=== PATIENT | female | born 1995 | race Caucasian/White ===

== ENCOUNTER 2017-12-30 18:35 | Emergency (ER) | payer SELFPAY ==
--- OUTSIDE RECORDS SUMMARY | 2017-12-30 18:38 | XMS REPORT | Continuity of Care Document ---
:1995 Author Organization Interface Problems Problem Status Onset Classification Date Comments Source Date Reported AUTO/PED Active 07/19/[address] PTX Active 07/19/[address] History of Resolved 06/24/19 Problem 07/26/2016 [facility] arthroscopic 13 Medical knee surgery Center OTHER Active [facility] PNEUMOTHORAX [facility] Medications Medication Details Route Status Patient Ordering Order Source Instructions Provider Date Phenergan 25 mg 25 mg=1 tab, PO, Active [facility] oral tablet Q6H, PRN Nausea, 2017 Medical X 4 day, # 15 Center tab, 0 Refill(s) Acetaminophen 300 2 tab, PO, Q6H, Active 07/23[facility] MG / Codeine PRN for pain, X 2017 Medical Phosphate 30 MG 7 day, # 56 tab, Center Oral Tablet 0 Refill(s) Docusate Sodium 100 mg=1 cap, Active [place] 100 MG Oral PO, Q12H, # 30 2017 Medical Capsule cap, 0 Refill(s) Center acetaminophen 500 1,000 mg=2 tab, Inactive 07/23[facility] [place] mg oral tablet PO, Q6H, # 90 2017 Medical tab, 0 Refill(s) Center gabapentin 300 MG 300 mg=1 cap, Active 07/23[facility] Oral Capsule PO, TID, # 90 2017 Medical cap, 1 Refill(s) Center tramadol 100 mg=2 tab, Active [place] hydrochloride 50 PO, Q6H, # 60 2017 Medical MG Oral Tablet tab, 0 Refill(s) Center camphor-menthol 1 appl, Route: No Longer [facility] topical TOP, BID, Drug Active 2016 Medical form: BALM, PRN Center Dry Lips, Start date: 07/22/16 23:01:00 [employer], Duration: 30 day, Stop date: 08/21/16 23:00:00 CSTNotes: Same as: Blistex Allantoin 0.01 1 appl, Route: Inactive 07/23/ [facility] [place] MG/MG / Camphor TOP, BID, PRN 2017 Medical 0.005 MG/MG / Dry Lips, Start Center phenol 0.005 date: 07/22/16 MG/MG Topical 22:58:00 [employer], Ointment Duration: 30 [Blistex] day, Stop date: 08/21/16 22:57:00 [employer] Abreva 1 appl, Route: Inactive [facility] TOP, Dosing 2017 Medical Weight 68.182, Center kg, 5X Day, Start date: 07/22/16 22:00:00 [employer], Duration: 30 day, Stop date: 08/21/16 18:00:00 [employer] Oxycodone 5 mg, 1 tab, No Longer [place] Hydrochloride 5 Route: PO, Drug Active 2017 Medical MG Oral Tablet form: TAB, Q4H, Center Dosing Weight 68.182, kg, PRN Pain Score 4-6, Start date: 07/22/16 14:43:00 [employer], Duration: 30 day, Stop date: 08/21/16 14:42:00 CSTNotes: (Same as: Roxicodone) Dilaudid 0.5 mg, 0.25 mL, Inactive [facility] Route: IVP, Drug 2016 Medical form: INJ, ONCE, Center Dosing Weight 68.182, kg, Priority: STAT, Start date: 07/22/16 11:52:00 [employer], Stop date: 07/22/16 11:52:00 CSTNotes: Same as Dilaudid Bisacodyl 10 mg, 1 supp, Inactive [facility] Route: VA, Drug 2016 Medical form: SUPP, Center ONCE, Dosing Weight 68.182, kg, Start date: 07/22/16 10:45:00 [employer], Stop date: 07/22/16 10:45:00 CSTNotes: (Same As: Dulcolax, Bisco-Lax) Hydrocodone 1 tab, Route: Inactive Cat Bitartrate 7.5 MG PO, Drug Form: 2017 Medical / Ibuprofen 200 TAB, Dosing Center MG Oral Tablet Weight 68.182, kg, Q4H, PRN Pain Score 4-6, Start date: 07/22/16 9:37:00 [employer], Duration: 30 day, Stop date: 08/21/16 9:36:00 CSTNotes: (Same as: Vicoprofen) Lovenox 30 mg, 0.3 mL, No Longer [place] Route: SUB-Q, Active 2016 Medical Drug form: INJ, Center [id number], Dosing Weight 68.182, kg, Start date: 07/21/16 23:00:00 [employer], Duration: 30 day, Stop date: 08/20/16 11:00:00 CSTNotes: (Same as: Lovenox) bacitracin zinc 1 appl, Route: No Longer Cat 0.5 UNT/MG TOP, BID, Drug Active 2016 Medical Topical Ointment form: OINT, Center Start date: 07/21/16 17:00:00 [employer], Duration: 30 day, Stop date: 08/20/16 9:00:00 [employer] Lovenox 30 mg, 0.3 mL, Inactive [place] Route: SUB-Q, 2016 Medical Drug form: INJ, Center [id number], Dosing Weight 68.182, kg, Start date: 07/21/16 14:00:00 [employer], Duration: 30 day, Stop date: 08/20/16 2:00:00 CSTNotes: (Same as: Lovenox) Acetaminophen 1,000 mg, 2 tab, No Longer [place] Route: PO, Drug Active 2016 Medical form: TAB, Q6H, Center Dosing Weight 68.182, kg, Start date: 07/21/16 12:00:00 [employer], Duration: 30 day, Stop date: 08/20/16 6:00:00 CSTNotes: Max acetaminophen 4000 mg/day (4 gm/day). (Same as: Tylenol Extra Strength) influenza virus 0.5 mL, Route: Inactive Cat vaccine, IM, Drug Form: 2017 Medical inactivated SUSP, Daily, Center Start date: 07/21/16 9:00:00 [employer], Duration: 1 doses or times, Stop date: 07/21/16 9:00:00 CSTNotes: (Same as: Fluzone Quadrivalent, Fluarix Quadrivalent) For 3 years of age and older (0.5 mL IM) Shake well before use Enoxaparin 30 mg, 0.3 mL, No Longer Cat Route: SUB-Q, Active 2016 Medical Drug form: INJ, Center [id number], Dosing Weight 68.182, kg, Start date: 07/20/16 23:00:00 [employer], Duration: 30 day, Stop date: 08/19/16 11:00:00 CSTNotes: (Same as: Lovenox) remove patch 1 patch, Route: No Longer [place] TOP, Bedtime, Active 2016 Medical Drug form: Center ERFILM, Start date: 07/20/16 21:00:00 [employer], Duration: 30 day, Stop date: 08/18/16 21:00:00 CSTNotes: Remove patch 12 hours after application each day. {21 (Ethinyl 1 tab, PO, Active [place] Estradiol 0.02 MG Daily, # 28 tab, 2017 Medical / Levonorgestrel 0 Refill(s) Center 0.1 MG Oral Tablet) / 7 (Inert Ingredients 1 MG Oral Tablet) } Pack [Sronyx Day] sennosides, ASSISTED 17.2 mg, 2 tab, No Longer [place] Route: PO, Drug Active 2016 Medical Form: TAB, Center Dosing Weight 68.182, kg, Daily, Start date: 07/20/16 13:00:00 [employer], Duration: 30 day, Stop date: 08/19/16 9:00:00 CSTNotes: (Same as: Senokot) Ketorolac 30 mg, 1 mL, No Longer [place] Route: IVP, Drug Active 2016 Medical form: INJ, Q6H, Center Dosing Weight 68.182, kg, Start date: 07/20/16 12:00:00 [employer], Duration: 1 day, Stop date: 07/21/16 6:00:00 CSTNotes: (Same as:Toradol) IV bolus must be given >15 seconds. Give IM administration slowly and deeply into the muscle. Not for use > 4 days MEDICATION WASTE Product Size: 30 mg Product Wasted: ___ mg Tylenol 1,000 mg, 100 No Longer Cat mL, Route: IV, Active 2016 Medical Drug form: INJ, Center Q6H, Dosing Weight 68.182, kg, Start date: 07/20/16 12:00:00 [employer], Duration: 1 day, Stop date: 07/21/16 6:00:00 CSTNotes: Infuse over 15 minutes Do not exceed 4gm/day of acetaminophen MEDICATION WASTE Product Size: 1000 mg Product Wasted: ___ mg Oxycodone 5 mg, 1 tab, No Longer [place] Hydrochloride 5 Route: PO, Drug Active 2016 Medical MG Oral Tablet form: TAB, Q4H, Center Dosing Weight 68.182, kg, PRN Pain Score 6-10, Start date: 07/20/16 10:12:00 [employer], Duration: 30 day, Stop date: 08/19/16 10:11:00 CSTNotes: (Same as: Roxicodone) POLYETHYLENE 17 gm, 1 pkt, No Longer Cat GLYCOL 3350 Route: PO, Drug Active 2016 Medical form: PWDR, Center Daily, Dosing Weight 68.182, kg, Start date: 07/20/16 9:00:00 [employer], Duration: 30 day, Stop date: 08/18/16 9:00:00 CSTNotes: Dissolve in 8 oz of water or juice. (Same as: Miralax) Docusate 100 mg, 1 cap, No Longer [place] Route: PO, Drug Active 2016 Medical form: CAP, Q12H, Center Dosing Weight 68.182, kg, Start date: 07/20/16 9:00:00 [employer], Duration: 30 day, Stop date: 08/18/16 21:00:00 CSTNotes: (Same as: Colace) (Do Not Crush) Lidocaine 1 patch, Route: No Longer [place] Hydrochloride TOP, Q24H, Drug Active 2016 Medical 0.05 MG/MG form: FILM, Center Transdermal Patch Start date: [Lidoderm] 07/20/16 9:00:00 [employer], Duration: 30 day, Stop date: 08/18/16 9:00:00 CSTNotes: Apply only once for up to 12 hours in a 24-hour period (12 hours on and 12 hours off). (Same as: Lidoderm) "Remove old patch before application of new patch" pregabalin 100 mg, 1 cap, No Longer Cat Route: PO, Drug Active 2016 Medical form: CAP, Q8H, Center Dosing Weight 68.182, kg, Priority: NOW, Start date: 07/20/16 7:32:00 [employer], Duration: 48 hr, Stop date: 07/22/16 0:00:00 CSTNotes: (Same as: Lyrica) Tramadol 100 mg, 2 tab, No Longer [place] Route: PO, Drug Active 2016 Medical form: TAB, Q6H, Center Dosing Weight 68.182, kg, Priority: NOW, Start date: 07/20/16 7:32:00 [employer], Duration: 30 day, Stop date: 08/19/16 6:00:00 CSTNotes: Not to exceed 400mg/day. (Same As: Ultram) celecoxib 200 mg, 1 cap, No Longer [place] Route: PO, Drug Active 2016 Medical form: CAP, Q12H, Center Dosing Weight 68.182, kg, Priority: NOW, Start date: 07/20/16 7:32:00 [employer], Duration: 48 hr, Stop date: 07/21/16 21:00:00 CSTNotes: NSAID. Please check indication. Not for seizure. (Same As: CeleBREX) Methocarbamol 1,000 mg, 2 tab, No Longer [place] Route: PO, Drug Active 2016 Medical form: TAB, Q8H, Center Dosing Weight 68.182, kg, PRN Muscle Spasms, Start date: 07/20/16 7:32:00 [employer], Duration: 30 day, Stop date: 08/19/16 7:31:00 CSTNotes: (Same as:Robaxin) Ondansetron 4 mg, 2 mL, Inactive [place] Route: IVP, Drug 2016 Medical form: INJ, Q24H, Center Dosing Weight 68.182, kg, PRN Nausea & Vomiting, Start date: 07/20/16 7:30:00 [employer], Duration: 30 day, Stop date: 08/19/16 7:29:00 CSTNotes: (Same as: Zofran) MEDICATION WASTE Product Size: 4 mg Product Wasted: ___ mg Diphenhydramine 25 mg, 1 cap, No Longer [place] Route: PO, Drug Active 2016 Medical form: CAP, Q6H, Center Dosing Weight 68.182, kg, PRN Itching, Start date: 07/20/16 7:30:00 [employer], Duration: 30 day, Stop date: 08/19/16 7:29:00 CSTNotes: (Same as: Benadryl) Bisacodyl 10 mg, 2 tab, No Longer [place] Route: PO, Drug Active 2016 Medical form: ECTAB, Center Q24H, Dosing Weight 68.182, kg, PRN Constipation, Start date: 07/20/16 7:30:00 [employer], Duration: 30 day, Stop date: 08/19/16 7:29:00 CSTNotes: (Same As: Dulcolax, Correctol) (Do Not Crush) "Do Not Crush" Docusate 100 mg, 1 cap, No Longer [place] Route: PO, Drug Active 2016 Medical form: CAP, BID, Center Dosing Weight 68.182, kg, PRN Constipation, Start date: 07/20/16 7:30:00 [employer], Duration: 30 day, Stop date: 08/19/16 7:29:00 CSTNotes: (Same as: Colace) (Do Not Crush) Fentanyl 50 microgram, Inactive [place] Route: IVP, 2016 Medical ONCE, Dosing Center Weight 68.182, kg, Priority: STAT, Start date: 07/20/16 4:34:00 [employer], Stop date: 07/20/16 4:34:00 [employer] Dilaudid 1 mg, Route: IV, Inactive [place] ONCE, Dosing 2016 Medical Weight 68.182, Center kg, Start date: 07/20/16 2:34:00 [employer], Stop date: 07/20/16 2:34:00 [employer] Morphine 4 mg, 1 mL, Inactive [facility] Route: IVP, Drug 2016 Medical form: SOLN, Center ONCE, Dosing Weight 68.182, kg, Priority: STAT, Start date: 07/20/16 2:17:00 [employer], Stop date: 07/20/16 2:17:00 CSTNotes: (Same as:MORPhine Sulfate) Fentanyl 50 microgram, 1 Inactive [place] mL, Route: IVP, 2017 Medical Drug form: INJ, Center ONCE, Dosing Weight 68.182, kg, Priority: STAT, Start date: 07/20/16 1:08:00 [employer], Stop date: 07/20/16 1:08:00 CSTNotes: (Same as: Sublimaze) Preservative free. Morphine 4 mg, Route: Inactive [facility] IVP, ONCE, 2017 Medical Dosing Weight Center 68.182, kg, Priority: STAT, Start date: 07/20/16 0:22:00 [employer], Stop date: 07/20/16 0:22:00 [employer] Ondansetron 4 mg, Route: Inactive [facility] IVP, ONCE, 2017 Medical Dosing Weight Center 68.182, kg, Priority: STAT, Start date: 07/19/16 22:55:00 [employer], Stop date: 07/19/16 22:55:00 [employer] Fentanyl 50 microgram, Inactive [facility] Route: IVP, 2017 Medical ONCE, Dosing Center Weight 68.182, kg, Priority: STAT, Start date: 07/19/16 22:55:00 [employer], Stop date: 07/19/16 22:55:00 [employer] Saline Flush 0.9% 10 mL, Route: No Longer [facility] IVP, Drug Form: Active 2017 Medical INJ, Dosing Center Weight 68.182, kg, PRN, PRN Line Flush, Start date: 07/19/16 22:55:00 [employer], Duration: 30 day, Stop date: 08/18/16 22:54:00 CSTNotes: Same as: BD Posiflush Sterile Sodium Chloride 1,000 mL, 2,000 Inactive [facility] 0.154 MEQ/ML ml/hr, Route: 2017 Medical Injectable IV, ONCE, Center Solution Priority: STAT, Dosing Weight 68.182 kg, Start date: 07/19/16 22:55:00 [employer], Duration: 1 doses or times, Stop date: 07/19/16 22:55:00 [employer] Allergies, Adverse Reactions, Alerts Substance Category Reaction Severity Reaction Status Date Comments Source type Reported sulfa drugs Assertion Drug Active [facility] allergy Medical [place] Immunizations Immunization Date Given Site Status Last Comments Source Updated influenza virus 07/21/2016 Left completed [facility] vaccine, deltoid Medical inactivated Center Results Order Name Results Value Reference Date Interpretation Comments Source Range Chest 1view Chest 1view EXAM: XR CHEST 1 VIEW 07/23 [facility]2016 [facility] DATE: 07/23/2016 3:00 AM [employer] Read by: Rita Yepez MD Dictated Date/time: 07/23/16 08:59 Electronically Signed by: Rita Yepez MD 07/23/16 09:59 FINAL REPORT INDICATION: Tube placement/removal/reposition. FINDINGS: Comparison is made to yesterday evening. The cardiomediastinal silhouette is stable. There are patchy opacities in the left mid to lower lung which could be due to residual hemorrhage and atelectatic changes from the recent trauma. There is a superimposed laceration. Please refer to the chest CT from July 19. There is a tiny persistent left apical pneumothorax. It is also seen minimally laterally. No pleural effusions are identified. There are displaced fractures of the left 7th and 8th ribs. IMPRESSION: No significant change from yesterday evening. Chest 1view Chest 1view EXAM: XR CHEST 1 VIEW 07/[address] [facility] This report was dictated by a City Magistrate/Fellow. I have personally reviewed the images as Center well as the Resident's interpretation and agree with the findings. DATE: 07/22/2016 5:00 PM [employer] Read by: Israel Knapp MD Resident: Israel Knapp MD Dictated Date/time: 07/23/16 08:37 Electronically Signed by: Mina Chaidez MD 07/23/16 09:31 FINAL REPORT INDICATION: Tube placement/removal/reposition COMPARISON: Chest radiograph same day TECHNIQUE: AP chest FINDINGS: Lines, tubes and hardware: Interval removal of left thoracostomy tube. Lungs and pleura: Trace right apical pneumothorax. Interval improvement of patchy opacities in left mid to lower lung. Costophrenic sulci are sharp. Heart and mediastinum: The heart size is stable. The mediastinal contours are normal. Bones/soft tissues: Slight interval improvement in subcutaneous emphysema. Stable nondisplaced fractures of left 7th and 8th rib posteriorly. IMPRESSION: 1. Interval removal of left thoracostomy tube with trace right apical pneumothorax. 2. Interval improvement of patchy opacity left mid lower lung may represent hemorrhage or contusion. 3. Stable rib fractures. Chest 1view Chest 1view EXAM: XR CHEST 1 VIEW 07/22 [facility] DATE: 07/22/2016 11:52 AM [employer] Read by: Rita Yepez MD Dictated Date/time: 07/22/16 13:25 Electronically Signed by: Rita Yepez MD 07/22/16 13:26 FINAL REPORT INDICATION: Pleuritic pain. FINDINGS: Comparison is made to July 22 at 8:00 AM. The cardiomediastinal silhouette is stable. There is a tiny left pneumothorax with a left apical chest tube in place. There are patchy opacities in the left mid to lower lung which could be due to hemor rhage and atelectasis from the recent trauma. There is a superimposed laceration. Please refer the chest CT from July 19. There are displaced fractures of the left 7th and 8th ribs posteriorly. IMPRESSION: No significant change. HEMATOLOGY Lymphocytes 32.7 % 20.0 - 07/22 [place] 40.0 [facility] HEMATOLOGY Segs 56.4 % 45.0 - 07/22 [facility] 75.0 [facility] HEMATOLOGY Monocytes 8.5 % 2.0 - 12.0 07/22 2016 [facility] HEMATOLOGY Eosinophils 2.2 % 0.0 - 4.0 07/22 2016 [facility] HEMATOLOGY Basophils 0.2 % 0.0 - 1.0 07/[address] HEMATOLOGY Monocytes # 0.6 K/CMM 0.0 - 0.8 07/[address] HEMATOLOGY Segs-Bands # 3.9 K/CMM 1.5 - 8.1 07/22 2016 [facility] HEMATOLOGY Lymphocytes # 2.3 K/CMM 1.0 - 5.5 07/22 2016 [facility] HEMATOLOGY Eosinophils # 0.2 K/CMM 0.0 - 0.5 07/[address] HEMATOLOGY WBC 6.9 K/CMM 3.7 - 10.4 07/22 2016 [facility] HEMATOLOGY RBC 3.79 M/CMM 4.20 - 07/22 [place] 5.40 [facility] HEMATOLOGY Hct 34.9 % 36.0 - 07/22 [place] 48.0 [facility] HEMATOLOGY Hgb 11.8 g/dL 12.0 - 07/22 [place] 16.0 [facility] HEMATOLOGY MCV 92.1 fL 80.0 - 07/22 [place] 98.0 /2017 [facility] HEMATOLOGY MCHC 33.8 g/dL 32.0 - 07/22 36.0 2017 [facility] HEMATOLOGY Platelet 207 K/CMM 133 - 450 07/22 [facility] HEMATOLOGY MCH 31.2 pg 27.0 - 07/22 31.0 [facility] HEMATOLOGY RDW 13.9 % 11.5 - 07/22 14.5 [facility] HEMATOLOGY MPV 9.5 fL 7.4 - 10.4 07/22 [facility] Chest 1view Chest 1view EXAM: XR CHEST 1 VIEW 07/22 - [facility] DX - [facility] DATE: 07/22/2016 3:00 AM [employer] Read by: Rita Yepez MD Dictated Date/time: 07/22/16 10:55 Electronically Signed by: Rita Yepez MD 07/22/16 12:39 FINAL REPORT INDICATION: Trauma. FINDINGS: Comparison is made to July 21 at 1701 hours. The cardiomediastinal silhouette is stable. There is subcutaneous emphysema in the left neck. There is a tiny residual left pneumothorax with a left-sided chest tube in place. Patchy opacities in the left mid to lower lung could be due to hemorrhage and atelectasis from the recent trauma. There is a superimposed laceration. Please refer to the chest CT from July 19. There are displaced fractures of the left 7th and 8th ribs posteriorly. IMPRESSION: No significant change. HEMATOLOGY Hct 33.0 % 36.0 - 07/22 [place] 48.0 /2017 [facility] HEMATOLOGY Hgb 11.1 g/dL 12.0 - 07/22 [place] 16.0 2017 [facility] HEMATOLOGY Hgb 11.8 g/dL 12.0 - 07/21 [place] 16.0 2017 [facility] HEMATOLOGY Hct 35.4 % 36.0 - 07/21 [place] 48.0 [facility] Chest 1view Chest 1view EXAM: XR CHEST 1 VIEW 07/21 - [facility] DX - [facility] DATE: 07/21/2016 5:00 PM [employer] Read by: Rita Yepez MD Dictated Date/time: 07/22/16 10:54 Electronically Signed by: Rita Yepez MD 07/22/16 12:39 FINAL REPORT INDICATION: Tube placement/removal/reposition. FINDINGS: Comparison is made to July 21 at 3:32 AM. The cardiomediastinal silhouette is stable. There is subcutaneous emphysema in the left chest wall and neck. There is a persistent tiny left pneumothorax with a left-sided pleural drain in place. There are patchy heterogeneous opacities in the left mid to lower lung which is likely from hemorrhage and lacerations related to the recent trauma. There may be superimposed atelectasis and/or pneumonia. IMPRESSION: No significant change. CHEM PANEL Magnesium Lvl 2.2 mg/dL 1.8 - 2.4 07/[address] CHEM PANEL Phosphorus 3.7 mg/dL 2.5 - 4.5 07/[address] ELECTROLYTE CO2 26 meq/L 24 - 32 07/[address] ELECTROLYTE BUN 13 mg/dL 7 - 22 07/[address] ELECTROLYTE Glucose Lvl 86 mg/dL 70 - 99 07/[address] ELECTROLYTE Potassium Lvl 4.3 meq/L 3.5 - 5.1 07/[address] ELECTROLYTE Chloride Lvl 109 meq/L 95 - 109 07/[address] ELECTROLYTE Creatinine 0.75 mg/dL 0.50 - 07/21 [facility] Lvl 1.40 [facility] ELECTROLYTE Sodium Lvl 141 meq/L 135 - 145 07/[address] ELECTROLYTE Calcium Lvl 8.3 mg/dL 8.5 - 10.5 07/[address] ELECTROLYTE eGFR 114 07/21 Result Comment: The eGFR is calculated using the CKD-EPI formula. In most young, healthy individuals the eGFR will be > 90 mL/min/1.73m2. The eGFR declines with age. An eGFR of 60-89 may be normal in [facility] mL/min/1.7 /2016 some populations, particularly the elderly, for whom the CKD-EPI formula has not been extensively validated. Use of the eGFR is not recommended in the following populations: [address] Individuals with unstable creatinine concentrations, including patients and those with serious co-morbid conditions. Patients with extremes in muscle mass or diet. The data above are obtained from the National Kidney Disease Education Program (NKDEP) which additionally recommends that when the eGFR is used in patients with extremes of body mass index for purposes of drug dosing, the eGFR should be multiplied by the estimated BMI. ELECTROLYTE AGAP 10.3 meq/L 10.0 - 07/21 [facility] S 20.0 [facility] Chest 1view Chest 1view EXAM: XR CHEST 1 VIEW 07/21 - [facility] DX - [facility] DATE: 07/21/2016 3:00 AM [employer] Read by: Rita Yepez MD Dictated Date/time: 07/21/16 11:12 Electronically Signed by: Rita Yepez MD 07/21/16 11:55 FINAL REPORT INDICATION: Trauma. FINDINGS: Comparison is made to yesterday. The cardiomediastinal silhouette is stable. There is subcutaneous emphysema in the left chest wall. There is a persistent small left pneumothorax with a left-sided pleural drain in place. There are patchy alveolar opacities in the left lower lobe which could be due to any combination of hemorrhage from the recent trauma, aspiration, atelectasis or pneumonia. The left upper lobe and right lung are clear. IMPRESSION: No significant change from yesterday. CHEM PANEL Lactic Acid 1.1 mMol/L 0.5 - 2.2 07/20 [facility] Lvl [facility] DRUG SCREEN U Amph Scr Negative Negative 07/20 [facility] *NA* [place] (07/19/16 11:45 PM) DRUG SCREEN U Cocaine Scr Negative Negative 07/20 [facility] *NA* [place] (07/19/16 11:45 PM) DRUG SCREEN U Sushma Scr Negative Negative 07/20 [facility] *NA* [place] (07/19/16 11:45 PM) DRUG SCREEN U Benzodia Negative Negative 07/20 [facility] *NA* [place] (07/19/16 11:45 PM) DRUG [facility]CREEN [facility] [place] [facility]07[facility]/16 11:45 PM[facility]CREEN [facility]ab [facility] Negative Negative 07[facility] [place] (07/19/16 11:45 PM) DRUG SCREEN U Phencyc Scr Negative Negative 07/20 [facility] *NA* [place] (07/19/16 11:45 PM) DRUG SCREEN UDS Note See Note 07/20 [facility] (07/19/16 11:45 PM) Center Chest 1view Chest 1view EXAM: XR CHEST 1 VIEW 07/20 - [facility] DX - Medical This report was dictated by a City Magistrate/Fellow. I have personally reviewed the images as Center well as the Resident's interpretation and agree with the findings. DATE: 07/20/2016 5:16 AM [employer] Read by: Wil Whitman MD Resident: Wil Whitman MD Dictated Date/time: 07/20/16 06:38 Electronically Signed by: Cheryl Beyer MD 07/20/16 07:22 FINAL REPORT INDICATION: Line Placement COMPARISON: CT examination of the chest, abdomen and pelvis dated 2016 at 2333 hours. TECHNIQUE: AP chest FINDINGS: Lines and tubes: Left chest tube has been slightly retracted from prior position. The tube may be coursing in the left fissure. The tip turns downward at the medial aspect of left lower lobe. Lungs and pleura: Left pneumothorax is still present.. There is patchy opacity within the left lower lobe, which may represent pulmonary contusion or lung atelectasis. Heart and mediastinum: The heart size is normal for technique. The heart shadow remains shifted left compared to initial radiograph of 07/19/2016 at 1923 hours. Bones: No acute bony abnormality is identified. Soft tissues: There is subcutaneous air tracking along the left lateral chest wall. IMPRESSION: 1. Interval repositioning of a chest tube with tip turning downward at medial aspect of left lower lobe associated with residual left pneumothorax. 2. Patchy opacity throughout the left lower lobe represents atelectasis with or without superimposed pulmonary contusion. URINE AND UA Nitrite Negative Negative 07/20 [facility] (07/19/16 11:22 PM) [place] URINE AND UA Leuk Est Negative Negative 07/20 [facility] (07/19/16 11:22 PM) [place] URINE AND UA Spec Grav 1.020 <=1.030 07/20 [facility] URINE AND UA pH 6.0 5.0 - 8.0 07/20 [facility] URINE AND UA Protein Negative Negative 07/20 [facility] (07/19/16 11:22 PM) [place] URINE AND UA Turbidity Slight Cloudy Clear 07/20 [facility] (07/19/16 11:22 PM) [place] URINE AND UA Color Yellow Yellow 07/20 [facility] *NA* [place] (07/19/16 11:22 PM) URINE AND UA 0.2 EU/dL 0.1 - 1.0 07/20 [facility] Urobilinogen /2016 [facility] URINE AND UA Glucose Negative Negative 07/20 [facility] (07/19/16 11:22 PM) [place] URINE AND UA Blood Small Negative 07/20 [facility] *ABN* [place] (07/19/16 11:22 PM) URINE AND UA Ketones Negative Negative 07/20 [facility] *NA* [place] (07/19/16 11:22 PM) URINE AND UA Bili Negative Negative 07/20 [facility] [place] (07/19/16 11:22 PM) URINE AND UA RBC 0-2 /HPF 0 - 2 07/20 [facility] URINE AND UA WBC 0-2 /HPF None Seen 07/20 [facility] /HPF [facility] URINE AND UA Sq Epi Rare /LPF Few /LPF 07/20 [facility] URINE AND UA Bacteria Few /HPF None Seen 07/20 [facility] /HPF [address] [place] [address] CHEM PANEL Lactic Acid 1.5 mMol/L 0.5 - 2.2 07/20 [facility] Lvl [facility] ELECTROLYTE AGAP 17.3 meq/L 10.0 - 07/20 [facility] S 20.0 [facility] ELECTROLYTE eGFR 120 07/20 Result Comment: The eGFR is calculated using the CKD-EPI formula. In most young, healthy individuals the eGFR will be > 90 mL/min/1.73m2. The eGFR declines with age. An eGFR of 60-89 may be normal in [facility] mL/min/1.7 some populations, particularly the elderly, for whom the CKD-EPI formula has not been extensively validated. Use of the eGFR is not recommended in the following populations: [place] [address] [facility] Individuals with unstable creatinine concentrations, including patients and those with serious co-morbid conditions. Patients with extremes in muscle mass or diet. The data above are obtained from the National Kidney Disease Education Program (NKDEP) which additionally recommends that when the eGFR is used in patients with extremes of body mass index for purposes of drug dosing, the eGFR should be multiplied by the estimated BMI. ELECTROLYTE Potassium Lvl 4.3 meq/L 3.5 - 5.1 07/20 [facility] ELECTROLYTE Sodium Lvl 138 meq/L 135 - 145 07/20 [facility]2016 [facility] ELECTROLYTE CO2 21 meq/L 24 - 32 07/20 [facility] ELECTROLYTE Chloride Lvl 104 meq/L 95 - 109 07/20 [facility] ELECTROLYTE Calcium Lvl 8.8 mg/dL 8.5 - 10.5 07/20 [facility]2016 [facility] ELECTROLYTE BUN 11 mg/dL 7 - 22 07/20 [facility]2016 [facility] ELECTROLYTE Glucose Lvl 127 mg/dL 70 - 99 07/20 [facility]2016 [facility] ELECTROLYTE Creatinine 0.72 mg/dL 0.50 - 07/20 [facility] Lvl 1.40 [facility] ENDOCRINOLO S Preg Negative Negative 07/20 [facility] (07/19/16 11:01 PM) [place] HEMATOLOGY Monocytes # 1.6 K/CMM 0.0 - 0.8 07/20 [facility] HEMATOLOGY Basophils 0.1 % 0.0 - 1.0 07/20 [facility] HEMATOLOGY Segs-Bands # 15.0 K/CMM 1.5 - 8.1 07/20 [facility] HEMATOLOGY Eosinophils 0.1 % 0.0 - 4.0 07/20 [facility] HEMATOLOGY Lymphocytes # 1.1 K/CMM 1.0 - 5.5 07/20 [facility] HEMATOLOGY Monocytes 8.9 % 2.0 - 12.0 07/[address] HEMATOLOGY Lymphocytes 6.2 % 20.0 - 07/20 [facility] 40.0 [facility] HEMATOLOGY Segs 84.7 % 45.0 - 07/20 [facility] 75.0 [facility] HEMATOLOGY Estimated % 3.3 % 0.0 - 7.5 07/20 Result [facility] Comment: [facility] Result(s) called to [facility] at 07/20/2016 00:02 by JT. Read back OK. HEMATOLOGY [place] 0.6 min 07/20 [facility] HEMATOLOGY R-time Rapid 0.7 min 0.4 - 0.7 07/20 [facility] HEMATOLOGY K-time Rapid 1.0 min 0.6 - 2.3 07/[address] HEMATOLOGY Angle Rapid 78 degrees 64 - 80 07/[address] HEMATOLOGY Max Amplitude 66 mm 52 - 71 07/20 [facility]2016 [facility] HEMATOLOGY G-value Rapid 9.9 K d/sc 5.0 - 11.6 07/20 2016 [facility] HEMATOLOGY ACT (TEG) 113 s 86 - 118 07/20 [facility] HEMATOLOGY WBC 17.7 K/CMM 3.7 - 10.4 07/20 2016 [facility] HEMATOLOGY RBC 4.32 M/CMM 4.20 - 07/20 [facility] 5.40 [facility] HEMATOLOGY MCV 91.5 fL 80.0 - 07/20 [facility] 98.0 [facility] HEMATOLOGY MCH 30.7 pg 27.0 - 07/20 [facility] 31.0 [facility] HEMATOLOGY MCHC 33.6 g/dL 32.0 - 07/20 [facility] 36.0 [facility] HEMATOLOGY MPV 9.4 fL 7.4 - 10.4 07/20 2016 [facility] HEMATOLOGY RDW 14.2 % 11.5 - 07/20 [facility] 14.5 [facility] HEMATOLOGY Platelet 234 K/CMM 133 - 450 07/20 [facility]2016 [facility] Spine-Outsi Spine-Outside EXAM: CT CERVICAL SPINE WITHOUT CONTRAST, outside film interpretation 07/19 [facility] de Consult Consult CT /2016 - [facility] DATE: 07/19/2016 11:25 PM [employer] Read by: Cheryl Beyer MD Dictated Date/time: 07/20/16 00:50 Electronically Signed by: Cheryl Beyer MD 07/20/16 01:02 FINAL REPORT INDICATION: Outside film interpretation following trauma transfer for higher level of care. CT cervical spine without contrast performed at [facility] on 07/19/2016 at 1942 hours COMPARISON: None TECHNIQUE: Volumetric acquisition of the cervical spine without contrast. Axial, sagittal and coronal reconstructions. IV contrast: None. DLP: 164.9 mGy.cm DISCUSSION: The spine is imaged from the skull base to the level of T2. The cervical elements appear intact demonstrating normal alignment. Subcutaneous emphysema is identified at the posterior lateral aspect of the left neck. A left pneumothorax is present. Additional foci of air are present near the right clavicle. These may be venous. IMPRESSION: 1. There is no acute abnormality of cervical spine identified. 2. Subcutaneous emphysema within deep fascia of the posterior lateral aspect of the left neck. 3. Left pneumothorax. Torso-Outsi Torso-Outside EXAM: CT CHEST WITH CONTRAST, SECOND OPINION - [facility] Consult Consult CT /2017 - Medical CT EXAM: CT ABDOMEN AND PELVIS WITH CONTRAST, SECOND OPINION This report was dictated by a City Magistrate/Fellow. I have personally reviewed the images as Center well as the Resident's interpretation and agree with the findings. Read by: Vimal Hi MD Resident: Vimal Hi MD Dictated Date/time: 07/20/16 07:13 DATE: 07/19/2016 at 2333 hours Electronically Signed by: Navjot Gates MD 07/20/16 08:47 FINAL REPORT INDICATION: Trauma. COMPARISON: Chest x-rays from the same day. TECHNIQUE: Images from an outside CT chest/abdomen/pelvis were submitted for interpretation. FINDINGS: Lines and Tubes: None. Lower Neck: Visible portions unremarkable. Thoracic Aorta and Mediastinum: No mediastinal hematoma or thoracic aortic injury. Lungs and Pleura: A large pneumothorax occupies over 50% of the left thoracic cavity. There is partial collapse of the left lung, with groundglass opacities throughout the lung parenchyma and a dense op acity at the left lung base. A 1.4 cm laceration seen in the posterior left lung. A small left pleural effusion is present. There is mild thickening of the posterior left pleura. The right lung is clear. Hepatobiliary: Normal. Gallbladder: No injury. Spleen: A 1.9 x 1.8 x 1.9 cm hypodensity in the superior medial portion of the spleen is present, with other smaller hypodense foci within the splenic parenchyma posteriorly. Pancreas: Normal. Adrenals: Normal. Kidneys: No injury. A 1.2 cm cyst is present in the left kidney. Ureters and Bladder: No injury. Reproductive Organs: No injury. Gastrointestinal Tract: No injury. Peritoneum and Retroperitoneum: Trace free fluid is present in the pelvis. Abdominal/Pelvic Vasculature: No vascular injury. Lymphadenopathy: None. Spine/Bones: No acute abnormality of the spine. Acute fractures of the left posterior seventh and eighth ribs are present, with mild medial displacement of the anterior portion of the seventh rib. Soft Tissues: Subcutaneous emphysema is present along the left posterior and lateral chest wall, with dissection into the posterior musculature. This extends cranially to the level of the neck and caudally to approximately the level of L3. IMPRESSION: 1. Large left pneumothorax, occupying over 50% of the left thoracic cavity. 2. Near-complete collapse of the left lung, with areas of groundglass and solid densities which likely represents a combination of contusion, hematoma, and atelectasis. 3. 1.4 cm laceration in the posterior left lung. 4. Mildly displaced acute fractures of the left posterior seventh and eighth ribs. 5. Thickening along the posterior left pleura may represent pleural hemorrhage. 6. 1.9 cm hypodensity in the superior medial portion of the spleen likely represents a subcapsular hematoma or an infarct. 7. Subcentimeter subcapsular hematoma in the posterior lateral spleen, and multiple other smaller subcentimeter hypodensities, which may represent contusion or hematoma. 8. Subcutaneous emphysema in the posterior and lateral chest wall with dissection into the posterior musculature, extending superiorly to the lower neck and inferiorly to the level of L3. RECOMMENDATIONS: None. Brain-Outsi Brain-Outside EXAM: CT BRAIN WITHOUT CONTRAST 07/19 [facility] Consult Consult CT /2016 - [facility] DATE: 07/19/2016 11:33 PM [employer] Read by: Blanca Urbina Dictated Date/time: 07/20/16 10:26 Electronically Signed by: Blanca Urbina 07/20/16 10:29 FINAL REPORT INDICATION: Second opinion consultation COMPARISON: None available TECHNIQUE: A brain CT obtained at [facility] was submitted for 2nd opinion consultation following patient transfer. FINDINGS: Non-contrast images of the head demonstrate no edema, hemorrhage, mass lesion or other acute intracranial abnormality. The brain has normal attenuation and greer-white matter distinction. The ventricles are normal. The basal cisterns and sulci are normal in size. There is no chronic abnormality. The paranasal sinuses, orbits and mastoids are unremarkable. IMPRESSION: Normal CT of the brain without contrast. I agree with the outside report. Chest 1view Chest 1view EXAM: XR CHEST 1 VIEW 07/19 - [facility] DX DX /2016 - [facility] DATE: 07/19/2016 at 2305 hours Read by: Cheryl Beyer MD Dictated Date/time: 07/19/16 23:40 Electronically Signed by: Cheryl Beyer MD 07/20/16 00:31 FINAL REPORT INDICATION: Pain Post Trauma COMPARISON: Single view chest 07/19/2016 at 1923 hours from [facility] TECHNIQUE: AP chest FINDINGS: Lines and tubes: There is interval placement of percutaneous chest drainage tube. The tube enters at left 4th rib interspace and proceeds medially. The tip turns downward above the level of the hilum an d proceeds caudally with the tip projecting over the left lower lobe. Lungs and pleura: A pneumothorax persists. Focal radiolucency projects over the dome of the left diaphragm and a displaced pleural line is seen medial to the lateral margins of left 6th through 8th ribs . Focal opacity is seen in the posterior segment of the left upper lobe obscuring arch of aorta. Additional focal opacity is seen within the lingula and in the left lower lobe accompanied by asymmetric elevation of the left diaphragm indicating volume loss. A vague opacity is seen in the periphery of the left midlung most consistent with contusion. Small left hemothorax blunts left costophrenic recess. Heart and mediastinum: The heart size is normal for technique. The heart and mediastinal structures are shifted to the left 8th, a secondary sign of volume loss in the left lung. The mediastinal contours are normal. Bones: A comminuted fracture is suspected at the lateral margin of the left 5th rib. Subcutaneous emphysema in left chest wall may obscure detection of subtle left rib fractures. These findings were discussed with Dr. Flores, Emergency Room resident at 2340hours. IMPRESSION: 1. Interval insertion of left chest tube with the tube proceeding medially above the hilum then moving caudally towards left lower lobe. 2. Persistent left pneumothorax. 3. Left midlung contusion. 4. Left lower lobe opacity due singly or in combination to hemothorax, atelectasis or superimposed contusion. Vital Signs Vital Sign Value Date Comments Source Temperature Oral (F) 98.1 F 07/23/2016 [facility] Respitory Rate 18 07/23/2016 [facility] Systolic (mm Hg) 117 07/23/2016 [facility] Diastolic (mm Hg) 87 07/23/2016 [facility] Heart Rate 87 07/23/2016 [facility] Temperature Oral (F) 97.7 F 07/23/2016 [facility] Systolic (mm Hg) 104 07/23/2016 [facility] Diastolic (mm Hg) 66 07/23/2016 [facility] Respitory Rate 18 07/23/2016 [facility] Heart Rate 74 07/23/2016 [facility] Systolic (mm Hg) 116 07/23/2016 [facility] Diastolic (mm Hg) 76 07/23/2016 [facility] Temperature Oral (F) 98.0 F 07/23/2016 [facility] Respitory Rate 18 07/23/2016 [facility] Heart Rate 72 07/23/2016 [facility] Weight 68.182 07/20/2016 [facility] BMI Calculated 25.8 07/20/2016 [facility] Height 162.56 cm 07/20/2016 [facility] BMI Calculated 25.8 07/20/2016 [facility] Height 162.56 cm 07/20/2016 [facility] Weight 68.182 07/20/2016 [facility] Encounters Location Location Encounter Encounter Reason Attending ADM DC Status Source Details Type Number For Provider Date Date Visit [facility] [id number] Pin Baltazar 07/20 07/23 [facility] [place] /2016 [facility] Procedures Procedure Code Date Perfomer Comments Source Arthroscopy of [id number] 2009 and 2012 [facility] knee<sup>1</sup> [facility]
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
[2017-12-30] MEDS ORDERED: NA CHLORIDE 0.9% 1,000 ML ONE (19:54)
[2017-12-30 20:24] LABS: Absolute Lymphocytes (CBC) 2.2 K/uL (0.7-4.9); Absolute Monocytes 0.7 K/uL (0.1-1.3); Absolute Neutrophil 7.7 K/uL (1.8-8.0); Basophils % 0.6 % (0-1.3); Eosinophils % 0.6 % (0-4.4); Hematocrit 40.8 % (36.0-45.0); Lymphocytes % 20.3 % (15.3-44.8); MCV 94.4 fL (80-100); MPV 8.8 fL (7.6-11.3); Monocytes % 6.8 % (3.3-12.3); RBC Red Blood Cell Count 4.32 M/uL (3.86-4.86)
--- NOTE | 2017-12-30 20:27 | RAD REPORT ---
EXAM DESCRIPTION: RAD - Chest Single View - 12/30/2017 8:08 pm CLINICAL HISTORY: COUGH Chest pain. COMPARISON: Chest Pa And Lat (2 Views) dated 07/26/2016; Chest Single View dated 07/19/2016; Chest Sing le View dated 07/19/2016; CHEST PA AND LAT 2 VIEW dated 06/09/2015Chest Pa And Lat (2 Views) dated 07/26; Chest Single View dated 07/19/2016; Chest Single View dated 07/19/2016; CHEST PA AND LAT 2 VIEW dated 06/09/2015; Head C Spine Cap W Con dated 07/19/2016 FINDINGS: Portable technique limits examination quality. The lungs are grossly clear. The heart is normal in size. No displaced fractures.Old left posterior r ib fracture seen. IMPRESSION: No acute intrathoracic process suspected.
[2017-12-30 20:30] LABS: Protime INR 1.03
[2017-12-30 20:33] LABS: Urine Blood TRACE (NEG); Urine Glucose NEGATIVE (NEG); Urine Protein TRACE (NEG); Urine Specific Gravity >1.030 (1.005-1.030)
[2017-12-30 20:44] LABS: ALT/SGPT 41 U/L (12-78); AST/SGOT 30 U/L (15-37); Albumin 4.3 g/dL (3.4-5.0); Alkaline Phosphatase 88 U/L (45-117); BUN Blood Urea Nitrogen 12 mg/dL (7-18); Bicarbonate 27 mmol/L (21-32); Bilirubin Direct < 0.1 mg/dL (0-0.2); Bilirubin Total 0.3 mg/dL (0.2-1.0); CKMB Creatine Kinase MB 1.3 ng/mL (0.3-3.6); Creatine Phosphokinase 93 U/L (26-192); Glucose Level 70 mg/dL (74-106); Magnesium 2.5 mg/dL (1.8-2.4); NT PRO-BNP 147 pg/mL (<125); Potassium 3.6 mmol/L (3.5-5.1); Protein, Total 8.8 g/dL (6.4-8.2); Sodium Level 142 mmol/L (136-145)
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
--- NOTE | 2017-12-30 21:20 | ER ---
Nurse's Notes [facility] Name: Daisha Spivey Age: 22 yrs Sex: Female : 1995 Arrival Date: 12/30/2017 Time: 18:38 Bed 28 Private MD: Elidia Bueno Diagnosis: Heat exhaustion, unspecified;Edema, unspecified;Hypoglycemia, unspecified;Essential (primary) hypertension Presentation: 12/30 18:41 Presenting complaint: Patient states: "my ankles has been swollen at work and every aa5 time I get off work and I've also been feeling really sleepy over the last 2 weeks". Pt states "over the last two days my blood pressure has been 181/102 at night". Transition of care: patient was not received from another setting of care. Onset of symptoms was 2017. Risk Assessment: Do you want to hurt yourself or someone else? Patient reports no desire to harm self or others. Initial Sepsis Screen: Does the patient meet any 2 criteria? No. Patient's initial sepsis screen is negative. Does the patient have a suspected source of infection? No. Patient's initial sepsis screen is negative. Care prior to arrival: None. 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 PED, CHEST TUBE; COLLASPED LUNG; aa5 - Immunization history:: Adult Immunizations up to date. - Social history:: Smoking status: Patient/guardian denies using tobacco, Patient uses alcohol, occasionally. - Ebola Screening: : No symptoms or risks identified at this time. - Family history:: not pertinent. Screenin:17 Abuse screen: Denies threats or abuse. Nutritional screening: No deficits noted. mb3 Tuberculosis screening: No symptoms or risk factors identified. Fall Risk None identified. Assessment: 20:00 General: Appears in no apparent distress. comfortable, Behavior is calm, cooperative, mb3 appropriate for age. Pain: Denies pain. Neuro: Level of Consciousness is awake, alert, obeys commands, Oriented to person, place, time, situation, Appropriate for age. Cardiovascular: Reports fatigue, shortness of breath, Heart tones present Capillary refill < 3 seconds Pulses are all present. Respiratory: Airway is patent Respiratory effort is even, unlabored, Respiratory pattern is regular, symmetrical, Breath sounds are clear bilaterally. GI: No deficits noted. No signs and/or symptoms were reported involving the gastrointestinal system. : No deficits noted. No signs and/or symptoms were reported regarding the genitourinary system. EENT: No deficits noted. No signs and/or symptoms were reported regarding the EENT system. Vital Signs: 18:43 BP 142 / 90; Pulse 86; Resp 18 S; Temp 98.0(TE); Pulse Ox 98% on R/A; Weight 77.11 kg aa5 (R); Height 5 ft. 4 in. (162.56 cm) (R); Pain 0/10; 21:28 BP 139 / 91; Pulse 66; Resp 18; Pulse Ox 98% on R/A; mb3 18:43 Body Mass Index 29.18 (77.11 kg, 162.56 cm) aa5 ED Course: 18:38 Patient arrived in ED. sb2 18:38 Elidia Bueno is Private Physician. sb2 18:43 Triage completed. aa5 18:43 Arm band placed on. aa5 19:10 Patient has correct armband on for positive identification. Placed in gown. Bed in low mb3 position. Call light in reach. Side rails up X 1. 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 Pulse ox on. NIBP on. 19:16 Stevan Leone, ZULEYKA is Primary Nurse. mb3 19:20 Vincent Guillen MD is Attending Physician. elías 20:08 XRAY Chest (1 view) In Process Unspecified. EDMS 20:09 X-ray completed. Portable x-ray completed in exam room. Patient tolerated procedure ml well. 20:10 Inserted saline lock: 20 gauge in left antecubital area, using aseptic technique. Blood mb3 collected. 21:19 Elidia Bueno is Referral Physician. elías 22:03 No provider procedures requiring assistance completed. IV discontinued, intact, mb3 bleeding controlled, No redness/swelling at site. Pressure dressing applied. Administered Medications: 20:15 Drug: NS 0.9% 1000 ml Route: IV; Rate: 1 bolus; Site: left antecubital; mb3 22:01 Follow up: Response: No adverse reaction; IV Status: Completed infusion; IV Intake: mb3 1000ml Intake: 22:01 IV: 1000ml; Total: 1000ml. mb3 Outcome: 21:19 Discharge ordered by MD. mckinley 22:03 Discharged to home ambulatory. mb3 22:03 Condition: stable 22:03 Discharge instructions given to patient, Instructed on discharge instructions, follow up and referral plans. Demonstrated understanding of instructions, follow-up care. 22:05 Patient left the ED. mb3 Signatures: Dispatcher [employer] EDNE Vincent Guillen MD MD cha Lopez, Melissa ml Calderon, Audri, RN RN aa5 Zuleika Bernard sb2 Stevan Leone, RN RN mb3
--- NOTE | 2017-12-31 06:32 | EKG ---
Test Date: 2017-12-30 Test Time: 21:27:55 Floor Cleaner: OMARI MEASUREMENT RESULTS: Intervals: Rate: 72 MD: 150 QRSD: 74 QT: 382 QTc: 418 [place]: P: 20 MD: 150 QRS: 19 T: 15 INTERPRETIVE STATEMENTS: Normal sinus rhythm Normal ECG Compared to ECG 08/19/2013 06:05:45 No significant changes Electronically Signed On 12-31-17 06:31:18 CDT by Reg Daily
== END 2017-12-30 22:05 | disposition home or self-care (01) ==
LOC: ER 18:35
DX: T67.5XXA Heat exhaustion, unspecified, initial encounter (principal); R60.9 Edema, unspecified; E16.2 Hypoglycemia, unspecified; I10 Essential (primary) hypertension; X58.XXXA Exposure to other specified factors, initial encounter; Y93.9 Activity, unspecified; Y92.9 Unspecified place or not applicable; Y99.9 Unspecified external cause status; Z88.2 Allergy status to sulfonamides
CPT/HCPCS: 36415; 71045; 80048; 80076; 81003; 81025; 82550; 82553; 83735; 83880; 84484; 85025; 85610; 85730; 93005; 96360; 96361; 99284; J7030

== ENCOUNTER 2018-01-28 15:33 | Emergency (ER) | payer SELFPAY ==
--- OUTSIDE RECORDS SUMMARY | 2018-01-28 15:36 | XMS REPORT | Continuity of Care Document ---
:1995 Author Organization Interface Problems Problem Status Onset Classification Date Comments Source Date Reported AUTO/PED Active 07/19/[address] PTX Active 07/19/[address] History of Resolved 06/24/19 Problem 07/26/2016 [facility] arthroscopic 13 [facility] OTHER Active [facility] PNEUMOTHORAX [facility] Medications Medication Details Route Status Patient Ordering Order Source Instructions Provider Date Phenergan 25 mg 25 mg=1 tab, PO, Active [facility] oral tablet Q6H, PRN Nausea, 2017 Medical X 4 day, # 15 Center tab, 0 Refill(s) Acetaminophen 300 2 tab, PO, Q6H, Active 07/23[facility] MG / Codeine PRN for pain, X 2017 Medical Phosphate 30 MG 7 day, # 56 tab, Center Oral Tablet 0 Refill(s) Docusate Sodium 100 mg=1 cap, Active [place] 100 MG Oral PO, Q12H, # 30 2017 Medical Capsule cap, 0 Refill(s) Center acetaminophen 500 1,000 mg=2 tab, Inactive 07/23[facility] [place] mg oral tablet PO, Q6H, # 90 2017 Medical tab, 0 Refill(s) Center gabapentin 300 MG 300 mg=1 cap, Active 07/23[facility] Oral Capsule PO, TID, # 90 2017 Medical cap, 1 Refill(s) Center tramadol 100 mg=2 tab, Active [place] hydrochloride 50 PO, Q6H, # 60 2017 Medical MG Oral Tablet tab, 0 Refill(s) Center camphor-menthol 1 appl, Route: No Longer [facility] topical TOP, BID, Drug Active 2016 Medical form: BALM, PRN Center Dry Lips, Start date: 07/22/16 23:01:00 LOSS CONTROL TECHNICIAN, Duration: 30 day, Stop date: 08/21/16 23:00:00 CSTNotes: Same as: Blistex Allantoin 0.01 1 appl, Route: Inactive 07/23/ [facility] [place] MG/MG / Camphor TOP, BID, PRN 2017 Medical 0.005 MG/MG / Dry Lips, Start Center phenol 0.005 date: 07/22/16 MG/MG Topical 22:58:00 LOSS CONTROL TECHNICIAN, Ointment Duration: 30 [Blistex] day, Stop date: 08/21/16 22:57:00 LOSS CONTROL TECHNICIAN Abreva 1 appl, Route: Inactive [facility] TOP, Dosing 2017 Medical Weight 68.182, Center kg, 5X Day, Start date: 07/22/16 22:00:00 LOSS CONTROL TECHNICIAN, Duration: 30 day, Stop date: 08/21/16 18:00:00 LOSS CONTROL TECHNICIAN Oxycodone 5 mg, 1 tab, No Longer [place] Hydrochloride 5 Route: PO, Drug Active 2017 Medical MG Oral Tablet form: TAB, Q4H, Center Dosing Weight 68.182, kg, PRN Pain Score 4-6, Start date: 07/22/16 14:43:00 LOSS CONTROL TECHNICIAN, Duration: 30 day, Stop date: 08/21/16 14:42:00 CSTNotes: (Same as: Roxicodone) Dilaudid 0.5 mg, 0.25 mL, Inactive [facility] Route: IVP, Drug 2016 Medical form: INJ, ONCE, Center Dosing Weight 68.182, kg, Priority: STAT, Start date: 07/22/16 11:52:00 LOSS CONTROL TECHNICIAN, Stop date: 07/22/16 11:52:00 CSTNotes: Same as Dilaudid Bisacodyl 10 mg, 1 supp, Inactive [facility] Route: NE, Drug 2016 Medical form: SUPP, Center ONCE, Dosing Weight 68.182, kg, Start date: 07/22/16 10:45:00 LOSS CONTROL TECHNICIAN, Stop date: 07/22/16 10:45:00 CSTNotes: (Same As: Dulcolax, Bisco-Lax) Hydrocodone 1 tab, Route: Inactive Cat Bitartrate 7.5 MG PO, Drug Form: 2017 Medical / Ibuprofen 200 TAB, Dosing Center MG Oral Tablet Weight 68.182, kg, Q4H, PRN Pain Score 4-6, Start date: 07/22/16 9:37:00 LOSS CONTROL TECHNICIAN, Duration: 30 day, Stop date: 08/21/16 9:36:00 CSTNotes: (Same as: Vicoprofen) Lovenox 30 mg, 0.3 mL, No Longer [place] Route: SUB-Q, Active 2016 Medical Drug form: INJ, Center [id number], Dosing Weight 68.182, kg, Start date: 07/21/16 23:00:00 LOSS CONTROL TECHNICIAN, Duration: 30 day, Stop date: 08/20/16 11:00:00 CSTNotes: (Same as: Lovenox) bacitracin zinc 1 appl, Route: No Longer Cat 0.5 UNT/MG TOP, BID, Drug Active 2016 Medical Topical Ointment form: OINT, Center Start date: 07/21/16 17:00:00 LOSS CONTROL TECHNICIAN, Duration: 30 day, Stop date: 08/20/16 9:00:00 LOSS CONTROL TECHNICIAN Lovenox 30 mg, 0.3 mL, Inactive [place] Route: SUB-Q, 2016 Medical Drug form: INJ, Center [id number], Dosing Weight 68.182, kg, Start date: 07/21/16 14:00:00 LOSS CONTROL TECHNICIAN, Duration: 30 day, Stop date: 08/20/16 2:00:00 CSTNotes: (Same as: Lovenox) Acetaminophen 1,000 mg, 2 tab, No Longer [place] Route: PO, Drug Active 2016 Medical form: TAB, Q6H, Center Dosing Weight 68.182, kg, Start date: 07/21/16 12:00:00 LOSS CONTROL TECHNICIAN, Duration: 30 day, Stop date: 08/20/16 6:00:00 CSTNotes: Max acetaminophen 4000 mg/day (4 gm/day). (Same as: Tylenol Extra Strength) influenza virus 0.5 mL, Route: Inactive Cat vaccine, IM, Drug Form: 2017 Medical inactivated SUSP, Daily, Center Start date: 07/21/16 9:00:00 LOSS CONTROL TECHNICIAN, Duration: 1 doses or times, Stop date: 07/21/16 9:00:00 CSTNotes: (Same as: Fluzone Quadrivalent, Fluarix Quadrivalent) For 3 years of age and older (0.5 mL IM) Shake well before use Enoxaparin 30 mg, 0.3 mL, No Longer Cat Route: SUB-Q, Active 2016 Medical Drug form: INJ, Center [id number], Dosing Weight 68.182, kg, Start date: 07/20/16 23:00:00 LOSS CONTROL TECHNICIAN, Duration: 30 day, Stop date: 08/19/16 11:00:00 CSTNotes: (Same as: Lovenox) remove patch 1 patch, Route: No Longer [place] TOP, Bedtime, Active 2016 Medical Drug form: Center ERFILM, Start date: 07/20/16 21:00:00 LOSS CONTROL TECHNICIAN, Duration: 30 day, Stop date: 08/18/16 21:00:00 CSTNotes: Remove patch 12 hours after application each day. {21 (Ethinyl 1 tab, PO, Active [place] Estradiol 0.02 MG Daily, # 28 tab, 2017 Medical / Levonorgestrel 0 Refill(s) Center 0.1 MG Oral Tablet) / 7 (Inert Ingredients 1 MG Oral Tablet) } Pack [Sronyx Day] sennosides, GROUP HOME 17.2 mg, 2 tab, No Longer [place] Route: PO, Drug Active 2016 Medical Form: TAB, Center Dosing Weight 68.182, kg, Daily, Start date: 07/20/16 13:00:00 LOSS CONTROL TECHNICIAN, Duration: 30 day, Stop date: 08/19/16 9:00:00 CSTNotes: (Same as: Senokot) Ketorolac 30 mg, 1 mL, No Longer [place] Route: IVP, Drug Active 2016 Medical form: INJ, Q6H, Center Dosing Weight 68.182, kg, Start date: 07/20/16 12:00:00 LOSS CONTROL TECHNICIAN, Duration: 1 day, Stop date: 07/21/16 6:00:00 [...] Weight 68.182, kg, Start date: 07/20/16 12:00:00 LOSS CONTROL TECHNICIAN, Duration: 1 day, Stop date: 07/21/16 6:00:00 CSTNotes: Infuse over 15 minutes Do not exceed 4gm/day of acetaminophen MEDICATION WASTE Product Size: 1000 mg Product Wasted: ___ mg Oxycodone 5 mg, 1 tab, No Longer [place] Hydrochloride 5 Route: PO, Drug Active 2016 Medical MG Oral Tablet form: TAB, Q4H, Center Dosing Weight 68.182, kg, PRN Pain Score 6-10, Start date: 07/20/16 10:12:00 LOSS CONTROL TECHNICIAN, Duration: 30 day, Stop date: 08/19/16 10:11:00 CSTNotes: (Same as: Roxicodone) POLYETHYLENE 17 gm, 1 pkt, No Longer Cat GLYCOL [id number] Route: PO, Drug Active 2016 Medical form: PWDR, Center Daily, Dosing Weight 68.182, kg, Start date: 07/20/16 9:00:00 LOSS CONTROL TECHNICIAN, Duration: 30 day, Stop date: 08/18/16 9:00:00 CSTNotes: Dissolve in 8 oz of water or juice. (Same as: Miralax) Docusate 100 mg, 1 cap, No Longer [place] Route: PO, Drug Active 2016 Medical form: CAP, Q12H, Center Dosing Weight 68.182, kg, Start date: 07/20/16 9:00:00 LOSS CONTROL TECHNICIAN, Duration: 30 day, Stop date: 08/18/16 21:00:00 CSTNotes: (Same as: Colace) (Do Not Crush) Lidocaine 1 patch, Route: No Longer [place] Hydrochloride TOP, Q24H, Drug Active 2016 Medical 0.05 MG/MG form: FILM, Center Transdermal Patch Start date: [Lidoderm] 07/20/16 9:00:00 LOSS CONTROL TECHNICIAN, Duration: 30 day, Stop date: 08/18/16 9:00:00 [...] kg, Priority: NOW, Start date: 07/20/16 7:32:00 LOSS CONTROL TECHNICIAN, Duration: 48 hr, Stop date: 07/22/16 0:00:00 CSTNotes: (Same as: Lyrica) Tramadol 100 mg, 2 tab, No Longer [place] Route: PO, Drug Active 2016 Medical form: TAB, Q6H, Center Dosing Weight 68.182, kg, Priority: NOW, Start date: 07/20/16 7:32:00 LOSS CONTROL TECHNICIAN, Duration: 30 day, Stop date: 08/19/16 6:00:00 CSTNotes: Not to exceed 400mg/day. (Same As: Ultram) celecoxib 200 mg, 1 cap, No Longer [place] Route: PO, Drug Active 2016 Medical form: CAP, Q12H, Center Dosing Weight 68.182, kg, Priority: NOW, Start date: 07/20/16 7:32:00 LOSS CONTROL TECHNICIAN, Duration: 48 hr, Stop date: 07/21/16 21:00:00 CSTNotes: NSAID. Please check indication. Not for seizure. (Same As: CeleBREX) Methocarbamol 1,000 mg, 2 tab, No Longer [place] Route: PO, Drug Active 2016 Medical form: TAB, Q8H, Center Dosing Weight 68.182, kg, PRN Muscle Spasms, Start date: 07/20/16 7:32:00 LOSS CONTROL TECHNICIAN, Duration: 30 day, Stop date: 08/19/16 7:31:00 CSTNotes: (Same as:Robaxin) Ondansetron 4 mg, 2 mL, Inactive [place] Route: IVP, Drug 2016 Medical form: INJ, Q24H, Center Dosing Weight 68.182, kg, PRN Nausea & Vomiting, Start date: 07/20/16 7:30:00 LOSS CONTROL TECHNICIAN, Duration: 30 day, Stop date: 08/19/16 7:29:00 CSTNotes: (Same as: Zofran) MEDICATION WASTE Product Size: 4 mg Product Wasted: ___ mg Diphenhydramine 25 mg, 1 cap, No Longer [place] Route: PO, Drug Active 2016 Medical form: CAP, Q6H, Center Dosing Weight 68.182, kg, PRN Itching, Start date: 07/20/16 7:30:00 LOSS CONTROL TECHNICIAN, Duration: 30 day, Stop date: 08/19/16 7:29:00 CSTNotes: (Same as: Benadryl) Bisacodyl 10 mg, 2 tab, No Longer [place] Route: PO, Drug Active 2016 Medical form: ECTAB, Center Q24H, Dosing Weight 68.182, kg, PRN Constipation, Start date: 07/20/16 7:30:00 LOSS CONTROL TECHNICIAN, Duration: 30 day, Stop date: 08/19/16 7:29:00 CSTNotes: (Same As: Dulcolax, Correctol) (Do Not Crush) "Do Not Crush" Docusate 100 mg, 1 cap, No Longer [place] Route: PO, Drug Active 2016 Medical form: CAP, BID, Center Dosing Weight 68.182, kg, PRN Constipation, Start date: 07/20/16 7:30:00 LOSS CONTROL TECHNICIAN, Duration: 30 day, Stop date: 08/19/16 7:29:00 CSTNotes: (Same as: Colace) (Do Not Crush) Fentanyl 50 microgram, Inactive [place] Route: IVP, 2016 Medical ONCE, Dosing Center Weight 68.182, kg, Priority: STAT, Start date: 07/20/16 4:34:00 LOSS CONTROL TECHNICIAN, Stop date: 07/20/16 4:34:00 LOSS CONTROL TECHNICIAN Dilaudid 1 mg, Route: IV, Inactive [place] ONCE, Dosing 2016 Medical Weight 68.182, Center kg, Start date: 07/20/16 2:34:00 LOSS CONTROL TECHNICIAN, Stop date: 07/20/16 2:34:00 LOSS CONTROL TECHNICIAN Morphine 4 mg, 1 mL, Inactive [facility] Route: IVP, Drug 2016 Medical form: SOLN, Center ONCE, Dosing Weight 68.182, kg, Priority: STAT, Start date: 07/20/16 2:17:00 LOSS CONTROL TECHNICIAN, Stop date: 07/20/16 2:17:00 CSTNotes: (Same as:MORPhine Sulfate) Fentanyl 50 microgram, 1 Inactive [place] mL, Route: IVP, 2017 Medical Drug form: INJ, Center ONCE, Dosing Weight 68.182, kg, Priority: STAT, Start date: 07/20/16 1:08:00 LOSS CONTROL TECHNICIAN, Stop date: 07/20/16 1:08:00 CSTNotes: (Same as: Sublimaze) Preservative free. Morphine 4 mg, Route: Inactive [facility] IVP, ONCE, 2017 Medical Dosing Weight Center 68.182, kg, Priority: STAT, Start date: 07/20/16 0:22:00 LOSS CONTROL TECHNICIAN, Stop date: 07/20/16 0:22:00 LOSS CONTROL TECHNICIAN Ondansetron 4 mg, Route: Inactive [facility] IVP, ONCE, 2017 Medical Dosing Weight Center 68.182, kg, Priority: STAT, Start date: 07/19/16 22:55:00 LOSS CONTROL TECHNICIAN, Stop date: 07/19/16 22:55:00 LOSS CONTROL TECHNICIAN Fentanyl 50 microgram, Inactive [facility] Route: IVP, 2017 Medical ONCE, Dosing Center Weight 68.182, kg, Priority: STAT, Start date: 07/19/16 22:55:00 LOSS CONTROL TECHNICIAN, Stop date: 07/19/16 22:55:00 LOSS CONTROL TECHNICIAN Saline Flush 0.9% 10 mL, Route: No Longer [facility] IVP, Drug Form: Active 2017 Medical INJ, Dosing Center Weight 68.182, kg, PRN, PRN Line Flush, Start date: 07/19/16 22:55:00 LOSS CONTROL TECHNICIAN, Duration: 30 day, Stop date: 08/18/16 22:54:00 CSTNotes: Same as: BD Posiflush Sterile Sodium Chloride 1,000 mL, 2,000 Inactive [facility] 0.154 MEQ/ML ml/hr, Route: 2017 Medical Injectable IV, ONCE, Center Solution Priority: STAT, Dosing Weight 68.182 kg, Start date: 07/19/16 22:55:00 LOSS CONTROL TECHNICIAN, Duration: 1 doses or times, Stop date: 07/19/16 22:55:00 LOSS CONTROL TECHNICIAN Allergies, Adverse Reactions, Alerts Substance Category Reaction Severity Reaction Status Date Comments Source type Reported sulfa drugs Assertion Drug Active [facility] allergy Medical [place] Immunizations Immunization Date Given Site Status Last Comments Source Updated influenza virus 07/21/2016 Left completed Field [facility] vaccine, deltoid Medical inactivated Center Results Order Name Results Value Reference Date Interpretation Comments Source Range Chest 1view Chest 1view EXAM: XR CHEST 1 VIEW 07/23 [facility]2016 [facility] DATE: 07/23/2016 3:00 AM LOSS CONTROL TECHNICIAN Read by: Rita Yepez MD Dictated Date/time: [...] 1view EXAM: XR CHEST 1 VIEW 07/22 [facility] This report was dictated by a Telephone Claims Representative/Fellow. I have personally reviewed the images as Center well as the Resident's interpretation and agree with the findings. DATE: 07/22/2016 5:00 PM LOSS CONTROL TECHNICIAN Read by: Israel Knapp MD Resident: Israel [...] 1view EXAM: XR CHEST 1 VIEW 07/22 [facility] DATE: 07/22/2016 11:52 AM LOSS CONTROL TECHNICIAN Read by: Riat Yepez MD Dictated Date/time: 07/22/16 13:25 Electronically [...] 32.7 % 20.0 - 07/22 [place] 40.0 [facility] HEMATOLOGY Segs 56.4 % 45.0 - 07/22 [facility] 75.0 [facility] HEMATOLOGY Monocytes 8.5 % 2.0 - 12.0 07/22 2016 [facility] HEMATOLOGY Eosinophils 2.2 % 0.0 - 4.0 07/22 2016 [facility] HEMATOLOGY Basophils 0.2 % 0.0 - 1.0 07/[address] HEMATOLOGY Monocytes # 0.6 K/CMM 0.0 - 0.8 07/[address] HEMATOLOGY Segs-Bands # 3.9 K/CMM 1.5 - 8.1 07/22 2016 [facility] HEMATOLOGY Lymphocytes # 2.3 K/CMM 1.0 - 5.5 07/22 2016 [facility] HEMATOLOGY Eosinophils # 0.2 K/CMM 0.0 - 0.5 07/[address] HEMATOLOGY WBC 6.9 K/CMM 3.7 - 10.4 07/22 2016 [facility] HEMATOLOGY RBC 3.79 M/CMM 4.20 - 07/22 [place] 5.40 [facility] HEMATOLOGY Hct 34.9 % 36.0 - 07/22 [place] 48.0 [facility] HEMATOLOGY Hgb 11.8 g/dL 12.0 - 07/22 [place] 16.0 [facility] HEMATOLOGY MCV 92.1 fL 80.0 - 07/22 [place] 98.0 /2017 [facility] HEMATOLOGY MCHC 33.8 g/dL 32.0 - 07/22 36.0 2017 [facility] HEMATOLOGY Platelet 207 K/CMM 133 - 450 07/22 [facility] HEMATOLOGY MCH 31.2 pg 27.0 - 07/22 31.0 [facility] HEMATOLOGY RDW 13.9 % 11.5 - 07/22 14.5 [facility] HEMATOLOGY MPV 9.5 fL 7.4 - 10.4 07/22 [facility] Chest 1view Chest 1view EXAM: XR CHEST 1 VIEW 07/22 - [facility] DX - [facility] DATE: 07/22/2016 3:00 AM LOSS CONTROL TECHNICIAN Read by: Rita Yepez MD Dictated Date/time: [...] % 36.0 - 07/22 [place] 48.0 /2017 [facility] HEMATOLOGY Hgb 11.1 g/dL 12.0 - 07/22 [place] 16.0 2017 [facility] HEMATOLOGY Hgb 11.8 g/dL 12.0 - 07/21 [place] 16.0 2017 [facility] HEMATOLOGY Hct 35.4 % 36.0 - 07/21 [place] 48.0 [facility] Chest 1view Chest 1view EXAM: XR CHEST 1 VIEW 07/21 - [facility] DX - [facility] DATE: 07/21/2016 5:00 PM LOSS CONTROL TECHNICIAN Read by: Rita Yepez MD Dictated Date/time: [...] Lvl 2.2 mg/dL 1.8 - 2.4 07/[address] CHEM PANEL Phosphorus 3.7 mg/dL 2.5 - 4.5 07/[address] ELECTROLYTE CO2 26 meq/L 24 - 32 07/[address] ELECTROLYTE BUN 13 mg/dL 7 - 22 07/[address] ELECTROLYTE Glucose Lvl 86 mg/dL 70 - 99 07/[address] ELECTROLYTE Potassium Lvl 4.3 meq/L 3.5 - 5.1 07/[address] ELECTROLYTE Chloride Lvl 109 meq/L 95 - 109 07/[address] ELECTROLYTE Creatinine 0.75 mg/dL 0.50 - 07/21 [facility] Lvl 1.40 [facility] ELECTROLYTE Sodium Lvl 141 meq/L 135 - 145 07/[address] ELECTROLYTE Calcium Lvl 8.3 mg/dL 8.5 - 10.5 07/[address] ELECTROLYTE eGFR 114 07/21 Result Comment: The eGFR is calculated using the CKD-EPI formula. In most young, healthy individuals the eGFR will be > 90 mL/min/1.73m2. The eGFR declines with age. An eGFR of 60-89 may be normal in [facility] mL/min/1.7 /2016 some populations, particularly the elderly, for whom the CKD-EPI formula has not been extensively validated. Use of the eGFR is not recommended in the following populations: [address] Individuals with unstable creatinine concentrations, including [...] ELECTROLYTE AGAP 10.3 meq/L 10.0 - 07/21 [facility] S 20.0 [facility] Chest 1view Chest 1view EXAM: XR CHEST 1 VIEW 07/21 - [facility] DX - [facility] DATE: 07/21/2016 3:00 AM LOSS CONTROL TECHNICIAN Read by: Rita Yepez MD Dictated Date/time: [...] Acid 1.1 mMol/L 0.5 - 2.2 07/20 [facility] Lvl [facility] DRUG SCREEN U Amph Scr Negative Negative 07/20 [facility] *NA* [place] (07/19/16 11:45 PM) DRUG SCREEN U Cocaine Scr Negative Negative 07/20 [facility] *NA* [place] (07/19/16 11:45 PM) DRUG SCREEN U Sushma Scr Negative Negative 07/20 [facility] *NA* [place] (07/19/16 11:45 PM) DRUG SCREEN U Benzodia Negative Negative 07/20 [facility] *NA* [place] (07/19/16 11:45 PM) DRUG SCREEN U Opiate [facility]r Positive [facility] [place] (07/19/16 11:45 PM) DRUG SCREEN U Cannab [facility]r Negative Negative [facility] [place] (07/19/16 11:45 PM) DRUG SCREEN U Phencyc Scr Negative Negative 07/20 [facility] *NA* [place] (07/19/16 11:45 PM) DRUG SCREEN UDS Note See Note 07/20 [facility] (07/19/16 11:45 PM) Center Chest 1view Chest 1view EXAM: XR CHEST 1 VIEW 07/20 - [facility] DX - Medical This report was dictated by a Telephone Claims Representative/Fellow. I have personally reviewed the images as Center well as the Resident's interpretation and agree with the findings. DATE: 07/20/2016 5:16 AM LOSS CONTROL TECHNICIAN Read by: Wil Whitman MD Resident: Wil [...] URINE AND UA Nitrite Negative Negative 07/20 [facility] (07/19/16 11:22 PM) [place] URINE AND UA Leuk Est Negative Negative 07/20 [facility] (07/19/16 11:22 PM) [place] URINE AND UA Spec Grav 1.020 <=1.030 07/20 [facility] URINE AND UA pH 6.0 5.0 - 8.0 07/20 [facility] URINE AND UA Protein Negative Negative 07/20 [facility] (07/19/16 11:22 PM) [place] URINE AND UA Turbidity Slight Cloudy Clear 07/20 [facility] (07/19/16 11:22 PM) [place] URINE AND UA Color Yellow Yellow 07/20 [facility] *NA* [place] (07/19/16 11:22 PM) URINE AND UA 0.2 EU/dL 0.1 - 1.0 07/20 [facility] Urobilinogen /2016 [facility] URINE AND UA Glucose Negative Negative 07/20 [facility] (07/19/16 11:22 PM) [place] URINE AND UA Blood Small Negative 07/20 [facility] *ABN* [place] (07/19/16 11:22 PM) URINE AND UA Ketones Negative Negative 07/20 [facility] *NA* [place] (07/19/16 11:22 PM) URINE AND UA Bili Negative Negative 07/20 [facility] [place] (07/19/16 11:22 PM) URINE AND UA RBC 0-2 /HPF 0 - 2 07/20 [facility] URINE AND UA WBC 0-2 /HPF None Seen 07/20 [facility] /HPF [facility] URINE AND UA Sq Epi Rare /LPF Few /LPF 07/20 [facility] URINE AND UA Bacteria Few /HPF None Seen 07/20 [facility] /HPF [address] [place] [address] CHEM PANEL Lactic Acid 1.5 mMol/L 0.5 - 2.2 07/20 [facility] Lvl [facility] ELECTROLYTE AGAP 17.3 meq/L 10.0 - 07/20 [facility] S 20.0 [facility] ELECTROLYTE eGFR 120 07/20 Result Comment: The eGFR is calculated using the CKD-EPI formula. In most young, healthy individuals the eGFR will be > 90 mL/min/1.73m2. The eGFR declines with age. An eGFR of 60-89 may be normal in [facility] mL/min/1.7 some populations, particularly the elderly, for whom the CKD-EPI formula has not been extensively validated. Use of the eGFR is not recommended in the following populations: [place] [address] Center Individuals with unstable creatinine concentrations, including [...] Lvl 4.3 meq/L 3.5 - 5.1 07/20 [facility] ELECTROLYTE Sodium Lvl 138 meq/L 135 - 145 07/20 [facility]2016 [facility] ELECTROLYTE CO2 21 meq/L 24 - 32 07/20 [facility] ELECTROLYTE Chloride Lvl 104 meq/L 95 - 109 07/20 [facility] ELECTROLYTE Calcium Lvl 8.8 mg/dL 8.5 - 10.5 07/20 [facility]2016 [facility] ELECTROLYTE BUN 11 mg/dL 7 - 22 07/20 [facility]2016 [facility] ELECTROLYTE Glucose Lvl 127 mg/dL 70 - 99 07/20 [facility]2016 [facility] ELECTROLYTE Creatinine 0.72 mg/dL 0.50 - 07/20 [facility] Lvl 1.40 [facility] ENDOCRINOLO S Preg Negative Negative 07/20 [facility] (07/19/16 11:01 PM) [place] HEMATOLOGY Monocytes # 1.6 K/CMM 0.0 - 0.8 07/20 [facility] HEMATOLOGY Basophils 0.1 % 0.0 - 1.0 07/20 [facility]2016 [facility] HEMATOLOGY Segs-Bands # 15.0 K/CMM 1.5 - 8.1 07/20 [facility]2016 [facility] HEMATOLOGY Eosinophils 0.1 % 0.0 - 4.0 07/20 [facility]2016 [facility] HEMATOLOGY Lymphocytes # 1.1 K/CMM 1.0 - 5.5 07/20 [facility]2016 [facility] HEMATOLOGY Monocytes 8.9 % 2.0 - 12.0 07/[address] HEMATOLOGY Lymphocytes 6.2 % 20.0 - 07/20 [facility] 40.0 [facility] HEMATOLOGY Segs 84.7 % 45.0 - 07/20 [facility] 75.0 [facility] HEMATOLOGY Estimated % 3.3 % 0.0 - 7.5 07/20 Result [facility] Comment: [facility] Result(s) called to [place] at 07/20/2016 00:02 by JT. Read back OK. HEMATOLOGY Split Point 0.6 min 07/20 [facility] HEMATOLOGY R-time Rapid 0.7 min 0.4 - 0.7 07/20 [facility] HEMATOLOGY K-time Rapid 1.0 min 0.6 - 2.3 07/[address] HEMATOLOGY Angle Rapid 78 degrees 64 - 80 07/[address] HEMATOLOGY Max Amplitude 66 mm 52 - 71 07/20 [facility]2016 [facility] HEMATOLOGY G-value Rapid 9.9 K d/sc 5.0 - 11.6 07/20 2016 [facility] HEMATOLOGY ACT (TEG) 113 s 86 - 118 07/20 [facility] HEMATOLOGY WBC 17.7 K/CMM 3.7 - 10.4 07/20 2016 [facility] HEMATOLOGY RBC 4.32 M/CMM 4.20 - 07/20 [facility] 5.40 [facility] HEMATOLOGY MCV 91.5 fL 80.0 - 07/20 [facility] 98.0 [facility] HEMATOLOGY MCH 30.7 pg 27.0 - 07/20 [facility] 31.0 [facility] HEMATOLOGY MCHC 33.6 g/dL 32.0 - 07/20 [facility] 36.0 [facility] HEMATOLOGY MPV 9.4 fL 7.4 - 10.4 07/20 2016 [facility] HEMATOLOGY RDW 14.2 % 11.5 - 07/20 [facility] 14.5 [facility] HEMATOLOGY Platelet 234 K/CMM 133 - 450 07/20 [facility]2016 [facility] Spine-Outsi Spine-Outside EXAM: CT CERVICAL SPINE WITHOUT CONTRAST, outside film interpretation 07/19 [facility] de Consult Consult CT /2016 - [facility] DATE: 07/19/2016 11:25 PM LOSS CONTROL TECHNICIAN Read by: Cheryl Beyer MD Dictated Date/time: 07/20/16 00:50 Electronically Signed by: Cheryl Beyer MD 07/20/16 01:02 FINAL REPORT INDICATION: Outside film interpretation following trauma transfer for higher level of care. CT cervical spine without contrast performed at [facility] on 07/19/2016 at 1942 hours COMPARISON: None [...] CT CHEST WITH CONTRAST, SECOND OPINION - [facility] Consult Consult CT /2017 - Medical CT EXAM: CT ABDOMEN AND PELVIS WITH CONTRAST, SECOND OPINION This report was dictated by a Telephone Claims Representative/Fellow. I have personally reviewed the images as [...] Brain-Outside EXAM: CT BRAIN WITHOUT CONTRAST 07/19 [facility] Consult Consult CT /2016 - [facility] DATE: 07/19/2016 11:33 PM LOSS CONTROL TECHNICIAN Read by: Blanca Urbina Dictated Date/time: 07/20/16 10:26 Electronically Signed by: Blanca Urbina 07/20/16 10:29 FINAL REPORT INDICATION: Second opinion consultation COMPARISON: None available TECHNIQUE: A brain CT obtained at [facility] was submitted for 2nd opinion [...] EXAM: XR CHEST 1 VIEW 07/19 - [facility] DX DX /2016 - [facility] DATE: 07/19/2016 at 2305 hours Read by: Cheryl Beyer MD Dictated Date/time: 07/19/16 23:40 Electronically Signed by: Cheryl Beyer MD 07/20/16 00:31 FINAL REPORT INDICATION: Pain Post Trauma COMPARISON: Single view chest 07/19/2016 at 1923 hours from [facility] TECHNIQUE: AP chest FINDINGS: Lines and [...] Source Temperature Oral (F) 98.1 F 07/23/2016 [facility] Respitory Rate 18 07/23/2016 [facility] Systolic (mm Hg) 117 07/23/2016 [facility] Diastolic (mm Hg) 87 07/23/2016 [facility] Heart Rate 87 07/23/2016 [facility] Temperature Oral (F) 97.7 F 07/23/2016 [facility] Systolic (mm Hg) 104 07/23/2016 [facility] Diastolic (mm Hg) 66 07/23/2016 [facility] Respitory Rate 18 07/23/2016 [facility] Heart Rate 74 07/23/2016 [facility] Systolic (mm Hg) 116 07/23/2016 [facility] Diastolic (mm Hg) 76 07/23/2016 [facility] Temperature Oral (F) 98.0 F 07/23/2016 [facility] Respitory Rate 18 07/23/2016 [facility] Heart Rate 72 07/23/2016 [facility] Weight 68.182 07/20/2016 [facility] BMI Calculated 25.8 07/20/2016 [facility] Height 162.56 cm 07/20/2016 [facility] BMI Calculated 25.8 07/20/2016 [facility] Height 162.56 cm 07/20/2016 [facility] Weight 68.182 07/20/2016 [facility] Encounters Location Location Encounter Encounter Reason Attending ADM DC Status Source Details Type Number For Provider Date Date [facility] [id number] Pin Baltazar 07/20 07/23 [facility] [place] [facility]2016 [facility] Procedures Procedure Code Date Perfomer Comments Source Arthroscopy of [id number] 2009 and 2012 [facility] knee<sup>1</sup> [facility]
[2018-01-28] MEDS ORDERED: NA CHLORIDE 0.9% 1,000 ML ONE ×2 (17:00→18:06)
[2018-01-28] MEDS ORDERED: ONDANSETRON 4 MG/2 ML VIAL ONE (17:00)
[2018-01-28 17:18] LABS: Absolute Lymphocytes (CBC) 2.1 K/uL (0.7-4.9); Absolute Monocytes 0.8 K/uL (0.1-1.3); Absolute Neutrophil 8.8 K/uL (1.8-8.0); Basophils % 0.4 % (0-1.3); Eosinophils % 0.3 % (0-4.4); Hematocrit 45.7 % (36.0-45.0); Lymphocytes % 17.8 % (15.3-44.8); MCH 31.5 pg (27.0-35.0); MCV 92.4 fL (80-100); MPV 8.7 fL (7.6-11.3); Monocytes % 7.1 % (3.3-12.3); RBC Red Blood Cell Count 4.95 M/uL (3.86-4.86)
[2018-01-28 17:46] LABS: Albumin 4.7 g/dL (3.4-5.0); Bilirubin Direct 0.2 mg/dL (0-0.2); Bilirubin Total 0.6 mg/dL (0.2-1.0); Potassium 3.9 mmol/L (3.5-5.1); Protein, Total 9.7 g/dL (6.4-8.2)
--- NOTE | 2018-01-28 19:01 | EDPHYS ---
Physician Documentation [facility] Name: Daisha Spivey Age: 22 yrs Sex: Female : 1995 Arrival Date: 01/28/2018 Time: 15:39 Bed 14 Private MD: Elidia Bueno ED Physician Teto Sumner HPI: 01/28 16:04 This 22 yrs old Female presents to ER via Ambulatory with complaints of jmm Dizziness, Vomiting. 16:04 The patient presents to the emergency department with nausea, vomiting. Onset: The jmm symptoms/episode began/occurred acutely, today. Possible causes: heat exposure. The symptoms are aggravated by nothing. The symptoms are alleviated by nothing. This is a 22 year old female with a history of asthma that presents to the ED with acute onset of vomiting and generalized weakness beginning today. The patient is attributing this to overexertion in the heat. Patient states she was for [employer] in hot conditions. Patient states this is her third day of work. Patient denies chest pain, shortness of breath, or abdominal pain. . 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 PED, CHEST TUBE; COLLASPED LUNG; hb - Immunization history:: Adult Immunizations up to date. - Social history:: Smoking status: Patient/guardian denies using tobacco. - Ebola Screening: : No symptoms or risks identified at this time. ROS: 16:04 Constitutional: Negative for fever, chills, and weight loss, Eyes: Negative for injury, jmm pain, redness, and discharge, Cardiovascular: Negative for chest pain, palpitations, and edema, Respiratory: Negative for shortness of breath, cough, wheezing, and pleuritic chest pain. 16:04 Back: Negative for injury and pain, Skin: Negative for injury, rash, and discoloration. 16:04 Abdomen/GI: Positive for nausea and vomiting. 16:04 Neuro: Positive for weakness. 16:04 All other systems are negative. Exam: 16:04 Head/Face: atraumatic. Chest/axilla: Normal chest wall appearance and motion. [facility] Cardiovascular: Regular rate and rhythm. No edema appreciated 16:04 Constitutional: The patient appears in no acute distress, alert, awake. 16:04 Abdomen/GI: Inspection: abdomen appears normal, Bowel sounds: normal, Palpation: abdomen is soft and non-tender, in all quadrants. 16:04 Back: ROM is normal, CVA tenderness, is absent. 16:04 Musculoskeletal/extremity: ROM: intact in all extremities. 16:04 Skin: Appearance: Color: normal in color. 16:04 Neuro: Orientation: is normal, Mentation: is normal, Memory: is normal. 16:04 Psych: Behavior/mood is pleasant, cooperative. Vital Signs: 15:44 BP 150 / 87; Pulse 84; Resp 16; Temp 98.1; Pulse Ox 98% on R/A; Pain 0/10; hb 16:30 BP 127 / 94; Pulse 53; Resp 17; Pulse Ox 100% on R/A; rb1 17:19 BP 120 / 74; Pulse 62; Resp 16; Pulse Ox 99% on R/A; rb1 18:11 BP 114 / 83; Pulse 57; Resp 16; Pulse Ox 99% ; rb1 18:30 BP 118 / 68; Pulse 48; Resp 15; Pulse Ox 100% on R/A; rb1 19:30 BP 119 / 83; Pulse 90; Resp 18; Pulse Ox 100% ; lc1 MDM: 16:04 Patient medically screened. [facility] 18:59 Data reviewed: vital signs, nurses notes, lab test result(s). Counseling: I had a [facility] detailed discussion with the patient and/or guardian regarding: the historical points, exam findings, and any diagnostic results supporting the discharge/admit diagnosis, lab results, the need for outpatient follow up, to return to the emergency department if symptoms worsen or persist or if there are any questions or concerns that arise at home. ED course: Patient states she feels much better and can tolerate po in the ED. Patient denies abdominal pain. I do not currently suspect an acute intraabdominal process at this time. Patient given return precautions. . 01/28 16:09 Order name: Amylase, Serum [facility] 01/28 16:09 Order name: Basic Metabolic Panel [facility] 01/28 16:09 Order name: CBC with Diff [facility] 01/28 16: Order name: Creatinine for Radiology [facility] 01/28 16:09 Order name: Hepatic Function [facility] 01/28 16:09 Order name: Lipase [facility] 01/28 16:09 Order name: Urine Microscopic Only [facility] 01/28 16:09 Order name: CPK [facility] 01/28 17:19 Order name: CBC with Automated Diff; Complete Time: 17:31 EDMS 01/28 17:48 Order name: Basic Metabolic Panel; Complete Time: 17:48 EDMS 01/28 17:48 Order name: Liver (Hepatic) Function; Complete Time: 17:48 EDMS 01/28 17:48 Order name: Creatine Phosphokinase; Complete Time: 17:48 EDMS 01/28 17:48 Order name: Amylase Level; Complete Time: 17:48 EDMS 01/28 17:48 Order name: Lipase; Complete Time: 17:48 EDMS 01/28 16:09 Order name: Urine Test (obtain specimen); Complete Time: 20:29 [facility] 01/28 16:09 Order name: IV Saline Lock; Complete Time: 17:14 [facility] 01/28 16:09 Order name: Labs collected and sent; Complete Time: 17:14 [facility] 01/28 16:09 Order name: Urine Dipstick-Ancillary (obtain specimen); Complete Time: 20:29 [facility] 01/28 18:00 Order name: Creatinine (Radiology Only); Complete Time: 18:12 EDMS 01/28 19:46 Order name: Urine Dipstick--Ancillary (enter results) 2 01/28 19:46 Order name: Urine --Ancillary (enter results) 2 Administered Medications: 17:10 Drug: NS 0.9% 1000 ml Route: IV; Rate: 1 bolus; Site: left antecubital; rb1 20:02 Follow up: IV Status: Completed infusion lc1 17:10 Drug: Zofran 4 mg Route: IVP; Site: left antecubital; rb1 20:02 Follow up: Response: No adverse reaction lc1 18:00 Drug: NS 0.9% 1000 ml Route: IV; Rate: 1 bolus; Site: left antecubital; rb1 20:01 Follow up: IV Status: Completed infusion; IV Intake: 1000ml lc1 Disposition: 01/29 07:09 Co-signature as Attending Physician, Teto Sumner MD. rn Disposition: 01/28/18 19:48 Discharged to Home. Impression: Vomiting. - Condition is Stable. - Discharge Instructions: Nausea and Vomiting, Adult. - Prescriptions for Zofran ODT 4 mg Oral tablet,disintegrating - place 1 tablet by TRANSLINGUAL route every 4-6 hours; 20 tablet. - Work release form, Medication Reconciliation Form, Thank You Letter, Antibiotic Education, Prescription Opioid Use form. - Follow up: Elidia Bueno; When: 2 - 3 days; Reason: Recheck today's complaints, Continuance of care, Re-evaluation by your physician. Signatures: Dispatcher [employer] EDMS Dinesh Garvin PA PA Teto Rodriguez MD MD rn Calhoun, Nerissa lc1 Jaclyn Martinez, RN RN rb1 Fartun Andrade RN RN Corrections: (The following items were deleted from the chart) 01/28 19:03 19:00 01/28/2018 19:00 Discharged to Home. Impression: Vomiting. Condition is Stable. [facility] Forms are Medication Reconciliation Form, Thank You Letter, Antibiotic Education, Prescription Opioid Use. Follow up: Private Physician; When: 2 - 3 days; Reason: Recheck today's complaints, Continuance of care, Re-evaluation by your physician. [facility] 20:28 19:48 01/28/2018 19:48 Discharged to Home. Impression: Vomiting. Condition is Stable. lc1 Prescriptions for Zofran ODT 4 mg Oral tablet,disintegrating - place 1 tablet by TRANSLINGUAL route every 4-6 hours; 3 tablet. and Forms are Medication Reconciliation Form, Thank You Letter, Antibiotic Education, Prescription Opioid Use. Follow up: Elidia Bueno; When: 2 - 3 days; Reason: Recheck today's complaints, Continuance of care, Re-evaluation by your physician. [facility]
--- NOTE | 2018-01-28 19:01 | ER ---
Nurse's Notes [facility] Name: Daisha Spivey Age: 22 yrs Sex: Female : 1995 Arrival Date: 01/28/2018 Time: 15:39 Bed 14 Private MD: Elidia Bueno Diagnosis: Vomiting Presentation: 01/28 15:43 Presenting complaint: Patient states: Nausea x 2 days, vomiting and dizziness since hb this morning. Not tolerating liquids. Transition of care: patient was not received from another setting of care. Onset of symptoms was January 27, 2018. Risk Assessment: Do you want to hurt yourself or someone else? Patient reports no desire to harm self or others. Care prior to arrival: None. 15:43 Method Of Arrival: Ambulatory hb 15:43 Acuity: KAYODE 3 hb 16:11 Initial Sepsis Screen: Does the patient meet any 2 criteria? No. Patient's initial rb1 sepsis screen is negative. Does the patient have a suspected source of infection? No. Patient's initial sepsis screen is negative. 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 PED, CHEST TUBE; COLLASPED LUNG; hb - Immunization history:: Adult Immunizations up to date. - Social history:: Smoking status: Patient/guardian denies using tobacco. - Ebola Screening: : No symptoms or risks identified at this time. Screenin:11 Abuse screen: Denies threats or abuse. Nutritional screening: No deficits noted. rb1 Tuberculosis screening: No symptoms or risk factors identified. Fall Risk None identified. Assessment: 16:11 General: Appears in no apparent distress. comfortable, Behavior is calm, cooperative, rb1 Denies fever. Pain: Complains of pain in abdomen Pain currently is 4 out of 10 on a pain scale. Pain began 1 day ago. Abdomen hurts due to vomiting. Neuro: Level of Consciousness is awake, alert, obeys commands, Oriented to person, place, time, situation. Neuro: Reports dizziness. Cardiovascular: Capillary refill < 3 seconds is brisk in bilateral fingers. Respiratory: Airway is patent Respiratory effort is even, unlabored, Respiratory pattern is regular, symmetrical. GI: Abdomen is flat, Reports nausea, vomiting, Patient currently denies diarrhea. : No signs and/or symptoms were reported regarding the genitourinary system. Derm: Skin is pink, warm \T\ dry. 17:10 Reassessment: Patient appears in no apparent distress at this time. No changes from rb1 previously documented assessment. 18:10 Reassessment: Patient appears in no apparent distress at this time. Patient and/or rb1 family updated on plan of care and expected duration. Pain level reassessed. Patient is alert, oriented x 3, equal unlabored respirations, skin warm/dry/pink. 18:48 Reassessment: Patient appears in no apparent distress at this time. Patient states rb1 symptoms have improved. 19:15 Reassessment: Patient and/or family updated on plan of care and expected duration. Pain lc1 level reassessed. Patient states symptoms have improved. Vital Signs: 15:44 BP 150 / 87; Pulse 84; Resp 16; Temp 98.1; Pulse Ox 98% on R/A; Pain 0/10; hb 16:30 BP 127 / 94; Pulse 53; Resp 17; Pulse Ox 100% on R/A; rb1 17:19 BP 120 / 74; Pulse 62; Resp 16; Pulse Ox 99% on R/A; rb1 18:11 BP 114 / 83; Pulse 57; Resp 16; Pulse Ox 99% ; rb1 18:30 BP 118 / 68; Pulse 48; Resp 15; Pulse Ox 100% on R/A; rb1 19:30 BP 119 / 83; Pulse 90; Resp 18; Pulse Ox 100% ; lc1 ED Course: 15:39 Patient arrived in ED. mr 15:39 Elidia Bueno is Private Physician. mr 15:44 Triage completed. hb 15:44 Arm band placed on right wrist. hb 15:46 Dinesh Garvin PA is PHCP. jmm 15:46 Teto Sumner MD is Attending Physician. jmm 15:58 Jaclyn Martinez, ZULEYKA is Primary Nurse. rb1 16:11 Patient has correct armband on for positive identification. Placed in gown. Bed in low rb1 position. Call light in reach. Side rails up X 1. Pulse ox on. NIBP on. Warm blanket given. 17:00 Missed attempt(s): 20 gauge in left antecubital area. Bleeding controlled, band aid dh3 applied, catheter tip intact. 17:05 Missed attempt(s): 20 gauge in right antecubital area. Bleeding controlled, band aid dh3 applied, catheter tip intact. 17:08 Inserted saline lock: 22 gauge in left antecubital area, using aseptic technique. Blood rb1 collected. 19:00 Report given to ZULEYKA Multani. rb1 19:48 Elidia Bueno is Referral Physician. [facility] 20:06 Urine --Ancillary (enter results) Sent. 1 20:06 Urine Dipstick--Ancillary (enter results) Sent. lc1 20:26 No provider procedures requiring assistance completed. IV discontinued, intact, No lc1 redness/swelling at site. Pressure dressing applied. Administered Medications: 17:10 Drug: NS 0.9% 1000 ml Route: IV; Rate: 1 bolus; Site: left antecubital; rb1 20:02 Follow up: IV Status: Completed infusion 1 17:10 Drug: Zofran 4 mg Route: IVP; Site: left antecubital; rb1 20:02 Follow up: Response: No adverse reaction 1 18:00 Drug: NS 0.9% 1000 ml Route: IV; Rate: 1 bolus; Site: left antecubital; rb1 20:01 Follow up: IV Status: Completed infusion; IV Intake: 1000ml 1 Intake: 20:01 IV: 1000ml; Total: 1000ml. 1 Outcome: 19:00 Discharge ordered by MD. [facility] 19:48 Discharge ordered by MD. [facility] 20:26 Discharged to home ambulatory. 1 20:26 Condition: good 20:26 Discharge instructions given to patient, Instructed on discharge instructions, medication usage, Demonstrated understanding of instructions, follow-up care, medications, Prescriptions given X 1. 20:28 Patient left the ED. 1 Signatures: Dinesh Garvin PA PA jmm Rivera, Maria mr AliciaNerissa 1 Jaclyn Martinez, ZULEYKA RN rb1 Fartun Andrade RN RN Ruby Campos 3
[2018-01-28 20:30] LABS: Urine Bacteria <20 /HPF (<20); Urine Culture Reflex Order NOT NEEDED; Urine Mucus 1+ /HPF (NONE SEEN); Urine RBC <5 /HPF (NONE SEEN)
[2018-01-28 20:31] LABS: Urine Blood NEGATIVE (NEG); Urine Glucose NEGATIVE (NEG); Urine Protein 1+ (NEG); Urine Specific Gravity >1.030 (1.005-1.030); Urine pH 5.5 (5.0-7.0)
== END 2018-01-28 20:28 | disposition home or self-care (01) ==
LOC: ER 15:33
DX: R11.10 Vomiting, unspecified (principal); F90.9 Attention-deficit hyperactivity disorder, unspecified type; Z88.2 Allergy status to sulfonamides
CPT/HCPCS: 36415; 80048; 80076; 81003; 81015; 81025; 82150; 82550; 83690; 85025; 96361; 96374; 99284; J2405; J7030

== ENCOUNTER 2018-02-27 12:03 | Emergency (ER) | payer SELFPAY ==
--- OUTSIDE RECORDS SUMMARY | 2018-02-27 12:07 | XMS REPORT | Continuity of Care Document ---
:1995 Author Organization Interface Problems Problem Status Onset Classification Date Comments Source Date Reported AUTO/PED Active 07/19/[address] PTX Active 07/19/[address] History of Resolved 06/24/19 Problem 07/26/2016 [facility] arthroscopic 13 Medical knee surgery Center OTHER Active [facility] PNEUMOTHORAX [facility] Medications Medication Details Route Status Patient Ordering Order Source Instructions Provider Date Phenergan 25 mg 25 mg=1 tab, PO, Active [facility] oral tablet Q6H, PRN Nausea, 2017 Medical X 4 day, # 15 Center tab, 0 Refill(s) Acetaminophen 300 2 tab, PO, Q6H, Active 07/23[facility] MG / Codeine PRN for pain, X 2017 Medical Phosphate 30 MG 7 day, # 56 tab, Center Oral Tablet 0 Refill(s) Docusate Sodium 100 mg=1 cap, Active [place] 100 MG Oral PO, Q12H, # 30 2017 Medical Capsule cap, 0 Refill(s) Center acetaminophen 500 1,000 mg=2 tab, Inactive 07/23[facility] [place] mg oral tablet PO, Q6H, # 90 2017 Medical tab, 0 Refill(s) Center gabapentin 300 MG 300 mg=1 cap, Active 07/23[facility] Oral Capsule PO, TID, # 90 2017 Medical cap, 1 Refill(s) Center tramadol 100 mg=2 tab, Active [place] hydrochloride 50 PO, Q6H, # 60 2017 Medical MG Oral Tablet tab, 0 Refill(s) Center camphor-menthol 1 appl, Route: No Longer [facility] topical TOP, BID, Drug Active 2016 Medical form: BALM, PRN Center Dry Lips, Start date: 07/22/16 23:01:00 JUDICIAL REPORTER, Duration: 30 day, Stop date: 08/21/16 23:00:00 CSTNotes: Same as: Blistex Allantoin 0.01 1 appl, Route: Inactive 07/23/ [facility] [place] MG/MG / Camphor TOP, BID, PRN 2017 Medical 0.005 MG/MG / Dry Lips, Start Center phenol 0.005 date: 07/22/16 MG/MG Topical 22:58:00 JUDICIAL REPORTER, Ointment Duration: 30 [Blistex] day, Stop date: 08/21/16 22:57:00 JUDICIAL REPORTER Abreva 1 appl, Route: Inactive [facility] TOP, Dosing 2017 Medical Weight 68.182, Center kg, 5X Day, Start date: 07/22/16 22:00:00 JUDICIAL REPORTER, Duration: 30 day, Stop date: 08/21/16 18:00:00 JUDICIAL REPORTER Oxycodone 5 mg, 1 tab, No Longer [place] Hydrochloride 5 Route: PO, Drug Active 2017 Medical MG Oral Tablet form: TAB, Q4H, Center Dosing Weight 68.182, kg, PRN Pain Score 4-6, Start date: 07/22/16 14:43:00 JUDICIAL REPORTER, Duration: 30 day, Stop date: 08/21/16 14:42:00 CSTNotes: (Same as: Roxicodone) Dilaudid 0.5 mg, 0.25 mL, Inactive [facility] Route: IVP, Drug 2016 Medical form: INJ, ONCE, Center Dosing Weight 68.182, kg, Priority: STAT, Start date: 07/22/16 11:52:00 JUDICIAL REPORTER, Stop date: 07/22/16 11:52:00 CSTNotes: Same as Dilaudid Bisacodyl 10 mg, 1 supp, Inactive [facility] Route: MO, Drug 2016 Medical form: SUPP, Center ONCE, Dosing Weight 68.182, kg, Start date: 07/22/16 10:45:00 JUDICIAL REPORTER, Stop date: 07/22/16 10:45:00 CSTNotes: (Same As: Dulcolax, Bisco-Lax) Hydrocodone 1 tab, Route: Inactive Cat Bitartrate 7.5 MG PO, Drug Form: 2017 Medical / Ibuprofen 200 TAB, Dosing Center MG Oral Tablet Weight 68.182, kg, Q4H, PRN Pain Score 4-6, Start date: 07/22/16 9:37:00 JUDICIAL REPORTER, Duration: 30 day, Stop date: 08/21/16 9:36:00 CSTNotes: (Same as: Vicoprofen) Lovenox 30 mg, 0.3 mL, No Longer [place] Route: SUB-Q, Active 2016 Medical Drug form: INJ, Center [id number], Dosing Weight 68.182, kg, Start date: 07/21/16 23:00:00 JUDICIAL REPORTER, Duration: 30 day, Stop date: 08/20/16 11:00:00 CSTNotes: (Same as: Lovenox) bacitracin zinc 1 appl, Route: No Longer Cat 0.5 UNT/MG TOP, BID, Drug Active 2016 Medical Topical Ointment form: OINT, Center Start date: 07/21/16 17:00:00 JUDICIAL REPORTER, Duration: 30 day, Stop date: 08/20/16 9:00:00 JUDICIAL REPORTER Lovenox 30 mg, 0.3 mL, Inactive [place] Route: SUB-Q, 2016 Medical Drug form: INJ, Center [id number], Dosing Weight 68.182, kg, Start date: 07/21/16 14:00:00 JUDICIAL REPORTER, Duration: 30 day, Stop date: 08/20/16 2:00:00 CSTNotes: (Same as: Lovenox) Acetaminophen 1,000 mg, 2 tab, No Longer [place] Route: PO, Drug Active 2016 Medical form: TAB, Q6H, Center Dosing Weight 68.182, kg, Start date: 07/21/16 12:00:00 JUDICIAL REPORTER, Duration: 30 day, Stop date: 08/20/16 6:00:00 CSTNotes: Max acetaminophen 4000 mg/day (4 gm/day). (Same as: Tylenol Extra Strength) influenza virus 0.5 mL, Route: Inactive Cat vaccine, IM, Drug Form: 2017 Medical inactivated SUSP, Daily, Center Start date: 07/21/16 9:00:00 JUDICIAL REPORTER, Duration: 1 doses or times, Stop date: 07/21/16 9:00:00 CSTNotes: (Same as: Fluzone Quadrivalent, Fluarix Quadrivalent) For 3 years of age and older (0.5 mL IM) Shake well before use Enoxaparin 30 mg, 0.3 mL, No Longer Cat Route: SUB-Q, Active 2016 Medical Drug form: INJ, Center [id number], Dosing Weight 68.182, kg, Start date: 07/20/16 23:00:00 JUDICIAL REPORTER, Duration: 30 day, Stop date: 08/19/16 11:00:00 CSTNotes: (Same as: Lovenox) remove patch 1 patch, Route: No Longer [place] TOP, Bedtime, Active 2016 Medical Drug form: Center ERFILM, Start date: 07/20/16 21:00:00 JUDICIAL REPORTER, Duration: 30 day, Stop date: 08/18/16 21:00:00 CSTNotes: Remove patch 12 hours after application each day. {21 (Ethinyl 1 tab, PO, Active [place] Estradiol 0.02 MG Daily, # 28 tab, 2017 Medical / Levonorgestrel 0 Refill(s) Center 0.1 MG Oral Tablet) / 7 (Inert Ingredients 1 MG Oral Tablet) } Pack [Sronyx Day] sennosides, FCI 17.2 mg, 2 tab, No Longer [place] Route: PO, Drug Active 2016 Medical Form: TAB, Center Dosing Weight 68.182, kg, Daily, Start date: 07/20/16 13:00:00 JUDICIAL REPORTER, Duration: 30 day, Stop date: 08/19/16 9:00:00 CSTNotes: (Same as: Senokot) Ketorolac 30 mg, 1 mL, No Longer [place] Route: IVP, Drug Active 2016 Medical form: INJ, Q6H, Center Dosing Weight 68.182, kg, Start date: 07/20/16 12:00:00 JUDICIAL REPORTER, Duration: 1 day, Stop date: 07/21/16 6:00:00 [...] Weight 68.182, kg, Start date: 07/20/16 12:00:00 JUDICIAL REPORTER, Duration: 1 day, Stop date: 07/21/16 6:00:00 CSTNotes: Infuse over 15 minutes Do not exceed 4gm/day of acetaminophen MEDICATION WASTE Product Size: 1000 mg Product Wasted: ___ mg Oxycodone 5 mg, 1 tab, No Longer [place] Hydrochloride 5 Route: PO, Drug Active 2016 Medical MG Oral Tablet form: TAB, Q4H, Center Dosing Weight 68.182, kg, PRN Pain Score 6-10, Start date: 07/20/16 10:12:00 JUDICIAL REPORTER, Duration: 30 day, Stop date: 08/19/16 10:11:00 CSTNotes: (Same as: Roxicodone) POLYETHYLENE 17 gm, 1 pkt, No Longer Cat GLYCOL 3350 Route: PO, Drug Active 2016 Medical form: PWDR, Center Daily, Dosing Weight 68.182, kg, Start date: 07/20/16 9:00:00 JUDICIAL REPORTER, Duration: 30 day, Stop date: 08/18/16 9:00:00 CSTNotes: Dissolve in 8 oz of water or juice. (Same as: Miralax) Docusate 100 mg, 1 cap, No Longer [place] Route: PO, Drug Active 2016 Medical form: CAP, Q12H, Center Dosing Weight 68.182, kg, Start date: 07/20/16 9:00:00 JUDICIAL REPORTER, Duration: 30 day, Stop date: 08/18/16 21:00:00 CSTNotes: (Same as: Colace) (Do Not Crush) Lidocaine 1 patch, Route: No Longer [place] Hydrochloride TOP, Q24H, Drug Active 2016 Medical 0.05 MG/MG form: FILM, Center Transdermal Patch Start date: [Lidoderm] 07/20/16 9:00:00 JUDICIAL REPORTER, Duration: 30 day, Stop date: 08/18/16 9:00:00 [...] kg, Priority: NOW, Start date: 07/20/16 7:32:00 JUDICIAL REPORTER, Duration: 48 hr, Stop date: 07/22/16 0:00:00 CSTNotes: (Same as: Lyrica) Tramadol 100 mg, 2 tab, No Longer [place] Route: PO, Drug Active 2016 Medical form: TAB, Q6H, Center Dosing Weight 68.182, kg, Priority: NOW, Start date: 07/20/16 7:32:00 JUDICIAL REPORTER, Duration: 30 day, Stop date: 08/19/16 6:00:00 CSTNotes: Not to exceed 400mg/day. (Same As: Ultram) celecoxib 200 mg, 1 cap, No Longer [place] Route: PO, Drug Active 2016 Medical form: CAP, Q12H, Center Dosing Weight 68.182, kg, Priority: NOW, Start date: 07/20/16 7:32:00 JUDICIAL REPORTER, Duration: 48 hr, Stop date: 07/21/16 21:00:00 CSTNotes: NSAID. Please check indication. Not for seizure. (Same As: CeleBREX) Methocarbamol 1,000 mg, 2 tab, No Longer [place] Route: PO, Drug Active 2016 Medical form: TAB, Q8H, Center Dosing Weight 68.182, kg, PRN Muscle Spasms, Start date: 07/20/16 7:32:00 JUDICIAL REPORTER, Duration: 30 day, Stop date: 08/19/16 7:31:00 CSTNotes: (Same as:Robaxin) Ondansetron 4 mg, 2 mL, Inactive [place] Route: IVP, Drug 2016 Medical form: INJ, Q24H, Center Dosing Weight 68.182, kg, PRN Nausea & Vomiting, Start date: 07/20/16 7:30:00 JUDICIAL REPORTER, Duration: 30 day, Stop date: 08/19/16 7:29:00 CSTNotes: (Same as: Zofran) MEDICATION WASTE Product Size: 4 mg Product Wasted: ___ mg Diphenhydramine 25 mg, 1 cap, No Longer [place] Route: PO, Drug Active 2016 Medical form: CAP, Q6H, Center Dosing Weight 68.182, kg, PRN Itching, Start date: 07/20/16 7:30:00 JUDICIAL REPORTER, Duration: 30 day, Stop date: 08/19/16 7:29:00 CSTNotes: (Same as: Benadryl) Bisacodyl 10 mg, 2 tab, No Longer [place] Route: PO, Drug Active 2016 Medical form: ECTAB, Center Q24H, Dosing Weight 68.182, kg, PRN Constipation, Start date: 07/20/16 7:30:00 JUDICIAL REPORTER, Duration: 30 day, Stop date: 08/19/16 7:29:00 CSTNotes: (Same As: Dulcolax, Correctol) (Do Not Crush) "Do Not Crush" Docusate 100 mg, 1 cap, No Longer [place] Route: PO, Drug Active 2016 Medical form: CAP, BID, Center Dosing Weight 68.182, kg, PRN Constipation, Start date: 07/20/16 7:30:00 JUDICIAL REPORTER, Duration: 30 day, Stop date: 08/19/16 7:29:00 CSTNotes: (Same as: Colace) (Do Not Crush) Fentanyl 50 microgram, Inactive [place] Route: IVP, 2016 Medical ONCE, Dosing Center Weight 68.182, kg, Priority: STAT, Start date: 07/20/16 4:34:00 JUDICIAL REPORTER, Stop date: 07/20/16 4:34:00 JUDICIAL REPORTER Dilaudid 1 mg, Route: IV, Inactive [place] ONCE, Dosing 2016 Medical Weight 68.182, Center kg, Start date: 07/20/16 2:34:00 JUDICIAL REPORTER, Stop date: 07/20/16 2:34:00 JUDICIAL REPORTER Morphine 4 mg, 1 mL, Inactive [facility] Route: IVP, Drug 2016 Medical form: SOLN, Center ONCE, Dosing Weight 68.182, kg, Priority: STAT, Start date: 07/20/16 2:17:00 JUDICIAL REPORTER, Stop date: 07/20/16 2:17:00 CSTNotes: (Same as:MORPhine Sulfate) Fentanyl 50 microgram, 1 Inactive [place] mL, Route: IVP, 2017 Medical Drug form: INJ, Center ONCE, Dosing Weight 68.182, kg, Priority: STAT, Start date: 07/20/16 1:08:00 JUDICIAL REPORTER, Stop date: 07/20/16 1:08:00 CSTNotes: (Same as: Sublimaze) Preservative free. Morphine 4 mg, Route: Inactive [facility] IVP, ONCE, 2017 Medical Dosing Weight Center 68.182, kg, Priority: STAT, Start date: 07/20/16 0:22:00 JUDICIAL REPORTER, Stop date: 07/20/16 0:22:00 JUDICIAL REPORTER Ondansetron 4 mg, Route: Inactive [facility] IVP, ONCE, 2017 Medical Dosing Weight Center 68.182, kg, Priority: STAT, Start date: 07/19/16 22:55:00 JUDICIAL REPORTER, Stop date: 07/19/16 22:55:00 JUDICIAL REPORTER Fentanyl 50 microgram, Inactive [facility] Route: IVP, 2017 Medical ONCE, Dosing Center Weight 68.182, kg, Priority: STAT, Start date: 07/19/16 22:55:00 JUDICIAL REPORTER, Stop date: 07/19/16 22:55:00 JUDICIAL REPORTER Saline Flush 0.9% 10 mL, Route: No Longer [facility] IVP, Drug Form: Active 2017 Medical INJ, Dosing Center Weight 68.182, kg, PRN, PRN Line Flush, Start date: 07/19/16 22:55:00 JUDICIAL REPORTER, Duration: 30 day, Stop date: 08/18/16 22:54:00 CSTNotes: Same as: BD Posiflush Sterile Sodium Chloride 1,000 mL, 2,000 Inactive [facility] 0.154 MEQ/ML ml/hr, Route: 2017 Medical Injectable IV, ONCE, Center Solution Priority: STAT, Dosing Weight 68.182 kg, Start date: 07/19/16 22:55:00 JUDICIAL REPORTER, Duration: 1 doses or times, Stop date: 07/19/16 22:55:00 JUDICIAL REPORTER Allergies, Adverse Reactions, Alerts Substance Category Reaction Severity Reaction Status Date Comments Source type Reported sulfa drugs Assertion Drug Active [facility] allergy Medical [place] Immunizations Immunization Date Given Site Status Last Comments Source Updated influenza virus 07/21/2016 Left completed Field [facility] vaccine, deltoid Medical inactivated Center Results Order Name Results Value Reference Date Interpretation Comments Source Range Chest 1view Chest 1view EXAM: XR CHEST 1 VIEW 07/23 [facility]2016 [facility] DATE: 07/23/2016 3:00 AM JUDICIAL REPORTER Read by: Rita Yepez MD Dictated Date/time: [...] 1view EXAM: XR CHEST 1 VIEW 07/22 [facility] This report was dictated by a Customer Care Associate/Fellow. I have personally reviewed the images as Center well as the Resident's interpretation and agree with the findings. DATE: 07/22/2016 5:00 PM JUDICIAL REPORTER Read by: Israel Knapp MD Resident: Israel [...] 1view EXAM: XR CHEST 1 VIEW 07/22 [facility] DATE: 07/22/2016 11:52 AM JUDICIAL REPORTER Read by: Rita Yepez MD Dictated Date/time: [...] 32.7 % 20.0 - 07/22 [place] 40.0 [facility] HEMATOLOGY Segs 56.4 % 45.0 - 07/22 [facility] 75.0 [facility] HEMATOLOGY Monocytes 8.5 % 2.0 - 12.0 07/22 2016 [facility] HEMATOLOGY Eosinophils 2.2 % 0.0 - 4.0 07/22 2016 [facility] HEMATOLOGY Basophils 0.2 % 0.0 - 1.0 07/[address] HEMATOLOGY Monocytes # 0.6 K/CMM 0.0 - 0.8 07/[address] HEMATOLOGY Segs-Bands # 3.9 K/CMM 1.5 - 8.1 07/22 2016 [facility] HEMATOLOGY Lymphocytes # 2.3 K/CMM 1.0 - 5.5 07/22 2016 [facility] HEMATOLOGY Eosinophils # 0.2 K/CMM 0.0 - 0.5 07/[address] HEMATOLOGY WBC 6.9 K/CMM 3.7 - 10.4 07/22 2016 [facility] HEMATOLOGY RBC 3.79 M/CMM 4.20 - 07/22 [place] 5.40 [facility] HEMATOLOGY Hct 34.9 % 36.0 - 07/22 [place] 48.0 [facility] HEMATOLOGY Hgb 11.8 g/dL 12.0 - 07/22 [place] 16.0 [facility] HEMATOLOGY MCV 92.1 fL 80.0 - 07/22 [place] 98.0 /2017 [facility] HEMATOLOGY MCHC 33.8 g/dL 32.0 - 07/22 36.0 2017 [facility] HEMATOLOGY Platelet 207 K/CMM 133 - 450 07/22 [facility] HEMATOLOGY MCH 31.2 pg 27.0 - 07/22 31.0 [facility] HEMATOLOGY RDW 13.9 % 11.5 - 07/22 14.5 [facility] HEMATOLOGY MPV 9.5 fL 7.4 - 10.4 07/22 [facility] Chest 1view Chest 1view EXAM: XR CHEST 1 VIEW 07/22 - [facility] DX - [facility] DATE: 07/22/2016 3:00 AM JUDICIAL REPORTER Read by: Rita Yepez MD Dictated Date/time: [...] % 36.0 - 07/22 [place] 48.0 /2017 [facility] HEMATOLOGY Hgb 11.1 g/dL 12.0 - 07/22 [place] 16.0 2017 [facility] HEMATOLOGY Hgb 11.8 g/dL 12.0 - 07/21 [place] 16.0 2017 [facility] HEMATOLOGY Hct 35.4 % 36.0 - 07/21 [place] 48.0 [facility] Chest 1view Chest 1view EXAM: XR CHEST 1 VIEW 07/21 - [facility] DX - [facility] DATE: 07/21/2016 5:00 PM JUDICIAL REPORTER Read by: Rita Yepez MD Dictated Date/time: [...] Lvl 2.2 mg/dL 1.8 - 2.4 07/[address] CHEM PANEL Phosphorus 3.7 mg/dL 2.5 - 4.5 07/[address] ELECTROLYTE CO2 26 meq/L 24 - 32 07/[address] ELECTROLYTE BUN 13 mg/dL 7 - 22 07/[address] ELECTROLYTE Glucose Lvl 86 mg/dL 70 - 99 07/[address] ELECTROLYTE Potassium Lvl 4.3 meq/L 3.5 - 5.1 07/[address] ELECTROLYTE Chloride Lvl 109 meq/L 95 - 109 07/[address] ELECTROLYTE Creatinine 0.75 mg/dL 0.50 - 07/21 [facility] Lvl 1.40 [facility] ELECTROLYTE Sodium Lvl 141 meq/L 135 - 145 07/[address] ELECTROLYTE Calcium Lvl 8.3 mg/dL 8.5 - 10.5 07/[address] ELECTROLYTE eGFR 114 07/21 Result Comment: The eGFR is calculated using the CKD-EPI formula. In most young, healthy individuals the eGFR will be > 90 mL/min/1.73m2. The eGFR declines with age. An eGFR of 60-89 may be normal in [facility] mL/min/1.7 /2016 some populations, particularly the elderly, for whom the CKD-EPI formula has not been extensively validated. Use of the eGFR is not recommended in the following populations: [address] Individuals with unstable creatinine concentrations, including [...] ELECTROLYTE AGAP 10.3 meq/L 10.0 - 07/21 [facility] S 20.0 [facility] Chest 1view Chest 1view EXAM: XR CHEST 1 VIEW 07/21 - [facility] DX - [facility] Center DATE: 07/21/2016 3:00 AM JUDICIAL REPORTER Read by: Rita Yepez MD Dictated Date/time: [...] Acid 1.1 mMol/L 0.5 - 2.2 07/20 [facility] Lvl [facility] DRUG SCREEN U Amph Scr Negative Negative 07/20 [facility] *NA* [place] (07/19/16 11:45 PM) DRUG SCREEN U Cocaine Scr Negative Negative 07/20 [facility] *NA* [place] (07/19/16 11:45 PM) DRUG SCREEN U Sushma Scr Negative Negative 07/20 [facility] *NA* [place] (07/19/16 11:45 PM) DRUG SCREEN U Benzodia Negative Negative 07/20 [facility] *NA* [place] (07/19/16 11:45 PM) DRUG SCREEN U Opiate Scr Positive Negative 07[facility]20 [facility] [place] (07/19/16 11:45 PM) DRUG SCREEN U Cannab Scr Negative Negative 07/20 [facility] [place] (07/19/16 11:45 PM) DRUG SCREEN U Phencyc Scr Negative Negative 07/20 [facility] *NA* [place] (07/19/16 11:45 PM) DRUG SCREEN UDS Note See Note 07/20 [facility] (07/19/16 11:45 PM) Center Chest 1view Chest 1view EXAM: XR CHEST 1 VIEW 07/20 - [facility] DX - Medical This report was dictated by a Customer Care Associate/Fellow. I have personally reviewed the images as Center well as the Resident's interpretation and agree with the findings. DATE: 07/20/2016 5:16 AM JUDICIAL REPORTER Read by: Wil Whitman MD Resident: Wil [...] URINE AND UA Nitrite Negative Negative 07/20 [facility] (07/19/16 11:22 PM) [place] URINE AND UA Leuk Est Negative Negative 07/20 [facility] (07/19/16 11:22 PM) [place] URINE AND UA Spec Grav 1.020 <=1.030 07/20 [facility] URINE AND UA pH 6.0 5.0 - 8.0 07/20 [facility] URINE AND UA Protein Negative Negative 07/20 [facility] (07/19/16 11:22 PM) [place] URINE AND UA Turbidity Slight Cloudy Clear 07/20 [facility] (07/19/16 11:22 PM) [place] URINE AND UA Color Yellow Yellow 07/20 [facility] *NA* [place] (07/19/16 11:22 PM) URINE AND UA 0.2 EU/dL 0.1 - 1.0 07/20 [facility] Urobilinogen /2016 [facility] URINE AND UA Glucose Negative Negative 07/20 [facility] (07/19/16 11:22 PM) [place] URINE AND UA Blood Small Negative 07/20 [facility] *ABN* [place] (07/19/16 11:22 PM) URINE AND UA Ketones Negative Negative 07/20 [facility] *NA* [place] (07/19/16 11:22 PM) URINE AND UA Bili Negative Negative 07/20 [facility] [place] (07/19/16 11:22 PM) URINE AND UA RBC 0-2 /HPF 0 - 2 07/20 [facility] URINE AND UA WBC 0-2 /HPF None Seen 07/20 [facility] /HPF [facility] URINE AND UA Sq Epi Rare /LPF Few /LPF 07/20 [facility] URINE AND UA Bacteria Few /HPF None Seen 07/20 [facility] /HPF [address] [place] [address] CHEM PANEL Lactic Acid 1.5 mMol/L 0.5 - 2.2 07/20 [facility] Lvl [facility] ELECTROLYTE AGAP 17.3 meq/L 10.0 - 07/20 [facility] S 20.0 [facility] ELECTROLYTE eGFR 120 07/20 Result Comment: The eGFR is calculated using the CKD-EPI formula. In most young, healthy individuals the eGFR will be > 90 mL/min/1.73m2. The eGFR declines with age. An eGFR of 60-89 may be normal in [facility] mL/min/1.7 some populations, particularly the elderly, for whom the CKD-EPI formula has not been extensively validated. Use of the eGFR is not recommended in the following populations: [place] [address] Center Individuals with unstable creatinine concentrations, including [...] Lvl 4.3 meq/L 3.5 - 5.1 07/20 [facility] ELECTROLYTE Sodium Lvl 138 meq/L 135 - 145 07/20 [facility]2016 [facility] ELECTROLYTE CO2 21 meq/L 24 - 32 07/20 [facility] ELECTROLYTE Chloride Lvl 104 meq/L 95 - 109 07/20 [facility] ELECTROLYTE Calcium Lvl 8.8 mg/dL 8.5 - 10.5 07/20 [facility]2016 [facility] ELECTROLYTE BUN 11 mg/dL 7 - 22 07/20 [facility]2016 [facility] ELECTROLYTE Glucose Lvl 127 mg/dL 70 - 99 07/20 [facility]2016 [facility] ELECTROLYTE Creatinine 0.72 mg/dL 0.50 - 07/20 [facility] Lvl 1.40 [facility] ENDOCRINOLO S Preg Negative Negative 07/20 [facility] (07/19/16 11:01 PM) [place] HEMATOLOGY Monocytes # 1.6 K/CMM 0.0 - 0.8 07/20 [facility] HEMATOLOGY Basophils 0.1 % 0.0 - 1.0 07/20 [facility]2016 [facility] HEMATOLOGY Segs-Bands # 15.0 K/CMM 1.5 - 8.1 07/20 [facility]2016 [facility] HEMATOLOGY Eosinophils 0.1 % 0.0 - 4.0 07/20 [facility]2016 [facility] HEMATOLOGY Lymphocytes # 1.1 K/CMM 1.0 - 5.5 07/20 [facility]2016 [facility] HEMATOLOGY Monocytes 8.9 % 2.0 - 12.0 07/[address] HEMATOLOGY Lymphocytes 6.2 % 20.0 - 07/20 [facility] 40.0 [facility] HEMATOLOGY Segs 84.7 % 45.0 - 07/20 [facility] 75.0 [facility] HEMATOLOGY Estimated % 3.3 % 0.0 - 7.5 07/20 Result [facility] Comment: Medical Critical Center Result(s) called to [place] at 07/20/2016 00:02 by JT. Read back OK. HEMATOLOGY [place] 0.6 min 07/20 [facility] HEMATOLOGY R-time Rapid 0.7 min 0.4 - 0.7 07/20 [facility] HEMATOLOGY K-time Rapid 1.0 min 0.6 - 2.3 07/[address] HEMATOLOGY Angle Rapid 78 degrees 64 - 80 07/[address] HEMATOLOGY Max Amplitude 66 mm 52 - 71 07/20 [facility]2016 [facility] HEMATOLOGY G-value Rapid 9.9 K d/sc 5.0 - 11.6 07/20 2016 [facility] HEMATOLOGY ACT (TEG) 113 s 86 - 118 07/20 [facility] HEMATOLOGY WBC 17.7 K/CMM 3.7 - 10.4 07/20 2016 [facility] HEMATOLOGY RBC 4.32 M/CMM 4.20 - 07/20 [facility] 5.40 [facility] HEMATOLOGY MCV 91.5 fL 80.0 - 07/20 [facility] 98.0 [facility] HEMATOLOGY MCH 30.7 pg 27.0 - 07/20 [facility] 31.0 [facility] HEMATOLOGY MCHC 33.6 g/dL 32.0 - 07/20 [facility] 36.0 [facility] HEMATOLOGY MPV 9.4 fL 7.4 - 10.4 07/20 2016 [facility] HEMATOLOGY RDW 14.2 % 11.5 - 07/20 [facility] 14.5 [facility] HEMATOLOGY Platelet 234 K/CMM 133 - 450 07/20 [facility]2016 [facility] Spine-Outsi Spine-Outside EXAM: CT CERVICAL SPINE WITHOUT CONTRAST, outside film interpretation 07/19 [facility] de Consult Consult CT /2016 - [facility] DATE: 07/19/2016 11:25 PM JUDICIAL REPORTER Read by: Cheryl Beyer MD Dictated Date/time: 07/20/16 00:50 Electronically Signed by: Cheryl Beyer MD 07/20/16 01:02 FINAL REPORT INDICATION: Outside film interpretation following trauma transfer for higher level of care. CT cervical spine without contrast performed at [facility] on 07/19/2016 at 1942 hours [...] CT CHEST WITH CONTRAST, SECOND OPINION - [facility] Consult Consult CT /2017 - Medical CT EXAM: CT ABDOMEN AND PELVIS WITH CONTRAST, SECOND OPINION This report was dictated by a Customer Care Associate/Fellow. I have personally reviewed the images as [...] Brain-Outside EXAM: CT BRAIN WITHOUT CONTRAST 07/19 [facility] Consult Consult CT /2016 - [facility] DATE: 07/19/2016 11:33 PM JUDICIAL REPORTER Read by: Blanca Urbina Dictated Date/time: 07/20/16 10:26 Electronically Signed by: Blanca Urbina 07/20/16 10:29 FINAL REPORT INDICATION: Second opinion consultation COMPARISON: None available TECHNIQUE: A brain CT obtained at [facility] was submitted for 2nd opinion consultation [...] EXAM: XR CHEST 1 VIEW 07/19 - [facility] DX DX /2016 - [facility] DATE: 07/19/2016 at 2305 hours Read by: Cheryl Beyer MD Dictated Date/time: 07/19/16 23:40 Electronically Signed by: Cheryl Beyer MD 07/20/16 00:31 FINAL REPORT INDICATION: Pain Post Trauma COMPARISON: Single view chest 07/19/2016 at 1923 hours from [facility] TECHNIQUE: AP chest FINDINGS: Lines and [...] Source Temperature Oral (F) 98.1 F 07/23/2016 [facility] Respitory Rate 18 07/23/2016 [facility] Systolic (mm Hg) 117 07/23/2016 [facility] Diastolic (mm Hg) 87 07/23/2016 [facility] Heart Rate 87 07/23/2016 [facility] Temperature Oral (F) 97.7 F 07/23/2016 [facility] Systolic (mm Hg) 104 07/23/2016 [facility] Diastolic (mm Hg) 66 07/23/2016 [facility] Respitory Rate 18 07/23/2016 [facility] Heart Rate 74 07/23/2016 [facility] Systolic (mm Hg) 116 07/23/2016 [facility] Diastolic (mm Hg) 76 07/23/2016 [facility] Temperature Oral (F) 98.0 F 07/23/2016 [facility] Respitory Rate 18 07/23/2016 [facility] Heart Rate 72 07/23/2016 [facility] Weight 68.182 07/20/2016 [facility] BMI Calculated 25.8 07/20/2016 [facility] Height 162.56 cm 07/20/2016 [facility] BMI Calculated 25.8 07/20/2016 [facility] Height 162.56 cm 07/20/2016 [facility] Weight 68.182 07/20/2016 [facility] Encounters Location Location Encounter Encounter Reason Attending ADM DC Status Source Details Type Number For Provider Date Date Visit [facility] [id number] Pin Baltazar 07/20 07/23 [facility] /2016 [facility] Procedures Procedure Code Date Perfomer Comments Source [place]throscopy of [id number] 2009 and 2012 [facility] knee<sup>1</sup> [facility]
--- NOTE | 2018-02-27 12:30 | ER ---
Nurse's Notes [facility] Name: Daisha Spivey Age: 22 yrs Sex: Female : 1995 Arrival Date: 02/27/2018 Time: 12:04 Bed Waiting Private MD: Diagnosis: Presentation: 02/27 12:28 Note Patient eloped at 1210, unknown reason. tito ED Course: 12:04 Patient arrived in ED. rg4 12:29 Reid Nickerson MD is Attending Physician. aj 12:29 Patient's name was called from ER lobby. No response. aj Administered Medications: No medications were administered Outcome: 12:29 Eloped from waiting room, before seeing physician Time discovered patient gone: aj February 27, 2018 at 12:10 12:29 Patient left the ED. tito Signatures: Cheryl Sanders, RN RN Lea Rendon rg4
== END 2018-02-27 12:29 | disposition left against medical advice (07) ==
LOC: ER 12:03
DX: Z53.21 Procedure and treatment not carried out due to patient leaving prior to being seen by health care provider (principal)

== ENCOUNTER 2018-08-04 10:57 | Emergency (ER) | payer SELFPAY ==
--- NOTE | 2018-08-04 11:43 | ER ---
Nurse's Notes [facility] Name: Daisha Spivey Age: 23 yrs Sex: Female : 1995 Arrival Date: 08/04/2018 Time: 11:00 Bed 26 Private MD: Elidia Bueno Diagnosis: Bronchitis, not specified as acute or chronic Presentation: 08/04 11:10 Presenting complaint: Patient states: nasal congestion, cough, headache that began 2-3 aa5 weeks ago. Pt states "my eyes feel like they are coming out of my face". Transition of care: patient was not received from another setting of care. Onset of symptoms was June 2018. Risk Assessment: Do you want to hurt yourself or someone else? Patient reports no desire to harm self or others. Initial Sepsis Screen: Does the patient meet any 2 criteria? No. Patient's initial sepsis screen is negative. Does the patient have a suspected source of infection? No. Patient's initial sepsis screen is negative. Care prior to arrival: None. 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 PED, CHEST TUBE; COLLASPED LUNG; aa5 - Immunization history:: Flu vaccine status is unknown. - Social history:: Smoking status: Patient/guardian denies using tobacco, Patient/guardian denies using alcohol, street drugs, The patient lives. - Ebola Screening: : No symptoms or risks identified at this time. - Family history:: not pertinent. Screenin:39 Abuse screen: Denies threats or abuse. Denies injuries from another. Nutritional aj screening: No deficits noted. Tuberculosis screening: No symptoms or risk factors identified. Fall Risk None identified. Assessment: 11:39 General: Appears in no apparent distress. comfortable, Behavior is calm, cooperative, aj appropriate for age. Pain: Complains of pain in face. Neuro: Level of Consciousness is awake, alert, obeys commands, Oriented to person, place, time, situation, Appropriate for age Sand Conditioner Machine are equal bilaterally Moves all extremities. Full function Gait is steady, Speech is normal, Facial symmetry appears normal, Pupils are PERRLA, Intact Reports headache. Respiratory: Reports cough that is productive, Airway is patent Respiratory effort is even, unlabored, Respiratory pattern is regular, symmetrical. GI: Abdomen is non-distended, obese. EENT: Reports nasal congestion nasal discharge. Derm: Skin is intact, is healthy with good turgor, Skin is pink, warm \\T\\ dry. normal. Vital Signs: 11:11 BP 122 / 92; Pulse 78; Resp 18 S; Temp 98.7(TE); Pulse Ox 100% on R/A; Weight 78.47 kg aa5 (R); Height 5 ft. 4 in. (162.56 cm) (R); Pain 3/10; 11:11 Body Mass Index 29.70 (78.47 kg, 162.56 cm) aa5 ED Course: 11:00 Patient arrived in ED. mr 11:01 Elidia Bueno is Private Physician. mr 11:10 Arm band placed on. aa5 11:11 Triage completed. aa5 11:17 Diana Sams MD is Attending Physician. ma2 11:19 Cheryl Sanders, RN is Primary Nurse. aj 11:39 Patient has correct armband on for positive identification. aj 11:59 No provider procedures requiring assistance completed. Patient did not have IV access aj during this emergency room visit. Administered Medications: No medications were administered Outcome: 11:42 Discharge ordered by . ma2 11:59 Discharged to home ambulatory. aj 11:59 Condition: good 11:59 Discharge instructions given to patient, Instructed on discharge instructions, follow up and referral plans. medication usage, Demonstrated understanding of instructions, follow-up care, medications, Prescriptions given X 3. 12:00 Patient left the ED. aj Signatures: Cheryl Sanders, RN Breann Casey mr DamonVirginia, RN RN aa Diana Sams MD MD ma2
--- NOTE | 2018-08-04 11:43 | EDPHYS ---
Physician Documentation [facility] Name: Daisha Spivey Age: 23 yrs Sex: Female : 1995 Arrival Date: 08/04/2018 Time: 11:00 Bed 26 Private MD: Elidia Bueno ED Physician Diana Sams HPI: 08/04 11:40 This 23 yrs old Female presents to ER via Ambulatory with complaints of ma2 Cough, Vomiting. 11:40 The patient or guardian reports cough. Onset: The symptoms/episode began/occurred ma2 gradually, 2 day(s) ago. Severity of symptoms: At their worst the symptoms were moderate, in the emergency department the symptoms are unchanged. Associated signs and symptoms: Pertinent positives: rhinorrhea, sore throat, Pertinent negatives: ear ache, fever. The patient has experienced similar episodes in the past. 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 PED, CHEST TUBE; COLLASPED LUNG; aa5 - Immunization history:: Flu vaccine status is unknown. - Social history:: Smoking status: Patient/guardian denies using tobacco, Patient/guardian denies using alcohol, street drugs, The patient lives. - Ebola Screening: : No symptoms or risks identified at this time. - Family history:: not pertinent. ROS: 11:40 Constitutional: Negative for fever, chills, and weight loss, Cardiovascular: Negative ma2 for chest pain, palpitations, and edema, Respiratory: Negative for shortness of breath, cough, wheezing, and pleuritic chest pain, Abdomen/GI: Negative for abdominal pain, nausea, diarrhea, and constipation. 11:40 ENT: Positive for nasal discharge. 11:40 All other systems are negative. Exam: 11:40 Constitutional: This is a well developed, well nourished patient who is awake, alert, ma2 and in no acute distress. Chest/axilla: Normal chest wall appearance and motion. Nontender with no deformity. No lesions are appreciated. Cardiovascular: Regular rate and rhythm with a normal S1 and S2. No gallops, murmurs, or rubs. Normal PMI, no JVD. No pulse deficits. Respiratory: Lungs have equal breath sounds bilaterally, clear to auscultation and percussion. No rales, rhonchi or wheezes noted. No increased work of breathing, no retractions or nasal flaring. 11:40 Abdomen/GI: Soft, non-tender, with normal bowel sounds. No distension or tympany. No guarding or rebound. No evidence of tenderness throughout. MS/ Extremity: Pulses equal, no cyanosis. Neurovascular intact. Full, normal range of motion. Neuro: Awake and alert, GCS 15, oriented to person, place, time, and situation. Cranial nerves II-XII grossly intact. Motor strength 5/5 in all extremities. Sensory grossly intact. Cerebellar exam normal. Normal gait. 11:40 ENT: TM's: are normal, Posterior pharynx: Tonsils: bilaterally enlarged, with erythema, erythema, that is mild. Vital Signs: 11:11 BP 122 / 92; Pulse 78; Resp 18 S; Temp 98.7(TE); Pulse Ox 100% on R/A; Weight 78.47 kg aa5 (R); Height 5 ft. 4 in. (162.56 cm) (R); Pain 3/10; 11:11 Body Mass Index 29.70 (78.47 kg, 162.56 cm) aa5 MDM: 11:17 Patient medically screened. ma2 11:41 Differential Diagnosis: Bronchitis Upper Respiratory Infection Pharyngitis. Data ma2 reviewed: vital signs, nurses notes. Counseling: I had a detailed discussion with the patient and/or guardian regarding: the historical points, exam findings, and any diagnostic results supporting the discharge/admit diagnosis, the presence of at least one elevated blood pressure reading (>120/80) during this emergency department visit. Administered Medications: No medications were administered Disposition: 08/04/18 11:42 Discharged to Home. Impression: Bronchitis, not specified as acute or chronic. - Condition is Stable. - Discharge Instructions: Acute Bronchitis, Adult, Form - Excuse from Work, School, or Physical Activity. - Prescriptions for Tylenol- Codeine #3 300-30 mg Oral Tablet - take 2 tablet by ORAL route every 6 hours As needed; 30 tablet. Zithromax Z- Chencho 250 mg Oral Tablet - take 1 tablet by ORAL route as directed for 5 days Day 1 - take two (2) tablets one time. Day 2, 3, 4 , 5 take one (1) tablet once daily.; 6 tablet. Medrol (Chencho) 4 mg Oral Tablets, Dose Pack - take 1 tablet by ORAL route as directed - follow package instructions; 1 packet. - Work release form, Medication Reconciliation Form, Thank You Letter, Antibiotic Education, Prescription Opioid Use form. - Follow up: Private Physician; When: Tomorrow; Reason: Continuance of care. Signatures: Cheryl Sanders RN Virginia Nina RN RN aa5 Diana Sams MD MD ma2 Corrections: (The following items were deleted from the chart) 12:00 11:42 08/04/2018 11:42 Discharged to Home. Impression: Bronchitis, not specified as aj acute or chronic. Condition is Stable. Forms are Medication Reconciliation Form, Thank You Letter, Antibiotic Education, Prescription Opioid Use. Follow up: Private Physician; When: Tomorrow; Reason: Continuance of care. ma2
--- OUTSIDE RECORDS SUMMARY | 2018-08-04 11:52 | XMS REPORT | Continuity of Care Document ---
:1995 Author Organization Interface Problems Problem Status Onset Classification Date Comments Source Date Reported AUTO/PED Active 07/19/[address] PTX Active 07/19/[address] History of Resolved 06/24/19 Problem 07/26/2016 [facility] arthroscopic 13 Medical knee surgery Center OTHER Active [facility] PNEUMOTHORAX [facility] Medications Medication Details Route Status Patient Ordering Order Source Instructions Provider Date Phenergan 25 mg 25 mg=1 tab, PO, Active [facility] oral tablet Q6H, PRN Nausea, 2017 Medical X 4 day, # 15 Center tab, 0 Refill(s) Acetaminophen 300 2 tab, PO, Q6H, Active 07/23[facility] MG / Codeine PRN for pain, X 2017 Medical Phosphate 30 MG 7 day, # 56 tab, Center Oral Tablet 0 Refill(s) Docusate Sodium 100 mg=1 cap, Active [place] 100 MG Oral PO, Q12H, # 30 2017 Medical Capsule cap, 0 Refill(s) Center acetaminophen 500 1,000 mg=2 tab, Inactive 07/23[facility] [place] mg oral tablet PO, Q6H, # 90 2017 Medical tab, 0 Refill(s) Center gabapentin 300 MG 300 mg=1 cap, Active 07/23[facility] Oral Capsule PO, TID, # 90 2017 Medical cap, 1 Refill(s) Center tramadol 100 mg=2 tab, Active [place] hydrochloride 50 PO, Q6H, # 60 2017 Medical MG Oral Tablet tab, 0 Refill(s) Center camphor-menthol 1 appl, Route: No Longer [facility] topical TOP, BID, Drug Active 2016 Medical form: BALM, PRN Center Dry Lips, Start date: 07/22/16 23:01:00 [employer]ITAL [employer]IDES AND ASSISTANTS TEACHER, Duration: 30 day, Stop date: 08/21/16 23:00:00 CSTNotes: Same as: Blistex Allantoin 0.01 1 appl, Route: Inactive 07/23/ [facility] [place] MG/MG / Camphor TOP, BID, PRN 2017 Medical 0.005 MG/MG / Dry Lips, Start Center phenol 0.005 date: 07/22/16 MG/MG Topical 22:58:00 [facility]ITAL [employer]ES [employer] ASSISTANTS TEACHER, Ointment Duration: 30 [Blistex] day, Stop date: 08/21/16 22:57:00 [facility]ITAL [employer]ES [employer] ASSISTANTS TEACHER Abreva 1 appl, Route: Inactive [facility] TOP, Dosing 2017 Medical Weight 68.182, Center kg, 5X Day, Start date: 07/22/16 22:00:00 HOSPITAL [employer]ES AND ASSISTANTS TEACHER, Duration: 30 day, Stop date: 08/21/16 18:00:00 [facility] [employer]ES AND ASSISTANTS TEACHER Oxycodone 5 mg, 1 tab, No Longer [place] Hydrochloride 5 Route: PO, Drug Active 2017 Medical MG Oral Tablet form: TAB, Q4H, Center Dosing Weight 68.182, kg, PRN Pain Score 4-6, Start date: 07/22/16 14:43:00 HOSPITAL [employer]ES AND ASSISTANTS TEACHER, Duration: 30 day, Stop date: 08/21/16 14:42:00 CSTNotes: (Same as: Roxicodone) Dilaudid 0.5 mg, 0.25 mL, Inactive [facility] Route: IVP, Drug 2016 Medical form: INJ, ONCE, Center Dosing Weight 68.182, kg, Priority: STAT, Start date: 07/22/16 11:52:00 HOSPITAL [employer]ES AND ASSISTANTS TEACHER, Stop date: 07/22/16 11:52:00 CSTNotes: Same as Dilaudid Bisacodyl 10 mg, 1 supp, Inactive [facility] Route: DE, Drug 2016 Medical form: SUPP, Center ONCE, Dosing Weight 68.182, kg, Start date: 07/22/16 10:45:00 HOSPITAL [employer]ES AND ASSISTANTS TEACHER, Stop date: 07/22/16 10:45:00 CSTNotes: (Same As: Dulcolax, Bisco-Lax) Hydrocodone 1 tab, Route: Inactive Cat Bitartrate 7.5 MG PO, Drug Form: 2017 Medical / Ibuprofen 200 TAB, Dosing Center MG Oral Tablet Weight 68.182, kg, Q4H, PRN Pain Score 4-6, Start date: 07/22/16 9:37:00 HOSPITAL [employer]ES AND ASSISTANTS TEACHER, Duration: 30 day, Stop date: 08/21/16 9:36:00 CSTNotes: (Same as: Vicoprofen) Lovenox 30 mg, 0.3 mL, No Longer [place] Route: SUB-Q, Active 2016 Medical Drug form: INJ, Center [id number], Dosing Weight 68.182, kg, Start date: 07/21/16 23:00:00 HOS[employer]ITAL [employer]ES AND ASSISTANTS TEACHER, Duration: 30 day, Stop date: 08/20/16 11:00:00 CSTNotes: (Same as: Lovenox) bacitracin zinc 1 appl, Route: No Longer Cat 0.5 UNT/MG TOP, BID, Drug Active 2016 Medical Topical Ointment form: OINT, Center Start date: 07/21/16 17:00:00 HOSPITAL [employer]ES AND ASSISTANTS TEACHER, Duration: 30 day, Stop date: 08/20/16 9:00:00 HOSPITAL A[employer]ES AND ASSISTANTS TEACHER Lovenox 30 mg, 0.3 mL, Inactive [place] Route: SUB-Q, 2016 Medical Drug form: INJ, Center [id number], Dosing Weight 68.182, kg, Start date: 07/21/16 14:00:00 HOSPITAL A[employer]ES AND ASSISTANTS TEACHER, Duration: 30 day, Stop date: 08/20/16 2:00:00 CSTNotes: (Same as: Lovenox) Acetaminophen 1,000 mg, 2 tab, No Longer [place] Route: PO, Drug Active 2016 Medical form: TAB, Q6H, Center Dosing Weight 68.182, kg, Start date: 07/21/16 12:00:00 HOSPITAL AIDES AND ASSISTANTS TEACHER, Duration: 30 day, Stop date: 08/20/16 6:00:00 CSTNotes: Max acetaminophen 4000 mg/day (4 gm/day). (Same as: Tylenol Extra Strength) influenza virus 0.5 mL, Route: Inactive Cat vaccine, IM, Drug Form: 2017 Medical inactivated SUSP, Daily, Center Start date: 07/21/16 9:00:00 HOSPITAL AIDES AND ASSISTANTS TEACHER, Duration: 1 doses or times, Stop date: 07/21/16 9:00:00 CSTNotes: (Same as: Fluzone Quadrivalent, Fluarix Quadrivalent) For 3 years of age and older (0.5 mL IM) Shake well before use Enoxaparin 30 mg, 0.3 mL, No Longer Cat Route: SUB-Q, Active 2016 Medical Drug form: INJ, Center [id number], Dosing Weight 68.182, kg, Start date: 07/20/16 23:00:00 HOSPITAL A[employer]ES AND ASSISTANTS TEACHER, Duration: 30 day, Stop date: 08/19/16 11:00:00 CSTNotes: (Same as: Lovenox) remove patch 1 patch, Route: No Longer [place] TOP, Bedtime, Active 2016 Medical Drug form: Center ERFILM, Start date: 07/20/16 21:00:00 HOSPITAL AIDES AND ASSISTANTS TEACHER, Duration: 30 day, Stop date: 08/18/16 21:00:00 CSTNotes: Remove patch 12 hours after application each day. {21 (Ethinyl 1 tab, PO, Active [place] Estradiol 0.02 MG Daily, # 28 tab, 2017 Medical / Levonorgestrel 0 Refill(s) Center 0.1 MG Oral Tablet) / 7 (Inert Ingredients 1 MG Oral Tablet) } Pack [Sronyx Day] sennosides, LONGTERM 17.2 mg, 2 tab, No Longer [place] Route: PO, Drug Active 2016 Medical Form: TAB, Center Dosing Weight 68.182, kg, Daily, Start date: 07/20/16 13:00:00 HOSPITAL [employer]ES AND ASSISTANTS TEACHER, Duration: 30 day, Stop date: 08/19/16 9:00:00 CSTNotes: (Same as: Senokot) Ketorolac 30 mg, 1 mL, No Longer [place] Route: IVP, Drug Active 2016 Medical form: INJ, Q6H, Center Dosing Weight 68.182, kg, Start date: 07/20/16 12:00:00 HOSPITAL A[employer]ES AND ASSISTANTS TEACHER, Duration: 1 day, Stop date: 07/21/16 6:00:00 [...] Weight 68.182, kg, Start date: 07/20/16 12:00:00 HOSPITAL [employer]ES AND ASSISTANTS TEACHER, Duration: 1 day, Stop date: 07/21/16 6:00:00 CSTNotes: Infuse over 15 minutes Do not exceed 4gm/day of acetaminophen MEDICATION WASTE Product Size: 1000 mg Product Wasted: ___ mg Oxycodone 5 mg, 1 tab, No Longer [place] Hydrochloride 5 Route: PO, Drug Active 2016 Medical MG Oral Tablet form: TAB, Q4H, Center Dosing Weight 68.182, kg, PRN Pain Score 6-10, Start date: 07/20/16 10:12:00 HOSPITAL [employer]ES [employer] ASSISTANTS TEACHER, Duration: 30 day, Stop date: 08/19/16 10:11:00 CSTNotes: (Same as: Roxicodone) POLYETHYLENE 17 gm, 1 pkt, No Longer Cat GLYCOL [id number] Route: PO, Drug Active 2016 Medical form: PWDR, Center Daily, Dosing Weight 68.182, kg, Start date: 07/20/16 9:00:00 HOSPITAL [employer]ES AND ASSISTANTS TEACHER, Duration: 30 day, Stop date: 08/18/16 9:00:00 CSTNotes: Dissolve in 8 oz of water or juice. (Same as: Miralax) Docusate 100 mg, 1 cap, No Longer [place] Route: PO, Drug Active 2016 Medical form: CAP, Q12H, Center Dosing Weight 68.182, kg, Start date: 07/20/16 9:00:00 HOSPITAL [employer]ES AND ASSISTANTS TEACHER, Duration: 30 day, Stop date: 08/18/16 21:00:00 CSTNotes: (Same as: Colace) (Do Not Crush) Lidocaine 1 patch, Route: No Longer [place] Hydrochloride TOP, Q24H, Drug Active 2016 Medical 0.05 MG/MG form: FILM, Center Transdermal Patch Start date: [Lidoderm] 07/20/16 9:00:00 HOSPITAL A[employer]ES AND ASSISTANTS TEACHER, Duration: 30 day, Stop date: 08/18/16 9:00:00 [...] kg, Priority: NOW, Start date: 07/20/16 7:32:00 HOSPITAL A[employer]ES AND ASSISTANTS TEACHER, Duration: 48 hr, Stop date: 07/22/16 0:00:00 CSTNotes: (Same as: Lyrica) Tramadol 100 mg, 2 tab, No Longer [place] Route: PO, Drug Active 2016 Medical form: TAB, Q6H, Center Dosing Weight 68.182, kg, Priority: NOW, Start date: 07/20/16 7:32:00 HOSPITAL AIDES AND ASSISTANTS TEACHER, Duration: 30 day, Stop date: 08/19/16 6:00:00 CSTNotes: Not to exceed 400mg/day. (Same As: Ultram) celecoxib 200 mg, 1 cap, No Longer [place] Route: PO, Drug Active 2016 Medical form: CAP, Q12H, Center Dosing Weight 68.182, kg, Priority: NOW, Start date: 07/20/16 7:32:00 HOSPITAL AIDES AND ASSISTANTS TEACHER, Duration: 48 hr, Stop date: 07/21/16 21:00:00 CSTNotes: NSAID. Please check indication. Not for seizure. (Same As: CeleBREX) Methocarbamol 1,000 mg, 2 tab, No Longer [place] Route: PO, Drug Active 2016 Medical form: TAB, Q8H, Center Dosing Weight 68.182, kg, PRN Muscle Spasms, Start date: 07/20/16 7:32:00 HOSPITAL A[employer]ES AND ASSISTANTS TEACHER, Duration: 30 day, Stop date: 08/19/16 7:31:00 CSTNotes: (Same as:Robaxin) Ondansetron 4 mg, 2 mL, Inactive [place] Route: IVP, Drug 2016 Medical form: INJ, Q24H, Center Dosing Weight 68.182, kg, PRN Nausea & Vomiting, Start date: 07/20/16 7:30:00 HOSPITAL A[employer]ES AND ASSISTANTS TEACHER, Duration: 30 day, Stop date: 08/19/16 7:29:00 CSTNotes: (Same as: Zofran) MEDICATION WASTE Product Size: 4 mg Product Wasted: ___ mg Diphenhydramine 25 mg, 1 cap, No Longer [place] Route: PO, Drug Active 2016 Medical form: CAP, Q6H, Center Dosing Weight 68.182, kg, PRN Itching, Start date: 07/20/16 7:30:00 HOSPITAL AIDES AND ASSISTANTS TEACHER, Duration: 30 day, Stop date: 08/19/16 7:29:00 CSTNotes: (Same as: Benadryl) Bisacodyl 10 mg, 2 tab, No Longer [place] Route: PO, Drug Active 2016 Medical form: ECTAB, Center Q24H, Dosing Weight 68.182, kg, PRN Constipation, Start date: 07/20/16 7:30:00 HOSPITAL AIDES AND ASSISTANTS TEACHER, Duration: 30 day, Stop date: 08/19/16 7:29:00 CSTNotes: (Same As: Dulcolax, Correctol) (Do Not Crush) "Do Not Crush" Docusate 100 mg, 1 cap, No Longer [place] Route: PO, Drug Active 2016 Medical form: CAP, BID, Center Dosing Weight 68.182, kg, PRN Constipation, Start date: 07/20/16 7:30:00 HOSPITAL AIDES AND ASSISTANTS TEACHER, Duration: 30 day, Stop date: 08/19/16 7:29:00 CSTNotes: (Same as: Colace) (Do Not Crush) Fentanyl 50 microgram, Inactive [place] Route: IVP, 2016 Medical ONCE, Dosing Center Weight 68.182, kg, Priority: STAT, Start date: 07/20/16 4:34:00 HOS[facility]ITAL AIDES AND ASSISTANTS TEACHER, Stop date: 07/20/16 4:34:00 HOSPITAL A[employer]ES AND ASSISTANTS TEACHER Dilaudid 1 mg, Route: IV, Inactive [place] ONCE, Dosing 2016 Medical Weight 68.182, Center kg, Start date: 07/20/16 2:34:00 HOSPITAL AIDES AND ASSISTANTS TEACHER, Stop date: 07/20/16 2:34:00 HOSPITAL AIDES AND ASSISTANTS TEACHER Morphine 4 mg, 1 mL, Inactive [facility] Route: IVP, Drug 2016 Medical form: SOLN, Center ONCE, Dosing Weight 68.182, kg, Priority: STAT, Start date: 07/20/16 2:17:00 HOSPITAL AIDES AND ASSISTANTS TEACHER, Stop date: 07/20/16 2:17:00 CSTNotes: (Same as:MORPhine Sulfate) Fentanyl 50 microgram, 1 Inactive [place] mL, Route: IVP, 2017 Medical Drug form: INJ, Center ONCE, Dosing Weight 68.182, kg, Priority: STAT, Start date: 07/20/16 1:08:00 HOSPITAL AIDES AND ASSISTANTS TEACHER, Stop date: 07/20/16 1:08:00 CSTNotes: (Same as: Sublimaze) Preservative free. Morphine 4 mg, Route: Inactive [facility] IVP, ONCE, 2017 Medical Dosing Weight Center 68.182, kg, Priority: STAT, Start date: 07/20/16 0:22:00 HOSPITAL AIDES AND ASSISTANTS TEACHER, Stop date: 07/20/16 0:22:00 HOSPITAL AIDES AND ASSISTANTS TEACHER Ondansetron 4 mg, Route: Inactive [facility] IVP, ONCE, 2017 Medical Dosing Weight Center 68.182, kg, Priority: STAT, Start date: 07/19/16 22:55:00 HOSPITAL AIDES AND ASSISTANTS TEACHER, Stop date: 07/19/16 22:55:00 HOSPITAL AIDES AND ASSISTANTS TEACHER Fentanyl 50 microgram, Inactive [facility] Route: IVP, 2017 Medical ONCE, Dosing Center Weight 68.182, kg, Priority: STAT, Start date: 07/19/16 22:55:00 HOSPITAL AIDES AND ASSISTANTS TEACHER, Stop date: 07/19/16 22:55:00 HOSPITAL AIDES AND ASSISTANTS TEACHER Saline Flush 0.9% 10 mL, Route: No Longer [facility] IVP, Drug Form: Active 2017 Medical INJ, Dosing Center Weight 68.182, kg, PRN, PRN Line Flush, Start date: 07/19/16 22:55:00 HOSPITAL AIDES AND ASSISTANTS TEACHER, Duration: 30 day, Stop date: 08/18/16 22:54:00 CSTNotes: Same as: BD Posiflush Sterile Sodium Chloride 1,000 mL, 2,000 Inactive [facility] 0.154 MEQ/ML ml/hr, Route: 2017 Medical Injectable IV, ONCE, Center Solution Priority: STAT, Dosing Weight 68.182 kg, Start date: 07/19/16 22:55:00 HOSPITAL AIDES AND ASSISTANTS TEACHER, Duration: 1 doses or times, Stop date: 07/19/16 22:55:00 HOSPITAL AIDES AND ASSISTANTS TEACHER Allergies, Adverse Reactions, Alerts Substance Category Reaction Severity Reaction Status Date Comments Source type Reported sulfa drugs Assertion Drug Active [facility] allergy Medical [place] Immunizations Immunization Date Given Site Status Last Comments Source Updated influenza virus 07/21/2016 Left completed Field [facility] vaccine, deltoid Medical inactivated Center Results Order Name Results Value Reference Date Interpretation Comments Source Range Chest 1view Chest 1view EXAM: XR CHEST 1 VIEW 07/23 [facility]2016 [facility] DATE: 07/23/2016 3:00 AM HOSPITAL AIDES AND ASSISTANTS TEACHER Read by: Rita Yepez MD Dictated Date/time: [...] 1view EXAM: XR CHEST 1 VIEW 07/22 [facility] This report was dictated by a Data Center Architect/Fellow. I have personally reviewed the images as Center well as the Resident's interpretation and agree with the findings. DATE: 07/22/2016 5:00 PM HOSPITAL AIDES AND ASSISTANTS TEACHER Read by: Israel Knapp MD Resident: Israel [...] 1view EXAM: XR CHEST 1 VIEW 07/22 [facility] DATE: 07/22/2016 11:52 AM HOSPITAL AIDES AND ASSISTANTS TEACHER Read by: Rita Yepez MD Dictated Date/time: [...] 20.0 - 07/22 [place] 40.0 [facility] HEMATOLOGY Segs 56.4 % 45.0 - 07/22 [facility] 75.0 [facility] HEMATOLOGY Monocytes 8.5 % 2.0 - 12.0 07/22 2016 [facility] HEMATOLOGY Eosinophils 2.2 % 0.0 - 4.0 07/22 2016 [facility] HEMATOLOGY Basophils 0.2 % 0.0 - 1.0 07/[address] HEMATOLOGY Monocytes # 0.6 K/CMM 0.0 - 0.8 07/[address] HEMATOLOGY Segs-Bands # 3.9 K/CMM 1.5 - 8.1 07/22 2016 [facility] HEMATOLOGY Lymphocytes # 2.3 K/CMM 1.0 - 5.5 07/22 2016 [facility] HEMATOLOGY Eosinophils # 0.2 K/CMM 0.0 - 0.5 07/[address] HEMATOLOGY WBC 6.9 K/CMM 3.7 - 10.4 07/22 2016 [facility] HEMATOLOGY RBC 3.79 M/CMM 4.20 - 07/22 [place] 5.40 [facility] HEMATOLOGY Hct 34.9 % 36.0 - 07/22 [place] 48.0 [facility] HEMATOLOGY Hgb 11.8 g/dL 12.0 - 07/22 [place] 16.0 [facility] HEMATOLOGY MCV 92.1 fL 80.0 - 07/22 [place] 98.0 /2017 [facility] HEMATOLOGY MCHC 33.8 g/dL 32.0 - 07/22 36.0 2017 [facility] HEMATOLOGY Platelet 207 K/CMM 133 - 450 07/22 [facility] HEMATOLOGY MCH 31.2 pg 27.0 - 07/22 31.0 [facility] HEMATOLOGY RDW 13.9 % 11.5 - 07/22 14.5 [facility] HEMATOLOGY MPV 9.5 fL 7.4 - 10.4 07/22 [facility] Chest 1view Chest 1view EXAM: XR CHEST 1 VIEW 07/22 - [facility] DX - [facility] DATE: 07/22/2016 3:00 AM HOSPITAL AIDES AND ASSISTANTS TEACHER Read by: Rita Yepez MD Dictated Date/time: [...] - 07/22 [place] 48.0 /2017 [facility] HEMATOLOGY Hgb 11.1 g/dL 12.0 - 07/22 [place] 16.0 2017 [facility] HEMATOLOGY Hgb 11.8 g/dL 12.0 - 07/21 [place] 16.0 2017 [facility] HEMATOLOGY Hct 35.4 % 36.0 - 07/21 [place] 48.0 [facility] Chest 1view Chest 1view EXAM: XR CHEST 1 VIEW 07/21 - [facility] DX - [facility] DATE: 07/21/2016 5:00 PM HOSPITAL AIDES AND ASSISTANTS TEACHER Read by: Rita Yepez MD Dictated Date/time: [...] Lvl 2.2 mg/dL 1.8 - 2.4 07/[address] CHEM PANEL Phosphorus 3.7 mg/dL 2.5 - 4.5 07/[address] ELECTROLYTE CO2 26 meq/L 24 - 32 07/[address] ELECTROLYTE BUN 13 mg/dL 7 - 22 07/[address] ELECTROLYTE Glucose Lvl 86 mg/dL 70 - 99 07/[address] ELECTROLYTE Potassium Lvl 4.3 meq/L 3.5 - 5.1 07/[address] ELECTROLYTE Chloride Lvl 109 meq/L 95 - 109 07/[address] ELECTROLYTE Creatinine 0.75 mg/dL 0.50 - 07/21 [facility] Lvl 1.40 [facility] ELECTROLYTE Sodium Lvl 141 meq/L 135 - 145 07/[address] ELECTROLYTE Calcium Lvl 8.3 mg/dL 8.5 - 10.5 07/[address] ELECTROLYTE eGFR 114 07/21 Result Comment: The eGFR is calculated using the CKD-EPI formula. In most young, healthy individuals the eGFR will be > 90 mL/min/1.73m2. The eGFR declines with age. An eGFR of 60-89 may be normal in [facility] mL/min/1.7 /2016 some populations, particularly the elderly, for whom the CKD-EPI formula has not been extensively validated. Use of the eGFR is not recommended in the following populations: [address] Individuals with unstable creatinine concentrations, including [...] ELECTROLYTE AGAP 10.3 meq/L 10.0 - 07/21 [facility] S 20.0 [facility] Chest 1view Chest 1view EXAM: XR CHEST 1 VIEW 07/21 - [facility] DX - [facility] Center DATE: 07/21/2016 3:00 AM HOSPITAL AIDES AND ASSISTANTS TEACHER Read by: Rita Yepez MD Dictated Date/time: [...] Acid 1.1 mMol/L 0.5 - 2.2 07/20 [facility] Lvl [facility] DRUG SCREEN U Amph Scr Negative Negative 07/20 [facility] *NA* [place] (07/19/16 11:45 PM) DRUG SCREEN U Cocaine Scr Negative Negative 07/20 [facility] *NA* [place] (07/19/16 11:45 PM) DRUG SCREEN U Sushma Scr Negative Negative 07/20 [facility] *NA* [place] (07/19/16 11:45 PM) DRUG SCREEN U Benzodia Negative Negative 07/20 [facility] *NA* [place] (07/19/16 11:45 PM) DRUG SCREEN U [facility]ate [facility] Positive [facility] [place] (07/19/16 11:45 PM) DRUG SCREEN U Cannab Scr Negative Negative [facility] [place] (07/19/16 11:45 PM) DRUG SCREEN U Phencyc Scr Negative Negative 07/20 [facility] *NA* [place] (07/19/16 11:45 PM) DRUG SCREEN UDS Note See Note 07/20 [facility] (07/19/16 11:45 PM) Center Chest 1view Chest 1view EXAM: XR CHEST 1 VIEW 07/20 - [facility] DX - Medical This report was dictated by a Data Center Architect/Fellow. I have personally reviewed the images as Center well as the Resident's interpretation and agree with the findings. DATE: 07/20/2016 5:16 AM HOSPITAL AIDES AND ASSISTANTS TEACHER Read by: Wil Whitman MD Resident: Wil [...] URINE AND UA Nitrite Negative Negative 07/20 [facility] (07/19/16 11:22 PM) [place] URINE AND UA Leuk Est Negative Negative 07/20 [facility] (07/19/16 11:22 PM) [place] URINE AND UA Spec Grav 1.020 <=1.030 07/20 [facility] URINE AND UA pH 6.0 5.0 - 8.0 07/20 [facility] URINE AND UA Protein Negative Negative 07/20 [facility] (07/19/16 11:22 PM) [place] URINE AND UA Turbidity Slight Cloudy Clear 07/20 [facility] (07/19/16 11:22 PM) [place] URINE AND UA Color Yellow Yellow 07/20 [facility] *NA* [place] (07/19/16 11:22 PM) URINE AND UA 0.2 EU/dL 0.1 - 1.0 07/20 [facility] Urobilinogen /2016 [facility] URINE AND UA Glucose Negative Negative 07/20 [facility] (07/19/16 11:22 PM) [place] URINE AND UA Blood Small Negative 07/20 [facility] *ABN* [place] (07/19/16 11:22 PM) URINE AND UA Ketones Negative Negative 07/20 [facility] *NA* [place] (07/19/16 11:22 PM) URINE AND UA Bili Negative Negative 07/20 [facility] [place] (07/19/16 11:22 PM) URINE AND UA RBC 0-2 /HPF 0 - 2 07/20 [facility] URINE AND UA WBC 0-2 /HPF None Seen 07/20 [facility] /HPF [facility] URINE AND UA Sq Epi Rare /LPF Few /LPF 07/20 [facility] URINE AND UA Bacteria Few /HPF None Seen 07/20 [facility] /HPF [address] [place] [address] CHEM PANEL Lactic Acid 1.5 mMol/L 0.5 - 2.2 07/20 [facility] Lvl [facility] ELECTROLYTE AGAP 17.3 meq/L 10.0 - 07/20 [facility] S 20.0 [facility] ELECTROLYTE eGFR 120 07/20 Result Comment: The eGFR is calculated using the CKD-EPI formula. In most young, healthy individuals the eGFR will be > 90 mL/min/1.73m2. The eGFR declines with age. An eGFR of 60-89 may be normal in [facility] mL/min/1.7 some populations, particularly the elderly, for whom the CKD-EPI formula has not been extensively validated. Use of the eGFR is not recommended in the following populations: [place] [address] Center Individuals with unstable creatinine concentrations, including [...] Lvl 4.3 meq/L 3.5 - 5.1 07/20 [facility] ELECTROLYTE Sodium Lvl 138 meq/L 135 - 145 07/20 [facility]2016 [facility] ELECTROLYTE CO2 21 meq/L 24 - 32 07/20 [facility] ELECTROLYTE Chloride Lvl 104 meq/L 95 - 109 07/20 [facility] ELECTROLYTE Calcium Lvl 8.8 mg/dL 8.5 - 10.5 07/20 [facility]2016 [facility] ELECTROLYTE BUN 11 mg/dL 7 - 22 07/20 [facility]2016 [facility] ELECTROLYTE Glucose Lvl 127 mg/dL 70 - 99 07/20 [facility]2016 [facility] ELECTROLYTE Creatinine 0.72 mg/dL 0.50 - 07/20 [facility] Lvl 1.40 [facility] ENDOCRINOLO S Preg Negative Negative 07/20 [facility] (07/19/16 11:01 PM) [place] HEMATOLOGY Monocytes # 1.6 K/CMM 0.0 - 0.8 07/20 [facility] HEMATOLOGY Basophils 0.1 % 0.0 - 1.0 07/20 [facility]2016 [facility] HEMATOLOGY Segs-Bands # 15.0 K/CMM 1.5 - 8.1 07/20 [facility]2016 [facility] HEMATOLOGY Eosinophils 0.1 % 0.0 - 4.0 07/20 [facility]2016 [facility] HEMATOLOGY Lymphocytes # 1.1 K/CMM 1.0 - 5.5 07/20 [facility]2016 [facility] HEMATOLOGY Monocytes 8.9 % 2.0 - 12.0 07/20 20 [address] HEMATOLOGY Lymphocytes 6.2 % 20.0 - 07/20 [facility] 40.0 [facility] HEMATOLOGY Segs 84.7 % 45.0 - 07/20 [facility] 75.0 [facility] HEMATOLOGY Estimated % 3.3 % 0.0 - 7.5 07/20 Result [facility] Comment: [facility] Result(s) called to [place] at 07/20/2016 00:02 by JT. Read back OK. HEMATOLOGY [place] 0.6 min 07/20 [facility] HEMATOLOGY R-time Rapid 0.7 min 0.4 - 0.7 07/20 [facility]2016 [facility] HEMATOLOGY K-time Rapid 1.0 min 0.6 - 2.3 07/[address] HEMATOLOGY Angle Rapid 78 degrees 64 - 80 07/[address] HEMATOLOGY Max Amplitude 66 mm 52 - 71 07/20 [facility]2016 [facility] HEMATOLOGY G-value Rapid 9.9 K d/sc 5.0 - 11.6 07/20 2016 [facility] HEMATOLOGY ACT (TEG) 113 s 86 - 118 07/20 [facility] 2016 [facility] HEMATOLOGY WBC 17.7 K/CMM 3.7 - 10.4 07/20 [facility]2016 [facility] HEMATOLOGY RBC 4.32 M/CMM 4.20 - 07/20 [facility] 5.40 [facility] HEMATOLOGY MCV 91.5 fL 80.0 - 07/20 [facility] 98.0 [facility] HEMATOLOGY MCH 30.7 pg 27.0 - 07/20 [facility] 31.0 [facility] HEMATOLOGY MCHC 33.6 g/dL 32.0 - 07/20 [facility] 36.0 [facility] HEMATOLOGY MPV 9.4 fL 7.4 - 10.4 07/20 [facility]2016 [facility] HEMATOLOGY RDW 14.2 % 11.5 - 07/20 [facility] 14.5 [facility] HEMATOLOGY Platelet 234 K/CMM 133 - 450 07/[address] TOXICOLOGY Etoh (%) null 07/20 [facility]2016 [facility] TOXICOLOGY Ethanol Lvl null 07/20 [facility]2016 [facility] Spine-Outsi Spine-Outside EXAM: CT CERVICAL SPINE WITHOUT CONTRAST, outside film interpretation 07/19 - [facility] de Consult Consult CT /2016 - [facility] DATE: 07/19/2016 11:25 PM HOSPITAL [employer]ES [employer]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 CT cervical spine without contrast performed at [facility] on 07/19/2016 at 1942 hours COMPARISON: None [...] of the left neck. 3. Left pneumothorax. Brain-Outsi Brain-Outside EXAM: CT BRAIN WITHOUT CONTRAST 07/19 [facility] de Consult Consult CT - [facility] DATE: 07/19/2016 11:33 PM HOSPITAL [employer] ASSIST[employer]S TEACHER Read by: Blanca Urbina Dictated Date/time: 07/20/16 10:26 Electronically Signed by: Blanca Urbina 07/20/16 10:29 FINAL REPORT INDICATION: Second opinion consultation COMPARISON: None available TECHNIQUE: A brain CT obtained at [facility] was submitted for 2nd opinion consultation following [...] contrast. I agree with the outside report. Torso-Outsi Torso-Outside EXAM: CT CHEST WITH CONTRAST, SECOND OPINION [facility] de Consult Consult CT /2016 - Medical CT EXAM: CT ABDOMEN AND PELVIS WITH CONTRAST, SECOND OPINION This report was dictated by a Data Center Architect/Fellow. I have personally reviewed the images as [...] to the level of L3. RECOMMENDATIONS: None. Chest 1view Chest 1view EXAM: XR CHEST 1 VIEW 07/19 - [facility] DX DX /2017 - Medical Center DATE: 07/19/2016 at 2305 hours Read by: Cheryl Beyer MD Dictated Date/time: 07/19/16 23:40 Electronically Signed by: Cheryl Beyer MD 07/20/16 00:31 FINAL REPORT INDICATION: Pain Post Trauma COMPARISON: Single view chest 07/19/2016 at 1923 hours from [facility] TECHNIQUE: AP chest FINDINGS: Lines and tubes: [...] Source Temperature Oral (F) 98.1 F 07/23/2016 [facility] Respitory Rate 18 07/23/2016 [facility] Systolic (mm Hg) 117 07/23/2016 [facility] Diastolic (mm Hg) 87 07/23/2016 [facility] Heart Rate 87 07/23/2016 [facility] Temperature Oral (F) 97.7 F 07/23/2016 [facility] Systolic (mm Hg) 104 07/23/2016 [facility] Diastolic (mm Hg) 66 07/23/2016 [facility] Respitory Rate 18 07/23/2016 [facility] Heart Rate 74 07/23/2016 [facility] Systolic (mm Hg) 116 07/23/2016 [facility] Diastolic (mm Hg) 76 07/23/2016 [facility] Temperature Oral (F) 98.0 F 07/23/2016 [facility] Respitory Rate 18 07/23/2016 [facility] Heart Rate 72 07/23/2016 [facility] Weight 68.182 07/20/2016 [facility] BMI Calculated 25.8 07/20/2016 [facility] Height 162.56 cm 07/20/2016 [facility] BMI Calculated 25.8 07/20/2016 [facility] Height 162.56 cm 07/20/2016 [facility] Weight 68.182 07/20/2016 [facility] Encounters Location Location Encounter Encounter Reason Attending ADM DC Status Source Details Type Number For Provider Date Date [facility] [id number] Pin Baltazar 07/20 07/23 [facility] Tristan /2016 [facility] Procedures Procedure Code Date Perfomer Comments Source [place]throscopy of [id number] 2009 and 2012 [facility] knee<sup>1</sup> [facility]
== END 2018-08-04 12:00 | disposition home or self-care (01) ==
LOC: ER 10:57
DX: J40 Bronchitis, not specified as acute or chronic (principal); Z88.2 Allergy status to sulfonamides
CPT/HCPCS: 99282

== ENCOUNTER 2018-09-03 16:30 | Emergency (ER) | payer BC, SELFPAY ==
--- OUTSIDE RECORDS SUMMARY | 2018-09-03 16:33 | XMS REPORT | Continuity of Care Document ---
:1995 Author Organization Interface Problems Problem Status Onset Classification Date Comments Source Date Reported PTX Active 07/19/[address] AUTO/PED Active 07/19/[address] History of Resolved 06/24/19 Problem 07/26/2016 [facility] arthroscopic 13 [facility] knee surgery Center OTHER Active [facility] PNEUMOTHORAX [facility] Medications Medication Details Route Status Patient Ordering Order Source Instructions Provider Date Phenergan 25 mg 25 mg=1 tab, PO, Active [facility] oral tablet Q6H, PRN Nausea, 2017 Medical X 4 day, # 15 Center tab, 0 Refill(s) Acetaminophen 300 2 tab, PO, Q6H, Active 07/23[facility] MG / Codeine PRN for pain, X 2017 Medical Phosphate 30 MG 7 day, # 56 tab, Center Oral Tablet 0 Refill(s) Docusate Sodium 100 mg=1 cap, Active [place] 100 MG Oral PO, Q12H, # 30 2017 Medical Capsule cap, 0 Refill(s) Center acetaminophen 500 1,000 mg=2 tab, Inactive 07/23[facility] [place] mg oral tablet PO, Q6H, # 90 2017 Medical tab, 0 Refill(s) Center gabapentin 300 MG 300 mg=1 cap, Active 07/23[facility] Oral Capsule PO, TID, # 90 2017 Medical cap, 1 Refill(s) Center tramadol 100 mg=2 tab, Active [place] hydrochloride 50 PO, Q6H, # 60 2017 Medical MG Oral Tablet tab, 0 Refill(s) Center camphor-menthol 1 appl, Route: No Longer [facility] topical TOP, BID, Drug Active 2016 Medical form: BALM, PRN Center Dry Lips, Start date: 07/22/16 23:01:00 REED WORKER, Duration: 30 day, Stop date: 08/21/16 23:00:00 CSTNotes: Same as: Blistex Allantoin 0.01 1 appl, Route: Inactive 07/23/ [facility] [place] MG/MG / Camphor TOP, BID, PRN 2017 Medical 0.005 MG/MG / Dry Lips, Start Center phenol 0.005 date: 07/22/16 MG/MG Topical 22:58:00 REED WORKER, Ointment Duration: 30 [Blistex] day, Stop date: 08/21/16 22:57:00 REED WORKER Abreva 1 appl, Route: Inactive [facility] TOP, Dosing 2017 Medical Weight 68.182, Center kg, 5X Day, Start date: 07/22/16 22:00:00 REED WORKER, Duration: 30 day, Stop date: 08/21/16 18:00:00 REED WORKER Oxycodone 5 mg, 1 tab, No Longer [place] Hydrochloride 5 Route: PO, Drug Active 2017 Medical MG Oral Tablet form: TAB, Q4H, Center Dosing Weight 68.182, kg, PRN Pain Score 4-6, Start date: 07/22/16 14:43:00 REED WORKER, Duration: 30 day, Stop date: 08/21/16 14:42:00 CSTNotes: (Same as: Roxicodone) Dilaudid 0.5 mg, 0.25 mL, Inactive [facility] Route: IVP, Drug 2016 Medical form: INJ, ONCE, Center Dosing Weight 68.182, kg, Priority: STAT, Start date: 07/22/16 11:52:00 REED WORKER, Stop date: 07/22/16 11:52:00 CSTNotes: Same as Dilaudid Bisacodyl 10 mg, 1 supp, Inactive [facility] Route: MN, Drug 2016 Medical form: SUPP, Center ONCE, Dosing Weight 68.182, kg, Start date: 07/22/16 10:45:00 REED WORKER, Stop date: 07/22/16 10:45:00 CSTNotes: (Same As: Dulcolax, Bisco-Lax) Hydrocodone 1 tab, Route: Inactive [place] Bitartrate 7.5 MG PO, Drug Form: 2017 Medical / Ibuprofen 200 TAB, Dosing Center MG Oral Tablet Weight 68.182, kg, Q4H, PRN Pain Score 4-6, Start date: 07/22/16 9:37:00 REED WORKER, Duration: 30 day, Stop date: 08/21/16 9:36:00 CSTNotes: (Same as: Vicoprofen) Lovenox 30 mg, 0.3 mL, No Longer [place] Route: SUB-Q, Active 2016 Medical Drug form: INJ, Center [id number], Dosing Weight 68.182, kg, Start date: 07/21/16 23:00:00 REED WORKER, Duration: 30 day, Stop date: 08/20/16 11:00:00 CSTNotes: (Same as: Lovenox) bacitracin zinc 1 appl, Route: No Longer Cat 0.5 UNT/MG TOP, BID, Drug Active 2016 Medical Topical Ointment form: OINT, Center Start date: 07/21/16 17:00:00 REED WORKER, Duration: 30 day, Stop date: 08/20/16 9:00:00 REED WORKER Lovenox 30 mg, 0.3 mL, Inactive [place] Route: SUB-Q, 2016 Medical Drug form: INJ, Center [id number], Dosing Weight 68.182, kg, Start date: 07/21/16 14:00:00 REED WORKER, Duration: 30 day, Stop date: 08/20/16 2:00:00 CSTNotes: (Same as: Lovenox) Acetaminophen 1,000 mg, 2 tab, No Longer [place] Route: PO, Drug Active 2016 Medical form: TAB, Q6H, Center Dosing Weight 68.182, kg, Start date: 07/21/16 12:00:00 REED WORKER, Duration: 30 day, Stop date: 08/20/16 6:00:00 CSTNotes: Max acetaminophen 4000 mg/day (4 gm/day). (Same as: Tylenol Extra Strength) influenza virus 0.5 mL, Route: Inactive Cat vaccine, IM, Drug Form: 2017 Medical inactivated SUSP, Daily, Center Start date: 07/21/16 9:00:00 REED WORKER, Duration: 1 doses or times, Stop date: 07/21/16 9:00:00 CSTNotes: (Same as: Fluzone Quadrivalent, Fluarix Quadrivalent) For 3 years of age and older (0.5 mL IM) Shake well before use Enoxaparin 30 mg, 0.3 mL, No Longer [place] Route: SUB-Q, Active 2016 Medical Drug form: INJ, Center [id number], Dosing Weight 68.182, kg, Start date: 07/20/16 23:00:00 REED WORKER, Duration: 30 day, Stop date: 08/19/16 11:00:00 CSTNotes: (Same as: Lovenox) remove patch 1 patch, Route: No Longer [place] TOP, Bedtime, Active 2016 Medical Drug form: Center ERFILM, Start date: 07/20/16 21:00:00 REED WORKER, Duration: 30 day, Stop date: 08/18/16 21:00:00 CSTNotes: Remove patch 12 hours after application each day. {21 (Ethinyl 1 tab, PO, Active [place] Estradiol 0.02 MG Daily, # 28 tab, 2017 Medical / Levonorgestrel 0 Refill(s) Center 0.1 MG Oral Tablet) / 7 (Inert Ingredients 1 MG Oral Tablet) } Pack [Sronyx Day] sennosides, CORRECTION 17.2 mg, 2 tab, No Longer [place] Route: PO, Drug Active 2016 Medical Form: TAB, Center Dosing Weight 68.182, kg, Daily, Start date: 07/20/16 13:00:00 REED WORKER, Duration: 30 day, Stop date: 08/19/16 9:00:00 CSTNotes: (Same as: Senokot) Ketorolac 30 mg, 1 mL, No Longer [place] Route: IVP, Drug Active 2016 Medical form: INJ, Q6H, Center Dosing Weight 68.182, kg, Start date: 07/20/16 12:00:00 REED WORKER, Duration: 1 day, Stop date: 07/21/16 6:00:00 [...] Weight 68.182, kg, Start date: 07/20/16 12:00:00 REED WORKER, Duration: 1 day, Stop date: 07/21/16 6:00:00 CSTNotes: Infuse over 15 minutes Do not exceed 4gm/day of acetaminophen MEDICATION WASTE Product Size: 1000 mg Product Wasted: ___ mg Oxycodone 5 mg, 1 tab, No Longer [place] Hydrochloride 5 Route: PO, Drug Active 2016 Medical MG Oral Tablet form: TAB, Q4H, Center Dosing Weight 68.182, kg, PRN Pain Score 6-10, Start date: 07/20/16 10:12:00 REED WORKER, Duration: 30 day, Stop date: 08/19/16 10:11:00 CSTNotes: (Same as: Roxicodone) POLYETHYLENE 17 gm, 1 pkt, No Longer Cat GLYCOL 3350 Route: PO, Drug Active 2016 Medical form: PWDR, Center Daily, Dosing Weight 68.182, kg, Start date: 07/20/16 9:00:00 REED WORKER, Duration: 30 day, Stop date: 08/18/16 9:00:00 CSTNotes: Dissolve in 8 oz of water or juice. (Same as: Miralax) Docusate 100 mg, 1 cap, No Longer [place] Route: PO, Drug Active 2016 Medical form: CAP, Q12H, Center Dosing Weight 68.182, kg, Start date: 07/20/16 9:00:00 REED WORKER, Duration: 30 day, Stop date: 08/18/16 21:00:00 CSTNotes: (Same as: Colace) (Do Not Crush) Lidocaine 1 patch, Route: No Longer [place] Hydrochloride TOP, Q24H, Drug Active 2016 Medical 0.05 MG/MG form: FILM, Center Transdermal Patch Start date: [Lidoderm] 07/20/16 9:00:00 REED WORKER, Duration: 30 day, Stop date: 08/18/16 9:00:00 [...] kg, Priority: NOW, Start date: 07/20/16 7:32:00 REED WORKER, Duration: 48 hr, Stop date: 07/22/16 0:00:00 CSTNotes: (Same as: Lyrica) Tramadol 100 mg, 2 tab, No Longer [place] Route: PO, Drug Active 2016 Medical form: TAB, Q6H, Center Dosing Weight 68.182, kg, Priority: NOW, Start date: 07/20/16 7:32:00 REED WORKER, Duration: 30 day, Stop date: 08/19/16 6:00:00 CSTNotes: Not to exceed 400mg/day. (Same As: Ultram) celecoxib 200 mg, 1 cap, No Longer [place] Route: PO, Drug Active 2016 Medical form: CAP, Q12H, Center Dosing Weight 68.182, kg, Priority: NOW, Start date: 07/20/16 7:32:00 REED WORKER, Duration: 48 hr, Stop date: 07/21/16 21:00:00 CSTNotes: NSAID. Please check indication. Not for seizure. (Same As: CeleBREX) Methocarbamol 1,000 mg, 2 tab, No Longer [place] Route: PO, Drug Active 2016 Medical form: TAB, Q8H, Center Dosing Weight 68.182, kg, PRN Muscle Spasms, Start date: 07/20/16 7:32:00 REED WORKER, Duration: 30 day, Stop date: 08/19/16 7:31:00 CSTNotes: (Same as:Robaxin) Ondansetron 4 mg, 2 mL, Inactive [place] Route: IVP, Drug 2016 Medical form: INJ, Q24H, Center Dosing Weight 68.182, kg, PRN Nausea & Vomiting, Start date: 07/20/16 7:30:00 REED WORKER, Duration: 30 day, Stop date: 08/19/16 7:29:00 CSTNotes: (Same as: Zofran) MEDICATION WASTE Product Size: 4 mg Product Wasted: ___ mg Diphenhydramine 25 mg, 1 cap, No Longer [place] Route: PO, Drug Active 2016 Medical form: CAP, Q6H, Center Dosing Weight 68.182, kg, PRN Itching, Start date: 07/20/16 7:30:00 REED WORKER, Duration: 30 day, Stop date: 08/19/16 7:29:00 CSTNotes: (Same as: Benadryl) Bisacodyl 10 mg, 2 tab, No Longer [place] Route: PO, Drug Active 2016 Medical form: ECTAB, Center Q24H, Dosing Weight 68.182, kg, PRN Constipation, Start date: 07/20/16 7:30:00 REED WORKER, Duration: 30 day, Stop date: 08/19/16 7:29:00 CSTNotes: (Same As: Dulcolax, Correctol) (Do Not Crush) "Do Not Crush" Docusate 100 mg, 1 cap, No Longer [place] Route: PO, Drug Active 2016 Medical form: CAP, BID, Center Dosing Weight 68.182, kg, PRN Constipation, Start date: 07/20/16 7:30:00 REED WORKER, Duration: 30 day, Stop date: 08/19/16 7:29:00 CSTNotes: (Same as: Colace) (Do Not Crush) Fentanyl 50 microgram, Inactive [place] Route: IVP, 2016 Medical ONCE, Dosing Center Weight 68.182, kg, Priority: STAT, Start date: 07/20/16 4:34:00 REED WORKER, Stop date: 07/20/16 4:34:00 REED WORKER Dilaudid 1 mg, Route: IV, Inactive [place] ONCE, Dosing 2016 Medical Weight 68.182, Center kg, Start date: 07/20/16 2:34:00 REED WORKER, Stop date: 07/20/16 2:34:00 REED WORKER Morphine 4 mg, 1 mL, Inactive [facility] Route: IVP, Drug 2016 Medical form: SOLN, Center ONCE, Dosing Weight 68.182, kg, Priority: STAT, Start date: 07/20/16 2:17:00 REED WORKER, Stop date: 07/20/16 2:17:00 CSTNotes: (Same as:MORPhine Sulfate) Fentanyl 50 microgram, 1 Inactive [place] mL, Route: IVP, 2017 Medical Drug form: INJ, Center ONCE, Dosing Weight 68.182, kg, Priority: STAT, Start date: 07/20/16 1:08:00 REED WORKER, Stop date: 07/20/16 1:08:00 CSTNotes: (Same as: Sublimaze) Preservative free. Morphine 4 mg, Route: Inactive [facility] IVP, ONCE, 2017 Medical Dosing Weight Center 68.182, kg, Priority: STAT, Start date: 07/20/16 0:22:00 REED WORKER, Stop date: 07/20/16 0:22:00 REED WORKER Ondansetron 4 mg, Route: Inactive [facility] IVP, ONCE, 2017 Medical Dosing Weight Center 68.182, kg, Priority: STAT, Start date: 07/19/16 22:55:00 REED WORKER, Stop date: 07/19/16 22:55:00 REED WORKER Fentanyl 50 microgram, Inactive [facility] Route: IVP, 2017 Medical ONCE, Dosing Center Weight 68.182, kg, Priority: STAT, Start date: 07/19/16 22:55:00 REED WORKER, Stop date: 07/19/16 22:55:00 REED WORKER Saline Flush 0.9% 10 mL, Route: No Longer [facility] IVP, Drug Form: Active 2017 Medical INJ, Dosing Center Weight 68.182, kg, PRN, PRN Line Flush, Start date: 07/19/16 22:55:00 REED WORKER, Duration: 30 day, Stop date: 08/18/16 22:54:00 CSTNotes: Same as: BD Posiflush Sterile Sodium Chloride 1,000 mL, 2,000 Inactive [facility] 0.154 MEQ/ML ml/hr, Route: 2017 Medical Injectable IV, ONCE, Center Solution Priority: STAT, Dosing Weight 68.182 kg, Start date: 07/19/16 22:55:00 REED WORKER, Duration: 1 doses or times, Stop date: 07/19/16 22:55:00 REED WORKER Allergies, Adverse Reactions, Alerts Substance Category Reaction Severity Reaction Status Date Comments Source type Reported sulfa drugs Assertion Drug Active [facility] allergy Medical [place] Immunizations Immunization Date Given Site Status Last Comments Source Updated influenza virus 07/21/2016 Left completed Field [facility] vaccine, deltoid Medical inactivated Center Results Order Name Results Value Reference Date Interpretation Comments Source Range Chest 1view Chest 1view EXAM: XR CHEST 1 VIEW 07/23 [facility]2016 [facility] DATE: 07/23/2016 3:00 AM REED WORKER Read by: Rita Yepez MD Dictated Date/time: [...] 1view EXAM: XR CHEST 1 VIEW 07/22 [facility] This report was dictated by a Environmental Health Technician/Fellow. I have personally reviewed the images as Center well as the Resident's interpretation and agree with the findings. DATE: 07/22/2016 5:00 PM REED WORKER Read by: Israel Knapp MD Resident: Israel [...] 1view EXAM: XR CHEST 1 VIEW 07/22 [facility] DATE: 07/22/2016 11:52 AM REED WORKER Read by: Rita Yepez MD Dictated Date/time: [...] 32.7 % 20.0 - 07/22 [place] 40.0 [facility] HEMATOLOGY Segs 56.4 % 45.0 - 07/22 [facility] 75.0 [facility] HEMATOLOGY Monocytes 8.5 % 2.0 - 12.0 07/22 2016 [facility] HEMATOLOGY Eosinophils 2.2 % 0.0 - 4.0 07/22 2016 [facility] HEMATOLOGY Basophils 0.2 % 0.0 - 1.0 07/[address] HEMATOLOGY Monocytes # 0.6 K/CMM 0.0 - 0.8 07/[address] HEMATOLOGY Segs-Bands # 3.9 K/CMM 1.5 - 8.1 07/22 2016 [facility] HEMATOLOGY Lymphocytes # 2.3 K/CMM 1.0 - 5.5 07/22 2016 [facility] HEMATOLOGY Eosinophils # 0.2 K/CMM 0.0 - 0.5 07/[address] HEMATOLOGY WBC 6.9 K/CMM 3.7 - 10.4 07/22 2016 [facility] HEMATOLOGY RBC 3.79 M/CMM 4.20 - 07/22 [place] 5.40 [facility] HEMATOLOGY Hct 34.9 % 36.0 - 07/22 [place] 48.0 [facility] HEMATOLOGY Hgb 11.8 g/dL 12.0 - 07/22 [place] 16.0 [facility] HEMATOLOGY MCV 92.1 fL 80.0 - 07/22 [place] 98.0 /2017 [facility] HEMATOLOGY MCHC 33.8 g/dL 32.0 - 07/22 36.0 2017 [facility] HEMATOLOGY Platelet 207 K/CMM 133 - 450 07/22 [facility] HEMATOLOGY MCH 31.2 pg 27.0 - 07/22 31.0 [facility] HEMATOLOGY RDW 13.9 % 11.5 - 07/22 14.5 [facility] HEMATOLOGY MPV 9.5 fL 7.4 - 10.4 07/22 [facility] Chest 1view Chest 1view EXAM: XR CHEST 1 VIEW 07/22 - [facility] DX - [facility] DATE: 07/22/2016 3:00 AM REED WORKER Read by: Rita Yepez MD Dictated Date/time: [...] % 36.0 - 07/22 [place] 48.0 /2017 [facility] HEMATOLOGY Hgb 11.1 g/dL 12.0 - 07/22 [place] 16.0 2017 [facility] HEMATOLOGY Hgb 11.8 g/dL 12.0 - 07/21 [place] 16.0 2017 [facility] HEMATOLOGY Hct 35.4 % 36.0 - 07/21 [place] 48.0 [facility] Chest 1view Chest 1view EXAM: XR CHEST 1 VIEW 07/21 - [facility] DX - [facility] DATE: 07/21/2016 5:00 PM REED WORKER Read by: Rita Yepez MD Dictated Date/time: [...] Lvl 2.2 mg/dL 1.8 - 2.4 07/[address] CHEM PANEL Phosphorus 3.7 mg/dL 2.5 - 4.5 07/[address] ELECTROLYTE CO2 26 meq/L 24 - 32 07/[address] ELECTROLYTE BUN 13 mg/dL 7 - 22 07/[address] ELECTROLYTE Glucose Lvl 86 mg/dL 70 - 99 07/[address] ELECTROLYTE Potassium Lvl 4.3 meq/L 3.5 - 5.1 07/[address] ELECTROLYTE Chloride Lvl 109 meq/L 95 - 109 07/[address] ELECTROLYTE Creatinine 0.75 mg/dL 0.50 - 07/21 [facility] Lvl 1.40 [facility] ELECTROLYTE Sodium Lvl 141 meq/L 135 - 145 07/[address] ELECTROLYTE Calcium Lvl 8.3 mg/dL 8.5 - 10.5 07/[address] ELECTROLYTE eGFR 114 07/21 Result Comment: The eGFR is calculated using the CKD-EPI formula. In most young, healthy individuals the eGFR will be > 90 mL/min/1.73m2. The eGFR declines with age. An eGFR of 60-89 may be normal in [facility] mL/min/1.7 /2016 some populations, particularly the elderly, for whom the CKD-EPI formula has not been extensively validated. Use of the eGFR is not recommended in the following populations: [address] Individuals with unstable creatinine concentrations, including [...] ELECTROLYTE AGAP 10.3 meq/L 10.0 - 07/21 [facility] S 20.0 [facility] Chest 1view Chest 1view EXAM: XR CHEST 1 VIEW 07/21 - [facility] DX - [facility] Center DATE: 07/21/2016 3:00 AM REED WORKER Read by: Rita Yepez MD Dictated Date/time: [...] Acid 1.1 mMol/L 0.5 - 2.2 07/20 [facility] Lvl [facility] DRUG SCREEN U Amph Scr Negative Negative 07/20 [facility] *NA* [place] (07/19/16 11:45 PM) DRUG SCREEN U Cocaine Scr Negative Negative 07/20 [facility] *NA* [place] (07/19/16 11:45 PM) DRUG SCREEN U Sushma Scr Negative Negative 07/20 [facility] *NA* [place] (07/19/16 11:45 PM) DRUG SCREEN U Benzodia Negative Negative 07/20 [facility] *NA* [place] (07/19/16 11:45 PM) DRUG SCREEN U O[facility]ate [facility] Positive [facility] [place] (07/19/16 11:45 PM) DRUG SCREEN U Cannab Scr Negative Negative 07[facility] [place] (07/19/16 11:45 PM) DRUG SCREEN U Phencyc Scr Negative Negative 07/20 [facility] *NA* [place] (07/19/16 11:45 PM) DRUG SCREEN UDS Note See Note 07/20 [facility] (07/19/16 11:45 PM) Center Chest 1view Chest 1view EXAM: XR CHEST 1 VIEW 07/20 - [facility] DX - Medical This report was dictated by a Environmental Health Technician/Fellow. I have personally reviewed the images as Center well as the Resident's interpretation and agree with the findings. DATE: 07/20/2016 5:16 AM REED WORKER Read by: Wil Whitman MD Resident: Wil [...] URINE AND UA Nitrite Negative Negative 07/20 [facility] (07/19/16 11:22 PM) [place] URINE AND UA Leuk Est Negative Negative 07/20 [facility] (07/19/16 11:22 PM) [place] URINE AND UA Spec Grav 1.020 <=1.030 07/20 [facility] URINE AND UA pH 6.0 5.0 - 8.0 07/20 [facility] URINE AND UA Protein Negative Negative 07/20 [facility] (07/19/16 11:22 PM) [place] URINE AND UA Turbidity Slight Cloudy Clear 07/20 [facility] (07/19/16 11:22 PM) [place] URINE AND UA Color Yellow Yellow 07/20 [facility] *NA* [place] (07/19/16 11:22 PM) URINE AND UA 0.2 EU/dL 0.1 - 1.0 07/20 [facility] Urobilinogen /2016 [facility] URINE AND UA Glucose Negative Negative 07/20 [facility] (07/19/16 11:22 PM) [place] URINE AND UA Blood Small Negative 07/20 [facility] *ABN* [place] (07/19/16 11:22 PM) URINE AND UA Ketones Negative Negative 07/20 [facility] *NA* [place] (07/19/16 11:22 PM) URINE AND UA Bili Negative Negative 07/20 [facility] [place] (07/19/16 11:22 PM) URINE AND UA RBC 0-2 /HPF 0 - 2 07/20 [facility] URINE AND UA WBC 0-2 /HPF None Seen 07/20 [facility] /HPF [facility] URINE AND UA Sq Epi Rare /LPF Few /LPF 07/20 [facility] URINE AND UA Bacteria Few /HPF None Seen 07/20 [facility] /HPF [address] [place] [address] CHEM PANEL Lactic Acid 1.5 mMol/L 0.5 - 2.2 07/20 [facility] Lvl [facility] ELECTROLYTE AGAP 17.3 meq/L 10.0 - 07/20 [facility] S 20.0 [facility] ELECTROLYTE eGFR 120 07/20 Result Comment: The eGFR is calculated using the CKD-EPI formula. In most young, healthy individuals the eGFR will be > 90 mL/min/1.73m2. The eGFR declines with age. An eGFR of 60-89 may be normal in [facility] mL/min/1.7 some populations, particularly the elderly, for whom the CKD-EPI formula has not been extensively validated. Use of the eGFR is not recommended in the following populations: [place] [address] Center Individuals with unstable creatinine concentrations, including [...] Lvl 4.3 meq/L 3.5 - 5.1 07/20 [facility] ELECTROLYTE Sodium Lvl 138 meq/L 135 - 145 07/20 [facility]2016 [facility] ELECTROLYTE CO2 21 meq/L 24 - 32 07/20 [facility] ELECTROLYTE Chloride Lvl 104 meq/L 95 - 109 07/20 [facility] ELECTROLYTE Calcium Lvl 8.8 mg/dL 8.5 - 10.5 07/20 [facility]2016 [facility] ELECTROLYTE BUN 11 mg/dL 7 - 22 07/20 [facility]2016 [facility] ELECTROLYTE Glucose Lvl 127 mg/dL 70 - 99 07/20 [facility]2016 [facility] ELECTROLYTE Creatinine 0.72 mg/dL 0.50 - 07/20 [facility] Lvl 1.40 [facility] ENDOCRINOLO S Preg Negative Negative 07/20 [facility] (07/19/16 11:01 PM) [place] HEMATOLOGY Monocytes # 1.6 K/CMM 0.0 - 0.8 07/20 [facility] HEMATOLOGY Basophils 0.1 % 0.0 - 1.0 07/20 [facility]2016 [facility] HEMATOLOGY Segs-Bands # 15.0 K/CMM 1.5 - 8.1 07/20 [facility]2016 [facility] HEMATOLOGY Eosinophils 0.1 % 0.0 - 4.0 07/20 [facility]2016 [facility] HEMATOLOGY Lymphocytes # 1.1 K/CMM 1.0 - 5.5 07/20 [facility]2016 [facility] HEMATOLOGY Monocytes 8.9 % 2.0 - 12.0 07/[address] HEMATOLOGY Lymphocytes 6.2 % 20.0 - 07/20 [facility] 40.0 [facility] HEMATOLOGY Segs 84.7 % 45.0 - 07/20 [facility] 75.0 [facility] HEMATOLOGY Estimated % 3.3 % 0.0 - 7.5 07/20 Result [facility] Comment: Medical Critical Center Result(s) called to [facility] [facility] at 07/20/2016 00:02 by JT. Read back OK. HEMATOLOGY [place] 0.6 min 07/20 [facility] HEMATOLOGY R-time Rapid 0.7 min 0.4 - 0.7 07/20 [facility]2016 [facility] HEMATOLOGY K-time Rapid 1.0 min 0.6 - 2.3 07/[address] HEMATOLOGY Angle Rapid 78 degrees 64 - 80 07/[address] HEMATOLOGY Max Amplitude 66 mm 52 - 71 07/20 [facility]2016 [facility] HEMATOLOGY G-value Rapid 9.9 K d/sc 5.0 - 11.6 07/20 2016 [facility] HEMATOLOGY ACT (TEG) 113 s 86 - 118 07/20 [facility] 2016 [facility] HEMATOLOGY WBC 17.7 K/CMM 3.7 - 10.4 07/20 [facility]2016 [facility] HEMATOLOGY RBC 4.32 M/CMM 4.20 - 07/20 [facility] 5.40 [facility] HEMATOLOGY MCV 91.5 fL 80.0 - 07/20 [facility] 98.0 [facility] HEMATOLOGY MCH 30.7 pg 27.0 - 07/20 [facility] 31.0 [facility] HEMATOLOGY MCHC 33.6 g/dL 32.0 - 07/20 [facility] 36.0 [facility] HEMATOLOGY MPV 9.4 fL 7.4 - 10.4 07/20 [facility]2016 [facility] HEMATOLOGY RDW 14.2 % 11.5 - 07/20 [facility] 14.5 [facility] HEMATOLOGY Platelet 234 K/CMM 133 - 450 07/[address] TOXICOLOGY Etoh (%) null 07/20 [facility]2016 [facility] TOXICOLOGY Ethanol Lvl null 07/20 [facility]2016 [facility] Spine-Outsi Spine-Outside EXAM: CT CERVICAL SPINE WITHOUT CONTRAST, outside film interpretation 07/19 - [facility] de Consult Consult CT /2016 - [facility] CT Center DATE: 07/19/2016 11:25 PM REED WORKER Read by: Cheryl Beyer MD Dictated Date/time: 07/20/16 00:50 Electronically Signed by: Cheryl Beyer MD 07/20/16 01:02 FINAL REPORT INDICATION: Outside film interpretation following trauma transfer for higher level of care. CT cervical spine without contrast performed at [facility] on 07/19/2016 at 1942 hours COMPARISON: None [...] Brain-Outside EXAM: CT BRAIN WITHOUT CONTRAST 07/19 [facility] de Consult Consult CT - Medical CT Center DATE: 07/19/2016 11:33 PM REED WORKER Read by: Blanca Urbina Dictated Date/time: 07/20/16 10:26 Electronically Signed by: Blanca Urbina 07/20/16 10:29 FINAL REPORT INDICATION: Second opinion consultation COMPARISON: None available TECHNIQUE: A brain CT obtained at [facility] was submitted for 2nd opinion consultation following [...] EXAM: CT CHEST WITH CONTRAST, SECOND OPINION [facility] de Consult Consult CT /2016 - Medical CT EXAM: CT ABDOMEN AND PELVIS WITH CONTRAST, SECOND OPINION This report was dictated by a Environmental Health Technician/Fellow. I have personally reviewed the images as [...] EXAM: XR CHEST 1 VIEW 07/19 - [facility] DX DX /2017 - [facility] DATE: 07/19/2016 at 2305 hours Read by: Cheryl Beyer MD Dictated Date/time: 07/19/16 23:40 Electronically Signed by: Cheryl Beyer MD 07/20/16 00:31 FINAL REPORT INDICATION: Pain Post Trauma COMPARISON: Single view chest 07/19/2016 at 1923 hours from [facility] TECHNIQUE: AP chest FINDINGS: Lines and tubes: [...] [facility] Respitory Rate 18 07/23/2016 [facility] Systolic (mm Hg) 117 07/23/2016 [facility] Diastolic (mm Hg) 87 07/23/2016 [facility] Heart Rate 87 07/23/2016 [facility] Temperature Oral (F) 97.7 F 07/23/2016 [facility] Systolic (mm Hg) 104 07/23/2016 [facility] Diastolic (mm Hg) 66 07/23/2016 [facility] Respitory Rate 18 07/23/2016 [facility] Heart Rate 74 07/23/2016 [facility] Systolic (mm Hg) 116 07/23/2016 [facility] Diastolic (mm Hg) 76 07/23/2016 [facility] Temperature Oral (F) 98.0 F 07/23/2016 [facility] Respitory Rate 18 07/23/2016 [facility] Heart Rate 72 07/23/2016 [facility] Weight 68.182 07/20/2016 [facility] BMI Calculated 25.8 07/20/2016 [facility] Height 162.56 cm 07/20/2016 [facility] BMI Calculated 25.8 07/20/2016 [facility] Height 162.56 cm 07/20/2016 [facility] Weight 68.182 07/20/2016 [facility] Encounters Location Location Encounter Encounter Reason Attending ADM DC Status Source Details Type Number For Provider Date Date [facility] [id number] Pin Baltazar 07/20 07/23 [facility] Tristan /2016 [facility] Procedures Procedure Code Date Perfomer Comments Source Arthroscopy of [id number] 2009 and 2012 [facility] knee<sup>1</sup> [facility]
[2018-09-03] MEDS ORDERED: ONDANSETRON 4 MG/2 ML VIAL ONE (17:36)
[2018-09-03] MEDS ORDERED: NA CHLORIDE 0.9% 1,000 ML ONE (17:36)
[2018-09-03 17:37] LABS: Absolute Lymphocytes (CBC) 1.1 K/uL (0.7-4.9); Absolute Monocytes 0.7 K/uL (0.1-1.3); Absolute Neutrophil 5.8 K/uL (1.8-8.0); Basophils % 0.2 % (0-1.3); Eosinophils % 0.7 % (0-4.4); Lymphocytes % 14.9 % (15.3-44.8); MPV 9.5 fL (7.6-11.3); Monocytes % 8.9 % (3.3-12.3); RBC Red Blood Cell Count 4.62 M/uL (3.86-4.86)
[2018-09-03 17:51] LABS: Urine Blood TRACE (NEG); Urine Glucose NEGATIVE (NEG); Urine Protein 1+ (NEG); Urine Specific Gravity >1.030 (1.005-1.030); Urine pH 5.5 (5.0-7.0)
[2018-09-03 17:55] LABS: Potassium 3.7 mmol/L (3.5-5.1)
--- NOTE | 2018-09-03 19:17 | ER ---
Nurse's Notes [facility] Name: Daisha Spivye Age: 23 yrs Sex: Female : 1995 Arrival Date: 09/03/2018 Time: 16:30 Bed 26 Private MD: Diagnosis: Vomiting, unspecified Presentation: 09/03 16:46 Presenting complaint: Patient states: Flank pain x 1 day, reports attempting to drink sg water but unsure if dehydrated, reports leg cramps worsening at night but no fever/nausea/vomiting/diarrhea. Transition of care: patient was not received from another setting of care. Onset of symptoms was September 03, 2018. Risk Assessment: Do you want to hurt yourself or someone else? Patient reports no desire to harm self or others. Initial Sepsis Screen: Does the patient meet any 2 criteria? No. Patient's initial sepsis screen is negative. Does the patient have a suspected source of infection? Yes: Dysuria/Frequency/Urgency/UTI. Care prior to arrival: None. 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 PED, CHEST TUBE; COLLASPED LUNG; sg - Immunization history:: Adult Immunizations up to date. - Social history:: Smoking status: Patient/guardian denies using tobacco. - Ebola Screening: : Patient negative for fever greater than or equal to 101.5 degrees Fahrenheit, and additional compatible Ebola Virus Disease symptoms Patient denies exposure to infectious person Patient denies travel to an Ebola-affected area in the 21 days before illness onset No symptoms or risks identified at this time. Screenin:34 Abuse screen: Denies threats or abuse. Denies injuries from another. Nutritional mg2 screening: No deficits noted. Tuberculosis screening: No symptoms or risk factors identified. Fall Risk IV access (20 points). Assessment: 17:32 General: Appears in no apparent distress. comfortable, Behavior is calm, cooperative. mg2 Pain: Complains of pain in back Pain does not radiate. Pain currently is 5 out of 10 on a pain scale. Quality of pain is described as aching, Pain began gradually, 2-3 days ago. Is intermittent. Neuro: Level of Consciousness is awake, alert, obeys commands, Oriented to person, place, time, situation. Cardiovascular: Capillary refill < 3 seconds Patient's skin is warm and dry. Respiratory: Airway is patent Respiratory effort is even, unlabored, Respiratory pattern is regular, symmetrical. GI: Abdomen is round non-distended, Reports nausea, vomiting. : No signs and/or symptoms were reported regarding the genitourinary system. EENT: No signs and/or symptoms were reported regarding the EENT system. Derm: Skin is intact, is healthy with good turgor, Skin is pink, warm \T\ dry. normal. Musculoskeletal: Circulation, motion, and sensation intact. Capillary refill < 3 seconds, Reports pain in lower back. Vital Signs: 16:43 BP 125 / 89; Pulse 66; Resp 17; Temp 98.6; Pulse Ox 100% on R/A; Weight 78.47 kg; sg Height 5 ft. 4 in. (162.56 cm); 19:01 BP 123 / 74; Pulse 59; Resp 18; Pulse Ox 100% on R/A; mg2 16:43 Body Mass Index 29.70 (78.47 kg, 162.56 cm) ED Course: 16:30 Patient arrived in ED. as 16:43 Arm band placed on. sg 16:47 Triage completed. sg 17:04 [facility] Beltre [facility]C [facility]. kb 17:04 Vincent Guillen MD is Attending Physician. kb 17:31 Gopal Zavala, ZULEYKA is Primary Nurse. mg2 17:34 Patient has correct armband on for positive identification. Pulse ox on. NIBP on. mg2 17:34 No provider procedures requiring assistance completed. Inserted saline lock: 20 gauge mg2 in left antecubital area, using aseptic technique. Blood collected. 19:36 IV discontinued, intact, bleeding controlled, No redness/swelling at site. Pressure mg2 dressing applied. Administered Medications: 17:31 Drug: NS 0.9% 1000 ml Route: IV; Rate: 1000 ml; Site: left antecubital; mg2 18:54 Follow up: Response: No adverse reaction; IV Status: Completed infusion mg2 17:31 Drug: Zofran 4 mg Route: IVP; Site: left antecubital; mg2 18:54 Follow up: Response: No adverse reaction; Marked relief of symptoms mg2 Outcome: 19:17 Discharge ordered by MD. tamez 19:41 Discharged to home ambulatory. mg2 19:41 Condition: stable 19:41 Discharge instructions given to patient, Instructed on discharge instructions, follow up and referral plans. Demonstrated understanding of instructions, follow-up care, medications, Prescriptions given X 1. 19:42 Patient left the ED. mg2 Signatures: Daisha Beltre, ROSEMARIE-C EMERGENCY MEDICAL DISPATCHER-CkTrey Gresham, RN RN sg Siria Kingston Michele, ZULEYKA RN mg2 Corrections: (The following items were deleted from the chart) 19:13 19:01 Pulse 59bpm; Resp 18bpm; Pulse Ox 100% RA; mg2 mg2
--- NOTE | 2018-09-03 19:18 | EDPHYS ---
Physician Documentation [facility] Name: Daisha Spivey Age: 23 yrs Sex: Female : 1995 Arrival Date: 09/03/2018 Time: 16:30 Bed 26 Private MD: ED Physician Vincent Guillen HPI: 09/03 18:08 This 23 yrs old Female presents to ER via Ambulatory with complaints of kb Vomiting, Low Back Pain. 18:08 The patient presents to the emergency department with nausea, vomiting. Onset: The kb symptoms/episode began/occurred last night. Possible causes: unknown. The symptoms are aggravated by nothing. The symptoms are alleviated by nothing. Associated signs and symptoms: Pertinent positives: nausea, vomiting, Pertinent negatives: abdominal pain, fever. Severity of symptoms: At their worst the symptoms were moderate in the emergency department the symptoms are unchanged. The patient has not experienced similar symptoms in the past. The patient has not recently seen a physician. 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 PED, CHEST TUBE; COLLASPED LUNG; sg - Immunization history:: Adult Immunizations up to date. - Social history:: Smoking status: Patient/guardian denies using tobacco. - Ebola Screening: : Patient negative for fever greater than or equal to 101.5 degrees Fahrenheit, and additional compatible Ebola Virus Disease symptoms Patient denies exposure to infectious person Patient denies travel to an Ebola-affected area in the 21 days before illness onset No symptoms or risks identified at this time. ROS: 18:07 Constitutional: Negative for fever, chills, and weight loss, ENT: Negative for injury, kb pain, and discharge, Neck: Negative for injury, pain, and swelling, Cardiovascular: Negative for chest pain, palpitations, and edema, Respiratory: Negative for shortness of breath, cough, wheezing, and pleuritic chest pain, Back: Negative for injury and pain, : Negative for injury, bleeding, discharge, and swelling, MS/Extremity: Negative for injury and deformity, Skin: Negative for injury, rash, and discoloration, Neuro: Negative for headache, weakness, numbness, tingling, and seizure. 18:07 Abdomen/GI: Positive for nausea and vomiting, Negative for abdominal pain, diarrhea, constipation, abdominal cramps, abdominal distension, anorexia. Exam: 18:07 Constitutional: This is a well developed, well nourished patient who is awake, alert, kb and in no acute distress. Head/Face: Normocephalic, atraumatic. Chest/axilla: Normal chest wall appearance and motion. Nontender with no deformity. No lesions are appreciated. Cardiovascular: Regular rate and rhythm with a normal S1 and S2. No gallops, murmurs, or rubs. Normal PMI, no JVD. No pulse deficits. Respiratory: Lungs have equal breath sounds bilaterally, clear to auscultation and percussion. No rales, rhonchi or wheezes noted. No increased work of breathing, no retractions or nasal flaring. Abdomen/GI: Soft, non-tender, with normal bowel sounds. No distension or tympany. No guarding or rebound. No evidence of tenderness throughout. Back: No spinal tenderness. No costovertebral tenderness. Full range of motion. Skin: Warm, dry with normal turgor. Normal color with no rashes, no lesions, and no evidence of cellulitis. MS/ Extremity: Pulses equal, no cyanosis. Neurovascular intact. Full, normal range of motion. Neuro: Awake and alert, GCS 15, oriented to person, place, time, and situation. Cranial nerves II-XII grossly intact. Motor strength 5/5 in all extremities. Sensory grossly intact. Cerebellar exam normal. Normal gait. Vital Signs: 16:43 BP 125 / 89; Pulse 66; Resp 17; Temp 98.6; Pulse Ox 100% on R/A; Weight 78.47 kg; sg Height 5 ft. 4 in. (162.56 cm); 19:01 BP 123 / 74; Pulse 59; Resp 18; Pulse Ox 100% on R/A; mg2 16:43 Body Mass Index 29.70 (78.47 kg, 162.56 cm) sg MDM: 17:05 Patient medically screened. kb 18:08 Data reviewed: vital signs, nurses notes. Data interpreted: Pulse oximetry: on room air kb is 100 %. Interpretation: normal. 19:16 Counseling: I had a detailed discussion with the patient and/or guardian regarding: the kb historical points, exam findings, and any diagnostic results supporting the discharge/admit diagnosis, lab results, the need for outpatient follow up, a family practitioner, to return to the emergency department if symptoms worsen or persist or if there are any questions or concerns that arise at home. 09/03 17:13 Order name: CBC with Diff; Complete Time: 17:51 kb 09/03 17:13 Order name: Basic Metabolic Panel; Complete Time: 17:55 kb 09/03 17:14 Order name: [place] Screen Profile; Complete Time: 18:10 kb 09/03 17:14 Order name: Flu; Complete Time: 17:55 kb 09/03 17:33 Order name: Urine Dipstick--Ancillary (enter results); Complete Time: 17:52 bd 09/03 17:33 Order name: Urine --Ancillary (enter results); Complete Time: 17:52 bd 09/03 17:01 Order name: Urine Dipstick-Ancillary (obtain specimen); Complete Time: 17:19 kb 09/03 17:13 Order name: IV Start; Complete Time: 17:31 kb 09/03 18:36 Order name: PO challenge; Complete Time: 19:01 kb Administered Medications: 17:31 Drug: NS 0.9% 1000 ml Route: IV; Rate: 1000 ml; Site: left antecubital; mg2 18:54 Follow up: Response: No adverse reaction; IV Status: Completed infusion mg2 17:31 Drug: Zofran 4 mg Route: IVP; Site: left antecubital; mg2 18:54 Follow up: Response: No adverse reaction; Marked relief of symptoms mg2 Disposition: 09/04 07:46 Co-signature as Attending Physician, Vincent Guillen MD I agree with the assessment and elías plan of care. Disposition: 09/03/18 19:17 Discharged to Home. Impression: Vomiting, unspecified. - Condition is Stable. - Discharge Instructions: Nausea and Vomiting, Adult, [id number]. - Prescriptions for Zofran 4 mg Oral Tablet - take 1 tablet by ORAL route every 6 hours As needed; 20 tablet. - Work release form, Medication Reconciliation Form, Thank You Letter, Antibiotic Education, Prescription Opioid Use form. - Follow up: Private Physician; When: 2 - 3 days; Reason: Recheck today's complaints, Continuance of care, Re-evaluation by your physician. Follow up: Emergency Department; When: As needed; Reason: Worsening of condition. Signatures: Dispatcher [employer] Daisha Vines FNP-C FNP-Trey Concepcion, RN RN Vincent Vazquez MD MD cha Gardose, Michele, RN RN mg2 Corrections: (The following items were deleted from the chart) 09/03 19:42 19:17 09/03/2018 19:17 Discharged to Home. Impression: Vomiting, unspecified. Condition mg2 is Stable. Forms are Medication Reconciliation Form, Thank You Letter, Antibiotic Education, Prescription Opioid Use. Follow up: Private Physician; When: 2 - 3 days; Reason: Recheck today's complaints, Continuance of care, Re-evaluation by your physician. Follow up: Emergency Department; When: As needed; Reason: Worsening of condition. kb
== END 2018-09-03 19:42 | disposition home or self-care (01) ==
LOC: ER 16:30
DX: R11.10 Vomiting, unspecified (principal); Z88.2 Allergy status to sulfonamides
CPT/HCPCS: 36415; 80048; 81003; 81025; 85025; 86308; 87804; 96361; 96374; 99284; J2405; J7030

== ENCOUNTER 2019-04-29 12:10 | Emergency (ER) | payer BC, SELFPAY ==
[2019-04-29 14:59] LABS: Absolute Lymphocytes (CBC) 2.9 K/uL (0.7-4.9); Basophils % 0.5 % (0-1.3); Lymphocytes % 27.7 % (15.3-44.8); MPV 9.7 fL (7.6-11.3); RBC Red Blood Cell Count 4.53 M/uL (3.86-4.86)
[2019-04-29 15:36] LABS: BUN Blood Urea Nitrogen 12 mg/dL (7-18); Bicarbonate 26 mmol/L (21-32); Glucose Level 75 mg/dL (74-106); HCG, Quantitative 8660 mIU/mL (1-3); Potassium 3.5 mmol/L (3.5-5.1); Sodium Level 138 mmol/L (136-145)
--- NOTE | 2019-04-29 16:42 | ER ---
Nurse's Notes [facility] Name: Daisha Spivey Age: 23 yrs Sex: Female : 1995 Arrival Date: 04/29/2019 Time: 12:14 Bed 13 Private MD: Diagnosis: Less than 8 weeks gestation of Presentation: 04/29 12:32 Presenting complaint: Patient states: "I started running about a week ago and after aa5 running I would get sharp pains in my stomach (lower abd) and I just took a test yesterday and it was positive so I just want to make sure everything is okay". Pt reports appt with [facility] tomorrow, denies vaginal bleeding. 12:32 Transition of care: patient was not received from another setting of care. Onset of aa5 symptoms was 2018. Risk Assessment: Do you want to hurt yourself or someone else? Patient reports no desire to harm self or others. Initial Sepsis Screen: Does the patient meet any 2 criteria? No. Patient's initial sepsis screen is negative. Does the patient have a suspected source of infection? No. Patient's initial sepsis screen is negative. Care prior to arrival: None. 12:32 Acuity: KAYODE 3 aa5 12:32 Method Of Arrival: Ambulatory aa5 [facility]: 12:32 LMP 03/25/2019 aa5 15:03 1, 0, Living 0, LMP 03/25/2019 kb Historical: - Allergies: 12:33 Sulfa (Sulfonamide Antibiotics); aa5 - PMHx: 12:33 ADD/ADHD; Asthma; AUTO VS. PED, CHEST TUBE; COLLASPED LUNG; aa5 - Immunization history:: Adult Immunizations up to date. - Social history:: Smoking status: Patient/guardian denies using tobacco. - Ebola Screening: : No symptoms or risks identified at this time. Screenin:40 Abuse screen: Denies threats or abuse. Denies injuries from another. Nutritional ca1 screening: No deficits noted. Tuberculosis screening: No symptoms or risk factors identified. Fall Risk None identified. Assessment: 13:40 General: Appears in no apparent distress. comfortable, Behavior is calm, cooperative, ca1 appropriate for age. Pain: Complains of pain in suprapubic area Pain does not radiate. Pain currently is 6 out of 10 on a pain scale. at worst was 10 out of 10 on a pain scale. Quality of pain is described as crampy, Is intermittent. Neuro: Level of Consciousness is awake, alert, obeys commands, Oriented to person, place, time, situation, Appropriate for age. Cardiovascular: Heart tones S1 S2 present Capillary refill < 3 seconds Patient's skin is warm and dry. Respiratory: Airway is patent Respiratory effort is even, unlabored, Respiratory pattern is regular, symmetrical, Breath sounds are clear bilaterally. GI: Abdomen is round non-distended, Bowel sounds present X 4 quads. Abd is soft X 4 quads Abdomen is tender to palpation in suprapubic area. : Urine is cloudy. EENT: No deficits noted. No signs and/or symptoms were reported regarding the EENT system. Derm: Skin is intact, is healthy with good turgor, Skin is pink, warm \\T\\ dry. Musculoskeletal: Circulation, motion, and sensation intact. Capillary refill < 3 seconds, Range of motion: intact in all extremities. 14:31 Reassessment: Patient appears in no apparent distress at this time. Patient and/or ca1 family updated on plan of care and expected duration. Pain level reassessed. Patient is alert, oriented x 3, equal unlabored respirations, skin warm/dry/pink. 15:38 Reassessment: Patient appears in no apparent distress at this time. Patient and/or ca1 family updated on plan of care and expected duration. Pain level reassessed. Patient is alert, oriented x 3, equal unlabored respirations, skin warm/dry/pink. 16:23 Reassessment: Patient appears in no apparent distress at this time. Patient and/or ca1 family updated on plan of care and expected duration. Pain level reassessed. Patient is alert, oriented x 3, equal unlabored respirations, skin warm/dry/pink. Vital Signs: 12:34 BP 118 / 84; Pulse 84; Resp 18 S; Temp 98.3(TE); Pulse Ox 98% on R/A; Weight 76.2 kg aa5 (R); Height 5 ft. 4 in. (162.56 cm) (R); Pain 6/10; 14:31 BP 114 / 83; Pulse 84; Resp 17 S; Pulse Ox 100% on R/A; ca1 15:15 BP 109 / 73; Pulse 67; Resp 17 S; Pulse Ox 99% on R/A; ca1 16:23 BP 112 / 76; Pulse 58; Resp 17 S; Pulse Ox 100% on R/A; ca1 12:34 Body Mass Index 28.84 (76.20 kg, 162.56 cm) aa5 ED Course: 12:14 Patient arrived in ED. as 12:32 Arm band placed on. aa5 12:34 Triage completed. aa5 13:09 Vanessa Nash, RN is Primary Nurse. ca1 13:27 Da[facility] Belt[facility]C [facility]. kb 13:27 Reid Nickerson MD is Attending Physician. kb 13:40 Patient has correct armband on for positive identification. Bed in low position. Call ca1 light in reach. Side rails up X 1. Pulse ox on. NIBP on. Warm blanket given. 13:40 No provider procedures requiring assistance completed. ca1 14:40 Inserted saline lock: 22 gauge in left antecubital area, using aseptic technique. Blood jp3 collected. Patient maintains SpO2 saturation greater than 95% on room air. 14:40 Initial lab(s) drawn, by in, sent to lab. Urine collected: clean catch specimen, clear, jp3 cindi colored. 14:48 Radiology exam delayed due to lab results not completed at this time. (HCG) aa4 test not completed at this time. 16:11 US Transvaginal Ob In Process Unspecified. EDMS 16:59 IV discontinued, intact, bleeding controlled, No redness/swelling at site. Pressure ca1 dressing applied. Administered Medications: No medications were administered Outcome: 16:41 Discharge ordered by . kb 16:59 Discharged to home ambulatory, with significant other. ca1 16:59 Condition: stable 16:59 Discharge instructions given to patient, Instructed on discharge instructions, follow up and referral plans. Demonstrated understanding of instructions, follow-up care. 16:59 Patient left the ED. ca1 Signatures: Dispatcher [employer] EDOH Daisha Beltre FNP-C FNP-Ckb Martinez, Amelia as Frazier, Amanda aa4 Virginia Damon, RN RN aa5 Madi Del Rosario jp3 Vanessa Nash RN RN ca1
--- NOTE | 2019-04-29 16:42 | EDPHYS ---
Physician Documentation [facility] Name: Daisha Spivey Age: 23 yrs Sex: Female : 1995 Arrival Date: 04/29/2019 Time: 12:14 Bed 13 Private MD: ED Physician Reid Nickerson HPI: 04/29 15:03 This 23 yrs old Female presents to ER via Ambulatory with complaints of kb Pelvic Pain - unk wks preg. 15:03 The patient presents to the emergency department with abdominal pain. course: kb care: none. course: care: Has appt with [facility] clinic tomorrow. Previous pregnancies: the patient has never been . Associated signs and symptoms: Pertinent positives: abdominal pain. The patient has not experienced similar symptoms in the past. The patient has not recently seen a physician. Pt reports she has been having sharp pains to lower abd after working out. States she just started a workout routine 2 months ago so she thought it was just from the new activity. Found out she was recently so she came today to make sure she wasn't having a miscarriage. Denies constant pain or vaginal bleeding.. 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 PED, CHEST TUBE; COLLASPED LUNG; aa5 - Immunization history:: Adult Immunizations up to date. - Social history:: Smoking status: Patient/guardian denies using tobacco. - Ebola Screening: : No symptoms or risks identified at this time. ROS: 15:02 Constitutional: Negative for fever, chills, and weight loss, Neck: Negative for injury, kb pain, and swelling, Cardiovascular: Negative for chest pain, palpitations, and edema, Respiratory: Negative for shortness of breath, cough, wheezing, and pleuritic chest pain, Back: Negative for injury and pain, : Negative for injury, bleeding, discharge, and swelling, MS/Extremity: Negative for injury and deformity, Skin: Negative for injury, rash, and discoloration, Neuro: Negative for headache, weakness, numbness, tingling, and seizure. 15:02 Abdomen/GI: Positive for abdominal pain, Negative for nausea, vomiting, and diarrhea, constipation. Exam: 15:03 Constitutional: This is a well developed, well nourished patient who is awake, alert, kb and in no acute distress. Head/Face: Normocephalic, atraumatic. Neck: Trachea midline, no thyromegaly or masses palpated, and no cervical lymphadenopathy. Supple, full range of motion without nuchal rigidity, or vertebral point tenderness. No Meningismus. Chest/axilla: Normal chest wall appearance and motion. Nontender with no deformity. No lesions are appreciated. Cardiovascular: Regular rate and rhythm with a normal S1 and S2. No gallops, murmurs, or rubs. Normal PMI, no JVD. No pulse deficits. Respiratory: Lungs have equal breath sounds bilaterally, clear to auscultation and percussion. No rales, rhonchi or wheezes noted. No increased work of breathing, no retractions or nasal flaring. Abdomen/GI: Soft, non-tender, with normal bowel sounds. No distension or tympany. No guarding or rebound. No evidence of tenderness throughout. Back: No spinal tenderness. No costovertebral tenderness. Full range of motion. Skin: Warm, dry with normal turgor. Normal color with no rashes, no lesions, and no evidence of cellulitis. MS/ Extremity: Pulses equal, no cyanosis. Neurovascular intact. Full, normal range of motion. Neuro: Awake and alert, GCS 15, oriented to person, place, time, and situation. Cranial nerves II-XII grossly intact. Motor strength 5/5 in all extremities. Sensory grossly intact. Cerebellar exam normal. Normal gait. Vital Signs: 12:34 BP 118 / 84; Pulse 84; Resp 18 S; Temp 98.3(TE); Pulse Ox 98% on R/A; Weight 76.2 kg aa5 (R); Height 5 ft. 4 in. (162.56 cm) (R); Pain 6/10; 14:31 BP 114 / 83; Pulse 84; Resp 17 S; Pulse Ox 100% on R/A; ca1 15:15 BP 109 / 73; Pulse 67; Resp 17 S; Pulse Ox 99% on R/A; ca1 16:23 BP 112 / 76; Pulse 58; Resp 17 S; Pulse Ox 100% on R/A; ca1 12:34 Body Mass Index 28.84 (76.20 kg, 162.56 cm) aa5 MDM: 13:28 Patient medically screened. kb 15:02 Data reviewed: vital signs, nurses notes. Data interpreted: Pulse oximetry: on room air kb is 100 %. Interpretation: normal. 16:40 Counseling: I had a detailed discussion with the patient and/or guardian regarding: the kb historical points, exam findings, and any diagnostic results supporting the discharge/admit diagnosis, lab results, radiology results, the need for outpatient follow up, an OB/Gyne specialist, to return to the emergency department if symptoms worsen or persist or if there are any questions or concerns that arise at home. ED course: Pt has appt with OB tomorrow morning. Educated on RH status and need for rhogam in the future. No bleeding now so rhogam is not indicated for this visit. . 04/29 14:23 Order name: Quantitative Hcg; Complete Time: 15:40 kb 04/29 14:23 Order name: Abo/rh Typing; Complete Time: 15:52 kb 04/29 14:23 Order name: Basic Metabolic Panel; Complete Time: 15:40 kb 04/29 14:23 Order name: CBC with Diff; Complete Time: 15:01 kb 04/29 14:47 Order name: Urine Dipstick--Ancillary (enter results) bd 04/29 14:47 Order name: Urine --Ancillary (enter results) bd 04/29 13:28 Order name: Urine Dipstick-Ancillary (obtain specimen); Complete Time: 13:40 kb 04/29 13:28 Order name: Urine Test (obtain specimen); Complete Time: 13:40 kb 04/29 14:23 Order name: IV Saline Lock; Complete Time: 14:48 kb 04/29 14:23 Order name: Labs collected and sent; Complete Time: 14:48 kb 04/29 14:23 Order name: NPO; Complete Time: 14:30 kb 04/29 14:31 Order name: US Transvaginal Ob kb Administered Medications: No medications were administered Disposition: 04/30 07:58 Co-signature as Attending Physician, Reid Nickerson MD I agree with the assessment and kdr plan of care. Disposition: 11/06/19 16:41 Discharged to Home. Impression: Less than 8 weeks gestation of . - Condition is Stable. - Discharge Instructions: First Trimester of , [id number]. - Medication Reconciliation Form, Thank You Letter, Antibiotic Education, Prescription Opioid Use form. - Follow up: Emergency Department; When: As needed; Reason: Worsening of condition. Follow up: Private Physician; When: 2 - 3 days; Reason: Recheck today's complaints, Continuance of care, Re-evaluation by your physician. Signatures: Dispatcher [employer] EDMS Daisha Beltre, PATIENT CARE ASSISTANT-C PATIENT CARE ASSISTANT-CkReid Valverde MD MD kdr Virginia Damon RN RN aa5 Vanessa Nash RN RN ca1 Corrections: (The following items were deleted from the chart) 04/29 16:59 16:41 04/29/2019 16:41 Discharged to Home. Impression: Less than 8 weeks gestation of ca1 . Condition is Stable. Forms are Medication Reconciliation Form, Thank You Letter, Antibiotic Education, Prescription Opioid Use. Follow up: Emergency Department; When: As needed; Reason: Worsening of condition. Follow up: Private Physician; When: 2 - 3 days; Reason: Recheck today's complaints, Continuance of care, Re-evaluation by your physician. kb
[2019-04-29 17:15] VITALS: TEMP 98.3
[2019-04-29 17:17] VITALS: BP 112/76; O2SAT 100
--- NOTE | 2019-04-29 17:39 | RAD REPORT ---
EXAM DESCRIPTION: US - Transvaginal OB - 04/29/2019 4:20 pm CLINICAL HISTORY: with pelvic pain COMPARISON: None. FINDINGS: The uterus measures 6 x 4 x 5 centimeters. A gestational sac within the endometrium measu res 6 x 4 x 9 millimeters. A yolk sac is seen. A pole is not visualized Right and left ovary appear normal. . An adnexal mass is not noted. No significant free fluid is seen. IMPRESSION: Intrauterine with an estimated gestational age 5 weeks 1 day ERICKSON 12/29/2019. A pole was not visualized. It is recommended that the patient have a followup endovaginal sonogr am in 1 week for re-evaluation
[2019-04-29 18:04] LABS: Urine Blood NEGATIVE (NEG); Urine Glucose NEGATIVE (NEG); Urine Protein NEGATIVE (NEG); Urine Specific Gravity 1.025 (1.005-1.030)
--- OUTSIDE RECORDS SUMMARY | 2019-05-04 01:05 | XMS REPORT ---
:1995 Author Organization [facility] Address [address] [place] [address] Care Team Providers Name Role Phone Unavailable Unavailable Unavailable Problems This patient has no known problems. Allergies, Adverse Reactions, Alerts This patient has no known allergies or adverse reactions. Medications This patient has no known medications.
== END 2019-04-29 16:59 | disposition home or self-care (01) ==
LOC: ER 12:10
DX: O26.891 Other specified pregnancy related conditions, first trimester (principal); Z3A.01 Less than 8 weeks gestation of pregnancy; Z88.2 Allergy status to sulfonamides
CPT/HCPCS: 36415; 76817; 80048; 81003; 81025; 84702; 85025; 86900; 86901; 99284

== ENCOUNTER 2019-05-13 02:47 | Emergency (ER) | payer OTHER, SELFPAY ==
--- OUTSIDE RECORDS SUMMARY | 2019-05-13 02:49 | XMS REPORT ---
:1995 Author Organization [facility] Address [address] [place] [address] Dr. Cedillo[address] [place] [id number] Care Team Providers Name Role Phone Unavailable Unavailable Unavailable Problems This patient has no known problems. Allergies, Adverse Reactions, Alerts This patient has no known allergies or adverse reactions. Medications This patient has no known medications.
[2019-05-13] MEDS ORDERED: ONDANSETRON 4 MG/2 ML VIAL ONE ×2 (03:10→05:21)
[2019-05-13] MEDS ORDERED: NA CHLORIDE 0.9% 1,000 ML ONE (03:10)
[2019-05-13 03:32] LABS: Absolute Lymphocytes (CBC) 2.1 K/uL (0.7-4.9); Basophils % 0.4 % (0-1.3); Lymphocytes % 13.9 % (15.3-44.8); MPV 9.8 fL (7.6-11.3); RBC Red Blood Cell Count 3.86 M/uL (3.86-4.86)
[2019-05-13 03:44] LABS: ALT/SGPT 129 U/L (12-78); AST/SGOT 85 U/L (15-37); Albumin 3.5 g/dL (3.4-5.0); Alkaline Phosphatase 61 U/L (45-117); BUN Blood Urea Nitrogen 8 mg/dL (7-18); Bicarbonate 26 mmol/L (21-32); Bilirubin Direct 0.1 mg/dL (0-0.2); Bilirubin Total 0.3 mg/dL (0.2-1.0); Glucose Level 116 mg/dL (74-106); Lipase 103 U/L (73-393); Potassium 3.7 mmol/L (3.5-5.1); Protein, Total 7.2 g/dL (6.4-8.2); Sodium Level 139 mmol/L (136-145)
[2019-05-13 03:49] LABS: Urine Blood NEGATIVE (NEG); Urine Glucose NEGATIVE (NEG); Urine Protein 1+ (NEG); Urine Specific Gravity 1.015 (1.005-1.030); Urine pH >8.5 (5.0-7.0)
[2019-05-13 05:09] LABS: Urine Bacteria <20 /HPF (<20); Urine Culture Reflex Order NOT NEEDED; Urine Mucus 2+ /HPF (NONE SEEN); Urine RBC <5 /HPF (NONE SEEN)
--- NOTE | 2019-05-13 06:43 | ER ---
Nurse's Notes [facility] Name: Daisha Spivey Age: 23 yrs Sex: Female : 1995 Arrival Date: 05/13/2019 Time: 02:51 Bed 5 Private MD: Diagnosis: Mild hyperemesis gravidarum Presentation: 05/13 02:55 Presenting complaint: Patient states: "Since the last 4 days I cannot keep anything cc3 down, I vomit everything I take and I've been having epigastric pain". Transition of care: patient was not received from another setting of care. Onset of symptoms was May 08, 2019. Risk Assessment: Do you want to hurt yourself or someone else? Patient reports no desire to harm self or others. Initial Sepsis Screen: Does the patient meet any 2 criteria? No. Patient's initial sepsis screen is negative. Does the patient have a suspected source of infection? No. Patient's initial sepsis screen is negative. Care prior to arrival: None. 02:55 Method Of Arrival: Ambulatory cc3 02:55 Acuity: KAYODE 3 cc3 Triage Assessment: 02:55 General: Appears in no apparent distress. uncomfortable, Behavior is calm, cooperative, cc3 appropriate for age. Pain: Complains of pain in epigastric Pain currently is 10 out of 10 on a pain scale. Quality of pain is described as aching, Pain began 4 days. EENT: No signs and/or symptoms were reported regarding the EENT system. Neuro: Level of Consciousness is awake, alert, obeys commands, Oriented to person, place, time, situation, Appropriate for age. Cardiovascular: Denies chest pain, Heart tones S1 S2 present Capillary refill < 3 seconds in bilateral fingers Patient's skin is warm and dry. Respiratory: Airway is patent Respiratory effort is even, unlabored, Respiratory pattern is regular, symmetrical, Breath sounds are clear bilaterally. GI: Abdomen is round non-distended, Bowel sounds present X 4 quads. Abd is soft and non tender X 4 quads. Reports epigastric pain, vomiting, since 4 days. : No signs and/or symptoms were reported regarding the genitourinary system. Derm: Skin is intact, is healthy with good turgor, Skin is pink, warm \\T\\ dry. normal. Musculoskeletal: Circulation, motion, and sensation intact. Range of motion: intact in all extremities. 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 PED, CHEST TUBE; COLLASPED LUNG; cc3 - PSHx: 02:55 bilateral knee surgery; cc3 - Immunization history:: Adult Immunizations not up to date. - Social history:: Smoking status: Patient/guardian denies using tobacco, never smoked. - Ebola Screening: : No symptoms or risks identified at this time. Screenin:57 Abuse screen: Denies threats or abuse. Denies injuries from another. Nutritional rr5 screening: No deficits noted. Tuberculosis screening: No symptoms or risk factors identified. Fall Risk None identified. Total Liz Fall Scale indicates No Risk (0-24 pts). Assessment: 02:55 General: see triage assessment. cc3 03:18 Reassessment: Patient appears in no apparent distress at this time. Patient and/or cc3 family updated on plan of care and expected duration. Pain level reassessed. Patient is alert, oriented x 3, equal unlabored respirations, skin warm/dry/pink. 04:12 Reassessment: Patient appears in no apparent distress at this time. Patient and/or cc3 family updated on plan of care and expected duration. Pain level reassessed. Patient is alert, oriented x 3, equal unlabored respirations, skin warm/dry/pink. Patient denies pain at this time. Patient states feeling better. Patient states symptoms have improved. 05:20 Reassessment: Patient is alert, oriented x 3, equal unlabored respirations, skin rr5 warm/dry/pink. complaints of still nauseated but it improves a lot compare before. ED provider aware with order made and carried out. Patient states symptoms have improved. 06:10 Reassessment: Patient appears in no apparent distress at this time. Patient and/or cc3 family updated on plan of care and expected duration. Pain level reassessed. Patient is alert, oriented x 3, equal unlabored respirations, skin warm/dry/pink. 06:50 Reassessment: Patient appears in no apparent distress at this time. Patient and/or cc3 family updated on plan of care and expected duration. Pain level reassessed. Patient is alert, oriented x 3, equal unlabored respirations, skin warm/dry/pink. Dr. Andrade discharged the patient home with prescription given. IV cannula removed. Patient went out of ER vitally stable and ambulatory with her . No valuables left in the patient's room. Patient denies pain at this time. Patient states feeling better. Patient states symptoms have improved. Vital Signs: 02:55 BP 123 / 77; Pulse 80; Resp 16 S; Temp 98.6(O); Pulse Ox 100% on R/A; Weight 78.02 kg cc3 (R); Height 5 ft. 4 in. (162.56 cm) (R); Pain 10/10; 03:30 BP 103 / 56; Pulse 64; Resp 15 S; Pulse Ox 97% on R/A; cc3 04:45 BP 102 / 58; Pulse 75; Resp 16 S; Pulse Ox 97% on R/A; Pain 3/10; cc3 05:30 BP 122 / 98; Pulse 74; Resp 17 S; Pulse Ox 99% on R/A; cc3 06:13 BP 114 / 70; Pulse 70; Resp 15 S; Pulse Ox 100% on R/A; cc3 02:55 Body Mass Index 29.52 (78.02 kg, 162.56 cm) cc3 ED Course: 02:51 Patient arrived in ED. jg7 02:55 Arm band placed on right wrist. Patient notified of wait time. cc3 02:57 Patient has correct armband on for positive identification. Bed in low position. Call rr5 light in reach. Pulse ox on. NIBP on. 02:59 Yee Espinoza is Primary Nurse. cc3 02:59 Jorge Andrade MD is Attending Physician. tw4 03:05 Triage completed. cc3 03:25 Inserted saline lock: 20 gauge in left antecubital area, using aseptic technique. Blood rr5 collected. 06:50 No provider procedures requiring assistance completed. IV discontinued, intact, cc3 bleeding controlled, No redness/swelling at site. Pressure dressing applied. Administered Medications: 03:25 Drug: NS 0.9% 1000 ml Route: IV; Rate: 1 bolus; Site: left antecubital; rr5 05:24 Follow up: Response: No adverse reaction; IV Status: Completed infusion; IV Intake: rr5 1000ml 03:26 Drug: Zofran 4 mg Route: IVP; Site: left antecubital; rr5 04:45 Follow up: Response: No adverse reaction; Nausea is decreased cc3 05:24 Drug: Zofran 4 mg Route: IVP; Site: left antecubital; rr5 06:02 Follow up: Response: No adverse reaction; Nausea is decreased cc3 Intake: 05:24 IV: 1000ml; Total: 1000ml. rr5 Outcome: 06:43 Discharge ordered by . tw4 06:50 Patient left the ED. cc3 06:50 Discharged to home ambulatory, with family. cc3 06:50 Condition: stable 06:50 Discharge instructions given to patient, Instructed on discharge instructions, follow up and referral plans. medication usage, Demonstrated understanding of instructions, follow-up care, medications, Prescriptions given X 1. Signatures: Jorge Andrade MD MD tw4 Yee Espinoza cc3 Mustapha Schneider, RN RN rr5 Danielle Maradiaga jg7 Corrections: (The following items were deleted from the chart) 03:01 02:55 LMP 03/25/2019 bill cc3
--- NOTE | 2019-05-13 06:44 | EDPHYS ---
Physician Documentation [facility] Name: Daisha Spivey Age: 23 yrs Sex: Female : 1995 Arrival Date: 05/13/2019 Time: 02:51 Bed 5 Private MD: ED Physician Jorge Andrade HPI: 05/13 03:14 This 23 yrs old Female presents to ER via Ambulatory with complaints of tw4 Vomiting - 10 WEEKS . 03:14 The patient presents to the emergency department with nausea, vomiting. The patient tw4 presents to the emergency department with vomiting, 10 times since the onset of symptoms, diarrhea, that is intermittent. Possible causes: unknown. The symptoms are aggravated by nothing. The symptoms are alleviated by nothing. Associated signs and symptoms: The patient has no apparent associated signs or symptoms. Severity of symptoms: At their worst the symptoms were moderate. The patient has not experienced similar symptoms in the past. 4 day(s) ago, The patient has not recently seen a physician. 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 PED, CHEST TUBE; COLLASPED LUNG; cc3 - PSHx: 02:55 bilateral knee surgery; cc3 - Immunization history:: Adult Immunizations not up to date. - Social history:: Smoking status: Patient/guardian denies using tobacco, never smoked. - Ebola Screening: : No symptoms or risks identified at this time. ROS: 03:14 Constitutional: Negative for fever, chills, and weight loss, Eyes: Negative for injury, tw4 pain, redness, and discharge, Cardiovascular: Negative for chest pain, palpitations, and edema, Respiratory: Negative for shortness of breath, cough, wheezing, and pleuritic chest pain, Back: Negative for injury and pain, MS/Extremity: Negative for injury and deformity, Skin: Negative for injury, rash, and discoloration, Neuro: Negative for headache, weakness, numbness, tingling, and seizure. 03:14 Abdomen/GI: Positive for abdominal pain, nausea and vomiting, nausea, vomiting, and diarrhea, nausea, vomiting, diarrhea, Negative for constipation, abdominal cramps, abdominal distension, anorexia, dysphagia, hematemesis, black/tarry stool, rectal pain, rectal bleeding. Exam: 03:14 Constitutional: This is a well developed, well nourished patient who is awake, alert, tw4 and in no acute distress. Head/Face: Normocephalic, atraumatic. Chest/axilla: Normal chest wall appearance and motion. Nontender with no deformity. No lesions are appreciated. Cardiovascular: Regular rate and rhythm with a normal S1 and S2. No gallops, murmurs, or rubs. Normal PMI, no JVD. No pulse deficits. Respiratory: Lungs have equal breath sounds bilaterally, clear to auscultation and percussion. No rales, rhonchi or wheezes noted. No increased work of breathing, no retractions or nasal flaring. Abdomen/GI: Soft, non-tender, with normal bowel sounds. No distension or tympany. No guarding or rebound. No evidence of tenderness throughout. Back: No spinal tenderness. No costovertebral tenderness. Full range of motion. MS/ Extremity: Pulses equal, no cyanosis. Neurovascular intact. Full, normal range of motion. Neuro: Awake and alert, GCS 15, oriented to person, place, time, and situation. Cranial nerves II-XII grossly intact. Motor strength 5/5 in all extremities. Sensory grossly intact. Cerebellar exam normal. Normal gait. Vital Signs: 02:55 BP 123 / 77; Pulse 80; Resp 16 S; Temp 98.6(O); Pulse Ox 100% on R/A; Weight 78.02 kg cc3 (R); Height 5 ft. 4 in. (162.56 cm) (R); Pain 10/10; 03:30 BP 103 / 56; Pulse 64; Resp 15 S; Pulse Ox 97% on R/A; cc3 04:45 BP 102 / 58; Pulse 75; Resp 16 S; Pulse Ox 97% on R/A; Pain 3/10; cc3 05:30 BP 122 / 98; Pulse 74; Resp 17 S; Pulse Ox 99% on R/A; cc3 06:13 BP 114 / 70; Pulse 70; Resp 15 S; Pulse Ox 100% on R/A; cc3 02:55 Body Mass Index 29.52 (78.02 kg, 162.56 cm) cc3 MDM: 03:01 Patient medically screened. tw4 07:49 Differential diagnosis: Nonspecific abd pain, gastritis, cholecystitis. Data reviewed: tw4 vital signs, EMS record. Data interpreted: Pulse oximetry: Interpretation: normal. Counseling: I had a detailed discussion with the patient and/or guardian regarding: the historical points, exam findings, and any diagnostic results supporting the discharge/admit diagnosis. Medication response: Zofran relieved the patient's nausea. Response to treatment: and as a result, I will discharge patient. Special discussion: I discussed with the patient/guardian in detail that at this point there is no indication for admission to the hospital. It is understood, however, that if the symptoms persist or worsen the patient needs to return immediately for re-evaluation. 05/13 03:00 Order name: Basic Metabolic Panel; Complete Time: 05:02 [facility] 05/13 05:02 Interpretation: Normal except: GLUC 116. 05/13 03:00 Order name: CBC with Diff; Complete Time: 05:02 tw4 05/13 05:10 Interpretation: Normal except: WBC 15.3; HCT 36.0; EMILY% 78.8. 05/13 03:00 Order name: Creatinine for Radiology; Complete Time: 05:02 [facility] 05/13 05:03 Interpretation: Within normal limits: CRE 0.65. 05/13 03:00 Order name: Hepatic Function; Complete Time: 05:02 [facility] 05/13 05:03 Interpretation: Normal except: AST 85; ALT 129; GLOB 3.7; A/G 0.9. 05/13 03:00 Order name: Lipase; Complete Time: 05:02 [facility] 05/13 05:03 Interpretation: Within normal limits: LIP 103. 05/13 03:27 Order name: Urine Dipstick--Ancillary (enter results); Complete Time: 05:02 cm6 05/13 05:03 Interpretation: Normal except: UPROT 1+. 05/13 03:00 Order name: IV Saline Lock; Complete Time: 03:27 [facility] 05/13 03:00 Order name: Labs collected and sent; Complete Time: 03:27 tw4 05/13 03:00 Order name: Urine Dipstick-Ancillary (obtain specimen); Complete Time: 03:26 tw4 05/13 03:27 Order name: Urine --Ancillary (enter results); Complete Time: 05:02 cm6 05/13 05:03 Interpretation: Abnormal: URINE PREG POS. tw4 05/13 03:28 Order name: Urine Microscopic Only; Complete Time: 06:42 cm6 05/13 03:00 Order name: Urine Test (obtain specimen); Complete Time: 03:26 tw4 Administered Medications: 03:25 Drug: NS 0.9% 1000 ml Route: IV; Rate: 1 bolus; Site: left antecubital; rr5 05:24 Follow up: Response: No adverse reaction; IV Status: Completed infusion; IV Intake: rr5 1000ml 03:26 Drug: Zofran 4 mg Route: IVP; Site: left antecubital; rr5 04:45 Follow up: Response: No adverse reaction; Nausea is decreased cc3 05:24 Drug: Zofran 4 mg Route: IVP; Site: left antecubital; rr5 06:02 Follow up: Response: No adverse reaction; Nausea is decreased cc3 Disposition: 05/13/19 06:43 Discharged to Home. Impression: Mild hyperemesis gravidarum. - Condition is Stable. - Discharge Instructions: Hyperemesis Gravidarum, Morning Sickness, [id number], Morning Sickness, Eating Plan for Hyperemesis Gravidarum, Nausea, Adult, [id number]. - Prescriptions for Zofran 4 mg Oral Tablet - take 1 tablet by ORAL route every 12 hours As needed; 20 tablet. - Medication Reconciliation Form, Thank You Letter, Antibiotic Education, Prescription Opioid Use form. - Follow up: Private Physician; When: Upon discharge from the Emergency Department; Reason: Recheck today's complaints, Continuance of care. - Problem is new. - Symptoms have improved. Signatures: Dispatcher [employer] Jorge Burciaga MD MD tw4 Yee Espinoza cc3 Mustapha Schneider, RN RN rr5 Corrections: (The following items were deleted from the chart) 06:03 05:03 Normal except: WBC 15.3; HCT 36.0. tw4 tw4 06:50 06:43 05/13/2019 06:43 Discharged to Home. Impression: Mild hyperemesis gravidarum. cc3 Condition is Stable. Forms are Medication Reconciliation Form, Thank You Letter, Antibiotic Education, Prescription Opioid Use. Follow up: Private Physician; When: Upon discharge from the Emergency Department; Reason: Recheck today's complaints, Continuance of care. Problem is new. Symptoms have improved. tw4
[2019-05-13 06:58] VITALS: TEMP 98.6
[2019-05-13 07:03] VITALS: BP 114/70; O2SAT 100
== END 2019-05-13 06:50 | disposition home or self-care (01) ==
LOC: ER 02:47
DX: O21.0 Mild hyperemesis gravidarum (principal); Z3A.08 8 weeks gestation of pregnancy; Z88.2 Allergy status to sulfonamides
CPT/HCPCS: 96361; 85025; 80048; 36415; 81025; 80076; 83690; 96374; 99284; J7030; J2405 ×2; 81003; 81015

== ENCOUNTER 2019-05-14 14:58 | Emergency (ER) | payer OTHER ==
--- OUTSIDE RECORDS SUMMARY | 2019-05-14 14:59 | XMS REPORT ---
:1995 [facility] Address [address] [place] [address] Dr. Cedillo. [address] [place] [id number] Care Team Providers Name Role Phone Unavailable Unavailable Unavailable Problems This patient has no known problems. Allergies, Adverse Reactions, Alerts This patient has no known allergies or adverse reactions. Medications This patient has no known medications.
[2019-05-14] MEDS ORDERED: PROMETHAZINE 25 MG/ML VIAL ONE ×2 (15:40→17:53)
[2019-05-14] MEDS ORDERED: NA CHLORIDE 0.9% 1,000 ML ONE ×2 (15:40→19:46)
[2019-05-14] MEDS ORDERED: Ringers Lactate 1,000 ML IV ONE (15:41)
[2019-05-14 15:56] LABS: Urine Blood NEGATIVE (NEG); Urine Glucose NEGATIVE (NEG); Urine Protein 1+ (NEG); Urine pH 5.5 (5.0-7.0)
[2019-05-14 15:56] LABS: Urine Bacteria <20 /HPF (<20); Urine Culture Reflex Order NOT NEEDED; Urine Mucus 1+ /HPF (NONE SEEN); Urine RBC <5 /HPF (NONE SEEN)
[2019-05-14 16:16] LABS: Absolute Lymphocytes (CBC) 2.1 K/uL (0.7-4.9); Basophils % 0.4 % (0-1.3); Hematocrit 37.2 % (36.0-45.0); Lymphocytes % 13.4 % (15.3-44.8); MPV 9.8 fL (7.6-11.3); RBC Red Blood Cell Count 4.02 M/uL (3.86-4.86)
[2019-05-14 16:42] LABS: ALT/SGPT 139 U/L (12-78); AST/SGOT 56 U/L (15-37); Albumin 3.9 g/dL (3.4-5.0); Alkaline Phosphatase 71 U/L (45-117); BUN Blood Urea Nitrogen 12 mg/dL (7-18); Bicarbonate 23 mmol/L (21-32); Bilirubin Direct 0.2 mg/dL (0-0.2); Bilirubin Total 0.6 mg/dL (0.2-1.0); Glucose Level 100 mg/dL (74-106); Lipase 39 U/L (73-393); Potassium 3.2 mmol/L (3.5-5.1); Sodium Level 139 mmol/L (136-145)
--- NOTE | 2019-05-14 18:05 | RAD REPORT ---
EXAM DESCRIPTION: US - OB Limited - 05/14/2019 5:27 pm CLINICAL HISTORY: with pelvic pain and vaginal bleeding COMPARISON: 04/29/2019 FINDINGS: A gestational sac is present within the endometrium measuring 3.1 x 1.9 x 4 centimeters. A yolk sac is seen. A pole with a crown lump length 6 millimeters is present. Cardiac activity 1 40 beats per minute No significant free fluid is seen. Right and left adnexal unremarkable IMPRESSION: Single live intrauterine with an estimated gestational age 7 weeks 2 days ERICKSON 12/29/2019
--- NOTE | 2019-05-14 18:13 | RAD REPORT ---
EXAM DESCRIPTION: US - Abdomen Exam Limited - 05/14/2019 5:27 pm CLINICAL HISTORY: Abdominal pain. COMPARISON: None. FINDINGS: The gallbladder wall is not thickened. A gallstone is not seen. The biliary tree is normal caliber. IMPRESSION: Unremarkable gallbladder ultrasound.
--- NOTE | 2019-05-14 18:41 | ER ---
Nurse's Notes [facility] Name: Daisha Spivey Age: 23 yrs Sex: Female : 1995 Arrival Date: 05/14/2019 Time: 14:59 Bed 13 Private MD: Diagnosis: Dehydration;Vomiting of , unspecified Presentation: 05/14 15:05 Presenting complaint: Patient states: I have been vomiting for the last 2 weeks, cant la1 keep anything down at all, on zofran at home but its not getting any better. Transition of care: patient was not received from another setting of care. Onset of symptoms was May 14, 2019. Risk Assessment: Do you want to hurt yourself or someone else? Patient reports no desire to harm self or others. Initial Sepsis Screen: Does the patient meet any 2 criteria? No. Patient's initial sepsis screen is negative. Does the patient have a suspected source of infection? No. Patient's initial sepsis screen is negative. Care prior to arrival: None. 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 PED, CHEST TUBE; COLLASPED LUNG; la1 - Immunization history:: Adult Immunizations up to date. - Social history:: Smoking status: Patient/guardian denies using tobacco. - Ebola Screening: : No symptoms or risks identified at this time. - Family history:: not pertinent. - Hospitalizations: : No recent hospitalization is reported. Screenin:20 Abuse screen: Denies threats or abuse. Nutritional screening: Has had N/V for 3 or more rb1 days Reports being unable to keep anything down. Tuberculosis screening: No symptoms or risk factors identified. Fall Risk None identified. Assessment: 15:20 General: Appears uncomfortable, Behavior is calm, cooperative. Pain: Complains of pain rb1 in chest. Neuro: Level of Consciousness is awake, alert, obeys commands, Oriented to person, place, time, situation. Cardiovascular: Capillary refill < 3 seconds is brisk in bilateral fingers. Respiratory: Airway is patent Respiratory effort is even, unlabored, Respiratory pattern is regular, symmetrical. GI: Abdomen is non-distended. GI: Reports nausea, vomiting, x 2 weeks. : No signs and/or symptoms were reported regarding the genitourinary system. Derm: Skin is pink, warm \T\ dry. 16:40 Reassessment: I was unable to hear FHT's at this time, provider notified. Received rb1 verbal order for pelvic US. 100% verbal read back. 16:42 Reassessment: Pt. went to US. rb1 17:05 Reassessment: Pt. is still in US. rb1 17:40 Reassessment: Patient appears in no apparent distress at this time. Patient and/or rb1 family updated on plan of care and expected duration. Pain level reassessed. Patient is alert, oriented x 3, equal unlabored respirations, skin warm/dry/pink. 18:39 Reassessment: Patient appears in no apparent distress at this time. No changes from rb1 previously documented assessment. PT. requested the lights off so she could get some rest. Call light within reach. 18:44 Reassessment: Discharge pending due to IV fluids infusing. Had to initiate a new IV. rb1 19:30 General: Appears comfortable, Behavior is calm, cooperative, appropriate for age. ea General: Awaiting on IV fluids to complete before discharging pt. Pain: Denies pain. Neuro: Level of Consciousness is awake, alert, obeys commands, Oriented to person, place, time, situation. Cardiovascular: Patient's skin is warm and dry. Respiratory: Airway is patent Respiratory effort is even, unlabored, Respiratory pattern is regular, symmetrical. Derm: Skin is pink, warm \T\ dry. 19:55 Reassessment: Patient and/or family updated on plan of care and expected duration. Pain ea level reassessed. Pt attempted to drink, vomited x 2. Provider notified, order obtained, medication and IV fluids administered, pt tolerated well. 20:50 Reassessment: Patient and/or family updated on plan of care and expected duration. Pain ea level reassessed. Patient is alert, oriented x 3, equal unlabored respirations, skin warm/dry/pink. Pt reports she is feeling a little better. 21:30 Reassessment: Patient and/or family updated on plan of care and expected duration. Pain ea level reassessed. Patient is alert, oriented x 3, equal unlabored respirations, skin warm/dry/pink. Patient states feeling better. Patient states symptoms have improved. 22:50 Reassessment: Patient and/or family updated on plan of care and expected duration. Pain ea level reassessed. Patient is alert, oriented x 3, equal unlabored respirations, skin warm/dry/pink. Discharge instruction given to patient, verbalized the understanding of instruction. Pt reports she is feeling much better, was able to keep down two cups of water. Pt left ED ambulatory accompanied by family, pt tolerating well. Vital Signs: 15:04 BP 122 / 79; Pulse 65; Resp 16; Temp 98.4; Pulse Ox 100% on R/A; Weight 74.84 kg; la1 Height 6 ft. 4 in. (193.04 cm); 16:00 BP 111 / 68; Pulse 52; Resp 17; Pulse Ox 100% ; rb1 17:04 rb1 18:00 BP 111 / 63; Pulse 56; Resp 17; Pulse Ox 100% on R/A; rb1 19:00 BP 103 / 61; Pulse 59; Resp 18; Pulse Ox 99% ; ea 21:12 BP 109 / 57; Pulse 58; Resp 18; Pulse Ox 100% on R/A; ea 22:45 BP 102 / 65; Pulse 60; Resp 18; Temp 98.0; Pulse Ox 100% ; Pain 0/10; ea 15:04 Body Mass Index 20.08 (74.84 kg, 193.04 cm) la1 17:04 Pt. is in rb1 ED Course: 14:59 Patient arrived in ED. as 15:05 Arm band placed on left wrist. la1 15:06 Triage completed. la1 15:17 Herb De Anda PA is PHCP. jr8 15:17 Teto Sumner MD is Attending Physician. jr8 15:20 Patient has correct armband on for positive identification. Placed in gown. Bed in low rb1 position. Call light in reach. Side rails up X 1. Pulse ox on. NIBP on. Warm blanket given. 15:37 Jaclyn Martinez, ZULEYKA is Primary Nurse. rb1 15:55 Inserted saline lock: 22 gauge in left antecubital area, using aseptic technique. Blood rb1 collected. 16:00 EKG done, by drug abuse technician. reviewed by Teto Sumner MD. sm3 17:27 US Abdomen Limited In Process Unspecified. EDMS 17:27 US OB Limited In Process Unspecified. EDMS 18:04 Missed attempt(s): 22 gauge in right antecubital area. rb1 18:09 Missed attempt(s): 22 gauge in left forearm. Attempted by ZULEYKA Coleman. Bleeding rb1 controlled, band aid applied, catheter tip intact. 18:15 Missed attempt(s): 22 gauge in right antecubital area. Attempted by ZULEYKA Coleman. Bleeding rb1 controlled, band aid applied, catheter tip intact. 18:28 IV discontinued, intact, bleeding controlled, No redness/swelling at site. Pressure rb1 dressing applied, IV that was inserted at 1555 in the L AC was discontinue due to the IV clotting. 18:30 Inserted saline lock: 22 gauge in left antecubital area, using aseptic technique. Blood ss collected. 19:00 Report given to ZULEYKA Merida. rb1 22:52 No provider procedures requiring assistance completed. IV discontinued, intact, ea bleeding controlled, No redness/swelling at site. Pressure dressing applied. Administered Medications: 16:00 Drug: NS 0.9% 1000 ml Route: IV; Rate: 1000 ml; Site: left antecubital; rb1 17:46 Follow up: IV Status: Completed infusion rb1 16:00 Drug: Phenergan 12.5 mg Route: IVP; Site: left antecubital; rb1 16:15 Follow up: Response: No adverse reaction; Nausea is decreased rb1 18:33 Drug: Lactated Ringers Solution 1000 ml Route: IV; Rate: 150 ml/hr; Site: left rb1 antecubital; 22:32 Follow up: Response: No adverse reaction; IV Status: Completed infusion; IV Intake: ea 1000ml 18:33 Drug: Phenergan 12.5 mg Route: IVP; Site: left antecubital; rb1 18:45 Follow up: Response: No adverse reaction; Nausea is decreased rb1 19:54 Drug: NS 0.9% 1000 ml Route: IV; Rate: 1 bolus; Site: left antecubital; ea 22:36 Follow up: Response: No adverse reaction; IV Status: Completed infusion; IV Intake: ea 600ml 19:54 Drug: Zofran 4 mg Route: IVP; Site: left antecubital; ea 22:32 Follow up: Response: No adverse reaction; Marked relief of symptoms ea 22:38 Drug: Zofran 4 mg Route: PO; ea 22:45 Follow up: Response: No adverse reaction ea Intake: 22:32 IV: 1000ml; Total: 1000ml. ea 22:36 IV: 600ml; Total: 1600ml. ea Outcome: 18:41 Discharge ordered by . rn 22:52 Discharged to home ambulatory, with family. ea 22:52 Condition: stable 22:52 Discharge instructions given to patient, family, Instructed on discharge instructions, follow up and referral plans. medication usage, Demonstrated understanding of instructions, follow-up care, medications, Prescriptions given X 2. 22:56 Patient left the ED. ea Signatures: Dispatcher [employer] EDMS Siria Kingston Roman, MD MD rn Smirch, Shelby RN RN Herb Murillo PA PA jr8 Tonio Shaw RN RN la1 Jaclyn Martinez RN RN rb1 Magnolia Antonio RN Micaela Mckeon ea 3
--- NOTE | 2019-05-14 18:42 | EDPHYS ---
Physician Documentation [facility] Name: Daisha Spivey Age: 23 yrs Sex: Female : 1995 Arrival Date: 05/14/2019 Time: 14:59 Bed 13 Private MD: ED Physician Teto Sumner HPI: 05/14 18:29 This 23 yrs old Female presents to ER via Ambulatory with complaints of rn Vomiting - 9 wks preg. 18:29 The patient presents to the emergency department with nausea, vomiting. Onset: The rn symptoms/episode began/occurred 3 week(s) ago. Possible causes: . The symptoms are aggravated by food , The symptoms are alleviated by. Severity of symptoms: At their worst the symptoms were moderate in the emergency department the symptoms are unchanged. The patient has experienced similar episodes in the past. The patient has been recently seen at the [facility] Emergency Department. Reports 2-3 weeks of vomiting, is approx 9 weeks , seen here a few days ago for vomiting, given fluids and zofran, still throwing up. NO urinary symptoms. No fever. No vaginal bleeding or leakage of fluid. Reports feels dehydrated. . 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 PED, CHEST TUBE; COLLASPED LUNG; la1 - Immunization history:: Adult Immunizations up to date. - Social history:: Smoking status: Patient/guardian denies using tobacco. - Ebola Screening: : No symptoms or risks identified at this time. - Family history:: not pertinent. - Hospitalizations: : No recent hospitalization is reported. ROS: 18:29 Constitutional: Negative for fever, chills, and weight loss, Eyes: Negative for injury, rn pain, redness, and discharge, Neck: Negative for injury, pain, and swelling, Cardiovascular: Negative for chest pain, palpitations, and edema, Respiratory: Negative for shortness of breath, cough, wheezing, and pleuritic chest pain, Abdomen/GI: Negative for diarrhea, and constipation, : Negative for injury, bleeding, discharge, and swelling, MS/Extremity: Negative for injury and deformity, Skin: Negative for injury, rash, and discoloration, Neuro: Negative for headache, numbness, tingling, and seizure. Exam: 18:29 Constitutional: This is a well developed, well nourished patient who is awake, alert, rn and in no acute distress. Head/Face: Normocephalic, atraumatic. ENT: dry MM Cardiovascular: Regular rate and rhythm. No pulse deficits. Respiratory: No increased work of breathing, no retractions or nasal flaring. Abdomen/GI: soft, mild mid and upper abd tenderness, no rebound, neg canales Skin: Warm, dry with normal turgor. Normal color with no rashes, no lesions, and no evidence of cellulitis. MS/ Extremity: Pulses equal, no cyanosis. Neurovascular intact. Full, normal range of motion. Equal circumference. Neuro: Awake and alert, GCS 15, oriented to person, place, time, and situation. Cranial nerves II-XII grossly intact. Motor strength 5/5 in all extremities. Sensory grossly intact. Vital Signs: 15:04 BP 122 / 79; Pulse 65; Resp 16; Temp 98.4; Pulse Ox 100% on R/A; Weight 74.84 kg; la1 Height 6 ft. 4 in. (193.04 cm); 16:00 BP 111 / 68; Pulse 52; Resp 17; Pulse Ox 100% ; rb1 17:04 rb1 18:00 BP 111 / 63; Pulse 56; Resp 17; Pulse Ox 100% on R/A; rb1 19:00 BP 103 / 61; Pulse 59; Resp 18; Pulse Ox 99% ; ea 21:12 BP 109 / 57; Pulse 58; Resp 18; Pulse Ox 100% on R/A; ea 22:45 BP 102 / 65; Pulse 60; Resp 18; Temp 98.0; Pulse Ox 100% ; Pain 0/10; ea 15:04 Body Mass Index 20.08 (74.84 kg, 193.04 cm) la1 17:04 Pt. is in US rb1 MDM: 15:20 Patient medically screened. rn 18:37 Differential diagnosis: Nonspecific abd pain, gastritis, cholecystitis, viral rn gastroenteritis, gastroenteritis. Data reviewed: vital signs, nurses notes, lab test result(s), radiologic studies, ultrasound, and as a result, I will discharge patient. Counseling: I had a detailed discussion with the patient and/or guardian regarding: the historical points, exam findings, and any diagnostic results supporting the discharge/admit diagnosis, lab results, radiology results, the need for outpatient follow up, to return to the emergency department if symptoms worsen or persist or if there are any questions or concerns that arise at home. Response to treatment: the patient's symptoms have markedly improved after treatment, and as a result, I will discharge patient. Special discussion: I discussed with the patient/guardian in detail that at this point there is no indication for admission to the hospital. It is understood, however, that if the symptoms persist or worsen the patient needs to return immediately for re-evaluation. Based on the history and exam findings, there is no indication for further emergent testing or inpatient evaluation. I discussed with the patient/guardian the need to see the OB Gyne specialist for further evaluation of the symptoms. ED course: Pt improved, tolerating PO, will dc home after NS and LR, with phenergan prn and return precautions. urged to f/u with OB for more aggressive management and prescriptions if even phenergan not working. Told her not to expect total cessation of vomiting.. 05/14 15:22 Order name: CBC with Diff; Complete Time: 16:27 05/14 15:22 Order name: Basic Metabolic Panel; Complete Time: 16:46 05/14 15:22 Order name: Urine Microscopic Only; Complete Time: 16: 05/14 15:22 Order name: LFT's; Complete Time: 16:46 05/14 15:22 Order name: Lipase; Complete Time: 16:46 05/14 15:50 Order name: Urine Dipstick--Ancillary (enter results); Complete Time: 16:27 05/14 15:50 Order name: Urine --Ancillary (enter results); Complete Time: 16:27 05/14 16:28 Order name: US Abdomen Limited; Complete Time: 18:29 05/14 16:40 Order name: US OB Limited; Complete Time: 18:08 05/14 15:22 Order name: IV Start; Complete Time: 19:12 05/14 15:22 Order name: Urine Test (obtain specimen); Complete Time: 19:12 05/14 15:22 Order name: Urine Dipstick-Ancillary (obtain specimen); Complete Time: 19:12 05/14 15:22 Order name: FHT's; Complete Time: 16:39 rn 05/14 15:22 Order name: EKG; Complete Time: 15:23 rn 05/14 15:22 Order name: EKG - Nurse/Tech; Complete Time: 19:11 rn Administered Medications: 16:00 Drug: NS 0.9% 1000 ml Route: IV; Rate: 1000 ml; Site: left antecubital; rb1 17:46 Follow up: IV Status: Completed infusion rb1 16:00 Drug: Phenergan 12.5 mg Route: IVP; Site: left antecubital; rb1 16:15 Follow up: Response: No adverse reaction; Nausea is decreased rb1 18:33 Drug: Lactated Ringers Solution 1000 ml Route: IV; Rate: 150 ml/hr; Site: left rb1 antecubital; 22:32 Follow up: Response: No adverse reaction; IV Status: Completed infusion; IV Intake: ea 1000ml 18:33 Drug: Phenergan 12.5 mg Route: IVP; Site: left antecubital; rb1 18:45 Follow up: Response: No adverse reaction; Nausea is decreased rb1 19:54 Drug: NS 0.9% 1000 ml Route: IV; Rate: 1 bolus; Site: left antecubital; ea 22:36 Follow up: Response: No adverse reaction; IV Status: Completed infusion; IV Intake: ea 600ml 19:54 Drug: Zofran 4 mg Route: IVP; Site: left antecubital; ea 22:32 Follow up: Response: No adverse reaction; Marked relief of symptoms ea 22:38 Drug: Zofran 4 mg Route: PO; ea 22:45 Follow up: Response: No adverse reaction ea Disposition: 05/14/19 18:41 Discharged to Home. Impression: Dehydration, Vomiting of , unspecified. - Condition is Stable. - Discharge Instructions: Abdominal Pain During , Dehydration, Adult, Morning Sickness, First Trimester of . - Prescriptions for Phenergan 25 mg Rectal Suppository - insert 1 suppository by RECTAL route every 6-8 hours As needed; 12 suppository. promethazine 25 mg Oral Tablet - take 1 tablet by ORAL route every 6-8 hours As needed; 20 tablet. - Medication Reconciliation Form, Thank You Letter, Antibiotic Education, Prescription Opioid Use form. - Follow up: Private Physician; When: 5 - 6 days; Reason: Recheck today's complaints, Re-evaluation by your physician. - Problem is an ongoing problem. - Symptoms have improved. Signatures: Dispatcher [employer] EDMS Teto Sumner MD MD rn Attema, Lee RN RN la1 Jaclyn Martinez RN RN rb1 Rebeca Ochoa RN RN tw2 Magnolia Antonio RN RN ea Corrections: (The following items were deleted from the chart) 22:56 18:41 05/14/2019 18:41 Discharged to Home. Impression: Dehydration; Vomiting of ea , unspecified. Condition is Stable. Prescriptions for Phenergan 25 mg Rectal Suppository - insert 1 suppository by RECTAL route every 6-8 hours As needed; 12 suppository, promethazine 25 mg Oral Tablet - take 1 tablet by ORAL route every 6-8 hours As needed; 20 tablet. and Forms are Medication Reconciliation Form, Thank You Letter, Antibiotic Education, Prescription Opioid Use. Follow up: Private Physician; When: 5 - 6 days; Reason: Recheck today's complaints, Re-evaluation by your physician. Problem is an ongoing problem. Symptoms have improved. rn
[2019-05-14] MEDS ORDERED: ONDANSETRON 4 MG/2 ML VIAL ONE (19:45)
[2019-05-14] MEDS ORDERED: ONDANSETRON 4 MG (ODT) TAB ONE (22:36)
[2019-05-14 23:17] VITALS: O2SAT 100
[2019-05-14 23:18] VITALS: BP 102/65; TEMP 98
--- NOTE | 2019-05-15 11:59 | EKG ---
Test Date: 2019-05-14 Test Time: 15:31:30 Blackjack Pit Boss: ANGIE MEASUREMENT RESULTS: Intervals: Rate: 59 NJ: 132 QRSD: 84 QT: 420 QTc: 415 [place]: P: 22 NJ: 132 QRS: 37 T: 3 INTERPRETIVE STATEMENTS: Sinus bradycardia with marked sinus arrhythmia Otherwise normal ECG Compared to ECG 12/30/2017 21:27:55 Sinus rhythm no longer present Electronically Signed On 05-15-19 11:57:06 SUPPLY ANALYST by Naren Orellana
== END 2019-05-14 22:56 | disposition home or self-care (01) ==
LOC: ER 14:58
DX: O21.9 Vomiting of pregnancy, unspecified (principal); O99.281 Endocrine, nutritional and metabolic diseases complicating pregnancy, first trimester; Z3A.09 9 weeks gestation of pregnancy; Z88.2 Allergy status to sulfonamides
CPT/HCPCS: 96361; 93005; 85025; 80048; 36415; 81025; 80076; 83690; 76705; 76815; 96375; 96374; 99284; J2550 ×2; J7120; J7030 ×2; J2405; 81003; 81015

== ENCOUNTER 2019-06-16 06:38 | Emergency (ER) | payer OTHER ==
--- OUTSIDE RECORDS SUMMARY | 2019-06-16 06:41 | XMS REPORT ---
:1995 [facility] Address [address] [place] [address] Dr. Cedillo. [address] [place] [id number] Care Team Providers Name Role Phone Unavailable Unavailable Unavailable Problems This patient has no known problems. Allergies, Adverse Reactions, Alerts This patient has no known allergies or adverse reactions. Medications This patient has no known medications.
[2019-06-16] MEDS ORDERED: ACETAMINOPHEN 325 MG TABLET ONE (07:23)
[2019-06-16] MEDS ORDERED: ONDANSETRON 4 MG/2 ML VIAL ONE (07:23)
[2019-06-16] MEDS ORDERED: NA CHLORIDE 0.9% 1,000 ML ONE (07:23)
[2019-06-16 07:40] LABS: Absolute Lymphocytes (CBC) 1.9 K/uL (0.7-4.9); Basophils % 0.6 % (0-1.3); Hematocrit 34.6 % (36.0-45.0); Lymphocytes % 14.4 % (15.3-44.8); MPV 9.4 fL (7.6-11.3); RBC Red Blood Cell Count 3.67 M/uL (3.86-4.86)
[2019-06-16 07:48] LABS: Urine Blood NEGATIVE (NEG); Urine Glucose NEGATIVE (NEG); Urine Protein NEGATIVE (NEG)
[2019-06-16 07:53] LABS: BUN Blood Urea Nitrogen 10 mg/dL (7-18); Bicarbonate 27 mmol/L (21-32); Glucose Level 102 mg/dL (74-106); Potassium 3.4 mmol/L (3.5-5.1); Sodium Level 140 mmol/L (136-145)
[2019-06-16 07:57] LABS: Urine Bacteria 20-50 /HPF (<20); Urine Culture Reflex Order REFLEXED; Urine RBC <5 /HPF (NONE SEEN)
--- NOTE | 2019-06-16 14:56 | EDPHYS ---
Physician Documentation [facility] Name: Daisha Spivey Age: 23 yrs Sex: Female : 1995 Arrival Date: 06/16/2019 Time: 06:40 Bed External Waiting Private MD: ALLI Physician Vincent Guillen HPI: 06/16 07:35 This 23 yrs old Female presents to ER via Ambulatory with complaints of Lower jr8 Back Pain- 12 wks preg. 07:35 The patient presents to the emergency department with back pain. The estimated jr8 gestational age is 12 weeks. course: care: at a clinic, Leakage of Fluid: none appreciated, Ultrasound: the patient had an ultrasound, which was normal, Risk/complications: no obvious risks or complications are appreciated. Previous pregnancies: the patient has never been . Associated signs and symptoms: Pertinent positives: abdominal pain. The patient has not experienced similar symptoms in the past. The patient has not recently seen a physician. Patient stated that she has had lower back pain with intermittent abdominal cramping. Denies vaginal bleeding or discharge . CLINICAL RESOURCE DIRECTOR: 06:54 LMP 03/25/2019, Verified, EDC 12/30/2019, Gestational age from LMP: 11 weeks 6 lp1 days 07:35 1, Full Term 0, Premature 0, 0, Living 0 jr8 Historical: - Allergies: 06:56 Sulfa (Sulfonamide Antibiotics); lp1 - Home Meds: 06:56 Vitamin Oral once daily [Active]; lp1 - PMHx: 06:56 ADD/ADHD; Asthma; AUTO VS. PED, CHEST TUBE; COLLASPED LUNG; lp1 - PSHx: 06:56 None; lp1 - Immunization history:: Adult Immunizations up to date. - Social history:: Smoking status: Patient/guardian denies using tobacco. - Ebola Screening: : No symptoms or risks identified at this time. ROS: 07:35 Eyes: Negative for injury, pain, redness, and discharge, ENT: Negative for injury, jr8 pain, and discharge, Neck: Negative for injury, pain, and swelling, Cardiovascular: Negative for chest pain, palpitations, and edema, Respiratory: Negative for shortness of breath, cough, wheezing, and pleuritic chest pain, MS/Extremity: Negative for injury and deformity, Skin: Negative for injury, rash, and discoloration, Neuro: Negative for headache, weakness, numbness, tingling, and seizure. 07:35 Abdomen/GI: Positive for abdominal cramps, Negative for nausea, vomiting, and diarrhea. 07:35 Back: Positive for pain at rest, Negative for pain with movement, radiated pain. Exam: 07:35 Eyes: Pupils equal round and reactive to light, extra-ocular motions intact. Lids and jr8 lashes normal. Conjunctiva and sclera are non-icteric and not injected. Cornea within normal limits. Periorbital areas with no swelling, redness, or edema. ENT: Nares patent. No nasal discharge, no septal abnormalities noted. Tympanic membranes are normal and external auditory canals are clear. Oropharynx with no redness, swelling, or masses, exudates, or evidence of obstruction, uvula midline. Mucous membranes moist. Neck: Trachea midline, no thyromegaly or masses palpated, and no cervical lymphadenopathy. Supple, full range of motion without nuchal rigidity, or vertebral point tenderness. No Meningismus. Cardiovascular: Regular rate and rhythm with a normal S1 and S2. No gallops, murmurs, or rubs. Normal PMI, no JVD. No pulse deficits. Respiratory: Lungs have equal breath sounds bilaterally, clear to auscultation and percussion. No rales, rhonchi or wheezes noted. No increased work of breathing, no retractions or nasal flaring. Back: No spinal tenderness. No costovertebral tenderness. Full range of motion. Skin: Warm, dry with normal turgor. Normal color with no rashes, no lesions, and no evidence of cellulitis. MS/ Extremity: Pulses equal, no cyanosis. Neurovascular intact. Full, normal range of motion. Neuro: Awake and alert, GCS 15, oriented to person, place, time, and situation. Cranial nerves II-XII grossly intact. Motor strength 5/5 in all extremities. Sensory grossly intact. Cerebellar exam normal. Normal gait. 07:35 Abdomen/GI: Soft, non-tender, with normal bowel sounds. No distension or tympany. No guarding or rebound. No evidence of tenderness throughout. Vital Signs: 06:54 BP 121 / 89; Pulse 87; Resp 18; Temp 98.5(O); Pulse Ox 98% on R/A; Weight 78.02 kg; lp1 Height 5 ft. 4 in. (162.56 cm); Pain 7/10; 07:30 BP 100 / 59; Pulse 53; Resp 16; Pulse Ox 98% ; sv 08:30 BP 97 / 56; Pulse 70; Resp 15; Pulse Ox 100% on R/A; Pain 3/10; hb 06:54 Body Mass Index 29.52 (78.02 kg, 162.56 cm) lp1 MDM: 06:43 Patient medically screened. jr8 08:13 Data reviewed: vital signs, nurses notes, lab test result(s), and as a result, I will jr8 discharge patient. Data interpreted: Pulse oximetry: on room air is 98 %. Interpretation: normal. Counseling: I had a detailed discussion with the patient and/or guardian regarding: the historical points, exam findings, and any diagnostic results supporting the discharge/admit diagnosis, lab results, the need for outpatient follow up, an OB/Gyne specialist, to return to the emergency department if symptoms worsen or persist or if there are any questions or concerns that arise at home. Response to treatment: the patient's symptoms have markedly improved after treatment, patient is well hydrated. 06/16 06:49 Order name: Urine Microscopic Only; Complete Time: 08:05 [facility] 06/16 07:04 Order name: CBC with Diff; Complete Time: 07:44 jr8 06/16 07:04 Order name: Basic Metabolic Panel; Complete Time: 07:56 8 06/16 07:36 Order name: Urine Dipstick--Ancillary (enter results); Complete Time: 07:56 bd 06/16 07:36 Order name: Urine --Ancillary (enter results); Complete Time: 07:56 06/16 08:02 Order name: Urine Culture [facility] 06/16 06:49 Order name: Urine Test (obtain specimen); Complete Time: 07:28 [facility] 06/16 06:49 Order name: Urine Dipstick-Ancillary (obtain specimen); Complete Time: 07:28 jr8 06/16 07:04 Order name: IV; Complete Time: 07:29 jr8 Administered Medications: 07:28 Drug: NS 0.9% 1000 ml Route: IV; Rate: 1000 ml; Site: left antecubital; sv 09:00 Follow up: Response: No adverse reaction; IV Status: Completed infusion; IV Intake: sv 1000ml 07:28 Drug: Tylenol 650 mg Route: PO; sv 08:00 Follow up: Response: No adverse reaction sv 07:29 Drug: Zofran 4 mg Route: IVP; Site: left antecubital; sv 08:00 Follow up: Response: No adverse reaction; Nausea is decreased sv Disposition: 06/16/19 08:33 Discharged to Home. Impression: Urinary tract infection, site not specified. - Condition is Stable. - Discharge Instructions: Urinary Tract Infection, Adult, and Urinary Tract Infection. - Prescriptions for Macrobid 100 mg Oral Capsule - take 1 capsule by ORAL route every 12 hours for 7 days; 14 capsule. - Medication Reconciliation Form, Thank You Letter, Antibiotic Education, Prescription Opioid Use, Family Work Release form. - Follow up: Private Physician; When: 5 - 6 days; Reason: Recheck today's complaints, Continuance of care, Re-evaluation by your physician. - Problem is new. - Symptoms have improved. Addendum: 06/17/2019 18:41 Co-signature as Attending Physician, Vincent Guillen MD I agree with the assessment and c [place]on plan of care. Signatures: Dispatcher [employer] Clarita Weston RN RN sv Anderson, Corey, MD MD cha Smirch, Shelby, RN RN Rosario Khan RN RN lp1 Herb De Anda PA PA jr8 Corrections: (The following items were deleted from the chart) 06/16 11:21 08:33 06/16/2019 08:33 Discharged to Home. Impression: Urinary tract infection, site ss not specified. Condition is Stable. Discharge Instructions: Urinary Tract Infection, Adult, and Urinary Tract Infection. Prescriptions for Macrobid 100 mg Oral Capsule - take 1 capsule by ORAL route every 12 hours for 7 days; 14 capsule. and Forms are Medication Reconciliation Form, Thank You Letter, Antibiotic Education, Prescription Opioid Use. Follow up: Private Physician; When: 5 - 6 days; Reason: Recheck today's complaints, Continuance of care, Re-evaluation by your physician. Problem is new. Symptoms have improved. jr8
--- NOTE | 2019-06-16 14:56 | ER ---
Nurse's Notes [facility] Name: Daisha Spivey Age: 23 yrs Sex: Female : 1995 Arrival Date: 06/16/2019 Time: 06:40 Bed External Waiting Private MD: Diagnosis: Urinary tract infection, site not specified Presentation: 06/16 06:52 Presenting complaint: Patient states: Lower back pain, pelvic pain that began yesterday lp1 afternoon; States "I have to pee like every 30 minutes"; Denies any vaginal discharge, states about 12 weeks . Transition of care: patient was not received from another setting of care. Onset of symptoms was June 15, 2019. Risk Assessment: Do you want to hurt yourself or someone else? Patient reports no desire to harm self or others. Initial Sepsis Screen: Does the patient meet any 2 criteria? No. Patient's initial sepsis screen is negative. Does the patient have a suspected source of infection? No. Patient's initial sepsis screen is negative. Care prior to arrival: None. 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 PED, CHEST TUBE; COLLASPED LUNG; lp1 - PSHx: 06:56 None; lp1 - Immunization history:: Adult Immunizations up to date. - Social history:: Smoking status: Patient/guardian denies using tobacco. - Ebola Screening: : No symptoms or risks identified at this time. Screenin:56 Abuse screen: Denies threats or abuse. Denies injuries from another. Nutritional lp1 screening: No deficits noted. Tuberculosis screening: No symptoms or risk factors identified. Fall Risk None identified. Assessment: 06:57 General: Appears in no apparent distress. Behavior is calm, cooperative, appropriate lp1 for age. Pain: Complains of pain in left low back, right low back and suprapubic area Pain currently is 7 out of 10 on a pain scale. Quality of pain is described as crampy. Neuro: Level of Consciousness is awake, alert, obeys commands, Oriented to person, place, time, situation. Cardiovascular: Patient's skin is warm and dry. Respiratory: Respiratory effort is even, unlabored. GI: Abdomen is non-distended. : Reports pain in suprapubic area urinary frequency. EENT: No signs and/or symptoms were reported regarding the EENT system. Derm: Skin is pink, warm \\T\\ dry. Musculoskeletal: No deficits noted. 07:25 General: Appears in no apparent distress. uncomfortable, well developed, Behavior is sv calm, cooperative, appropriate for age. Pain: Complains of pain in suprapubic area Pain currently is 7 out of 10 on a pain scale. Quality of pain is described as crampy. Neuro: Level of Consciousness is awake, alert, obeys commands, Oriented to person, place, time, situation, Moves all extremities. Full function. Respiratory: Airway is patent Respiratory effort is even, unlabored, Respiratory pattern is regular, symmetrical. GI: Abdomen is non-distended, Reports lower abdominal pain, nausea. Derm: Skin is pink, warm \\T\\ dry. 07:30 Reassessment: Patient appears in no apparent distress at this time. hb 08:30 Reassessment: Patient appears in no apparent distress at this time. Patient and/or hb family updated on plan of care and expected duration. Pain level reassessed. Patient is alert, oriented x 3, equal unlabored respirations, skin warm/dry/pink. 09:30 Reassessment: Patient appears in no apparent distress at this time. Patient and/or ph family updated on plan of care and expected duration. Pain level reassessed. Patient is alert, oriented x 3, equal unlabored respirations, skin warm/dry/pink. 09:45 Reassessment: Pt discharged at 0945. Vital Signs: 06:54 BP 121 / 89; Pulse 87; Resp 18; Temp 98.5(O); Pulse Ox 98% on R/A; Weight 78.02 kg; lp1 Height 5 ft. 4 in. (162.56 cm); Pain 7/10; 07:30 BP 100 / 59; Pulse 53; Resp 16; Pulse Ox 98% ; sv 08:30 BP 97 / 56; Pulse 70; Resp 15; Pulse Ox 100% on R/A; Pain 3/10; hb 06:54 Body Mass Index 29.52 (78.02 kg, 162.56 cm) lp1 ED Course: 06:40 Patient arrived in ED. ds1 06:43 Herb De Anda PA is PHCP. jr8 06:43 Vincent Guillen MD is Attending Physician. jr8 06:54 Triage completed. lp1 06:54 Arm band placed on. lp1 06:57 Patient has correct armband on for positive identification. lp1 07:16 Clarita Rodgers RN is Primary Nurse. sv 07:25 Inserted saline lock: 20 gauge in left antecubital area, using aseptic technique. Blood sv collected. Flushed left antecubital with 5 ml normal saline. 09:42 No provider procedures requiring assistance completed. IV discontinued, intact, ph bleeding controlled, No redness/swelling at site. Pressure dressing applied. Administered Medications: 07:28 Drug: NS 0.9% 1000 ml Route: IV; Rate: 1000 ml; Site: left antecubital; sv 09:00 Follow up: Response: No adverse reaction; IV Status: Completed infusion; IV Intake: sv 1000ml 07:28 Drug: Tylenol 650 mg Route: PO; sv 08:00 Follow up: Response: No adverse reaction sv 07:29 Drug: Zofran 4 mg Route: IVP; Site: left antecubital; sv 08:00 Follow up: Response: No adverse reaction; Nausea is decreased sv Intake: 09:00 IV: 1000ml; Total: 1000ml. sv Outcome: 08:33 Discharge ordered by . jr8 09:42 Discharged to home ambulatory. ph 09:42 Condition: stable 09:42 Discharge instructions given to patient, Instructed on discharge instructions, follow up and referral plans. medication usage, Demonstrated understanding of instructions, follow-up care, medications, Prescriptions given X 1. 11:21 Patient left the ED. Signatures: Clarita Rodgers RN RN Rima Boykin ds1 Monique Mcneill RN RN Rosario Sifuentes RN RN lp1 Herb De Anda PA PA jr8 Kathrin Willingham RN RN Andrade, Fartun, RN RN hb
[2019-06-16 15:05] VITALS: TEMP 98.5
[2019-06-16 15:08] VITALS: BP 97/56; O2SAT 100
== END 2019-06-16 11:21 | disposition home or self-care (01) ==
LOC: ER 06:38
DX: O23.41 Unspecified infection of urinary tract in pregnancy, first trimester (principal); Z3A.12 12 weeks gestation of pregnancy; Z88.2 Allergy status to sulfonamides
CPT/HCPCS: 96361; 87088; 85025; 87086; 80048; 36415; 81025; 96374; 99284; J7030; J2405; 81003; 81015

== ENCOUNTER 2019-10-01 22:51 | Emergency (ER) | payer OTHER ==
--- OUTSIDE RECORDS SUMMARY | 2019-10-01 22:54 | XMS REPORT ---
:1995 Author Organization [facility] t Address [address] [place] [address] Dr. [place] [address] [place] [id number] Care Team Providers Name Role Phone Unavailable Unavailable Unavailable Problems This patient has no known problems. Allergies, Adverse Reactions, Alerts This patient has no known allergies or adverse reactions. Medications This patient has no known medications.
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
[2019-10-01] MEDS ORDERED: LIDOCAINE VISCOUS 2% SOLN 15 ML UDC ONE (23:55)
[2019-10-01] MEDS ORDERED: MAGNE/ALUM HYDROXD 30 ML UCUP ONE (23:55)
[2019-10-01] MEDS ORDERED: NA CHLORIDE 0.9% 1,000 ML ONE (23:55)
[2019-10-02 00:09] LABS: Absolute Lymphocytes (CBC) 2.4 K/uL (0.7-4.9); Basophils % 0.4 % (0-1.3); Hematocrit 34.8 % (36.0-45.0); Lymphocytes % 17.3 % (15.3-44.8); MPV 9.5 fL (7.6-11.3); RBC Red Blood Cell Count 3.75 M/uL (3.86-4.86)
[2019-10-02 00:25] LABS: ALT/SGPT 15 U/L (12-78); AST/SGOT 11 U/L (15-37); Albumin 2.6 g/dL (3.4-5.0); Alkaline Phosphatase 87 U/L (45-117); BUN Blood Urea Nitrogen 7 mg/dL (7-18); Bicarbonate 26 mmol/L (21-32); Bilirubin Direct 0.1 mg/dL (0-0.2); Bilirubin Total 0.2 mg/dL (0.2-1.0); Glucose Level 102 mg/dL (74-106); Lipase 69 U/L (73-393); Potassium 3.5 mmol/L (3.5-5.1); Protein, Total 7.3 g/dL (6.4-8.2); Sodium Level 140 mmol/L (136-145)
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
[2019-10-02 01:01] VITALS: O2SAT 99
[2019-10-02 01:04] VITALS: BP 120/71; TEMP 98
== END 2019-10-02 00:57 | disposition home or self-care (01) ==
LOC: ER 22:51
DX: O21.9 Vomiting of pregnancy, unspecified (principal); O99.612 Diseases of the digestive system complicating pregnancy, second trimester; K02.9 Dental caries, unspecified; Z88.2 Allergy status to sulfonamides; Z3A.27 27 weeks gestation of pregnancy
CPT/HCPCS: 85025; 80048; 36415; 80076; 83690; 96360; 99284; J7030

== ENCOUNTER 2021-02-09 21:15 | Emergency (ER) | payer OTHER ==
--- OUTSIDE RECORDS SUMMARY | 2021-02-09 21:18 | XMS REPORT | Continuity of Care Document ---
:1995 Author Organization [facility] t Address [address] [place] [place] [address] Care Team Providers Name Role Phone Yonathan Azar DO Attending Clinician Andres SAUCEDO Attending Clinician Problems This patient has no known problems. Allergies, Adverse Reactions, Alerts This patient has no known allergies or adverse reactions. Medications This patient has no known medications. Procedures This patient has no known procedures. Encounters Start End Encounter Admission Attending Care Care Encounter Source Date/Time Date/Time Type Type Clinicians Facility Department ID 2020-09-13 2020-09-13 Patient Doe [facility] [id number] 00:00:00 00:00:00 Outreach Ashwin [facility] [id number] Yonathan [facility] [id number] KATHY [id number] 2020-03-07 2020-03-07 Office LIEN Campos [id number] 09:35:10 10:05:10 Visit Evy Rowe [id number] [place] [id number] Mala [id number] [facility] [address] [facility] Results This patient has no known results.
== END 2021-02-09 22:04 | disposition left against medical advice (07) ==
LOC: ER 21:15
DX: Z02.9 Encounter for administrative examinations, unspecified (principal)

== ENCOUNTER 2021-05-14 13:08 | Emergency (ER) | payer OTHER ==
--- OUTSIDE RECORDS SUMMARY | 2021-05-14 13:11 | XMS REPORT | Continuity of Care Document ---
:1995 Author Organization [facility] t Address [address] [place] [address] Dr. [address] [place] [address] Care Team Providers Name Role Phone Jannie Bueno Primary Care Physician Artie Ferguson MD Attending Clinician David SAUCEDO Attending Clinician DAVID Attending Clinician Unavailable ARTIE FERGUSON Attending Clinician Unavailable Rea MARTINS Attending Clinician Unavailable Yonathan Azar DO Attending Clinician OSWALDO Attending Clinician Unavailable YOAV Attending Clinician Unavailable ARTIE FERGUSON Admitting Clinician Unavailable Rea MARTINS Admitting Clinician Unavailable Payers Payer Name Policy Type Policy Number Effective Date Expiration Date S emelia [facility] [id number] 2019 00:00:00 Problems Condition Condition Condition Status Onset Resolution Last Treating Co mments Source Name Details Category Date Date Treatment Clinician Date Acute Acute Disease Active 2020-06 Univers right right 0-20 ity of flank pain flank pain 00:00: [place] [id number] [facility] [employer] [facility] Cervical Cervical Disease Active 2020-06 Unive rs motion motion 0-20 [place] of tenderness tenderness 00:00: [place] [facility] Ovarian Ovarian Disease Active 2020-06 Univers mass, mass, 0-20 ity of right right 00:00: [address] Branch Nexplanon Nexplanon Disease Active Uni vers in place in place 8-15 ity of 00:00: [place] [facility] Obesity Obesity Disease Active Univers (BMI (BMI 2-27 ity of 30-39.9) 30-39.9) 00:00: [place] [facility] Susceptibl Susceptibl Disease Active 2018-06 Overview : Univers e to e to 07-01 Formattin ity of varicella varicella 00:00: g of [place] (non-immun (non-immun 00 note Me dical e), e), might be Branch currently currently different from the original. Address pp Allergies, Adverse Reactions, Alerts Allergy Allergy Status Severity Reaction(s) Onset Inactive Treating Comm ents Source Name Type Date Date Clinician HYDROCOD DRUG Active ITCHING Univers ONE INGREDI 4- ity of 00:00: [place] [facility] Hydrocod Propensi Active Nausea Univer s one ty to and/or 10-20 ity of adverse Vomiting 00:00: [place] reaction Medical s Branch TRAMADOL DRUG Active Rash Univers INGREDI 3-27 ity of 00:00: [place] [facility] Tramadol Propensi Active Rash Univer s ty to 3-27 ity of adverse 00:00: [place] reaction [facility] s [facility] SULFA Drug Active N/V Univers (SULFONA Class 4-08 ity of MIDE 00:00: [place] ANTIBIOT 00 Medical ICS) Branch Sulfa Propensi Active Nausea Univers (Sulfona ty to and/or 4-08 ity of mide adverse Vomiting 00:00: [place] Antibiot reaction 00 Medica l ics) s Branch Social History Social Habit Start Date Stop Date Quantity Comments Source Exposure to Not sure [facility] SARS-CoV-2 [place] [facility] (event) [facility] Alcohol intake 2021-04-20 2021-04-20 Current drinker Unive rsity of 00:00:00 00:00:00 of alcohol [place] [facility] (finding) [facility] Sex Ass[birth year] At [birth year] Universit y of 00:00:00 00:00:00 [facility] Smoking Status Start Date Stop Date Source Never smoker [facility] Branch Medications Ordered Filled Start Stop Current Ordering Indication Dosage Frequency Signature Comments Components Source Medication Medication Date Date Medication? Clinician (SIG) Name Name ondansetron 2020-06 Yes [id number] 4mg Take 1 Univers (ZOFRAN 0-20 [id number] tablet by ity o f ODT) 4 mg 00:00: mouth [place] disintegrat 00 every 8 Medic al ing tablet (eight) Branch hours as needed for Nausea and Vomiting (N/V). ketorolac 2020-06 Yes [id number] 10mg Take 1 Univers 10 mg 0-20 [id number] tablet by ity of tablet 00:00: mouth [place] 00 every 6 Medical (six) Branch hours as needed for Pain (scale 4-6). ondansetron 2020-06 Yes [id number] 4mg Take 1 Univers (ZOFRAN 0-20 [id number] tablet by ity o f ODT) 4 mg 00:00: mouth [place] disintegrat 00 every 8 Medic al ing tablet (eight) Branch hours as needed for Nausea and Vomiting (N/V). ketorolac 2020-06 Yes [id number] 10mg Take 1 Univers 10 mg 0-20 [id number] tablet by ity of tablet 00:00: mouth [place] 00 every 6 Medical (six) Branch hours as needed for Pain (scale 4-6). doxycycline 2020-06- Yes [id number] 100mg Take 1 Univers hyclate 100 0-20 11-04 tablet by it y of mg tablet 00:00: 04:59 [place] (two) Medical times Branch daily for 14 days. metroNIDAZO 2020-06- Yes [id number] 500mg Take 1 Univers LE (FLAGYL) 0-20 11-04 tablet by it y of 500 mg 00:00: 04:59 mouth 2 [place] tablet 00 :00 (two) Medical times Branch daily for 14 days. doxycycline 2020-06- Yes [id number] 100mg Take 1 Univers hyclate 100 0-20 11-04 tablet by it y of mg tablet 00:00: 04:59 [place] (two) Medical times Branch daily for 14 days. metroNIDAZO 2020-06- Yes [id number] 500mg Take 1 Univers LE (FLAGYL) 0-20 11-04 tablet by it y of 500 mg 00:00: 04:59 mouth 2 [place] tablet 00 :00 (two) Medical times Branch daily for 14 days. Immunizations Ordered Filled Immunization Date Status Comments [facility] e Immunization Name Name Influenza Virus 2021-04-20 Completed Universit y of Vaccine Quad IM, 00:00:00 [place] Me dical Preserv and ABX Branch Free 6 MO-64 YRS Influenza Virus 2021-04-20 Completed Universit y of Vaccine [facility] IM, 00:00:00 [place] Me [facility]ical Preserv and ABX Branch Free 6 MO-64 YRS Rho (d) Immune 2019-11-03 Completed University of Globulin 00:00:00 [facility] Rho (d) Immune 2019-11-03 Completed University of Globulin 00:00:00 [facility] Rho (d) Immune 2019-10-13 Completed University of Globulin 00:00:00 [facility] TDAP (ADACEL) 2019-10-13 Completed University of VACCINE 00:00:00 [facility] TDAP 2019-10-13 Completed University of 00:00:00 [facility] Rho (d) Immune 2019-10-13 Completed University of Globulin 00:00:00 [facility] TDAP (ADACEL) 2019-10-13 Completed University of VACCINE 00:00:00 [facility] TDAP 2019-10-13 Completed University of 00:00:00 [facility] Vital Signs Vital Name Observation Time Observation Value Comments Source Systolic blood 2021-04-20 18:19:00 120 mm[Hg] [facility] Diastolic blood 2021-04-20 18:19:00 79 mm[Hg] [facility] Heart rate 2021-04-20 18:19:00 68 /min [facility] Body temperature 2021-04-20 18:19:00 37 Serena [facility] Respiratory rate 2021-04-20 18:19:00 18 /min [facility] Body height 2021-04-20 18:19:00 165.1 cm [facility] Body weight 2021-04-20 18:19:00 74.844 kg [facility] BMI 2021-04-20 18:19:00 27.46 kg/m2 [facility] Procedures Procedure Date / Time Performed Performing Clinician Sour e FLU VACC (), 2021-04-20 18:34:00 Evy Campos [facility] 2-64 YRS, .5ML, IM, Medical Bran ch QUAD (FLUCELVAX) Encounters Start End Encounter Admission Attending Care Care Encounter Source Date/Time Date/Time Type Type Clinicians Facility Department ID 2021-04-20 Outpatient P [facility] ROSIE [id number] Univers 19:44:27 ity [facility] 2021-04-20 Outpatient P [facility] ROSIE [id number] Univers 19:23:42 ity [facility] 2021-04-25 2021-04-25 Telephone Madeline Ferguson [facility] [id number] Univers 00:00:00 00:00:00 Artie ROWE [id number] i ty [id number] [id number] [address] 2021-04-20 2021-04-20 Office David [facility] [id number] Univers 12:45:15 13:53:15 Visit Evy ROWE [id number] i [id number] [id number] [address] 2021-04-20 2021-04-20 Outpatient R DAVID [facility] [id number] Univers 13:00:00 13:00:00 EVY [id number] [facility] 2021-04-20 2021-04-20 Outpatient R DAVID [facility] [id number] Univers 13:00:00 13:00:00 EVY [facility] 2021-04-17 2021-04-17 Outpatient R MADELINE FERGUSON [facility] [id number] Univers 13:30:00 [facility] 2021-04-17 Outpatient R MADELINE FERGUSON [facility] [id number] Univers 13:30:00 13:30:00 [id number] [facility] 2021-04-12 2021-04-12 Outpatient R MADELINE FERGUSON [facility] [id number] Univers 09:30:00 09:30:00 [id number] [facility] 2021-04-12 2021-04-12 Outpatient R MADELINE FERGUSON [facility] [id number] Univers 09:30:00 09:30:00 [facility] 2021-04-11 2021-04-12 Emergency X LAKSHMI [facility] ERT [id number] Univers 21:14:00 02:28:00 ROSEMARY [facility] 2020-09-13 2020-09-13 [facility] [id number] 00:00:00 00:00:00 [facility] [id number] [facility] [id number] PAVITALO [id number] 2020-08-08 2020-08-08 Outpatient Siria CAMPOS [facility] [id number] Univers 08:00:00 08:00:00 EVY [id number] [facility] 2020-08-08 2020-08-08 Outpatient R DAVID [facility] [id number] Univers 08:00:00 08:00:00 EVY [facility] 2020-03-07 2020-03-07 Office David [facility] [id number] 09:35:10 10:05:10 Visit Evy Rowe [id number] [place] [id number] [place] [id number] [address] 2020-03-07 2020-03-07 Outpatient Siria CAPMOS [facility] [id number] Univers 10:00:00 10:00:00 EVY [id number] [facility] 2020-03-07 2020-03-07 Outpatient Siria CAMPOS [facility] [id number] Univers 10:00:00 10:00:00 EVY [facility] 2020-02-05 2020-02-05 Outpatient MADELINE MOHAN [facility] [id number] Univers 08:30:00 08:30:00 [id number] [facility] 2020-02-05 2020-02-05 Outpatient MADELINE MOHAN [facility] [id number] Univers 08:30:00 08:30:00 ity [facility] 2020-01-04 2020-01-04 Outpatient R MADELINE FERGUSON [facility] [id number] Univers 16:00:00 16:00:00 [id number] ity of [facility] 2020-01-04 2020-01-04 Outpatient R MADELINE FERGUSON [facility] [id number] Univers 16:00:00 16:00:00 ity of [facility] 2019-12-21 2019-12-21 Outpatient R MADELINE FERGUSON [facility] [id number] Univers 16:00:00 16:00:00 [id number] ity of [facility] 2019-12-21 2019-12-21 Outpatient R MADELINE FERGUSON [facility] [id number] Univers 16:00:00 16:00:00 ity [facility] 2019-12-16 2019-12-16 Outpatient R OSWALDO [facility] [id number] Univers 14:15:00 14:15:00 NIMISHA [id number] ity [facility] 2019-12-16 2019-12-16 Outpatient R OSWALDO [facility] [id number] Univers 14:15:00 14:15:00 NIMISHA ity [facility] 2019-12-04 2019-12-04 Outpatient R YOAV [facility] [id number] Univers 13:45:00 13:45:00 ROGELIO [id number] ity [facility] 2019-12-04 2019-12-04 Outpatient R YOAV [facility] [id number] Univers 13:45:00 13:45:00 ROGELIO ity [facility] 2019-11-11 2019-11-11 Outpatient R [facility] [id number] Univers 13:30:00 13:30:00 ity [facility] 2019-11-11 2019-11-11 Outpatient R OSWALDO [facility] [id number] Univers 13:30:00 13:30:00 NIMISHA ity [facility] 2019-11-02 2019-11-02 Outpatient R [facility] [id number] Univers 10:00:00 10:00:00 [id number] ity [facility] 2019-11-02 2019-11-02 Outpatient R [facility] [id number] Univers 10:00:00 10:00:00 ity of [facility] 2019-10-29 2019-10-29 Outpatient R [facility] [id number] Univers 11:00:00 11:00:00 ity of [facility] 2019-10-29 2019-10-29 Outpatient R [facility] [id number] Univers 11:00:00 11:00:00 ity of [facility] 2019-10-27 2019-10-27 Outpatient R TCGRAYSONROYAL [facility] [id number] Univers 09:30:00 09:30:00 EVY ity of [facility] 2019-10-27 2019-10-27 Outpatient R TCGRAYSONROYAL [facility] [id number] Univers 09:30:00 09:30:00 EVY ity [facility] 2019-10-27 2019-10-27 Outpatient R [facility] [id number] Univers 08:00:00 08:00:00 ity of [facility] 2019-10-26 2019-10-26 Outpatient R [facility] [id number] Univers 14:00:00 14:00:00 ity [facility] 2019-10-26 2019-10-26 Outpatient R [facility] [id number] Univers 14:00:00 14:00:00 ity of [facility] 2019-10-21 2019-10-21 Outpatient R [facility] [id number] Univers 10:30:00 10:30:00 ity of [facility] 2019-10-21 2019-10-21 Outpatient R MADELINE FERGUSON [facility] [id number] Univers 09:45:00 09:45:00 [id number] ity of [facility] 2019-10-21 2019-10-21 Outpatient R MADELINE FERGUSON [facility] [id number] Univers 09:45:00 09:45:00 ity of [facility] 2019-10-13 2019-10-13 Outpatient R PHYLLIS MADELINE [facility] [id number] Univers 16:00:00 16:00:00 [id number] ity of [facility] 2019-10-13 2019-10-13 Outpatient R PHYLLIS MADELINE [facility] [id number] Univers 16:00:00 16:00:00 [facility] 2019-10-12 2019-10-12 Outpatient R DAVID [facility] [id number] Univers 16:30:00 16:30:00 EVY [facility] 2019-10-12 2019-10-12 Outpatient R DAVID [facility] [id number] Univers 16:30:[facility] 2019-10-07 Outpatient Siria FERGUSONMADELINE [facility] [id number] Univers 10:45:00 10:45:00 [id number] [facility] 2019-10-07 2019-10-07 Outpatient Siria FERGUSONMADELINE [facility] [id number] Univers 10:45:00 10:45:00 [facility] 2019-10-01 2019-10-01 Outpatient R DAVID [facility] [id number] Univers 16:30:00 16:30:00 EVY [facility] 2019-10-01 2019-10-01 Outpatient R DAVID [facility] [id number] Univers 16:30:00 16:30:00 [facility] 2019-09-17 2019-09-17 Outpatient Siria CAMPOS [facility] [id number] Univers 10:00:00 10:00:00 [facility] 2019-08-20 2019-08-20 Outpatient Siria FERGUSON [facility] [id number] Univers 13:00:00 13:00:00 [facility] Results This patient has no known results.
[2021-05-14] MEDS ORDERED: ONDANSETRON 4 MG/2 ML VIAL ONE ×2 (13:57→13:58)
[2021-05-14] MEDS ORDERED: KETOROLAC 30 MG/ML INJ ONE ×2 (13:57→13:58)
[2021-05-14] MEDS ORDERED: NA CHLORIDE 0.9% 1,000 ML ONE (13:58)
[2021-05-14 14:12] LABS: Urine Blood Trace-intact (Negative); Urine Glucose Negative (Negative); Urine Protein Negative (Negative); Urine Specific Gravity 1.025 (1.005-1.030)
[2021-05-14 14:24] LABS: Absolute Lymphocytes (CBC) 0.4 K/uL (0.7-4.9); Basophils % 0.2 % (0-1.3); Hematocrit 40.7 % (36.0-45.0); Lymphocytes % 3.3 % (15.3-44.8); MPV 8.4 fL (7.6-11.3); RBC Red Blood Cell Count 4.35 M/uL (3.86-4.86)
[2021-05-14 14:28] LABS: Urine Bacteria <20 /HPF (<20); Urine RBC NONE SEEN /HPF (NONE SEEN)
[2021-05-14 14:43] LABS: ALT/SGPT 24 U/L (12-78); AST/SGOT 11 U/L (15-37); Albumin 3.5 g/dL (3.4-5.0); Alkaline Phosphatase 57 U/L (45-117); BUN Blood Urea Nitrogen 13 mg/dL (7-18); Bicarbonate 25 mmol/L (21-32); Bilirubin Direct 0.2 mg/dL (0-0.2); Bilirubin Total 0.7 mg/dL (0.2-1.0); Glucose Level 93 mg/dL (74-106); Lipase 50 U/L (73-393); Protein, Total 7.4 g/dL (6.4-8.2); Sodium Level 140 mmol/L (136-145)
[2021-05-14 15:23] LABS: SARS-COV-2 RT PCR NEGATIVE (NEGATIVE)
--- NOTE | 2021-05-14 15:35 | EDPHYS ---
Physician Documentation [facility] [place] Name: Daisha Spivey Age: 25 yrs Sex: Female : 1995 Arrival Date: 05/14/2021 Time: 13:20 Bed 5 Private MD: Elidia Bueno ED Physician Teto Sumner HPI: 05/14 15:02 This 25 yrs old Female presents to ER via Ambulatory with complaints of rn Weakness, Body aches. 15:02 The patient presents to the emergency department with nausea, vomiting, diarrhea. rn Onset: The symptoms/episode began/occurred 2 week(s) ago. Possible causes: unknown. The symptoms are aggravated by nothing. The symptoms are alleviated by nothing. Associated signs and symptoms: Pertinent positives: diarrhea, nausea, vomiting, Pertinent negatives: fever, GI bleeding. Severity of symptoms: At their worst the symptoms were mild in the emergency department the symptoms are unchanged. The patient has not experienced similar symptoms in the past. The patient has not recently seen a physician. Patient reports 1 to 2 weeks of nausea/vomiting/diarrhea. Reports muscle aches and malaise. States works at [employer] and exposed to multiple people who may have been sick. Denies fever. No cough or shortness of breath. No runny nose. Daughter started this week with upper respiratory infection.. 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 PED, CHEST TUBE; vg1 - PSHx: 13:30 section; vg1 - Immunization history:: Client reports having NOT received the Covid vaccine. Flu vaccine is up to date. - Social history:: Smoking status: Patient denies any tobacco usage or history of. - Family history:: not pertinent. - Hospitalizations: : No recent hospitalization is reported. ROS: 15:02 Constitutional: Negative for fever, chills, and weight loss, Eyes: Negative for injury, rn pain, redness, and discharge, Neck: Negative for injury, pain, and swelling, Cardiovascular: Negative for chest pain, palpitations, and edema, Respiratory: Negative for shortness of breath, cough, wheezing, and pleuritic chest pain, Abdomen/GI: Positive for nausea/vomiting/diarrhea Back: Negative for injury and pain, : Negative for injury, bleeding, discharge, and swelling, MS/Extremity: Negative for injury and deformity, Skin: Negative for injury, rash, and discoloration, Neuro: Positive for generalized weakness Exam: 15:02 Constitutional: This is a well developed, well nourished patient who is awake, alert, rn and in no acute distress. Ambulatory to room without difficulty or requiring assistance Head/Face: Normocephalic, atraumatic. Eyes: Periorbital areas with no swelling, redness, or edema. ENT: No stridor, dry mucous membranes Cardiovascular: Regular rate and rhythm. No pulse deficits. Respiratory: Speaking full sentences, unlabored. No increased work of breathing, no retractions or nasal flaring. Abdomen/GI: Soft, non-tender, no masses or rebound Skin: Warm, dry MS/ Extremity: Pulses equal, no cyanosis. Neuro: Awake and alert, GCS 15 Vital Signs: 13:28 BP 108 / 78; Pulse 95; Resp 16; Temp 99.0; Pulse Ox 100% ; Weight 74.84 kg; Height 5 vg1 ft. 4 in. (162.56 cm); Pain 10/10; 13:28 Body Mass Index 28.32 (74.84 kg, 162.56 cm) vg1 MDM: 13:43 Patient medically screened. rn 15:33 Differential diagnosis: gastritis, viral gastroenteritis, gastroenteritis. Data rn reviewed: vital signs, nurses notes, lab test result(s), and as a result, I will discharge patient. Counseling: I had a detailed discussion with the patient and/or guardian regarding: the historical points, exam findings, and any diagnostic results supporting the discharge/admit diagnosis, lab results, the need for outpatient follow up, to return to the emergency department if symptoms worsen or persist or if there are any questions or concerns that arise at home. Response to treatment: the patient's symptoms have mildly improved after treatment, and as a result, I will discharge patient. Special discussion: Based on the patient's Hx, exam, and Dx evaluation, there is no indication for emergent surgery or inpatient Tx. It is understood by the patient/guardian that if the Sx's persist or worsen they need to return immediately for re-evaluation. I discussed with the patient/guardian in detail that at this point there is no indication for admission to the hospital. It is understood, however, that if the symptoms persist or worsen the patient needs to return immediately for re-evaluation. ED course: NO acute findings in blood, stable vitals, repeat abd exam benign, will dc home with prn zofran for likely viral syndrome that has been going on for 1-2 weeks. Return precautions given and understood.. 05/14 13:32 Order name: COVID-19/FLU A+B (Document "Date of Onset" if Symptomatic); Complete Time: vg1 15:05/14 13:51 Order name: Urine Microscopic Only; Complete Time: 15:27 05/14 13:51 Order name: CBC with Diff rn 05/14 13:51 Order name: Basic Metabolic Panel; Complete Time: 15:27 05/14 13:51 Order name: LFT's; Complete Time: 15:27 05/14 13:51 Order name: Lipase; Complete Time: 15:27 05/14 13:51 Order name: Urine Dipstick-Ancillary (obtain specimen); Complete Time: 14:14 05/14 13:51 Order name: Urine Test (obtain specimen); Complete Time: 14:14 05/14 13:51 Order name: IV Start; Complete Time: 14:14 05/14 14:12 Order name: Urine Dipstick-Ancillary; Complete Time: 15:27 EDNE 05/14 14:13 Order name: Urine --Ancillary (enter results) bd Administered Medications: 14:13 Drug: Ketorolac 15 mg Route: IVP; Site: left antecubital; 5 14:14 Drug: NS 0.9% 1000 ml Route: IV; Rate: 1000 ml; Site: left antecubital; 5 14:14 Drug: Zofran (Ondansetron) 4 mg Route: IVP; Site: left antecubital; 5 Disposition Summary: 05/14/21 15:34 Discharge Ordered Location: Home rn Problem: new rn Symptoms: have improved rn Condition: Stable rn Diagnosis - Vomiting, unspecified rn - Diarrhea, unspecified rn Followup: rn - With: Private Physician - When: As needed - Reason: Recheck today's complaints, Re-evaluation by your physician Discharge Instructions: - Discharge Summary Sheet rn - Diarrhea, Adult rn - Nausea and Vomiting, Adult rn Forms: - Medication Reconciliation Form rn - Thank You Letter rn - Antibiotic 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
--- NOTE | 2021-05-14 15:35 | ER ---
Nurse's Notes [facility] Name: Daisha Spivey Age: 25 yrs Sex: Female : 1995 Arrival Date: 05/14/2021 Time: 13:20 Bed 5 Private MD: Elidia Bueno Diagnosis: Vomiting, unspecified;Diarrhea, unspecified Presentation: 05/14 13:28 Chief complaint: Patient states: Body aches, weakness, vomiting, diarrhea since last vg1 night. Cough and congestion x2 weeks. Coronavirus screen: Vaccine status: Patient reports being unvaccinated. Client denies travel out of the [place] in the last 14 days. Ebola Screen: Patient negative for fever greater than or equal to 101.5 degrees Fahrenheit, and additional compatible Ebola Virus Disease symptoms. Initial Sepsis Screen: Does the patient meet any 2 criteria? No. Patient's initial sepsis screen is negative. Does the patient have a suspected source of infection? No. Patient's initial sepsis screen is negative. Risk Assessment: Do you want to hurt yourself or someone else? Patient reports no desire to harm self or others. Onset of symptoms was May 13, 2021. 13:28 Method Of Arrival: Ambulatory vg1 13:28 Acuity: KAYODE 3 vg1 Triage Assessment: 13:30 The onset of the patients symptoms was. General: Appears in no apparent distress. vg1 uncomfortable, Behavior is calm, cooperative. Pain: Complains of pain in head Pain currently is 10 out of 10 on a pain scale. Neuro: Level of Consciousness is awake, alert, obeys commands, Oriented to person, place, time, situation. 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 PED, CHEST TUBE; vg1 - PSHx: 13:30 section; vg1 - Immunization history:: Client reports having NOT received the Covid vaccine. Flu vaccine is up to date. - Social history:: Smoking status: Patient denies any tobacco usage or history of. - Family history:: not pertinent. - Hospitalizations: : No recent hospitalization is reported. Vital Signs: 13:28 BP 108 / 78; Pulse 95; Resp 16; Temp 99.0; Pulse Ox 100% ; Weight 74.84 kg; Height 5 vg1 ft. 4 in. (162.56 cm); Pain 10/10; 13:28 Body Mass Index 28.32 (74.84 kg, 162.56 cm) vg1 ED Course: 13:20 Patient arrived in ED. mr 13:20 David Buenoa is Private Physician. mr 13:30 Triage completed. vg1 13:30 Arm band placed on. vg1 13:32 COVID swab sent to lab. Flu and/or RSV swab sent to lab. vg1 13:43 Teto Sumner MD is Attending Physician. rn 13:54 Danielle Bass, ZULEYKA is Primary Nurse. [facility] Administered Medications: 14:13 Drug: Ketorolac 15 mg Route: IVP; Site: left antecubital; [facility] 14:14 Drug: NS 0.9% 1000 ml Route: IV; Rate: 1000 ml; Site: left antecubital; [facility] 14:14 Drug: Zofran (Ondansetron) 4 mg Route: IVP; Site: left antecubital; [facility] Outcome: 15:34 Discharge ordered by . rn 15:52 Patient left the ED. [facility] Signatures: Breann Welch mr Teto Sumner MD MD rn Garcia, Victoria, RN RN [facility] Danielle Bass RN RN [facility]
[2021-05-14 15:46] LABS: Urine Specific Gravity/Preg 1.025 (1.005-1.030)
[2021-05-14 16:01] VITALS: BP 108/78; TEMP 99; O2SAT 100
[2021-05-14 20:35] LABS: Blood Morphology Comment NOT SEEN (NOT SEEN); Platelet Estimate ADEQ; White Blood Cell Scan OK (OK)
== END 2021-05-14 15:52 | disposition home or self-care (01) ==
LOC: ER 13:08
DX: R11.10 Vomiting, unspecified (principal); R19.7 Diarrhea, unspecified; Z88.2 Allergy status to sulfonamides; Z88.5 Allergy status to narcotic agent; Z20.822 Contact with and (suspected) exposure to COVID-19
CPT/HCPCS: 85025; 80048; 36415; 81025; 80076; 83690; 0240U; 96375; 96374; 99283; J7030; J2405 ×2; 81003; 81015

== ENCOUNTER 2024-02-29 10:56 | Emergency (ER) | payer SELFPAY ==
--- NOTE | 2024-02-29 12:10 | RAD REPORT ---
EXAM DESCRIPTION: RAD - Tib Fib Right - 02/29/2024 11:54 am CLINICAL HISTORY: PAIN COMPARISON: No comparisons TECHNIQUE: Right tibia and fibula, 2 views. FINDINGS: Mildly displaced oblique fracture along the proximal right fibular metaphysis. There is no dislocation or periosteal reaction noted. No acute or suspicious bony finding. No foreign body or other soft tissue abnormality. IMPRESSION: Mildly displaced oblique fracture of the proximal right fibular metaphysis.
--- NOTE | 2024-02-29 12:14 | RAD REPORT ---
EXAM DESCRIPTION: RAD - Foot Right 3 View - 02/29/2024 11:54 am CLINICAL HISTORY: PAIN COMPARISON: Foot Right 2 View dated 02/08/2014 TECHNIQUE: Right foot, 3 views. FINDINGS: No fracture, dislocation or periosteal reaction. No air or foreign body in the soft tissues. IMPRESSION: Negative right foot examination.
[2024-02-29] MEDS ORDERED: CODEINE 30MG/APAP 300MG TAB ONE (13:27)
[2024-02-29] MEDS ORDERED: IBUPROFEN 400 MG TAB ONE (13:27)
--- NOTE | 2024-02-29 14:27 | RAD REPORT ---
EXAM DESCRIPTION: CT - [id number] - 02/29/2024 1:51 pm CLINICAL HISTORY: HEADACHE COMPARISON: No comparisons TECHNIQUE: Axial thin cut noncontrast CT images of the head were obtained. Axial thin cut noncontrast CT images of the cervical spine were obtained. Multiplanar reformatted images were generated and reviewed. All CT scans are performed using dose optimization technique as appropriate and may include automated exposure control or mA/KV adjustment according to patient size. FINDINGS: CT HEAD WITHOUT CONTRAST: No acute hemorrhage, hydrocephalus or extra-axial collection is identified.No areas of brain edema or midline shift. The paranasal sinuses and mastoids are clear.The calvarium is intact. CT CERVICAL SPINE WITHOUT CONTRAST: Straightening of normal cervical lordosis which may be positional or secondary to muscle spasm. No fr acture or subluxation.No prevertebral soft tissues swelling is identified. IMPRESSION: No acute traumatic intracranial or cervical spine findings.
--- NOTE | 2024-02-29 15:02 | EDPHYS ---
Physician Documentation [facility] Name: Daisha Spivey Age: 28 yrs Sex: Female : 1995 Arrival Date: 02/29/2024 Time: 10:56 Bed 9 Private MD: ED Physician Vincent Guillen HPI: 02/28 11:33 This 28 yrs old Female presents to ER via EMS with complaints of Fall Injury. cp 11:33 Details of fall: The patient fell from an upright position, while standing. cp 11:33 Onset: The symptoms/episode began/occurred 1 week(s) ago. Associated injuries: The cp patient sustained right lower leg and right foot. Severity of symptoms: in the emergency department the symptoms are actually worse. Patient reports HX of fracture of ankle after fall 1 week ago. Seen at [facility] and was told needed surgery. Patient requesting transfer to [facility]. Historical: - Allergies: 11:17 Hydrocodone-Acetaminophen; ll1 11:17 Sulfa (Sulfonamide Antibiotics); ll1 11:17 tramadol; ll1 - Home Meds: 15:47 Vitamin Oral once daily [Active]; hb - PMHx: 11:17 ADD/ADHD; Asthma; AUTO VS. PED; AUTO VS. PED; COLLASPED LUNG; ll1 - PSHx: 11:17 section; ll1 - Immunization history:: Adult Immunizations up to date. - Infectious Disease History:: Denies. - Social history:: Smoking status: Patient denies any tobacco usage or history of. ROS: 11:35 Constitutional: HX per HPI cp 11:35 Constitutional: Negative for fever, cp 11:35 Cardiovascular: Negative for chest pain, 11:35 Respiratory: Negative for cough, shortness of breath, wheezing, 11:35 Abdomen/GI: Negative for abdominal pain, vomiting, diarrhea, constipation, 11:35 MS/extremity: Positive for injury or acute deformity, pain, of the right lower leg and right foot, Negative for paresthesias, 11:35 Neuro: Negative for altered mental status, numbness, weakness, 11:35 All other systems are negative, Exam: 11:40 Constitutional: The patient appears in no acute distress, alert, awake, non-toxic, well cp developed, well nourished, 11:40 Head/Face: Normocephalic, atraumatic. cp 11:40 Neck: ROM/movement: is normal, is supple, without pain, no range of motions limitations, 11:40 Chest/axilla: Inspection: normal, 11:40 Cardiovascular: Rate: normal, 11:40 Respiratory: the patient does not display signs of respiratory distress, Respirations: normal, no use of accessory muscles, no retractions, 11:40 Abdomen/GI: Exam negative for discomfort, distension, guarding, Inspection: abdomen appears normal, 11:40 Back: pain, is absent, ROM is normal, 11:40 Musculoskeletal/extremity: Extremities: noted in the right lower leg and right foot: pain, swelling, tenderness, ROM: limited passive range of motion due to pain, in the right knee and right ankle, Pulses: noted to be 2+ in the right dorsalis pedis artery, the right foot and right leg Sensation intact. 11:40 Neuro: Orientation: to person, place \T\ time. Mentation: is normal, Vital Signs: 11:15 BP 131 / 90; Pulse 84; Resp 16; Temp 97.9; Pulse Ox 100% ; Weight 72.57 kg; Height 5 ll1 ft. 5 in. ; Pain 10/10; 14:00 BP 126 / 76; Pulse 82; Resp 16; Pulse Ox 99% on R/A; hb 11:15 Body Mass Index 26.63 (72.57 kg, 165.1 cm) ll1 11:15 Pain Scale: Adult ll1 Procedures: 15:15 Splinting: Splint applied to right leg using knee immobilizer, applied by nurse. cp Examined by me, post splint application: neurovascular intact, Patient tolerated well. MDM: 11:02 Patient medically screened. cp 15:01 Data reviewed: vital signs, nurses notes, radiologic studies, plain films, and as a cp result, I will discharge patient. 15:01 Differential diagnosis: contusion, fracture, sprain, strain. I considered the following cp discharge prescriptions or medication management in the emergency department Medications were administered in the Emergency Department. See MAR. Counseling: I had a detailed discussion with the patient and/or guardian regarding the historical points, exam findings, and any diagnostic results supporting the discharge/admit diagnosis, radiology results, the need for outpatient follow up, a orthopedic surgeon, to return to the emergency department if symptoms worsen or persist or if there are any questions or concerns that arise at home. Response to treatment: the patient's symptoms have markedly improved after treatment, and as a result, I will discharge patient. 02/28 11:27 Order name: XRAY Tib Fib RIGHT; Complete Time: 13:02 02/28 11:27 Order name: XRAY Foot RIGHT 3 View; Complete Time: 13:02 cp 02/28 13:13 Order name: CT Head C Spine; Complete Time: 14:30 cp 02/28 14:30 Interpretation: Reviewed report. cp 02/28 13:04 Order name: Knee Immobilizer; Complete Time: 15:44 cp Administered Medications: 13:30 Drug: Ibuprofen PO 800 mg PO once; may give if not {Note: PETERS pain 10/10 RASS 0 ll1 .} Route: PO; 14:25 Follow up: Response: No adverse reaction hb 13:31 Drug: Acetaminophen-Codeine PO (300 mg-30 mg) 2 tabs PO once; RASS on ADMIN: Combtv4, ll1 Very Agttd3, Agttd2, Rstlss1, AlertClm0, Drwsy-1, Lt Sdtn-2, Mod Sdtn-3, Dp Sdtn-4, UnArsble-5 {Note: PETERS pain 10/10 RASS 0.} Route: PO; 14:25 Follow up: Response: No adverse reaction hb Disposition Summary: 02/29/24 15:02 Discharge Ordered Notes: Location: Home cp Problem: new cp Symptoms: have improved cp Condition: Stable cp Diagnosis - Displaced oblique fracture of shaft of left fibula, sequela cp - Headache cp - Cervicalgia cp Followup: cp - With: [place] MD - When: 2 - 3 days - Reason: proximal fibula fracture Discharge Instructions: - Discharge Summary Sheet cp - General Headache Without Cause cp - Tibial and Fibular Fractures cp - Neck Exercises cp Forms: - Medication Reconciliation Form cp - Antibiotic Education cp - Prescription Opioid Use cp - Patient Portal Instructions cp - Leadership Thank You Letter cp Prescriptions: - acetaminophen-codeine 300-30 mg Oral tablet - take 2 tablet ORAL route every 8 to 12 hours as needed for pain; 14 tablet; cp Refills: 0, Product Selection Permitted - Anaprox DS 550 mg Oral Tablet - take 1 tablet ORAL route every 12 hours As needed; 20 tablet; Refills: 0, cp Product Selection Permitted - methocarbamol 750 mg Oral tablet - take 1 tablet ORAL route 4 times per day; 30 tablet; Refills: 0, Product cp Selection Permitted Addendum: 03/07/2024 15:39 Co-signature as Attending Physician, Vincent Guillen MD I agree with the assessment and c peters plan of care. Signatures: Dispatcher [employer] Vincent Slaughter MD MD cha Page, Corey, PA PA Fartun Russell RN RN Zaynab Myrick RN RN ll1
--- NOTE | 2024-02-29 15:02 | ER ---
Nurse's Notes [facility] Name: Daisha Spivey Age: 28 yrs Sex: Female : 1995 Arrival Date: 02/29/2024 Time: 10:56 Bed 9 Private MD: Diagnosis: Displaced oblique fracture of shaft of left fibula, sequela;Headache;Cervicalgia Presentation: 02/28 11:15 Chief complaint: Patient states: R ankle broken 1 week ago. Wants to be transferred to [address] for surgery. Coronavirus screen: Client denies travel out of the [place] in the last 14 days. At this time, the client does not indicate any symptoms associated with coronavirus-19. Ebola Screen: Patient denies travel to an Ebola-affected area in the 21 days before illness onset. Initial Sepsis Screen: Does the patient meet any 2 criteria? No. Patient's initial sepsis screen is negative. Does the patient have a suspected source of infection? No. Patient's initial sepsis screen is negative. Risk Assessment: Do you want to hurt yourself or someone else? Patient reports no desire to harm self or others. Onset of symptoms was February 23, 2024. 11:15 Method Of Arrival: EMS [facility] 11:15 Acuity: KAYODE 4 [facility] Historical: - Allergies: 11:17 Hydrocodone-Acetaminophen; [facility] 11:17 Sulfa (Sulfonamide Antibiotics); [facility] 11:17 tramadol; [facility] - Home Meds: 15:47 Vitamin Oral once daily [Active]; hb - PMHx: 11:17 ADD/ADHD; Asthma; AUTO VS. PED; AUTO VS. PED; COLLASPED LUNG; [facility] - PSHx: 11:17 section; [facility] - Immunization history:: Adult Immunizations up to date. - Infectious Disease History:: Denies. - Social history:: Smoking status: Patient denies any tobacco usage or history of. Screenin:00 [facility] ED Fall Risk Assessment (Adult) History of falling in the last 3 months, hb including since admission Yes- single mechanical fall (1 pt) Confusion or Disorientation No (0 pts) Intoxicated or Sedated No (0 pts) Impaired Gait Yes (1 pt) Mobility Assist Device Used Yes (1 pt) Altered Elimination No (0 pt) Score/Fall Risk Level 3 or more points = High Risk Oriented to surroundings, Maintained a safe environment, Educated pt \T\ family on fall prevention, incl call for assistance when getting out of bed, Assessed \T\ reinforced patient's understanding of fall precautions. Abuse screen: Denies threats or abuse. Denies injuries from another. Nutritional screening: No deficits noted. Tuberculosis screening: No symptoms or risk factors identified. Assessment: 13:00 General: Appears in no apparent distress. uncomfortable, Behavior is calm, cooperative. hb Pain: Pain currently is 10 out of 10 on a pain scale. Neuro: Level of Consciousness is awake, alert, obeys commands, Oriented to person, place, time, situation. Cardiovascular: Patient's skin is warm and dry. Respiratory: Respiratory effort is even, unlabored, Respiratory pattern is regular, symmetrical. GI: No signs and/or symptoms were reported involving the gastrointestinal system. : No signs and/or symptoms were reported regarding the genitourinary system. EENT: No signs and/or symptoms were reported regarding the EENT system. Derm: Skin is pink, warm \T\ dry. Musculoskeletal: Reports RIGHT KNEE AND ANKLE PAIN AND SWELLING. 14:00 Reassessment: Patient appears in no apparent distress at this time. Patient and/or hb family updated on plan of care and expected duration. Pain level reassessed. Patient is alert, oriented x 3, equal unlabored respirations, skin warm/dry/pink. 15:00 Reassessment: Patient appears in no apparent distress at this time. Patient and/or hb family updated on plan of care and expected duration. Pain level reassessed. Patient is alert, oriented x 3, equal unlabored respirations, skin warm/dry/pink. 15:44 Reassessment: DISCHARGE PENDING TRANSPORTATION. hb Vital Signs: 11:15 BP 131 / 90; Pulse 84; Resp 16; Temp 97.9; Pulse Ox 100% ; Weight 72.57 kg; Height 5 ll1 ft. 5 in. ; Pain 10/10; 14:00 BP 126 / 76; Pulse 82; Resp 16; Pulse Ox 99% on R/A; hb 11:15 Body Mass Index 26.63 (72.57 kg, 165.1 cm) ll1 11:15 Pain Scale: Adult ll1 ED Course: 11:01 Patient arrived in ED. mr 11:02 Vincent Stack PA is PHCP. cp 11:02 Vincent Guillen MD is Attending Physician. cp 11:17 Triage completed. ll1 11:17 Arm band placed on. ll1 11:56 XRAY Tib Fib RIGHT In Process Unspecified. EDMS 11:56 XRAY Foot RIGHT 3 View In Process Unspecified. EDMS 13:53 CT Head C Spine In Process Unspecified. EDMS 14:00 Patient has correct armband on for positive identification. hb 14:57 [place] MD is Referral Physician. cp 15:44 Fartun Andrade, RN is Primary Nurse. hb 15:46 Provided Education on: FOLLOW UP. hb 15:46 No provider procedures requiring assistance completed. Patient did not have IV access hb during this emergency room visit. Administered Medications: 13:30 Drug: Ibuprofen PO 800 mg PO once; may give if not {Note: PETERS pain 10/10 RASS 0 ll1 .} Route: PO; 14:25 Follow up: Response: No adverse reaction hb 13:31 Drug: Acetaminophen-Codeine PO (300 mg-30 mg) 2 tabs PO once; RASS on ADMIN: Combtv4, ll1 Very Agttd3, Agttd2, Rstlss1, AlertClm0, Drwsy-1, Lt Sdtn-2, Mod Sdtn-3, Dp Sdtn-4, UnArsble-5 {Note: PETERS pain 10/10 RASS 0.} Route: PO; 14:25 Follow up: Response: No adverse reaction hb Medication: 14:00 VIS not applicable for this client. hb Outcome: 15:02 Discharge ordered by . cp 15:46 Discharged to home with crutches, with family, 15:46 Condition: stable 15:46 Discharge instructions given to patient, Instructed on discharge instructions, follow up and referral plans. medication usage, Demonstrated understanding of instructions, follow-up care, medications, Prescriptions given X 3, 16:47 Patient left the ED. oh1 Signatures: Dispatcher [employer] EDTN Breann Welch, Reg Reg mr Vincent Stack PA PA cp Fartun Andrade RN RN Zaynab Myrick RN RN ll1 Radha Torres oh1
[2024-02-29 16:54] VITALS: TEMP 97.9
[2024-02-29 16:55] VITALS: BP 126/76; O2SAT 99
== END 2024-02-29 16:47 | disposition home or self-care (01) ==
LOC: ER 10:56
DX: S82.431A Displaced oblique fracture of shaft of right fibula, initial encounter for closed fracture (principal); R51.9 Headache, unspecified; M54.2 Cervicalgia; W18.30XA Fall on same level, unspecified, initial encounter
CPT/HCPCS: 70450; 72125; 99283

== ENCOUNTER 2024-07-30 15:33 | Emergency (ER) | payer SELFPAY ==
--- OUTSIDE RECORDS SUMMARY | 2024-07-30 15:38 | XMS REPORT | Continuity of Care Document ---
Author Name Unknown Address [address] [facility] [address] [place] [address] [facility] thconnect Address [address] [facility] 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 Role Phone PCP, PATIENT DOES NOT HAVE A Primary Care Physic lisa Unavailable BRIAN OLIVAS Attending Clinician Unavailable Brian Olivas MD Attending Clinician [phone] SHAD BLAND Attending Clinician Unavailable SHAD BLAND Attending Clinician Unavailable Timothy Tellez Attending Clinician + [phone] Shad Bland DO Attending Clinician [phone] THOMAS MAST Attending Clinician Unavailable THOMAS MAST Attending Clinician Unavailable Thomas Mast MD Attending Clinician [phone] Chandu Johnson DO Attending Clinician [phone] Fransico Mayes MD Attending Clinician [phone] Turner Pereira MD Attending Clinician [phone] Thomas Boss MD Attending Clinician [phone] Barrett Ortega MD Attending Clinician Mamta Tucker MD Attending Clinician [phone] MAMTA TUCKER Attending Clinician UnavailMAMTA Acevedo Attending Clinician UnavailCORINNA Sutton Attending Clinician Unavailable CORINNA BRAR Attending Clinician Unavailable Corinna Brar NP Attending Clinician [phone] MADELINE FERGUSON Attending Clinician Unavailable [email or web address]_S Attending Clinician Unavaila AARTI Augustin Attending Clinician Unavailable SANDRA DON Attending Clinician Unavailab Sandra Henderson DO Attending Clinician [phone] Doctor Unassigned, [place] Attending Clinician U CAMELIA Russell Attending Clinician UnavailCamelia Son Attending Clinician [phone] Madeline Ferguson MD Attending Clinician [phone] Carmen Hernandez PA-C Attending Clinician [phone] CARMEN HERNANDEZ Attending Clinician Unavailable 1, [facility] Attending Clinician Unavailable ROSEMARY MARTINS Attending Clinician Unavailable Rosemary Martins Attending Clinician [phone] Ashwin Azar DO Attending Clinician [phone] MERRY CHACON Attending Clinician Unavailable ROGELIO CASON Attending Clinician Unavailable Visit/Fp, [facility] Nurse Attending Clinician Un available [place] Attending Clinician [phone] Aarti Mae MD Attending Clinician [phone] Room, [facility] Attending Clinician Unavailable Nurse, [facility] Attending Clinician Un available 2, [facility] Attending Clinician Unavailable Ultrasound, [facility] Attending Clinician Unavaila MADELINE Avina Admitting Clinician Unavailable BRIAN OLIVAS Admitting Clinician Unavailable Brian Olivas MD Admitting Clinician [phone] FRANSICO MAYES Admitting Clinician Unavailable Fransico Mayes MD Admitting Clinician [phone] CORINNA BRAR Admitting Clinician Unavailable [email or web address]_S Admitting Clinician UnavailROSEMARY Chandler Admitting Clinician Unavailable Madeline Ferguson MD Admitting Clinician [phone] Payers Payer Name Policy Type Policy Number Effective Date Expirati on Date Source [facility] JOE MAXWELL [id number] 2019 00:00:00 MEDICAID PENDING PENDING 1998 00:00:00 1998 00:00:00 Problems Condition Name Condition Details Condition Category Status Onset Date Resolution Date Last Treatment Date Treating Clinician Comments Source Skull fracture with concussion , closed, initial encounter Skull fracture with concussion , closed, initial encounter Disease Active 1-16 00:00: 00 [facility] Left leg pain Left leg pain Disease Active 9-11 00:00: 00 [facility] Closed fracture of shaft of right fibula, unspecifie d fracture morphology , initial encounter Closed fracture of shaft of right fibula, unspecifie d fracture morphology , initial encounter Disease Active 9-11 00:00: 00 [facility] Acute right flank pain Acute right flank pain Disease Active 2020-06 0-20 00:00: 00 [facility] Cervical motion tenderness Cervical motion tenderness Disease Active 2020-06 0-20 00:00: 00 [facility] Ovarian mass, right Ovarian mass, right Disease Active 2020-06 0-20 00:00: 00 [facility] Nexplanon in place Nexplanon in place Disease Active 8-15 00:00: 00 [facility] Obesity (BMI 30-39.9) Obesity (BMI 30-39.9) Disease Active 2-27 00:00: 00 [facility] Susceptibl e to varicella (non-immun e), currently Susceptibl e to varicella (non-immun e), currently Disease Active 2018-06 00:00: 00 Overview: Formattin g of this note might be different from the original. Address pp [facility] Preeclamps ia, severe, unspecifie d trimester Preeclamps ia, severe, unspecifie d trimester Disease Resolve d 5-10 00:00: 00 2020-01-05 00:00:00 2020-01-05 05:11:21 [facility] Nausea/vom iting in Nausea/vom iting in Disease Resolve d 2019-0 5-09 00:00: 00 2020-01-05 00:00:00 2020-01-05 05:11:27 [facility] Supervisio n of high risk , antepartum Supervisio n of high risk , antepartum Disease Resolve d 2019-0 5-09 00:00: 00 2020-01-05 00:00:00 2020-01-05 05:11:26 [facility] 31 weeks gestation of 31 weeks gestation of Disease Resolve d 2019-0 5-09 00:00: 00 2020-01-05 00:00:00 2020-01-05 05:11:25 [facility] Nausea/vom iting in Nausea/vom iting in Disease Resolve d 2019-0 5-09 00:00: 00 2020-01-05 00:00:00 2020-01-05 05:11:27 [facility] 30 weeks gestation of 30 weeks gestation of Disease Resolve d 2019-0 4-30 00:00: 00 2020-01-05 00:00:00 2020-01-05 05:11:27 [facility] Viral upper respirator y tract infection Viral upper respirator y tract infection Disease Resolve d 2019-0 4-21 00:00: 00 2020-01-05 00:00:00 2020-01-05 05:11:28 [facility] Gestationa l hypertensi on, third trimester Gestationa l hypertensi on, third trimester Disease Resolve d 2019-0 4-21 00:00: 00 2020-01-05 00:00:00 2020-01-05 05:11:28 [facility] Excessive weight gain during , antepartum Excessive weight gain during , antepartum Disease Resolve d 2020-0 2-28 00:00: 00 2020-01-05 00:00:00 2020-01-05 05:11:29 [facility] Encounter for supervisio n of normal first in third trimester Encounter for supervisio n of normal first in third trimester Disease Resolve d 2019-1 2-02 00:00: 00 2020-01-05 00:00:00 2020-01-05 05:11:36 [facility] Nausea and vomiting during prior to 22 weeks gestation Nausea and vomiting during prior to 22 weeks gestation Disease Resolve d 2018-06 2 00:00: 00 2020-01-05 00:00:00 2020-01-05 05:11:35 [facility] Nausea and vomiting during prior to 22 weeks gestation Nausea and vomiting during prior to 22 weeks gestation Disease Resolve d 2018-06 00:00: 00 2020-01-05 00:00:00 2020-01-05 05:11:35 [facility] Rh negative state in antepartum period Rh negative state in antepartum period Disease Resolve d 2018-06 00:00: 00 2020-01-05 00:00:00 2020-01-05 05:11:42 [facility] Abnormal maternal glucose tolerance, antepartum Abnormal maternal glucose tolerance, antepartum Disease Resolve d 2018-06 00:00: 00 2020-01-05 00:00:00 2020-01-05 05:11:14 [facility] Obesity in Obesity in Disease Resolve d 2018-06 00:00: 00 2020-01-05 00:00:00 2020-01-05 05:11:41 [facility] 21 weeks gestation of 21 weeks gestation of Disease Resolve d 08-21 00:00: 00 2019-09-17 00:00:00 2019-09-17 10:10:15 [facility] Supervisio n of high-risk Supervisio n of high-risk Disease Resolve d 2018-06 00:00: 00 2019-05-25 00:00:00 2019-05-25 10:14:36 [facility] Allergies, Adverse Reactions, Alerts Allergy Name Allergy Type Status Severity Reaction(s) Onset Date Inactive Date Treating Clinician Comments Source HYDROCOD ONE DRUG INGREDI Active ITCHING 10-20 00:00: 00 [facility] Hydrocod one Propensi ty to adverse reaction s Active Nausea and/or Vomiting 10-20 00:00: 00 [facility] TRAMADOL DRUG INGREDI Active Rash 09-17 00:00: 00 [facility] Tramadol Propensi ty to adverse reaction s Active Rash 09-17 00:00: 00 [facility] SULFA (SULFONA MIDE ANTIBIOT ICS) Drug Class Active N/V 09-29 00:00: 00 [facility] Sulfa (Sulfona mide Antibiot ics) Propensi ty to adverse reaction s Active Nausea and/or Vomiting 09-29 00:00: 00 [facility] Sulfa (Sulfona mide Antibiot ics) Propensi ty to adverse reaction s Active Nausea and/or Vomiting 09-29 00:00: 00 [facility] Family History Family Member Diagnosis Comments Start Date Stop Date Sourc e Natural [facility] Maternal grandfather Arthritis [facility] Maternal grandmother Arthritis [facility] Natural mother Heart [facility] Paternal grandmother [facility] Natural sister Arthritis [facility] Social History Social Habit Start Date Stop Date Quantity Comments Source [facility] History of tobacco use Passive smoker [facility] Alcoholic beverage intake 2024-07-10 00:00:00 2024-07-10 00:00:00 Current drinker of alcohol (finding) [facility] Tobacco use and exposure 2024-03-04 00:00:00 2024-03-04 00:00:00 Smokeless tobacco non-user [facility] Tobacco Comment 2024-03-04 00:00:00 2024-03-04 00:00:00 Non smoker, 2nd hand smoke [facility] Exposure to SARS-CoV-2 (event) 2021-12-01 00:00:00 2021-12-11 09:22:00 Not sure [facility] Alcohol intake 2021-12-11 00:00:00 2021-12-11 00:00:00 Current drinker of alcohol (finding) [facility] History of Social function 2021-04-20 00:00:00 2021-04-20 00:00:00 [facility] Sex assigned at 1995 00:00:00 1995 00:00:00 [facility] Smoking Status Start Date Stop Date Source Never smoked tobacco [facility] Medications Ordered Medication Name Filled Medication Name Start Date Stop Date Current Medication? Ordering Clinician Indication Dosage Frequency Signature (SIG) Comments Components Source acetaminoph en (TYLENOL) tablet 650 mg 07-10 19:30: 00 Yes 650mg 650 mg, Oral, Q6H ABX, First dose on Sat07/10/24 at 1330, Until Discontinu ed, Routine [facility] celecoxib (CELEBREX) capsule 100 mg 07-10 14:00: 00 07-11 16:29 :01 No 100mg 100 mg, Oral, BID MEALS, First dose on Sat07/10/24 at 0800, Until Discontinu ed, Routine [facility] enoxaparin (LOVENOX) injection 30 mg 07-10 14:00: 00 07-11 16:29 :01 No 30mg 30 mg, Subcutaneo us, Q12H, First dose on Sat07/10/24 at 0800, Until Discontinu ed, Routine [facility] acetaminoph en (OFIRMEV) IV piggyback 1,000 mg 07-10 13:15: 00 07-10 14:46 :00 No 1000mg 1,000 mg, IV Piggyback, at 400 mL/hr Administer over 15 Minutes, ONCE, 1 dose, On Sat07/10/24 at 0715, Routine, Is the patient strict NPO and unable to tolerate oral medication s? Yes [facility] KCL (POTASSIUM CHLORIDE) 20 mEq in D5W 0.45% NaCl (1/2NS) 1,000 mL IV Solution 07-10 05:30: 00 07-11 16:29 :01 No IV Infusion, CONTINUOUS , Starting on Karen 07/09/24 at 2330, Until 07/11/24 at 1029, 1,000 mL, at 100 mL/hr [facility] potassium chloride in water (KCL) 20 mEq/100 mL IV infusion 20 mEq 07-10 04:15: 00 07-10 06:31 :00 No 20meq 20 mEq, IV Infusion, at 50 mL/hr Administer over 2 Hours, ONCE, 1 dose, On Karen 07/09/24 at 2215, Routine [facility] ondansetron (ZOFRAN (PF)) injection 4 mg 07-10 04:03: 24 07-11 16:29 :01 [facility] (ZOFRAN (PF[facility] injection 4 mg 07-10 03:30: 00 07-10 03:28 :00 No 4mg 4 mg, Slow IV Push, ONCE, 1 dose, On Karen 07/09/24 at 2130, Administer over 2-5 Minutes, 2 mL [facility] iopamidol (ISOVUE 370-500 mL) injection 80 mL 07-10 01:30: 00 07-10 01:30 :00 No [id number] 80mL 80 mL, Intravenou s, ONCE, 1 dose, On Karen 07/09/24 at 1930, Routine [facility] ibuprofen 600 mg tablet 07-10 00:00: 00 Yes [id number] 600mg Take 1 tablet by mouth every 6 (six) hours as needed for Pain (scale 4-6). [facility] acetaminoph en 325 mg tablet 07-10 00:00: 00 07-11 05:59 :00 Yes [id number] 650mg Take 2 tablets by mouth every 6 (six) hours as needed for Pain (scale 4-6) or Pain (scale 1-3). [facility] haloperidol lactate (HALDOL) injection 2.5 mg 07-10 00:00: 00 07-09 23:57 :00 No 2.5mg 2.5 mg, Slow IV Push, ONCE, 1 dose, On Karen 07/09/24 at 1800, STAT, Chemical Restraint: No, Reason for Use: Management of Acute Agitation/ Delirium (NOT CHEMICAL RESTRAINT) , Indication for use of Injectable Psychotrop ics: Other, Please Specify Other Indication : n/v [facility] bupivacaine (preserv free) (SENSORCAIN E MPF) 0.25 % (2.5 mg/mL) injection 03-06 21:19: 00 03-06 21:38 :40 No Infiltrati on, ONCE INTRA PROCEDURE, Starting on Sat03/06/24 at 1619, Until Sat03/06/24 at 1638, Routine, Intra-op [facility] HYDROmorpho ne (DILAUDID) injection 0.2 mg 03-06 21:00: 22 03-06 22:09 :28 No .2mg 0.2 mg, Slow IV Push, Q5MIN PRN, 10 doses, Starting on Sat03/06/24 at 1600, Until Sat03/06/24 at 1709, Routine, Pain (scale 7-10), PACU, Is this medication approved by a Faculty level provider? 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 Restricted medication : PACU RECOVERY [facility] bupivacaine (preserv free) (SENSORCAIN E MPF) 0.25 % (2.5 mg/mL) injection 03-06 20:22: 00 03-06 20:58 :04 No PRN, Starting on Sat03/06/24 at 1522, Until Sat03/06/24 at 1558, Routine, Intra-op [facility] FENTanyl (PF) (SUBLIMAZE) injection 25 mcg 03-06 20:20: 17 03-06 21:20 :00 No 25ug 25 mcg, Slow IV Push, Q5MIN PRN, 4 doses, Starting on Sat03/06/24 at 1520, Until Sat03/06/24 at 1620, Routine, Pain Scale 4-6, PACU [facility] sugammadex (BRIDION) injection 03-06 20:09: 00 03-06 20:49 :49 No IV Push, ONCE INTRA PROCEDURE, Starting on Sat03/06/24 at 1509, Until Sat03/06/24 at 1549, Routine, Intra-op [facility] ketorolac (TORADOL) injection 03-06 20:08: 00 03-06 20:49 :49 No Slow IV Push, ONCE INTRA PROCEDURE, Starting on Sat03/06/24 at 1508, Until Sat03/06/24 at 1549, Routine, Intra-op [facility] ondansetron (ZOFRAN (PF)) injection 03-06 20:07: 00 03-06 20:49 :49 No Slow IV Push, ONCE INTRA PROCEDURE, Starting on Sat03/06/24 at 1507, Until Sat03/06/24 at 1549, Routine, Intra-op [facility] acetaminoph en (OFIRMEV) IV piggyback 03-06 20:03: 00 03-06 20:49 :49 No IV Infusion, Administer over 15 Minutes, ONCE INTRA PROCEDURE, Starting on Sat03/06/24 at 1503, Until Sat03/06/24 at 1549, Routine, Intra-op [facility] ketamine (KETALAR) injection 03-06 19:24: 00 03-06 20:49 :49 No Intravenou s, ONCE INTRA PROCEDURE, Starting on Sat03/06/24 at 1424, Until Sat03/06/24 at 1549, Routine, Intra-op [facility] dexmedeTOMI Dine (PRECEDEX) injection 03-06 19:23: 00 03-06 20:49 :49 No Slow IV Push, ONCE INTRA PROCEDURE, Starting on Sat03/06/24 at 1423, Until Sat03/06/24 at 1549, Routine, Intra-op [facility] FENTanyl (PF) (SUBLIMAZE) injection 03-06 19:12: 00 03-06 20:49 :49 No Slow IV Push, ONCE INTRA PROCEDURE, Starting on Sat03/06/24 at 1412, Until Sat03/06/24 at 1549, Routine, Intra-op [facility] rocuronium (ZEMURON) injection 03-06 18:54: 00 03-06 20:49 :49 No IV Push, ONCE INTRA PROCEDURE, Starting on Sat03/06/24 at 1354, Until Sat03/06/24 at 1549, Routine, Intra-op [facility] dexamethaso ne (DECADRON PHOSPHATE) injection 03-06 18:54: 00 03-06 20:49 :49 No IV Push, ONCE INTRA PROCEDURE, Starting on Sat03/06/24 at 1354, Until Sat03/06/24 at 1549, Routine, Intra-op [facility] propofoL IV infusion 03-06 18:54: 00 03-06 20:49 :49 No Slow IV Push, ONCE INTRA PROCEDURE, Starting on Sat03/06/24 at 1354, Until Sat03/06/24 at 1549, Routine, Intra-op [facility] lidocaine 1% (XYLOCAINE) 100 mg/10 mL (1 %) injection 03-06 18:54: 00 03-06 20:49 :49 No Slow IV Push, ONCE INTRA PROCEDURE, Starting on Sat03/06/24 at 1354, Until Sat03/06/24 at 1549, Routine, Intra-op [facility] ceFAZolin (ANCEF) injection 03-06 18:44: 00 03-06 20:49 :49 No Slow IV Push, ONCE INTRA PROCEDURE, Starting on Sat03/06/24 at 1344, Until Sat03/06/24 at 1549, MIKI, Intra-op [facility] lactated ringers IV infusion 03-06 18:41: 00 03-06 20:49 :49 No IV Infusion, CONTINUOUS PRN, Starting on Sat03/06/24 at 1341, Until Sat03/06/24 at 1549, Routine, Intra-op [facility] midazolam (VERSED) injection 03-06 18:41: 00 03-06 20:49 :49 No IV Push, ONCE INTRA PROCEDURE, Starting on Sat03/06/24 at 1341, Until Sat03/06/24 at 1549, Routine, Intra-op [facility] gabapentin 300 mg capsule 03-06 00:00: 00 04-07 04:59 :00 No [id number] 300mg Take 1 capsule by mouth 3 (three) times daily as needed (nerve pain) for up to 30 days. [facility] aspirin E.C. 325 mg EC tablet 03-06 00:00: 00 04-05 04:59 :00 No [id number] 325mg Take 1 tablet by mouth in the morning for 28 days. [facility] docusate 100 mg capsule 03-06 00:00: 00 03-22 04:59 :00 No [id number] 100mg Take 1 capsule by mouth in the morning and 1 capsule in the evening. Do all this for 15 days. [facility] methocarbam oL 750 mg tablet 03-06 00:00: 00 03-22 04:59 :00 No [id number] 750mg Take 1 tablet by mouth 3 (three) times daily as needed for Pain (scale 4-6) for up to 14 days. [facility] acetaminoph en-codeine 300-30 mg tablet 03-06 00:00: 00 03-14 04:59 :00 No [id number] 1{tbl} Take 1 tablet by mouth every 4 (four) hours as needed for Pain (scale 7-10) for up to 7 days. Indication s: acute pain [facility] ondansetron (ZOFRAN) 4 mg tablet 03-06 00:00: 00 03-13 04:59 :00 No [id number] 4mg Take 1 tablet by mouth every 12 (twelve) hours as needed for Nausea and Vomiting (N/V) for up to 5 days. [facility] ketorolac 10 mg tablet 03-06 00:00: 00 03-13 04:59 :00 No [id number] 10mg Take 1 tablet by mouth every 6 (six) hours as needed for Pain (scale 4-6) for up to 5 days. [facility] melatonin (MELATIN) tablet 3 mg 03-05 02:00: 00 03-08 01:28 :30 No 3mg 3 mg, Oral, QHS, First dose on Sat03/04/24 at 2100, Until Discontinu ed, Routine [facility] sennosides- docusate sodium (SENOKOT-S) 8.6-50 mg per tablet 1 tablet 03-05 01:00: 00 03-08 01:28 :30 No 1{tbl} 1 tablet, Oral, BID, First dose on Sat03/04/24 at 2000, Until Discontinu ed, Routine [facility] gabapentin (NEURONTIN) capsule 300 mg 03-05 01:00: 00 03-08 01:28 :30 No 300mg 300 mg, Oral, TID, First dose on Sat03/04/24 at 2000, Until Discontinu ed, Routine [facility] enoxaparin (LOVENOX) injection 30 mg 03-05 01:00: 00 03-08 01:28 :30 No 30mg 30 mg, Subcutaneo us, Q12H, 56 doses, First dose on Sat03/04/24 at 2000, Last dose on Sat04/01/24 at 0800, Routine [facility] acetaminoph en-codeine (TYLENOL #3) 300-30 mg tablet 2 tablet 03-04 23:00: 00 03-08 01:28 :30 No 2{tbl} 2 tablet, Oral, Q6H, First dose on Sat03/04/24 at 1800, Until Discontinu ed, Routine [facility] polyethylen e glycol 3350 powder 17 g 03-04 19:45: 23 03-08 01:28 :30 No 17g [facility] diphenhydrA MINE (BENADRYL) tablet 25 mg 03-04 19:45: 05 03-08 01:28 :30 No 25mg 25 mg, Oral, Q4HPRN, Starting on Sat03/04/24 at 1445, Until Sat03/07/24 at 202, Routine, Itching [facility] morphine (2 mg/mL) injection 4 mg 03-04 19:44: 56 03-08 01:28 :30 No 4mg [facility] HYDROcodone -acetaminop hen (NORCO) 10-325 mg tablet 1 tablet 03-04 19:44: 47 03-08 01:28 :30 No 1{tbl} 1 tablet, Oral, Q4HPRN, Starting on Sat03/04/24 at 1444, Until 03/07/24 at 2027, Routine, Pain (scale 7-10) [facility] methocarbam oL (ROBAXIN) tablet 750 mg 03-04 19:42: 51 03-08 01:28 :30 No 750mg 750 mg, Oral, QIDPRN, Starting on Sat03/04/24 at 1442, Until Sat03/07/24 at 2027, Routine, Muscle Spasms [facility] ondansetron (ZOFRAN (PF)) injection 4 mg 03-04 19:42: 21 03-08 01:28 :30 No 4mg [facility] morphine (2 mg/mL) injection 4 mg 03-04 16:45: 00 03-04 17:18 :00 No 4mg 4 mg, Slow IV Push, ONCE, 1 dose, On Sat03/04/24 at 1145, STAT [facility] acetaminoph en-codeine (TYLENOL #3) 300-30 mg tablet 1 tablet 02-18 04:00: 00 02-18 04:08 :00 No 1{tbl} 1 tablet, Oral, ONCE, 1 dose, On Sat02/18/24 at 2300, MIKI [facility] ibuprofen (IBU) tablet 800 mg 02-18 04:00: 00 02-18 04:08 :00 No 800mg 800 mg, Oral, ONCE, 1 dose, On Sat02/18/24 at 2300, MIKI [facility] ibuprofen 600 mg tablet 02-18 00:00: 03-06 00:00 :00 No [id number] 600mg Take 1 tablet by mouth every 6 (six) hours. [facility] acetaminoph en-codeine 300-30 mg tablet 02-18 00:00: 00 02-26 04:59 :00 No [id number] 1{tbl} Take 1 tablet by mouth every 4 (four) hours as needed for Pain (scale 7-10) or Pain (scale 4-6) for up to 7 days. Indication s: acute pain [facility] ondansetron (ZOFRAN-ODT ) disintegrat ing tablet 4 mg 12-11 15:30: 00 12-11 15:11 :00 No 4mg 4 mg, Oral, ONCE, 1 dose, On Sat12/11/21 at 1030, Routine [facility] ondansetron 4 mg disintegrat ing tablet 12-11 00:00: 00 03-06 00:00 :00 No [id number] 4mg Take 1 tablet by mouth every 8 (eight) hours as needed for Nausea and Vomiting (N/V). [facility] ondansetron (ZOFRAN ODT) 4 mg disintegrat ing tablet 2020-06 00:00: 00 12-11 00:00 :00 No [id number] 4mg Take 1 tablet by mouth every 8 (eight) hours as needed for Nausea and Vomiting (N/V). [facility] ketorolac 10 mg tablet 2020-06 00:00: 00 12-11 00:00 :00 No [id number] 136839 10mg Take 1 tablet by mouth every 6 (six) hours as needed for Pain (scale 4-6). [facility] doxycycline hyclate 100 mg tablet 2020-06 00:00: 00 04-27 04:59 :00 No [id number] 100mg Take 1 tablet by mouth 2 (two) times daily for 14 days. [facility] metroNIDAZO LE (FLAGYL) 500 mg tablet 2020-06 00:00: 00 04-27 04:59 :00 No [id number] 500mg Take 1 tablet by mouth 2 (two) times daily for 14 days. [facility] Immunizations Ordered Immunization Name Filled Immunization Name Date Status Comments Source Influenza Virus Vaccine Quad IM, Preserv and ABX Free 6 MO-64 YRS 2021-04-20 00:00:00 Completed [facility] Influenza Virus Vaccine Quad IM, Preserv and ABX Free 6 MO-64 YRS 2021-04-20 00:00:00 Completed [facility] Influenza Virus Vaccine Quad IM, Preserv and ABX Free 6 MO-64 YRS 2021-04-20 00:00:00 Completed [facility] Influenza Virus Vaccine Quad IM, Preserv and ABX Free 6 MO-64 YRS 2021-04-20 00:00:00 Completed [facility] Influenza Virus Vaccine Quad IM, Preserv and ABX Free 6 MO-64 YRS 2021-04-20 00:00:00 Completed [facility] Influenza Virus Vaccine Quad IM, Preserv and ABX Free 6 MO-64 YRS 2021-04-20 00:00:00 Completed [facility] Influenza Virus Vaccine Quad IM, Preserv and ABX Free 6 MO-64 YRS (FLUCELVAX) 2021-04-20 00:00:00 Completed [facility] Rho (d) Immune Globulin 2019-11-03 00:00:00 Completed [facility] Rho (d) Immune Globulin 2019-11-03 00:00:00 Completed [facility] Rho (d) Immune Globulin 2019-11-03 00:00:00 Completed [facility] Rho (d) Immune Globulin 2019-11-03 00:00:00 Completed [facility] Rho (d) Immune Globulin 2019-11-03 00:00:00 Completed [facility] Rho (d) Immune Globulin 2019-11-03 00:00:00 Completed [facility] Rho (d) Immune Globulin 2019-11-03 00:00:00 Completed [facility] Rho (d) Immune Globulin 2019-10-13 00:00:00 Completed [facility] TDAP (ADACEL) VACCINE 2019-10-13 00:00:00 Completed [facility] Rho (d) Immune Globulin 2019-10-13 00:00:00 Completed [facility] TDAP (ADACEL) VACCINE 2019-10-13 00:00:00 Completed [facility] Rho (d) Immune Globulin 2019-10-13 00:00:00 Completed [facility] TDAP (ADACEL) VACCINE 2019-10-13 00:00:00 Completed [facility] Rho (d) Immune Globulin 2019-10-13 00:00:00 Completed [facility] TDAP (ADACEL) VACCINE 2019-10-13 00:00:00 Completed [facility] Rho (d) Immune Globulin 2019-10-13 00:00:00 Completed [facility] TDAP (ADACEL) VACCINE 2019-10-13 00:00:00 Completed [facility] Rho (d) Immune Globulin 2019-10-13 00:00:00 Completed [facility] TDAP (ADACEL) VACCINE 2019-10-13 00:00:00 Completed [facility] Rho (d) Immune Globulin 2019-10-13 00:00:00 Completed [facility] TDAP 2019-10-13 00:00:00 Completed [facility] Rho (d) Immune Globulin Unknown Completed [facility] TDAP Unknown Completed [facility] Influenza Virus Vaccine Quad IM, Preserv and ABX Free 6 MO-64 YRS (FLUCELVAX) Unknown Completed [facility] Rho (d) Immune Globulin Unknown Completed [facility] TDAP Unknown Completed [facility] Influenza Virus Vaccine Quad IM, Preserv and ABX Free 6 MO-64 YRS (FLUCELVAX) Unknown Completed [facility] Rho (d) Immune Globulin Unknown Completed [facility] TDAP Unknown Completed [facility] Influenza Virus Vaccine Quad IM, Preserv and ABX Free 6 MO-64 YRS (FLUCELVAX) Unknown Completed [facility] Rho (d) Immune Globulin Unknown Completed [facility] TDAP Unknown Completed [facility] Influenza Virus Vaccine Quad IM, Preserv and ABX Free 6 MO-64 YRS (FLUCELVAX) Unknown Completed [facility] Rho (d) Immune Globulin Unknown Completed [facility] TDAP Unknown Completed [facility] Influenza Virus Vaccine Quad IM, Preserv and ABX Free 6 MO-64 YRS (FLUCELVAX) Unknown Completed [facility] Rho (d) Immune Globulin Unknown Completed [facility] TDAP Unknown Completed [facility] Influenza Virus Vaccine Quad IM, Preserv and ABX Free 6 MO-64 YRS (FLUCELVAX) Unknown Completed [facility] Vital Signs Vital Name Observation Time Observation Value Comments S ource Systolic blood pressure 2024-07-11 10:38:00 109 mm[Hg] [facility] Diastolic blood pressure 2024-07-11 10:38:00 67 mm[Hg] [facility] Heart rate 2024-07-11 10:38:00 52 /min [facility] Body temperature 2024-07-11 10:38:00 36.17 Serena [facility] Respiratory rate 2024-07-11 10:38:00 16 /min [facility] Oxygen saturation in Arterial blood by Pulse oximetry 2024-07-11 10:38:00 97 /min [facility] Body height 2024-07-10 03:09:00 167.6 cm [facility] Body weight 2024-07-10 03:09:00 72.576 kg [facility] BMI 2024-07-10 03:09:00 25.82 kg/m2 [facility] Systolic blood pressure 2024-07-10 01:45:00 119 mm[Hg] [facility] Diastolic blood pressure 2024-07-10 01:45:00 78 mm[Hg] [facility] Body temperature 2024-07-10 01:45:00 36.78 Serena [facility] Respiratory rate 2024-07-10 01:45:00 16 /min [facility] Oxygen saturation in Arterial blood by Pulse oximetry 2024-07-10 01:45:00 100 /min [facility] Heart rate 2024-07-10 01:15:00 68 /min [facility] Body height 2024-07-09 23:52:00 165.1 cm [facility] Body weight 2024-07-09 23:52:00 72.576 kg [facility] BMI 2024-07-09 23:52:00 26.63 kg/m2 [facility] Systolic blood pressure 2024-03-30 18:17:00 135 mm[Hg] [facility] Diastolic blood pressure 2024-03-30 18:17:00 84 mm[Hg] [facility] Heart rate 2024-03-30 18:17:00 90 /min [facility] Body temperature 2024-03-30 18:17:00 35.17 Serena [facility] Body height 2024-03-30 18:17:00 165.1 cm [facility] Body weight 2024-03-30 18:17:00 73.165 kg [facility] BMI 2024-03-30 18:17:00 26.84 kg/m2 [facility] Systolic blood pressure 2024-03-07 20:19:00 131 mm[Hg] [facility] Diastolic blood pressure 2024-03-07 20:19:00 84 mm[Hg] [facility] Heart rate 2024-03-07 20:19:00 65 /min [facility] Body temperature 2024-03-07 20:19:00 36.94 Serena [facility] Respiratory rate 2024-03-07 20:19:00 16 /min [facility] Oxygen saturation in Arterial blood by Pulse oximetry 2024-03-07 20:19:00 100 /min [facility] Body height 2024-03-05 13:00:00 165.1 cm [facility] Body weight 2024-03-05 13:00:00 76.658 kg [facility] BMI 2024-03-05 13:00:00 28.12 kg/m2 [facility] Systolic blood pressure 2024-03-06 20:50:00 144 mm[Hg] [facility] Diastolic blood pressure 2024-03-06 20:50:00 108 mm[Hg] [facility] Heart rate 2024-03-06 20:50:00 66 /min [facility] Respiratory rate 2024-03-06 20:50:00 16 /min [facility] Oxygen saturation in Arterial blood by Pulse oximetry 2024-03-06 20:50:00 100 /min [facility] Body temperature 2024-03-06 20:42:00 36.5 Serena [facility] Body height 2024-03-05 13:00:00 165.1 cm [facility] Body weight 2024-03-05 13:00:00 76.658 kg [facility] BMI 2024-03-05 13:00:00 28.12 kg/m2 [facility] Body height 2024-03-03 13:44:00 165.1 cm [facility] Body weight 2024-03-03 13:44:00 72.576 kg [facility] BMI 2024-03-03 13:44:00 26.63 kg/m2 [facility] Systolic blood pressure 2024-02-19 05:55:00 131 mm[Hg] [facility] Diastolic blood pressure 2024-02-19 05:55:00 92 mm[Hg] [facility] Heart rate 2024-02-19 05:55:00 75 /min [facility] Body temperature 2024-02-19 05:55:00 36.83 Serena [facility] Respiratory rate 2024-02-19 05:55:00 15 /min [facility] Oxygen saturation in Arterial blood by Pulse oximetry 2024-02-19 05:55:00 99 /min [facility] Body height 2024-02-19 03:15:00 162.6 cm [facility] Body weight 2024-02-19 03:15:00 68.04 kg [facility] BMI 2024-02-19 03:15:00 25.75 kg/m2 [facility] Systolic blood pressure 2021-12-11 14:23:00 118 mm[Hg] [facility] Diastolic blood pressure 2021-12-11 14:23:00 80 mm[Hg] [facility] Heart rate 2021-12-11 14:23:00 93 /min [facility] Body temperature 2021-12-11 14:23:00 37.67 Serena [facility] Respiratory rate 2021-12-11 14:23:00 18 /min [facility] Body height 2021-12-11 14:23:00 165.1 cm [facility] Body weight 2021-12-11 14:23:00 74.844 kg [facility] BMI 2021-12-11 14:23:00 27.46 kg/m2 [facility] Oxygen saturation in Arterial blood by Pulse oximetry 2021-12-11 14:23:00 100 /min [facility] Systolic blood pressure 2021-06-10 18:16:00 152 mm[Hg] [facility] Diastolic blood pressure 2021-06-10 18:16:00 89 mm[Hg] [facility] Heart rate 2021-06-10 18:16:00 114 /min [facility] Body temperature 2021-06-10 18:16:00 37.72 Serena [facility] Respiratory rate 2021-06-10 18:16:00 18 /min [facility] Body weight 2021-06-10 18:16:00 74.844 kg [facility] BMI 2021-06-10 18:16:00 27.46 kg/m2 [facility] Oxygen saturation in Arterial blood by Pulse oximetry 2021-06-10 18:16:00 100 /min [facility] Systolic blood pressure 2021-04-20 18:19:00 120 mm[Hg] [facility] Diastolic blood pressure 2021-04-20 18:19:00 79 mm[Hg] [facility] Heart rate 2021-04-20 18:19:00 68 /min [facility] Body temperature 2021-04-20 18:19:00 37 Serena [facility] Respiratory rate 2021-04-20 18:19:00 18 /min [facility] Body height 2021-04-20 18:19:00 165.1 cm [facility] Body weight 2021-04-20 18:19:00 74.844 kg [facility] BMI 2021-04-20 18:19:00 27.46 kg/m2 [facility] Systolic blood pressure 2024-03-06 22:00:00 112 mm[Hg] [facility] Diastolic blood pressure 2024-03-06 22:00:00 74 mm[Hg] [facility] Heart rate 2024-03-06 22:00:00 52 /min [facility] Respiratory rate 2024-03-06 22:00:00 12 /min [facility] Oxygen saturation in Arterial blood by Pulse oximetry 2024-03-06 22:00:00 98 /min [facility] Body temperature 2024-03-06 20:42:00 36.5 Serena [facility] Body height 2024-03-05 13:00:00 165.1 cm [facility] Body weight 2024-03-05 13:00:00 76.658 kg [facility] BMI 2024-03-05 13:00:00 28.12 kg/m2 [facility] Procedures Procedure Date / Time Performed Performing Clinician Source PHOSPHORUS 2024-07-10 12:03:00 Deanna Rosales [facility] MAGNESIUM 2024-07-10 12:03:00 Bobby [facility] BASIC METABOLIC PANEL (NA, K, CL, CO2, GLUCOSE, BUN, CREATININE, CA) 2024-07-10 12:03:00 Bobby [facility] CBC WITH DIFF 2024-07-10 12:02:00 [facility] URINE DRUG (IMMUNOASSAY) - COMPREHENSIVE DRUG SCREEN 2024-07-10 03:28:00 Jorge Andrea [facility] FENTANYL (IMMUNOASSAY) 2024-07-10 03:28:00 Jayme Andrea [facility] CT TRAUMA THORAX W CONTRAST 2024-07-10 00:30[facility] TH[facility]ACIC SPINE WO CONTRAST 2024-07-10 00:30:00 Singer Shad [facility] CT TRAUMA ABDOMEN PELVIS W CONTRAST 2024-07-10 00:30:00 Singer [facility] CT TRAUMA LUMBAR SPINE WO CONTRAST 2024-07-10 00:30:00 Singer [facility] CT TRAUMA HEAD WO CONTRAST 2024-07-10 00:28:00 Singer [facility] CT TRAUMA CERVICAL SPINE WO CONTRAST 2024-07-10 00:28:00 Singer [facility] LIPASE 2024-07-10 00:27:00 Shad Bland [facility] COMP. METABOLIC PANEL (74515) 2024-07-10 00:27:00 Singer [facility] ETHANOL 2024-07-10 00:27:00 Singer Shad [facility] CBC WITHOUT DIFF 2024-07-10 00:27:00 Shad Bland [facility] PROTHROMBIN TIME / INR 2024-07-10 00:27:00 [facility] THRMPLAS KENNEDI 2024-07-10 00:27:00 Singer [facility] HB ABO GROUPING 2024-07-10 00:27:00 [facility] NERVE [facility] 2024-03-06 21:40:42 Monika Joseph [facility] NERVE BLOCK 2024-03-06 21:40:42 Monika Joseph [facility] FL TIME OR (NON-REPORTABLE) 2024-03-06 20:15:00 Fransico Mayes [facility] FL TIME OR (NON-REPORTABLE) 2024-03-06 20:15:00 Fransico Mayes [facility] FL TIME OR (NON-REPORTABLE) 2024-03-06 20:15:00 Fransico Mayes [facility] INTUBATION 2024-03-06 18:57:00 Thomas [facility] 2024-03-06 18:57:00 Thomas Boss [facility] [id number] - [place] OPEN [place] DISTAL TIBIOFIBULAR JOINT DISRUPTION 2024-03-06 18:28:00 Mast, Thomas [facility] PHOSPHORUS 2024-03-06 10:25:00 Mayes, Fransico A [facility] 2024-03-06 10:25:00 Mayes, Fransico A [facility] BASIC METABOLIC PANEL (NA, K, CL, CO2, GLUCOSE, BUN, CREATININE, CA) 2024-03-06 10:25:00 Mayes, Fransico A [facility] CBC WITH DIFF 2024-03-06 10:25:00 Mayes, Fransico A [facility] PHOSPHORUS 2024-03-06 10:25:00 Mayes, Fransico A [facility] MAGN[facility]UM 2024-03-06 10:25:00 Mayes, Fransico A [facility] BASIC METABOLIC PANEL (NA, K, CL, CO2, GLUCOSE, BUN, CREATININE, CA) 2024-03-06 10:25:00 Mayes, Fransico A [facility] CBC WITH DIFF 2024-03-06 10:25:00 MayesFransico A Univ [facility] PHOSPHORUS 2024-03-06 10:25:00 Mayes, Fransico A [facility] MAGNES[facility]UM 2024-03-06 10:25:00 Mayes, Fransico A [facility] BASIC METABOLIC PANEL (NA, K, CL, CO2, GLUCOSE, BUN, CREATININE, CA) 2024-03-06 10:25:00 Mayes, Fransico A [facility] CBC WITH DIFF 2024-03-06 10:25:00 Mayes, Fransico A [facility] ANKLE 3+ VW LEFT 2024-03-05 22:57:00 Mayes, Fransico A [facility] CBC WITH DIFF 2024-03-05 10:48:00 Chandu Johnson [facility] BASIC METABOLIC PANEL (NA, K, CL, CO2, GLUCOSE, BUN, CREATININE, CA) 2024-03-05 10:48:00 Chandu Johnson [facility] BASIC METABOLIC PANEL (NA, K, CL, CO2, GLUCOSE, BUN, CREATININE, CA) 2024-03-05 10:48:00 Chandu Johnson [facility] CBC WITH DIFF 2024-03-05 10:48:00 Chandu [facility] BASIC METABOLIC PANEL (NA, K, CL, CO2, GLUCOSE, BUN, CREATININE, CA) 2024-03-05 10:48:00 [facility] 2024-03-05 10:48:00 Chandu Johnson [facility] XR FOOT <3 VW RIGHT 2024-03-04 [facility]:16[facility] 2024-03-04 19:16[facility]3 [facility]W RIGHT 2024-03-04 19:16:00 [facility]FF 2024-03-04 17:11:00 Chandu Johnson [facility] PROTHROMBIN TIME / INR 2024-03-04 17:11[facility] 2024-03-04 17:11:00 Chandu Johnson [facility] COMP. METABOLIC PANEL ([id number]) 2024-03-04 17:11:00 Chandu Johnson [facility] MAGNESIUM 2024-03-04 [facility]24-03-04 17:11:00 Jd Johnson [facility] MAGNESIUM 2024-03-04 17:11:00 Chandu [facility] TEST, SERUM 2024-03-04 17:11:00 Jd Johnson [facility] COMP. METABOLIC PANEL ([id number]) 2024-03-04 17:11[facility]FF 2024-03-04 17:11:00 Chandu Johnson [facility] PROTHROMBIN TIME / INR 2024-03-04 17:11:00 Fredo Johnson [facility] HB ABO GROUPING 2024-03-04 17:11:00 Chandu Johnson [facility] MAGNESIUM 2024-03-04 17:11:00 [facility] 2024-03-04 17:11:00 Jd Johnson [facility] COMP. METABOLIC PANEL ([id number]) 2024-03-04 17:11:00 Chandu Johnson [facility] CBC WITH DIFF 2024-03-04 17:11:00 [facility] / INR 2024-03-04 17:11:00 Fredo Johnson [facility] HB ABO GROUPING 2024-03-04 17:11:00 Chandu Johnson [facility] DME/SUPPLY JUSTIFICATION 2024-02-21 19:09:35 Doc tor Unassigned, Dibble [facility] ED SPLINT APPLICATION 2024-02-19 05:06:38 Arnold Brar [facility] ED SPLINT APPLICATION 2024-02-19 05:06:38 Arnold Brar [facility] XR FEMUR 2 VW RIGHT 2024-02-19 04:18:59 Corinna Brar [facility] XR TIBIA FIBULA 2 VW RIGHT 2024-02-19 04:18:59 Corinna Brar [facility] XR KNEE <3 VW RIGHT 2024-02-19 04:18:59 Corinna Brar [facility] XR ANKLE <3 VW RIGHT 2024-02-19 04:18:59 Ronel Brar [facility] POCT TEST 2024-02-19 04:07:00 Corinna Brar [facility] POCT TEST 2024-02-19 04:07:00 Corinna Brar [facility] POCT TEST 2021-12-11 15:14:00 Anais Don ra [facility] COVID-19 (ID NOW RAPID TESTING) 2021-12-11 15:10:00 Sandra Don [facility] CONSENT/REFUSAL FOR DIAGNOSIS AND TREATMENT 2021-12-11 14:15:51 Doctor Unassigned, Dibble [facility] NOTICE OF PRIVACY PRACTICES 2021-12-11 14:15:33 Doctor Unassigned, Dibble [facility] RAPID INFLUENZA A/B 2021-06-10 18:20:00 Varun Raya [facility] COVID-19 (ID NOW RAPID TESTING) 2021-06-10 18:20:00 Varun Raya [facility] CONSENT/REFUSAL FOR DIAGNOSIS AND TREATMENT 2021-06-10 18:08:49 Doctor Unassigned, Dibble [facility] FLU VACC (), 2-64 YRS, .5ML, IM, QUAD (FLUCELVAX) 2021-04-20 18:34:00 Carmen Hernandez [facility] HIV 1/2 AG-AB WITH REFLEX 2019-10-13 20:27:00 Madeline Ferguson [facility] LAB ONLY PAP SMEAR-LIQUID BASED 2019-04-30 16:26:00 Betina Muse [facility] Encounters Start Date/Time End Date/Time Encounter Type Admission Type Attending Clinicians Care Facility Care Department Encounter ID Source 2021-04-20 19:44:27 Outpatient P [facility] ROSIE [id number] [facility] 2021-04-20 19:23:42 Outpatient P [facility] ROSIE [id number] [facility] 2024-07-09 21:09:00 2024-07-11 10:28:00 Outpatient T BRIAN OLIVAS [facility] STR [id number] [facility] 2024-07-09 21:09:00 2024-07-11 10:28:00 Emergency Brian Olivas [facility] ([facility]) 1.2.840.114 350.1.13.10 4.2.7.2.686 [id number] [facility] 2024-07-09 17:48:00 2024-07-09 19:58:00 Emergency SHAD JOHNS PHILLIP AZJEWEL ERT [id number] [facility] 2024-07-09 17:48:00 2024-07-09 19:58:00 Emergency [place], Timothy Bland Shad [facility] 1.840.114 350.1.13.10 4.2.7.2.686 [id number] [facility] 2024-05-11 13:00:00 2024-05-11 13:00:00 Outpatient R THOMAS MAST JAMES [facility] [id number] [facility] 2024-03-30 13:19:50 2024-03-30 23:59:00 Hospital Encounter Thomas Mast [facility] 1.0.114 350.1.13.10 4.2.7.2.686 [id number] [facility] 2024-03-30 13:00:00 2024-03-30 13:44:36 Outpatient R THOMAS MAST JAMES [facility] [id number] [facility] 2024-03-30 13:00:00 2024-03-30 13:44:36 Office Visit Thomas Mast [facility] 1.840.114 350.1.13.10 4.2.7.2.686 [id number] [facility] 2024-03-25 15:15:00 2024-03-25 15:15:00 Outpatient R THOMAS MAST JAMES [facility] [id number] [facility] 2024-03-04 11:00:00 2024-03-07 18:28:00 Inpatient X THOMAS MAST JAMES [facility] SOR [id number] [facility] 2024-03-04 11:00:00 2024-03-07 18:28:00 Hospital Encounter Chandu Johnson, Thomas Rose [facility] 1.2840.114 350.1.13.10 4.2.7.2.686 [id number] [facility] 2024-03-06 12:45:00 2024-03-06 15:58:00 Surgery Thomas Mast [facility] 1.2.840.114 350.1.13.10 4.2.7.2.686 [id number] [facility] 2024-03-06 13:44:00 2024-03-06 15:49:00 Anesthesia Event Turner PereiraThomas 1.2.840.1 [id number] 3.104.2.7 .3.903564 .8 [id number] [facility] 2024-03-06 11:08:51 2024-03-06 11:08:51 Anesthesia Event Barrett Ortega [facility] 1.2.840.114 350.1.13.10 4.2.7.2.686 [id number] [facility] 2024-03-04 00:00:00 2024-03-04 00:00:00 Travel 1.2.840.1 [id number] 3.104.2.7 .3.953107 .8 1.2.840.114 350.1.13.10 4.2.7.3.698 [id number] [facility] 2024-03-03 09:00:00 2024-03-03 09:00:00 Office [address] Mamta Tucker [facility] 1.2.840.114 350.1.13.10 4.2.7.2.686 [id number] [facility] 2024-03-03 09:00:00 2024-03-03 08:53:12 Outpatient R MAMTA TUCKER CRAIG [facility] [id number] [facility] 2024-03-03 00:00:00 2024-03-03 00:00:00 Travel 1.2.840.1 [id number] 3.104.2.7 .3.738463 .8 1.2.840.114 350.1.13.10 4.2.7.3.698 [id number] [facility] 2024-02-26 13:31:16 2024-02-26 13:31:16 Outpatient [facility] [id number] Ruben Whyte 2024-02-18 22:13:00 2024-02-19 01:45:00 Emergency X CORINNA BRARCHERYLCORINNA [facility] ERT [id number] [facility] 2024-02-18 22:13:00 2024-02-19 01:45:00 Emergency Corinna Brar G 1.2.840.1 04481.1.1 3.104.2.7 .3.304573 .8 [id number] [facility] 2024-02-18 00:00:00 2024-02-18 00:00:00 Travel 1.2.840.1 [id number] 3.104.2.7 .3.475161 .8 1.2.840.114 350.1.13.10 4.2.7.3.698 [id number] [facility] 2023-06-06 09:00:00 2023-06-06 09:00:00 Outpatient MADELINE MOHAN [facility] [id number] [facility] 2023-04-24 00:00:00 2023-04-24 00:00:00 Outpatient GC_GCBZW_Ka diyala_S PRIV [facility] [id number] [facility] 2023-04-17 09:00:00 2023-04-17 09:00:00 Outpatient MADELINE MOHAN [facility] [id number] [facility] 2023-02-05 14:30:00 2023-02-05 14:30:00 Outpatient MADELINE MOHAN [facility] [id number] [facility] 2022-11-04 14:32:00 2022-11-04 19:28:00 Emergency E AARTI [facility] [id number] 2021-12-11 09:23:00 2021-12-11 10:47:00 Emergency X SANDRA DON [facility] ERT [id number] [facility] 2021-12-11 09:23:00 2021-12-11 10:47:00 Emergency Sandra Don [facility] 1.84.114 350.1.13.10 4.2.7.2.686 [id number] [facility] 2021-12-11 00:00:00 2021-12-11 00:00:00 Orders Only Doctor Unassigned, Dibble [facility] 1..114 350.1.13.10 4.2.7.2.686 [id number] [facility] 2021-06-12 13:30:00 2021-06-12 13:30:00 Outpatient MADELINE MOHAN [facility] [id number] [facility] 2021-06-10 12:21:00 2021-06-10 14:16:00 Emergency X CAMELIA DE LA GARZA [facility] ERT [id number] [facility] 2021-06-10 12:21:00 2021-06-10 14:16:00 Emergency Camelia De La Garza F [facility] 1.84.114 350.1.13.10 4.2.7.2.686 [id number] [facility] 2021-06-10 00:00:00 2021-06-10 00:00:00 Orders Only Doctor Unassigned, Dibble [facility] 1..114 350.1.13.10 4.2.7.2.686 [id number] [facility] 2021-05-30 00:00:00 2021-05-30 00:00:00 Outpatient Siria FERGUSON MADELINE [facility] [id number] [facility] 2021-04-25 00:00:00 2021-04-25 00:00:00 Telephone Madeline Ferguson [facility] 1.2.840.114 350.1.13.10 4.2.7.2.686 [id number] [facility] 2021-04-20 12:45:15 2021-04-20 13:53:15 Office Visit Boolindsay Carmen [facility] [facility] 1.2.840.114 350.1.13.10 4.2.7.2.686 [id number] 134 [id number] [facility] 2021-04-20 13:00:00 2021-04-20 13:00:00 Outpatient R [facility] [id number] [facility] 2021-04-20 13:00:00 2021-04-20 13:00:00 [facility] [id number] [facility] 2021-04-18 00:00:00 2021-04-18 00:00:00 Telephone Madeline Ferguson [facility] 1..840.114 350.1.13.10 4.2.7.2.686 [id number] [facility] 2021-04-17 13:30:00 2021-04-17 13:30:00 Outpatient R MADELINE FERGUSON [facility] [id number] [facility] 2021-04-14 00:00:00 2021-04-14 00:00:00 Telephone Madeline Ferguson [facility] 1..840.114 350.1.13.10 4.2.7.2.686 [id number] 134 [id number] [facility] 2021-04-13 00:00:00 2021-04-13 00:00:00 Telephone Nancy Fergusonen [facility] 1..840.114 350.1.13.10 4.2.7.2.686 [id number] 134 [id number] [facility] 2021-04-13 00:00:00 2021-04-13 00:00:00 Case Management Madeline Ferguson [facility] Building 1.2.840.114 350.1.13.10 4.2.7.2.686 [id number] 134 [id number] [facility] 2021-04-13 00:00:00 2021-04-13 00:00:00 Case Management Madeline Ferguson [facility] 1.2.840.114 350.1.13.10 4.2.7.2.686 [id number] 134 [id number] [facility] 2021-04-12 11:46:56 2021-04-12 12:01:56 Vice President Of Software Engineering Visit 1, Adc Lab Madeline Ferguson [facility] 1.2.840.114 350.1.13.10 4.2.7.2.686 [id number] [facility] 2021-04-12 11:46:56 2021-04-12 12:01:56 Vice President Of Software Engineering Visit 1, Adc Lab Madeline Ferguson [facility] 1.2.840.114 350.1.13.10 4.2.7.2.686 [id number] [facility] 2021-04-12 10:01:58 2021-04-12 11:19:22 Office Visit Madeline Ferguson [facility] 1.2.840.114 350.1.13.10 4.2.7.2.686 [id number] 134 [id number] [facility] 2021-04-12 09:30:00 2021-04-12 09:30:00 Outpatient R MADELINE FERGUSON [facility] [id number] [facility] 2021-04-11 21:14:00 2021-04-12 02:28:00 Emergency X ROSEMARY MARTINS [facility] ERT [id number] [facility] 2021-04-11 21:14:00 2021-04-12 02:28:00 Emergency Rosemary Martins [facility] 1.2.840.114 350.1.13.10 4.2.7.2.686 [id number] [facility] 2021-04-12 00:00:00 2021-04-12 00:00:00 Letter (Out) Madeline Ferguson [facility] 1.2.840.114 350.1.13.10 4.2.7.2.686 [id number] 134 [id number] [facility] 2020-09-13 00:00:00 2020-09-13 00:00:00 Patient Outreach Ashwin Azar [facility] 1.2.840.114 350.1.13.10 4.2.7.2.686 [id number] 2020-09-13 00:00:00 2020-09-13 00:00:00 Patient Outreach Ashwin Azar [facility] 1.2.840.114 350.1.13.10 4.2.7.2.686 [id number] [facility] 2020-08-08 08:00:00 2020-08-08 08:00:00 Outpatient R CARMEN HERNANDEZ [facility] [id number] [facility] 2020-03-07 09:35:10 2020-03-07 10:05:10 Office [facility] 1.2.840.114 350.1.13.10 4.2.7.2.686 [id number] 134 [id number] 2020-03-07 09:35:10 2020-03-07 10:05:10 [facility] 1.2.840.114 350.1.13.10 4.2.7.2.686 [id number] [facility] 2020-03-07 10:00:00 2020-03-07 10:00:00 Outpatient R CARMEN HERNANDEZ [facility] [id number] [facility] 2020-02-17 00:00:00 2020-02-17 00:00:00 Telephone Madeline Ferguson [facility] 1.2.840.114 350.1.13.10 4.2.7.2.686 [id number] 134 [id number] [facility] 2020-02-05 08:47:39 2020-02-05 09:45:39 Office Visit Madeline Ferguson [facility] 1.2.840.114 350.1.13.10 4.2.7.2.686 [id number] [facility] 2020-02-05 08:30:00 2020-02-05 08:30:00 Outpatient R MADELINE FERGUSON [facility] [id number] [facility] 2020-02-05 00:00:00 2020-02-05 00:00:00 Orders Only Doctor Unassigned, [facility] 1.84.114 350.1.13.10 4.2.7.2.686 [id number] [facility] 2020-01-04 15:51:14 2020-01-04 16:39:58 Routine Visit Madeline Ferguson [facility] 1.2.84.114 350.1.13.10 4.2.7.2.686 [id number] [facility] 2020-01-04 16:00:00 2020-01-04 16:00:00 Outpatient R MADELINE FERGUSON [facility] [id number] [facility] 2019-12-21 16:00:00 2019-12-21 16:00:00 Outpatient Siria PHYLLIS MADELINE [facility] [id number] [facility] 2019-12-16 14:15:00 2019-12-16 14:15:00 Outpatient MERRY ROUSE [facility] [id number] [facility] 2019-12-04 13:45:00 2019-12-04 13:45:00 Outpatient R ROGELIO CASON [facility] [id number] [facility] 2019-11-13 00:00:00 2019-11-13 00:00:00 Encounter 1.2.840.1 [id number] [id number] 1.2.840.114 350.1.13.10 4.2.7.2.696 [id number] [facility] 2019-11-11 13:16:19 2019-11-11 14:45:19 Nurse Visit Visit/Fp, [facility] 1.2.840.114 350.1.13.10 4.2.7.2.686 [id number] [facility] 2019-11-11 13:30:00 2019-11-11 13:30:00 Outpatient MERRY ROUSE [facility] [id number] [facility] 2019-10-31 10:18:00 2019-11-05 14:43:00 Hospital Encounter Aarti Mae Vien [facility] 1.2.840.114 350.1.13.10 4.2.7.2.686 [id number] [facility] 2019-11-02 10:00:00 2019-11-02 10:00:00 Outpatient R [facility] [id number] [facility] 2019-10-29 11:00:00 2019-10-29 11:00:00 Outpatient R [facility] [id number] [facility] 2019-10-27 09:30:00 2019-10-27 09:30:00 Outpatient R CARMEN HERNANDEZ [facility] [id number] [facility] 2019-10-27 08:02:45 2019-10-27 09:05:46 Routine Visit Room, [facility] 1.2840.114 350.1.13.10 4.2.7.2.686 [id number] [facility] 2019-10-27 08:00:00 2019-10-27 08:00:00 Outpatient R [facility] [id number] [facility] 2019-10-26 14:00:00 2019-10-26 14:00:00 Outpatient R [facility] [id number] [facility] 2019-10-26 12:39:06 2019-10-26 12:54:20 Nurse Visit Nurse, [facility] Madeline Ferguson [facility] 1.2840.114 350.1.13.10 4.2.7.2.686 [id number] [facility] 2019-10-26 00:00:00 2019-10-26 00:00:00 Telephone [facility] 1.2.840.114 350.1.13.10 4.2.7.2.686 [id number] 134 [id number] [facility] 2019-10-21 13:11:00 2019-10-25 17:55:00 Hospital Encounter Madeline Ferguson [facility] 1.2.840.114 350.1.13.10 4.2.7.2.686 [id number] [facility] 2019-10-21 12:03:09 2019-10-21 12:18:09 Nurse Visit Nurse, [facility] Madeline Ferguson [facility] 1.2.840.114 350.1.13.10 4.2.7.2.686 [id number] [facility] 2019-10-21 10:30:00 2019-10-21 10:30:00 Outpatient R [facility] [id number] [facility] 2019-10-21 09:45:00 2019-10-21 09:45:00 Outpatient R MADELINE FERGUSON [facility] [id number] [facility] 2019-10-21 00:00:00 2019-10-21 00:00:00 Telephone Madeline Ferguson [facility] 1.2.840.114 350.1.13.10 4.2.7.2.686 [id number] [facility] 2019-10-13 09:04:51 2019-10-13 16:17:56 Routine Visit Madeline Ferguson [facility] 1.2.840.114 350.1.13.10 4.2.7.2.686 [id number] [facility] 2019-10-13 16:00:00 2019-10-13 16:00:00 Outpatient R MADELINE FERGUSON [facility] [id number] [facility] 2019-10-13 14:29:49 2019-10-13 14:44:49 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, [facility] Madeline Ferguson [facility] 1.2.840.114 350.1.13.10 4.2.7.2.686 [id number] [facility] 2019-10-13 00:00:00 2019-10-13 00:00:00 Telephone Madeline Ferguson [facility] 1.2.840.114 350.1.13.10 4.2.7.2.686 [id number] 134 [id number] [facility] 2019-10-13 00:00:00 2019-10-13 00:00:00 Orders Only Doctor Unassigned, [facility] 1.84.114 350.1.13.10 4.2.7.2.686 [id number] [facility] 2019-10-12 16:38:34 2019-10-12 16:50:41 Telemedici ne Visit [facility] 1.84.114 350.1.13.10 4.2.7.2.686 [id number] [facility] 2019-10-12 16:30:00 2019-10-12 16:30:00 Outpatient R [facility] [id number] [facility] 2019-10-07 10:45:00 2019-10-07 10:45:00 Outpatient R MADELINE FERGUSON [facility] [id number] [facility] 2019-10-01 16:30:00 2019-10-01 16:30:00 [facility] [id number] [facility] 2019-10-01 15:00:38 2019-10-01 15:15:38 Telemedici ne Visit David [facility] 1.84.114 350.1.13.10 4.2.7.2.686 [id number] [facility] 2019-09-17 10:00:00 2019-09-17 10:00:00 [facility] [id number] [facility] 2019-09-17 10:00:00 2019-09-17 10:00:00 Outpatient R [facility] [id number] [facility] 2019-09-17 08:14:45 2019-09-17 08:29:45 Telemedici ne Visit David [facility] Building 1..840.114 350.1.13.10 4.2.7.2.686 [id number] [facility] 2019-08-20 16:27:56 2019-08-20 17:01:13 Routine Visit Madeline Ferguson [facility] 1.2.840.114 350.1.13.10 4.2.7.2.686 [id number] [facility] 2019-08-20 16:15:00 2019-08-20 16:15:00 [facility] [id number] [facility] 2019-08-20 13:00:00 2019-08-20 13:00:00 Outpatient R PHYLLIS [facility] [id number] [facility] 2019-08-20 13:00:00 2019-08-20 13:00:00 Outpatient R PHYLLIS [facility] [id number] [facility] 2019-08-07 13:45:18 2019-08-07 14:45:18 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, [facility] Madeline Ferguson [facility] 1.840.114 350.1.13.10 4.2.7.2.686 [id number] [facility] 2019-08-07 00:00:00 2019-08-07 00:00:00 Orders Only Doctor Unassigned, [facility] 1.840.114 350.1.13.10 4.2.7.2.686 [id number] [facility] 2019-08-07 00:00:00 2019-08-07 00:00:00 Letter (Out) Madeline Ferguson [facility] 1.2.840.114 350.1.13.10 4.2.7.2.686 [id number] [facility] 2019-07-30 00:00:00 2019-07-30 00:00:00 Orders Only Doctor Unassigned, [facility] 1.2.840.114 350.1.13.10 4.2.7.2.686 [id number] [facility] 2019-07-07 16:07:57 2019-07-07 20:29:00 Emergency Corinna Brar [facility] 1.2.840.114 350.1.13.10 4.2.7.2.686 [id number] [facility] 2019-07-07 00:00:00 2019-07-07 00:00:00 Orders Only Doctor Unassigned, [facility] 1.2.840.114 350.1.13.10 4.2.7.2.686 [id number] [facility] Results Test Description Test Time Test Comments Results Result Co mments Source [facility] (NA, K, CL, CO2, GLUCOSE, BUN, CREATININE, CA)2024-07-10 12:30:28* Test Item Value Reference Range Interpretation Comme nts NA (test code = 9162204749) 140 mmol/L 135-145 K (test code = 0465909172) 3.4 mmol/L 3.5-5.0 L Slight hemolysis CL (test code = 3472266787) 114 mmol/L 98-108 H CO2 TOTAL (test code = 3441507401) 20 mmol/L 23-31 L AGAP (test code = 4660094383) 6 2-16 BUN (test code = 8458130112) 11 mg/dL 7-23 Slight hemolysis GLUCOSE (test code = 1233443057) 93 mg/dL 70-110 CREATININE (test code = 2160-0) 0.42 mg/dL 0.50-1.04 L CALCIUM (test code = 8347183841) 7.9 mg/dL 8.6-10.6 L eGFR (test code = 97334-5) 136.0 mL/min/1.73m2 CKD-EPI eGFR (2020). Assuming creatinine has been stable day-to-day for at least three months, the eGFR indicates Category G1 (>= 90 mL/min/1.73 m2) Lab Interpretation (test code = 43378-4) Abnormal [facility] [id number] 12:30:28* Test Item Value Reference Range Interpretation Comme nts MAGNESIUM (test code = 3755641591) 1.7 mg/dL 1.7-2.4 Lab Interpretation (test cod e = 29911-0) Normal [facility] [id number] 12:30:28* Test Item Value Reference Range Interpretation Comme nts PHOSPHORUS (test code = 6723565768) 3.4 mg/dL 2.5-5.0 Lab Interpretation (test cod e = 04369-8) Normal [facility] [id number] 01:16:47 EXAM: CT TRAUMA HEAD WO CONTRAST, CT TRAUMA LUMBAR SPINE WO CONTRAST, CTTRAUMA THORACIC SPINE WO CONTRAST, CT TRAUMA CERVICAL SPINE WO CONTRAST HISTORY: 28 years-old Female; Head trauma, moderate-severe ?laceration tothe back of the head. COMPARISON: None TECHNIQUE: ?CT imaging of the thoracic and lumbar spine was obtainedwithout IV contrast. Coronal and sagittal reformats were constructed. FINDINGS: HEAD: Left occipital scalp soft tissue swelling/hematoma is visualized. Anunderlying nondisplaced fracture of the left occipital bone is notedextending from the lambdoid suture through the occipital bone up to thelevel of the foramen magnum (annotated on bone window) Small foci of apparent pneumocephalus are within the venous system andlikely related to a recent injection, unrelated to the trauma itself. The ventricles and cerebral sulci are normal in caliber and configuration.No hydrocephalus, midline shift or pathological extra-axial fluidcollection is present. The basal cisterns are unr emarkable. No acute intracranial hemorrhage or significant mass effect is visualized.No parenchymalattenuation abnormality is seen. The harmon-white matterdifferentiation is preserved. The mastoid aircells and paranasal air sinuses are clear. The centralskull base are unremarkable. CERVICAL SPINE: Mild reversal of cervical lordosis. The vertebral bodies are normal inheight and in normal alignment. No facet fracture or subluxation ispresent. ?The craniocervical junction is intact. ?The prevertebral softtissues are unremarkable. The visualized cervical soft tissues are unremarkable. Visualized lungapices are unremarkable. THORACIC SPINE: The vertebral bodies are in normal height and alignment. ?No facet fractureor dislocation is present. Partially visualized bilateral apical consolidations with cavitations,better evaluated on the dedicated chest CT scan. LUMBAR SPINE: The lumbar curvatureis normal. ?The vertebral bodies are normal in heightand in normal alignment. No facet fracture or subluxation is present. The visualized sacrum and pelvic bones are unremarkable.[facility] wo [id number] 01:16:47EXAM: CT TRAUMA HEAD WO CONTRAST, CT TRAUMA LUMBAR SPINE WO CONTRAST, CTTRAUMA THORACIC SPINE WO CONTRAST, CT TRAUMA CERVICAL SPINE WO CONTRAST HISTORY: 28 years-old Female; Head trauma, moderate-severe ?laceration tothe back of the head. COMPARISON: None TECHNIQUE: ?CT imaging of the thoracic and lumbar spine was obtainedwithout IV contrast. Coronal and sagittal reformats were constructed. FINDINGS: HEAD: Left occipital scalp soft tissue swelling/hematoma is visualized. Anunderlying nondisplaced fracture of the left occipital bone is notedextending from the lambdoid suture through the occipital bone up to thelevel of the foramen magnum (annotated on bone window) Small foci of apparent pneumocephalus are within the venous system andlikely related to a recent injection, unrelated to the trauma itself. The ventricles and cerebral sulci are normal in caliber and configuration.No hydrocephalus, midline shift or pathological extra-axial fluidcollection is present. The basal cisterns are unremarkable. No acute intracranial hemorrhage or significant mass effect is visualized.No parenchymalattenuation abnormality is seen. The harmon- white matterdifferentiation is preserved. The mastoid aircells and paranasal air sinuses are clear. The centralskull base are unremarkable. CERVICAL SPINE: Mild reversal of cervical lordosis. The vertebral bodies are normal inheight and in normal alignment. No facet fracture or subluxation ispresent. ?The craniocervical junction is intact. ?The prevertebral softtissues are unremarkable. The visualized cervical soft tissues are unremarkable. Visualized lungapices are unremarkable. THORACIC SPINE: The vertebral bodies are in normal height and alignment. ?No facet fractureor dislocation is present. Partially visualized bilateral apical consolidations with cavitations,better evaluated on the dedicated chest CT scan. LUMBAR SPINE: The lumbar curvatureis normal. ?The vertebral bodies are normal in heightand in normal alignment. No facet fracture or subluxation is present. The visualized sacrum and pelvic bones are unremarkable.[facility] wo [id number] 01:16:47EXAM: CT TRAUMA HEAD WO CONTRAST, CT TRAUMA LUMBAR SPINE WO CONTRAST, CTTRAUMA THORACIC SPINE WO CONTRAST, CT TRAUMA CERVICAL SPINE WO CONTRAST HISTORY: 28 years-old Female; Head trauma, moderate-severe ?laceration tothe back of the head. COMPARISON: None TECHNIQUE: ?CT imaging of the thoracic and lumbar spine was obtainedwithout IV contrast. Coronal and sagittal reformats were constructed. FINDINGS: HEAD: Left occipital scalp soft tissue swelling/hematoma is visualized. Anunderlying nondisplaced fracture of the left occipital bone is notedextending from the lambdoid suture through the occipital bone up to thelevel of the foramen magnum (annotated on bone window) Small foci of apparent pneumocephalus are within the venous system andlikely related to a recent injection, unrelated to the trauma itself. The ventricles and cerebral sulci are normal in caliber and configuration.No hydrocephalus, midline shift or pathological extra-axial fluidcollection is present. The basal cisterns are unremarkable. No acute intracranial hemorrhage or significant mass effect is visualized.No parenchymalattenuation abnormality is seen. The harmon- white matterdifferentiation is preserved. The mastoid aircells and paranasal air sinuses are clear. The centralskull base are unremarkable. CERVICAL SPINE: Mild reversal of cervical lordosis. The vertebral bodies are normal inheight and in normal alignment. No facet fracture or subluxation ispresent. ?The craniocervical junction is intact. ?The prevertebral softtissues are unremarkable. The visualized cervical soft tissues are unremarkable. Visualized lungapices are unremarkable. THORACIC SPINE: The vertebral bodies are in normal height and alignment. ?No facet fractureor dislocation is present. Partially visualized bilateral apical consolidations with cavitations,better evaluated on the dedicated chest CT scan. LUMBAR SPINE: The lumbar curvatureis normal. ?The vertebral bodies are normal in heightand in normal alignment. No facet fracture or subluxation is present. The visualized sacrum and pelvic bones are unremarkable.[facility] wo [id number] 01:16:47EXAM: CT TRAUMA HEAD WO CONTRAST, CT TRAUMA LUMBAR SPINE WO CONTRAST, CTTRAUMA THORACIC SPINE WO CONTRAST, CT TRAUMA CERVICAL SPINE WO CONTRAST HISTORY: 28 years-old Female; Head trauma, moderate-severe ?laceration tothe back of the head. COMPARISON: None TECHNIQUE: ?CT imaging of the thoracic and lumbar spine was obtainedwithout IV contrast. Coronal and sagittal reformats were constructed. FINDINGS: HEAD: Left occipital scalp soft tissue swelling/hematoma is visualized. Anunderlying nondisplaced fracture of the left occipital bone is notedextending from the lambdoid suture through the occipital bone up to thelevel of the foramen magnum (annotated on bone window) Small foci of apparent pneumocephalus are within the venous system andlikely related to a recent injection, unrelated to the trauma itself. The ventricles and cerebral sulci are normal in caliber and configuration.No hydrocephalus, midline shift or pathological extra-axial fluidcollection is present. The basal cisterns are unremarkable. No acute intracranial hemorrhage or significant mass effect is visualized.No parenchymalattenuation abnormality is seen. The harmon- white matterdifferentiation is preserved. The mastoid aircells and paranasal air sinuses are clear. The centralskull base are unremarkable. CERVICAL SPINE: Mild reversal of cervical lordosis. The vertebral bodies are normal inheight and in normal alignment. No facet fracture or subluxation ispresent. ?The craniocervical junction is intact. ?The prevertebral softtissues are unremarkable. The visualized cervical soft tissues are unremarkable. Visualized lungapices are unremarkable. THORACIC SPINE: The vertebral bodies are in normal height and alignment. ?No facet fractureor dislocation is present. Partially visualized bilateral apical consolidations with cavitations,better evaluated on the dedicated chest CT scan. LUMBAR SPINE: The lumbar curvatureis normal. ?The vertebral bodies are normal in heightand in normal alignment. No facet fracture or subluxation is present. The visualized sacrum and pelvic bones are unremarkable.[facility]dom[facility] Pelvis w [id number] 01:00:12EXAM: CT TRAUMA THORAX W CONTRAST, CT TRAUMA ABDOMEN PELVIS W CONTRAST07/09/2024 5:56 PM HISTORY: Trauma. TECHNIQUE: A CT scan of the thorax, abdomen and pelvis was performed afteradministration of intravenous contrast. Sagittal and coronal reformattedimages were provided. COMPARISON: CT abdomen pelvis dated 04/12/2021. FINDINGS: DEVICES: None. THORAX: Heart & Great Vessels: No pericardial effusion. The great vessels areintact. Mediastinum/Lower Neck: No hematoma. No emphysema.Small calcified mediastinal lymph nodes which could be due to priorgranulomatous disease. Airways, Lungs & Pleura: The visualized larynx, trachea and main bronchiare intact. Bilateral anterior upper lobe thick-walled cystic structuresare noted No pleural effusion or hemothorax. No pneumothorax. Bone & Soft Tissue: No acute osseous fracture. The thoracic spinefindings are described on the separately dictated CT T-spine reports.No traumatic soft tissue injury. Other: ABDOMEN & PELVIS: Peritoneum/Retr operitoneum: No hemoperitoneum. No free air. No free fluid.No retroperitoneal hematoma. Liver (AASTGrade): No traumatic injury to the liver. *Reference* Spleen (AAST Grade): No traumatic injury to the spleen. *Reference* Genitourinary (Kidneys AAST Grade): No traumatic injury to the kidneys.*Refere nce*Intact urinary bladder wall without sign of acute traumatic injury. Noedema in the pelvic cavity.Few left renal cysts are noted. Gallbladder, Pancreas & Adrenal Glands: No sign of traumatic injury. Bowel & Mesentery: No bowel wall defects or abnormal enhancement. No wallthickening or intramural hematoma. The mesentery exhibits normalattenuation. Vascular: No acute traumatic vascular in jury. Bone & Soft Tissue: No acute osseous fracture. Please refer to theseparately dictated CT lumbar spine report for characterization ofvertebral findings.No traumatic soft tissue injury. Other:[facility] Thorax w [id number] 01:00:12EXAM: CT TRAUMA THORAX W CONTRAST, CT TRAUMA ABDOMEN PELVIS W CONTRAST07/09/2024 5:56 PM HISTORY: Trauma. TECHNIQUE: A CT scan of the thorax, abdomen and pelvis was performed afteradministration of intravenous contrast. Sagittal and coronal reformattedimages were provided. COMPARISON: CT abdomen pelvis dated 04/12/2021. FINDINGS: DEVICES: None. THORAX: Heart & Great Vessels: No pericardial effu maddison. The great vessels areintact. Mediastinum/Lower Neck: No hematoma. No emphysema.Small calcified mediastinal lymph nodes which could be due to priorgranulomatous disease. Airways, Lungs & Pleura: The visualized larynx, trachea and main bronchiare intact. Bilateral anterior upper lobe thick-walled cystic structuresare noted No pleural effusion or hemothorax. No pneumothorax. Bone & Soft Tissue: No acute osseous fracture. The thoracic spinefindings are described on the separately dictated CT T-spine reports.No traumatic soft tissue injury. Other: ABDOMEN & PELVIS: Peritoneum/Retroperitoneum: No hemoperitoneum. No free air. No free fluid.No retroperitoneal hematoma. Liver (AASTGrade): No traumatic injury to the liver. *Reference* Spleen (AAST Grade): No traumatic injury to the spleen. *Reference* Genitourinary (Kidneys AAST Grade): No traumatic injury to the kidneys.*Reference*Intact urinary bladder wall without sign of acute traumatic injury. Noedema in the pelvic cavity.Few left renal cysts are noted. Gallbladder, Pancreas & Adrenal Glands: No sign of traumatic in jury. Bowel & Mesentery: No bowel wall defects or abnormal enhancement. No wallthickening or intramural hematoma. The mesentery exhibits normalattenuation. Vascular: No acute traumatic vascular injury. Bone & Soft Tissue: No acute osseous fracture. Please refer to theseparately dictated CT lumbar spine report for characterization ofvertebral findings.No traumatic soft tissue injury. Other:[facility] HospitalEthanol - For all patients >16 years old 2024-07-10 00:54:52ALCOHOL<10mg/dL07/09/2024 6:54 PM [facility]<10 [id number] Toxic>100 Depression of [employer]>400 Fatalities ReportedUnMedical Center HospitalCMP2025-01-17 00:54:37* Test Item Value Reference Range Interpretation Comme nts NA (test code = 4972239986) 134 mmol/L 135-145 L K (test code = 4365037547) 2.8 mmol/L 3.5-5.0 LL CL (test code = 2292083637) 108 mmol/L 98-108 CO2 TOTAL (test code = 8182165879) 21 mmol/L 23-31 L AGAP (test code = 9799551220) 5 2-16 BUN (test code = 4182617336) 16 mg/dL 7-23 GLUCOSE (test code = 9390186937) 135 mg/dL 70-110 H CREATININE (test code = 2160-0) 0.65 mg/dL 0.50-1.04 TOTAL BILI (test code = 6601315236) 0.5 mg/dL 0.1-1.1 CALCIUM (test code = 4552063789) 9.1 mg/dL 8.6-10.6 T PROTEIN (test code = 7907469766) 6.5 g/dL 6.3-8.2 ALBUMIN (test code = 8455001635) 3.9 g/dL 3.5-5.0 ALK PHOS (test code = 0315886603) 64 U/L 34-122 ALTv (test code = 1742-6) 17 U/L 5-35 AST(SGOT) (test code = 3377926816) 23 U/L 13-40 eGFR (test code = 22492-8) 122.4 mL/min/1.73m2 CKD-EPI eGFR (2020). Assuming creatinine has been stable day-to-day for at least three months, the eGFR indicates Category G1 (>= 90 mL/min/1.73 m2) Lab Interpretation (test code = 59891-1) Abnormal [facility] HospitalLipase2025-01-17 00:49:29* Test Item Value Reference Range Interpretation Comme [facility] LIPASE (test code = 7398882340) 27 U/L 0-220 Lab Interpretation (test cod e = 00062-3) Normal [facility] HospitalProthrombin Time / [id number] 00:47:48* Test Item Value Reference Range Interpretation Comme [facility] PROTIME PATIENT (test code = 5964-2) 11.6 10.1-12.6 INR (test code = 6301-6) 1.0 Normal INR <1.1; Warfarin Therapeutic range 2.0 to 3.0 or 2.5 to 3.5, depending upon the indications. Lab Interpretation (test code = 27392-2) Normal [facility] HospitalaPTT2025-01-17 00:47:48* Test Item Value Reference Range Interpretation Comme [facility] APTT Patient (test code = 3173-2) 29 26-36 YOSEPH (test code = YOSEHP) The [facility] patient population mean normal value for aPTT is 30 seconds. Lab Interpretation (test code = 47329-4) Normal [facility] HospitalCBC Without [id number] 00:37:27* Test Item Value Reference Range Interpretation Comme nts WBC (test code = 6690-2) 19.84 4.30-11.10 H RBC (test code = 789-8) 3.72 3.93-5.25 L HGB (test code = 718-7) 11.8 g/dL 11.6-15.0 HCT (test code = 4544-3) 35.7 % 35.7-45.2 MCH (test code = 785-6) 31.7 pg 25.9-32.8 MCV (test code = 787-2) 96.0 fL 80.6-95.5 H MCHC (test code = 786-4) 33.1 g/dL 31.6-35.1 PLT (test code = 777-3) 265 166-358 MPV (test code = 95106-4) 11.0 fL 9.5-12.9 RDW-CV (test code = 788-0) 13.3 % 12.0-15.5 RDW-SD (test code = 75842-8) 47.2 fL 39.0-49.9 NRBC x10^3 (test code = 6643854210) See_Comment [Automated Linqueta ge] The system which generated this result transmitted reference range: 10*3/?L. The reference range was not used to interpret this result as normal/abnormal. NRBC/100 WBC (test code = 2432924875) 0.0 0.0-10.0 IPF % (test code = 5551196406) Lab Interpretation (test code = 59115-0) Abnormal [facility] HospitalType and Screen - The Type and Screen expires at midnight on the 3rd day after it was drawn. A current Type and Screen is required when RBCs are requested. For all other blood products, a Type and Scr een performed during the current hospitalizati...2024-07-10 00:34:00* Test Item Value Reference Range Interpretation Comme nts ABO & RH (test code = 20) A NEGATIVE IAT (test code = 1185) Negative [facility] HospitalXR ANKLE 3+ VW [id number] 15:18:11EXAM: XR ANKLE 3+ VW LEFT HISTORY: comparison views 3v left ankle for comparison please. COMPARISON: None. FINDINGS: No acute fracture or dislocation is seen. Joint spaces are preserved. Theankle mortise is congruent. The soft tissues are unremarkable.[facility] HospitalNerve [id number] 21:40:42 Monika Joseph MD ? ? 03/06/2024 ?4:42 PM Nerve Block Nerve Block Procedure List: popliteal canal and adductor canal blocks. Patient Location: PACULaterality: RightPost Op Pain: Start Time: 03/06/2024 4:10 PMEnd Time: 03/06/2024 4:32 PMPost Op Pain Management requested by surgeon per surgical: Pr ogress NoteAnesthesiologist: Ranjith Mora MDResident/FISHER DIVING: Monika Joseph MDPerformed by: resident/CRNAPreanesthetic timeout completed prior to procedure: patient identified,IV checked, site marked, risks and benefits discussed, surgical consent, monitors and equipment checked, pre-op evaluation, timeout performedInformed consent obtained patient wishes to proceed: yesPatient Position:supineSterile Prep/Drape: YesMonitoring: continuous pulse ox, blood pressure and ECGInjection Technique: single-shotNerve Block Needle Type: pajunk.Needle Gauge: 22 GNeedle 2 length (in): 80mm.Numberof Attempts: 1Technique: Ultrasound guided, Negative aspiration and Intermittent aspiration during injectionSensory Effect: AdequateEvents: Patient tolerated procedure well and Negative Aspiration Medications Given: Regional:Bupiv 0.25% 50 mLUnCommunity Hospital TIME OR (NON-REPORTABLE)2024-03-06 20:17:54These images do not require a Radiology diagnostic report.[facility] TIME OR (NON-REPORTABLE)2024-03-06 20:17:54These images do not require a Radiology diagnostic report.[facility] HospitalIntubation 2024-03-06 18:57:00Thomas Boss MD ? ? 03/06/2024 ?2:08 PMIntubationDate/Time: 03/06/2024 1:57 PMUrgency: elective Airway not difficult General Information and Staff Patient location during procedure: ORPerformed: resident/FISHER DIVING Performed by: Thomas Boss MDAuthorized by: Chris Denton MD ? Indications and Patient ConditionIndications for airway management: anesthesia and airway protectionSpontaneous Ventilation: absentSedation level: deepPreoxygenated: yesPatient position: sniffingMask difficultyassessment: 2 - vent by mask + OA or adjuvant +/- NMBA Final Airway DetailsFinal airway type: endotracheal airway Successful airway: ETTCuffed: yes Successful intubation technique: direct laryngoscopyFacilitating devices/methods: intubating styletEndotracheal tube insertion site: oralBlade: MacintoshBlade size: #3ETT size (mm): 7.0Cormack-Lehane Classification: grade I - full view of glottisPlacement verified by: capnometry and palpation of cuff Cuff volume (mL): 8Measured from: lipsNumber of attempts at approach: 1 Additional CommentsSmooth, atraumatic, dentition and lips unchanged from pre-opUnMedical Center HospitalXR FOOT <3 VW [id number] 20:07:35History: pain . Exam: XR FOOT <3 VW RIGHT Date: 03/04/2024 2:00 PM Ordering provider: FRANSICO A MAYES Comparison: Right ankle x-ray from 02/18/2024. Findings: AP and lateral x-rays of the right foot are obtained. Overlyingcast obscures the underlying bony detail. No definite evidence of adisplaced fracture or dislocation.[facility] HospitalXR FOOT <3 VW [id number] 20:07:35History: pain . Exam: XR FOOT <3 VW RIGHT Date: 03/04/2024 2:00 PM Ordering provider: FRANSICO Waite MAYES Comparison: Right ankle x-ray from 02/18/2024. Findings: AP and lateral x-rays of the right foot are obtained. Overlyingcast obscures the underlying bony detail. No definite evidence of adisplaced fracture or dislocation.[facility]. METABOLIC PANEL (95400)2024-03-04 17:57:00* Test Item Value Reference Range Interpretation Comme nts NA (test code = 3883358782) 139 mmol/L 135-145 K (test code = 7291096877) 4.0 mmol/L 3.5-5.0 CL (test code = 0198250110) 103 mmol/L 98-108 CO2 TOTAL (test code = 2087276291) 29 mmol/L 23-31 AGAP (test code = 5169666588) 7 2-16 BUN (test code = 4763598530) 13 mg/dL 7-23 GLUCOSE (test code = 4768491472) 87 mg/dL 70-110 CREATININE (test code = 2160-0) 0.66 mg/dL 0.50-1.04 TOTAL BILI (test code = 0232918106) 0.8 mg/dL 0.1-1.1 CALCIUM (test code = 2527835769) 9.5 mg/dL 8.6-10.6 T PROTEIN (test code = 1305626361) 6.4 g/dL 6.3-8.2 ALBUMIN (test code = 6876017120) 4.2 g/dL 3.5-5.0 ALK PHOS (test code = 7944063483) 61 U/L 34-122 ALTv (test code = 1742-6) 29 U/L 5-35 AST(SGOT) (test code = 5406290744) 26 U/L 13-40 eGFR (test code = 37282-7) 122.0 mL/min/1.73m2 CKD-EPI eGFR (20 21). Assuming creatinine has been stable day-to-day for at least three months, the eGFR indicates Category G1 (>= 90 mL/min/1.73 m2) [facility] HospitalMagnesium2024-09-11 17:57:00* Test Item Value Reference Range Interpretation Comme nts MAGNESIUM (test code = 6548106471) 1.9 mg/dL 1.7-2.4 Lab Interpretation (test cod e = 54682-4) Normal [facility] HospitalCOMP. METABOLIC PANEL (80957)2024-03-04 17:57:00* Test Item Value Reference Range Interpretation Comme nts NA (test code = 7717076881) 139 mmol/L 135-145 K (test code = 2105698907) 4.0 mmol/L 3.5-5.0 CL (test code = 0447923990) 103 mmol/L 98-108 CO2 TOTAL (test code = 1407312676) 29 mmol/L 23-31 AGAP (test code = 2273792306) 7 2-16 BUN (test code = 5017947619) 13 mg/dL 7-23 GLUCOSE (test code = 7304162509) 87 mg/dL 70-110 CREATININE (test code = 2160-0) 0.66 mg/dL 0.50-1.04 TOTAL BILI (test code = 3658322768) 0.8 mg/dL 0.1-1.1 CALCIUM (test code = 7053450517) 9.5 mg/dL 8.6-10.6 T PROTEIN (test code = 9903042412) 6.4 g/dL 6.3-8.2 ALBUMIN (test code = 8568096528) 4.2 g/dL 3.5-5.0 ALK PHOS (test code = 7750355905) 61 U/L 34-122 ALTv (test code = 1742-6) 29 U/L 5-35 AST(SGOT) (test code = 4538858107) 26 U/L 13-40 eGFR (test code = 27305-8) 122.0 mL/min/1.73m2 CKD-EPI eGFR (20 21). Assuming creatinine has been stable day-to-day for at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
--- NOTE | 2024-07-30 18:04 | RAD REPORT ---
EXAM: CT brain without contrast HISTORY: TRAUMA COMPARISON: None TECHNIQUE: Multiple contiguous axial images were obtained and a CT of the brain without contrast. Sag ittal and coronal reformats were performed. FINDINGS: No evidence of hydrocephalus, intracranial hemorrhage, or extra-axial fluid collection. The brain is normal in morphology. Nondisplaced fissure fracture involving the occipital bone left of midline extending to the margin of the foramen magnum. Mild left scalp swelling with skin ricardo in place. Mild to moderate mucosal thickening along the right maxillary sinus.Left mastoid air cells show patchy opacification, with no discrete left temporal bone fracture visualized. IMPRESSION: No evidence of acute intracranial abnormality. Nondisplaced left occipital fissure fracture, with overlying skin ricardo. EXAM: CT of the cervical spine without contrast HISTORY: TRAUMA COMPARISON: None TECHNIQUE: Multiple contiguous axial images were obtained in a CT of the cervical spine without contr ast. Sagittal and coronal reformats were performed. FINDINGS: The vertebral bodies demonstrate normal height and alignment. No evidence of acute fracture or subluxation.. No degenerative changes are present. No prevertebral soft tissue swelling is seen. The posterior facets are well aligned. Normal alignment of the skull base with the cervical spine is seen. The lung apices are unremarkable. IMPRESSION: No evidence of acute osseous abnormality of the cervical spine.
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
[2024-07-30 18:46] VITALS: O2SAT 100
[2024-07-30 18:48] VITALS: BP 124/74; TEMP 98.4
== END 2024-07-30 18:43 | disposition home or self-care (01) ==
LOC: ER 15:33
DX: S06.0X9A Concussion with loss of consciousness of unspecified duration, initial encounter (principal); S02.119A Unspecified fracture of occiput, initial encounter for closed fracture; W01.0XXA Fall on same level from slipping, tripping and stumbling without subsequent striking against object, initial encounter
CPT/HCPCS: 70450; 72125; 99282